=== PATIENT | female | born 1970 | race Hispanic/Latino ===

== ENCOUNTER 2018-01-20 21:10 | Inpatient (IN) | payer BC, SELFPAY ==
[2018-01-20 22:12] LABS: Absolute Lymphocytes (CBC) 1.1 K/uL (0.7-4.9); Absolute Monocytes 0.7 K/uL (0.1-1.3); Absolute Neutrophil 11.1 K/uL (1.8-8.0); Basophils % 0.5 % (0-1.3); Eosinophils % 0.8 % (0-4.4); Hematocrit 43.2 % (36.0-45.0); Lymphocytes % 8.5 % (15.3-44.8); MCH 29.1 pg (27.0-35.0); MCV 85.5 fL (80-100); MPV 8.8 fL (7.6-11.3); Monocytes % 5.3 % (3.3-12.3); RBC Red Blood Cell Count 5.06 M/uL (3.86-4.86)
[2018-01-20 22:21] LABS: Bicarbonate 30 mEq/L (21-31); Glucose Level 269 mg/dL (65-120); Lipase 15 U/L (22-51); Potassium 3.9 mEq/L (3.6-5.0); Sodium Level 134 mEq/L (135-145)
[2018-01-20 22:27] LABS: ALT/SGPT 33 IU/L (10-60); AST/SGOT 21 IU/L (10-42); Albumin 4.3 g/dL (3.2-5.5); Alkaline Phosphatase 67 IU/L (42-121); Amylase Level 42 U/L (28-100); BUN Blood Urea Nitrogen 12 mg/dL (6-20); Bilirubin Direct 0.1 mg/dL (0-0.2); Bilirubin Total 0.7 mg/dL (0.3-1.2); Protein, Total 7.9 g/dL (6.0-8.3)
[2018-01-20] MEDS ORDERED: KETOROLAC 30 MG/ML INJ ONE (23:03)
[2018-01-20] MEDS ORDERED: ONDANSETRON 4 MG/2 ML VIAL ONE (23:03)
[2018-01-20] MEDS ORDERED: NA CHLORIDE 0.9% 1,000 ML ONE (23:03)
--- NOTE | 2018-01-20 23:41 | ER ---
Nurse's Notes [facility] Name: Libia Morin Age: 47 yrs Sex: Female : 1970 Arrival Date: 01/20/2018 Time: 21:15 Bed 19 Private MD: Diagnosis: Acute cholecystitis Presentation: 01/20 21:17 Presenting complaint: Patient states: RUQ pain and vomiting since this am. Transition aa1 of care: patient was not received from another setting of care. Onset of symptoms was January 20, 2018. Initial Sepsis Screen: Does the patient meet any 2 criteria? No. Patient's initial sepsis screen is negative. Care prior to arrival: None. 21:17 Method Of Arrival: Ambulatory aa1 21:17 Acuity: RUDDY 3 aa1 Triage Assessment: 21:19 General: Appears in no apparent distress. comfortable, Behavior is calm, cooperative, aa1 appropriate for age. DIRECTOR PHYSICAL THERAPY: 21:19 LMP N/A - Hysterectomy aa1 Historical: - Allergies: 21:19 No Known Allergies; aa1 - Home Meds: 21:19 metformin 850 mg Oral tab 1 tab 2 times per day [Active]; aa1 lisinopril-hydrochlorothiazide 20-25 mg oral tab 1 tab once daily [Active]; amlodipine 5 mg tab 1 tab twice a day [Active]; - PMHx: 21:19 Diabetes - NIDDM; Hypertension; aa1 - PSHx: 21:19 Tubal ligation; Hysterectomy; aa1 - Immunization history:: Flu vaccine is not up to date. - Social history:: Smoking status: Patient/guardian denies using tobacco. Screenin:16 Abuse screen: Denies threats or abuse. Denies injuries from another. Nutritional aa1 screening: No deficits noted. Tuberculosis screening: No symptoms or risk factors identified. Fall Risk None identified. Assessment: 22:16 General: Appears in no apparent distress. uncomfortable, Behavior is calm, cooperative, aa1 appropriate for age. Pain: Complains of pain in right upper quadrant. Neuro: Level of Consciousness is awake, alert, obeys commands, Oriented to person, place, time, situation, Moves all extremities. Full function Gait is steady. Respiratory: Airway is patent Respiratory effort is even, unlabored, Respiratory pattern is regular, symmetrical. GI: Abdomen is non-distended, Bowel sounds present X 4 quads. Abd is soft X 4 quads Abdomen is tender to palpation in right upper quadrant Reports upper abdominal pain, nausea, vomiting. : No signs and/or symptoms were reported regarding the genitourinary system. EENT: No signs and/or symptoms were reported regarding the EENT system. Derm: Skin is intact, is healthy with good turgor, Skin is pink, warm \T\ dry. Musculoskeletal: Circulation, motion, and sensation intact. Capillary refill < 3 seconds. 23:16 Reassessment: Patient appears in no apparent distress at this time. Patient and/or aa1 family updated on plan of care and expected duration. Pain level reassessed. Patient is alert, oriented x 3, equal unlabored respirations, skin warm/dry/pink. Awaiting u/s results. 01/21 00:30 Reassessment: Patient appears in no apparent distress at this time. Patient and/or aa1 family updated on plan of care and expected duration. Pain level reassessed. Patient is alert, oriented x 3, equal unlabored respirations, skin warm/dry/pink. Awaiting admission orders. 01:27 Reassessment: Patient appears in no apparent distress at this time. Patient and/or aa1 family updated on plan of care and expected duration. Pain level reassessed. Patient is alert, oriented x 3, equal unlabored respirations, skin warm/dry/pink. Report given to Patricia Cruz LVN. Vital Signs: 01/20 21:19 BP 128 / 87; Pulse 90; Resp 18; Temp 97.4; Pulse Ox 98% on R/A; Weight 99.79 kg (R); aa1 Height 5 ft. 3 in. (160.02 cm); Pain 8/10; 23:16 BP 142 / 95; Pulse 75; Resp 16; Pulse Ox 99% on R/A; aa1 01/21 00:30 BP 144 / 88; Pulse 88; Resp 16; Pulse Ox 98% on R/A; aa1 01:24 BP 106 / 72; Pulse 72; Resp 16; Temp 97.6; Pulse Ox 99% on R/A; Pain 2/10; aa1 01/20 21:19 Body Mass Index 38.97 (99.79 kg, 160.02 cm) aa1 ED Course: 01/20 21:15 Patient arrived in ED. es 21:18 Triage completed. aa1 21:19 Arm band placed on left wrist. aa1 21:20 [facility]C [facility] kb 21:20 Gómez Junior MD is Attending Physician. kb 22:00 Urine collected: clean catch specimen. aa1 22:06 Initial lab(s) drawn, by me, sent to lab. Inserted saline lock: 20 gauge in right aj1 antecubital area, using aseptic technique. Blood collected. 22:15 Mariela Greenfield, DESI is Primary Nurse. aa1 22:16 Patient has correct armband on for positive identification. Bed in low position. Call aa1 light in reach. Pulse ox on. NIBP on. 22:49 US Abdomen Limited In Process Unspecified. EDMS 23:40 Gerald Watson MD is Hospitalizing Provider. kb 01/21 01:25 No provider procedures requiring assistance completed. Patient admitted, IV remains in aa1 place. Administered Medications: 01/20 23:10 Drug: NS 0.9% 1000 ml Route: IV; Rate: 1000 ml; Site: right antecubital; aa1 01/21 00:49 Follow up: IV Status: Completed infusion aa1 01/20 23:10 Drug: TORadol 30 mg Route: IVP; Site: right antecubital; aa1 01/21 00:49 Follow up: Response: No adverse reaction; Pain is decreased aa1 01/20 23:12 Drug: Zofran 4 mg Route: IVP; Site: right antecubital; aa1 01/21 00:48 Follow up: Response: No adverse reaction; Nausea is decreased aa1 01/20 23:53 CANCELLED (Duplicate Order): Rocephin - (cefTRIAXone) 1 grams IVPB once over 30 mins; aa1 (mix in 50 mL NS) 01/21 00:40 Drug: Flagyl 500 mg Volume: 100 ml; Route: IVPB; Rate: 200 ml/hr; Infused Over: 30 aa1 mins; Site: right antecubital; 01:10 Follow up: IV Status: Completed infusion aa1 00:57 Drug: Rocephin 1 grams Route: IV; Rate: calculated rate; Site: right antecubital; aa1 01:07 Follow up: IV Status: Completed infusion aa1 Outcome: 01/20 23:40 Decision to Hospitalize by Provider. kb 01/21 01:35 Admitted to Med/surg accompanied by tech, via wheelchair, room 212, with chart, Report aa1 called to Patricia Cruz LVN Condition: stable Instructed on the need for admit, Demonstrated understanding of instructions. 01:49 Patient left the ED. aa1 Signatures: Dispatcher [employer] Lilli Cowan, RESEARCH MICROBIOLOGIST-C OXANA-Ladonna Carreon RN RN aj1 Mariela Greenfield RN RN aa1 Melvi Jiang
--- NOTE | 2018-01-20 23:41 | EDPHYS ---
Physician Documentation [facility] Name: Libia Morin Age: 47 yrs Sex: Female : 1970 Arrival Date: 01/20/2018 Time: 21:15 Bed 19 Private MD: ED Physician Gómez Junior HPI: 01/20 21:58 This 47 yrs old Female presents to ER via Ambulatory with complaints of kb Abdominal Pain, Vomiting. 21:58 The patient presents with abdominal pain in the right upper quadrant. Onset: The kb symptoms/episode began/occurred this morning. The symptoms do not radiate. Associated signs and symptoms: Pertinent positives: nausea and vomiting, Pertinent negatives: anorexia, constipation, diarrhea, fever. The symptoms are described as achy. Modifying factors: The symptoms are alleviated by nothing, the symptoms are aggravated by nothing. Severity of pain: At its worst the pain was moderate in the emergency department the pain is unchanged. The patient has experienced a previous episode. The patient has not recently seen a physician. DIRECTOR OF LEARNING: 21:19 LMP N/A - Hysterectomy aa1 Historical: - Allergies: 21:19 No Known Allergies; aa1 - Home Meds: 21:19 metformin 850 mg Oral tab 1 tab 2 times per day [Active]; aa1 lisinopril-hydrochlorothiazide 20-25 mg oral tab 1 tab once daily [Active]; amlodipine 5 mg tab 1 tab twice a day [Active]; - PMHx: 21:19 Diabetes - NIDDM; Hypertension; aa1 - PSHx: 21:19 Tubal ligation; Hysterectomy; aa1 - Immunization history:: Flu vaccine is not up to date. - Social history:: Smoking status: Patient/guardian denies using tobacco. ROS: 21:57 Constitutional: Negative for fever, chills, and weight loss, Cardiovascular: Negative kb for chest pain, palpitations, and edema, Respiratory: Negative for shortness of breath, cough, wheezing, and pleuritic chest pain, Back: Negative for injury and pain, : Negative for injury, bleeding, discharge, and swelling, MS/Extremity: Negative for injury and deformity, Skin: Negative for injury, rash, and discoloration, Neuro: Negative for headache, weakness, numbness, tingling, and seizure. 21:57 Abdomen/GI: Positive for abdominal pain, nausea and vomiting, Negative for diarrhea, constipation, abdominal cramps, abdominal distension, anorexia. Exam: 21:57 Constitutional: This is a well developed, well nourished patient who is awake, alert, kb and in no acute distress. Head/Face: Normocephalic, atraumatic. Chest/axilla: Normal chest wall appearance and motion. Nontender with no deformity. No lesions are appreciated. Cardiovascular: Regular rate and rhythm with a normal S1 and S2. No gallops, murmurs, or rubs. Normal PMI, no JVD. No pulse deficits. Respiratory: Lungs have equal breath sounds bilaterally, clear to auscultation and percussion. No rales, rhonchi or wheezes noted. No increased work of breathing, no retractions or nasal flaring. Back: No spinal tenderness. No costovertebral tenderness. Full range of motion. Skin: Warm, dry with normal turgor. Normal color with no rashes, no lesions, and no evidence of cellulitis. MS/ Extremity: Pulses equal, no cyanosis. Neurovascular intact. Full, normal range of motion. Neuro: Awake and alert, GCS 15, oriented to person, place, time, and situation. Cranial nerves II-XII grossly intact. Motor strength 5/5 in all extremities. Sensory grossly intact. Cerebellar exam normal. Normal gait. 21:57 Abdomen/GI: Inspection: abdomen appears normal, Bowel sounds: normal, in all quadrants, Palpation: soft, in all quadrants, moderate abdominal tenderness, in the right upper quadrant. Vital Signs: 21:19 BP 128 / 87; Pulse 90; Resp 18; Temp 97.4; Pulse Ox 98% on R/A; Weight 99.79 kg (R); aa1 Height 5 ft. 3 in. (160.02 cm); Pain 8/10; 23:16 BP 142 / 95; Pulse 75; Resp 16; Pulse Ox 99% on R/A; aa1 01/21 00:30 BP 144 / 88; Pulse 88; Resp 16; Pulse Ox 98% on R/A; aa1 01:24 BP 106 / 72; Pulse 72; Resp 16; Temp 97.6; Pulse Ox 99% on R/A; Pain 2/10; aa1 01/20 21:19 Body Mass Index 38.97 (99.79 kg, 160.02 cm) aa1 MDM: 01/20 21:53 Patient medically screened. kb 21:57 Data reviewed: vital signs, nurses notes. Data interpreted: Pulse oximetry: on room air kb is 98 %. Interpretation: normal. 23:36 Counseling: I had a detailed discussion with the patient and/or guardian regarding: the kb historical points, exam findings, and any diagnostic results supporting the discharge/admit diagnosis, lab results, radiology results, the need for further work-up and treatment in the hospital. Physician consultation: Roberto Adamson MD was contacted at 23:39, regarding consult, patient's condition, and will see patient in inpatient room. 23:39 Physician consultation: Gerald Watson MD was contacted at 23:40, regarding admission, kb to the medical/surgical unit. patient's condition, and will see patient in ED, shortly. 01/20 21:57 Order name: Amylase, Serum; Complete Time: 22:30 kb 01/20 21:57 Order name: Basic Metabolic Panel; Complete Time: 22:30 kb 01/20 21:57 Order name: CBC with Diff; Complete Time: 22:22 kb 01/20 21:57 Order name: Hepatic Function; Complete Time: 22:30 kb 01/20 21:57 Order name: Lipase; Complete Time: 22:30 kb 01/20 22:14 Order name: Urine Dipstick--Ancillary (enter results); Complete Time: 00:07 em1 01/20 21:57 Order name: US Abdomen Limited kb 01/20 22:14 Order name: Urine --Ancillary (enter results); Complete Time: 00:07 em1 01/20 21:57 Order name: IV Saline Lock; Complete Time: 22:05 kb 01/20 21:57 Order name: Labs collected and sent; Complete Time: 22:06 kb 01/20 21:57 Order name: Urine Dipstick-Ancillary (obtain specimen); Complete Time: 22:13 kb 01/20 23:43 Order name: CONS Physician Consult EDMS 01/20 23:43 Order name: NPO EDMS Administered Medications: 23:10 Drug: NS 0.9% 1000 ml Route: IV; Rate: 1000 ml; Site: right antecubital; aa01/21 00:49 Follow up: IV Status: Completed infusion aa01/20 23:10 Drug: TORadol 30 mg Route: IVP; Site: right antecubital; aa1 01/21 00:49 Follow up: Response: No adverse reaction; Pain is decreased aa1 01/20 23:12 Drug: Zofran 4 mg Route: IVP; Site: right antecubital; aa1 01/21 00:48 Follow up: Response: No adverse reaction; Nausea is decreased aa1 01/20 23:53 CANCELLED (Duplicate Order): Rocephin - (cefTRIAXone) 1 grams IVPB once over 30 mins; aa1 (mix in 50 mL NS) 01/21 00:40 Drug: Flagyl 500 mg Volume: 100 ml; Route: IVPB; Rate: 200 ml/hr; Infused Over: 30 aa1 mins; Site: right antecubital; 01:10 Follow up: IV Status: Completed infusion aa1 00:57 Drug: Rocephin 1 grams Route: IV; Rate: calculated rate; Site: right antecubital; aa1 01:07 Follow up: IV Status: Completed infusion aa1 Disposition: 01/20/18 23:40 Hospitalization ordered by Gerald Watson for Observation. Preliminary diagnosis is Acute cholecystitis. - Bed requested for Telemetry/MedSurg (observation). - Status is Observation. aa1 - Condition is Stable. - Problem is new. - Symptoms are unchanged. UTI on Admission? No Addendum: 01/22/2018 19:01 Co-signature as Attending Physician, Gómez Junior MD I agree with the assessment and c estrada plan of care. Signatures: Dispatcher [employer] EDMT Lilli Dietz FNP-C FNP-Delma Le RN RN Mariela Greenfield RN RN aa1 Gómez Junior MD MD cha Corrections: (The following items were deleted from the chart) 01/20 23:53 23:40 Rocephin - (cefTRIAXone) 1 grams IVPB once over 30 mins; (mix in 50 mL NS) aa1 ordered. kb
[2018-01-20] MEDS ORDERED: METRONIDAZOLE 500mg IVPB 500 MG/100 ML BAG IV ONE (23:55)
[2018-01-21 00:04] LABS: Urine Blood TRACE (NEG); Urine Glucose 2+ (NEG); Urine Protein 1+ (NEG); Urine Specific Gravity 1.025 (1.005-1.030); Urine pH 6.5 (5.0-7.0)
[2018-01-21] MEDS ORDERED: NA CHLORIDE 0.9% 0 ML IV ONE (00:45)
[2018-01-21] MEDS ORDERED: CEFTRIAXONE 1000 MG/VIAL ONE (00:45)
[2018-01-21] MEDS ORDERED: ACETAMINOPHEN 500 MG TAB PO PRN (01:01)
[2018-01-21] MEDS ORDERED: ONDANSETRON 4 MG/2 ML VIAL IV PRN (01:01)
--- NOTE | 2018-01-21 01:10 | P.HP ---
Certification for Inpatient Patient admitted to: Observation With expected LOS: <2 Midnights Practitioner: I am a practitioner with admitting privileges, knowledge of patient current condition, hospital course, and medical plan of care. Services: Services provided to patient in accordance with Admission requirements found in Title 42 Section 412.3 of the Code of Federal Regulations Patient History Date of Service: 01/21/18 Reason for admission: acute cholecystitis History of Present Illness: Ms Morin is a 47 years old woman with history of DM II, HTN, who start this morning with abdominal pain. Her pain was mostly localized on RUQ. It was constant, colicky like, 8/10 of intensity, associated with nausea and vomiting. She has had this pain before. The patient denied fever or chills. At arrival she was afebrile, WBC elevated 13.1, liver panel WNL, however, abd US was remarkable for cholelithiasis with signs of acute cholecystitis. Allergies No Known Drug Allergies Allergy (Unverified 10/19/14 18:23) Unknown - Past Medical/Surgical History -: DM II -: HTN -: tubal ligation -: hysterctomy - Family History Family History: Reviewed- Non-Contributory - Social History Smoking Status: Never smoker Alcohol use: No CD- Drugs: No Place of Residence: Home Review of Systems 10-point ROS is otherwise unremarkable Physical Examination - Physical Exam General: Alert, In no apparent distress HEENT: Atraumatic, PERRLA, Mucous membr. moist/pink, EOMI, Sclerae nonicteric Neck: Supple, 2+ carotid pulse no bruit, No LAD, Without JVD or thyroid abnormality Respiratory: Clear to auscultation bilaterally, Normal air movement Cardiovascular: Regular rate/rhythm, Normal S1 S2 Gastrointestinal: Normal bowel sounds, Tenderness (RUQ) Musculoskeletal: No tenderness Integumentary: No rashes Neurological: Normal speech, Normal strength at 5/5 x4 extr, Normal tone, Normal affect Lymphatics: No axilla or inguinal lymphadenopathy - Studies Laboratory Data (last 24 hrs) 01/20/18 22:03: WBC 13.1 H, Hgb 14.7, Hct 43.2, Plt Count 285 01/20/18 22:03: Sodium 134 L, Potassium 3.9, BUN 12, Creatinine 0.60, Glucose 269 H, Total Bilirubin 0.7, AST 21, ALT 33, Alkaline Phosphatase 67, Amylase 42 , Lipase 15 L Assessment and Plan - Problems (Diagnosis) (1) Cholecystitis Current Visit: Yes Status: Acute (2) Diabetes mellitus Current Visit: Yes Status: Acute Qualifiers: Diabetes mellitus type: type 2 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 Diabetes mellitus complication status: with unspecified complications Qualified Code(s): E11.8 - Type 2 diabetes mellitus with unspecified complications (3) HTN (hypertension) Current Visit: Yes Status: Acute Qualifiers: Hypertension type: essential hypertension Qualified Code(s): I10 - Essential (primary) hypertension (4) Cholelithiasis Current Visit: Yes Status: Acute Qualifiers: Cholelithiasis location: gallbladder Cholecystitis presence: with cholecystitis Cholecystitis acuity: acute Biliary obstruction: without biliary obstruction Qualified Code(s): K80.00 - Calculus of gallbladder with acute cholecystitis without obstruction - Plan The patient will be admitted to the hospital due to acute cholecystitis. Will start empiric antibiotic treatment, keep her NPO, order MRCP, consult Dr Adamson. - Advance Directives Does patient have a Living Will: No Does patient have a Durable POA for Healthcare: No - Code Status/Comfort Care Code Status Assessed: Yes Code Status: Full Code
[2018-01-21] MEDS ORDERED: KETOROLAC 30 MG/ML INJ IV PRN (01:32)
[2018-01-21] MEDS: NA CHLORIDE 0.9% 1,000 ML IV SCH ×3 (02:00→22:16)
[2018-01-21 02:02] VITALS: BMI 38.5
[2018-01-21] MEDS ORDERED: PIPERACIL/TAZO 3.375 GM VIAL IV ONE (03:29)
[2018-01-21] MEDS ORDERED: NA CHLORIDE 0.9% 100 ML ONE (03:36)
[2018-01-21] MEDS ORDERED: PIPER/TAZO/NS 3.375gm 3.375 GM/100 ML BAG IVPB SCH (06:00)
[2018-01-21] MEDS: INSULIN -REGULAR HUMAN 50 UNIT/0.5 ML ML SQ SCH ×4 (06:00→21:10)
--- NOTE | 2018-01-21 08:27 | RAD REPORT ---
EXAM DESCRIPTION: US - Abdomen Exam Limited - 01/20/2018 10:49 pm CLINICAL HISTORY: Abdominal pain. COMPARISON: 03/28/2012 FINDINGS: The gallbladder demonstrates multiple shadowing gallstones. No pericholecystic fluid or ga llbladder wall thickening. The common bile duct is normal measuring 3 mm. The liver demonstrates no findings of intrahepatic biliary dilatation. IMPRESSION: Cholelithiasis.
[2018-01-21] MEDS: PIPER/TAZO/NS 3.375gm 3.375 GM/100 ML BAG IVPB SCH ×2 (09:28→16:57)
--- NOTE | 2018-01-21 09:35 | RAD REPORT ---
EXAM DESCRIPTION: MRIAbdomen (Gallbladder) CLINICAL HISTORY: Abdominal pain COMPARISON: Ultrasound study 01/20/2018 FINDINGS: Gallstones are present in the gallbladder which is mildly distended. A large gallstone angelo suring 4 cm is seen within the mid gallbladder and several smaller gallstones present in the fundal r egion. A few gallstones are also noted in the cystic duct. There is no evidence of intrahepatic or extrahepatic biliary tree dilatation. Very little to no peric holecystic fluid is present on the limited T2 weighted sequences. The gallbladder wall does not appea r particularly thickened. IMPRESSION: Cholelithiasis is noted with several small gallstones present in the cystic duct. There is no evidence of intra or extrahepatic biliary tree dilatation. The gallbladder is mildly dilated, however, very little or no pericholecystic fluid thickening is see n except for subtle areas of thickening adjacent to the large 4 cm stone in the mid gallbladder. If clinical concern for acute cholecystitis remains, HIDA scan may be useful.
[2018-01-21] MEDS ORDERED: NA CHLORIDE 0.9% 1,000 ML ONE ×2 (11:17→12:22)
[2018-01-21] MEDS ORDERED: PROPOFOL 200 MG/20 ML VIAL IV ONE (11:32)
[2018-01-21] MEDS ORDERED: LIDOCAINE 1% MPF 5 ML VIAL ONE (11:32)
[2018-01-21] MEDS ORDERED: ROCURONIUM 50 MG/5 ML VIAL IV ONE (11:32)
[2018-01-21] MEDS ORDERED: MIDAZOLAM HCL 2 MG/2 ML INJ ONE (11:32)
[2018-01-21] MEDS ORDERED: FENTANYL CITR 100 MCG/2 ML ONE ×3 (11:32→12:20)
[2018-01-21] MEDS ORDERED: GLYCOPYRROLATE 0.2 MG/ML SYR ONE ×2 (12:04)
[2018-01-21] MEDS ORDERED: NEOSTIGMINE 1 MG/ML -5 ML SYRINGE ONE (12:04)
[2018-01-21] MEDS ORDERED: KETOROLAC 30 MG/ML INJ ONE (12:04)
[2018-01-21] MEDS ORDERED: ONDANSETRON 4 MG/2 ML VIAL ONE (12:04)
--- NOTE | 2018-01-21 14:02 | P.BOP ---
Preoperative diagnosis: acute cholecystitis, symptomatic cholelithiasis, morbid obesity Postoperative diagnosis: same Primary procedure: Laparoscopic cholecystectomy Clerk Specialist: AMY PAREDES Estimated blood loss: <10cc Specimen: gb Findings: same Anesthesia: General Complications: None Drain(s): Other Transferred to: Recovery Room Condition: Good
[2018-01-21] MEDS ORDERED: GLUCAGON 1 MG/VIAL IM PRN (15:35)
[2018-01-21] MEDS ORDERED: D50W 25 GM/50 ML SYRINGE IV PRN (15:35)
--- NOTE | 2018-01-21 19:13 | PN ---
Date of Progress Note: 01/21/2018 Subjective: The patient seen and examined, chart reviewed, and case discussed with RN and Dr. Petr alvarenga. The patient reports pain in her abdomen. The patient will be scheduled for surgery this afterno on. Review of Systems: Negative except as above. Medications: Reviewed. Physical Examination: Vital Signs: Temperature 98, heart rate 84, blood pressure 119/73, respirations 16, and O2 96% on ro om air. General: Awake, alert, oriented x3, does have mild distress. Obese female. BMI 38. CV: S1, S2. No murmurs. Regular rate and rhythm. Peripheral pulses present. Respiratory: moving air well bilaterally. No wheezing. No stridor. Gastrointestinal: Abdomen is soft and mild tenderness to palpation of the right upper quadrant. No rebound or guarding. Nondistended. Positive bowel sounds. Extremities: No clubbing, cyanosis, edema. Neurologic: Nonfocal. Laboratory Data: Magnesium 1.7. MRCP shows cholelithiasis with several small gallstones present in the cystic duct. No evidence of intra or extrahepatic biliary tree dilatation. No pericholecystic f luid or thickening is seen except for subtle areas of thickening adjacent to the large 4 cm stone in the mid gallbladder. Abdominal ultrasound, gallbladder wall, upper limit of normal thickness measuri ng 3 cm. Equivocal trace pericholecystic fluid, cholelithiasis. Assessment And Plan: A 47-year-old female with; 1.Right upper quadrant abdominal pain secondary to cholelithiasis. 2.Acute cholecystitis. We will continue IV antibiotics. Surgery has been consulted. The patient w ill likely need cholecystectomy. 3.Diabetes mellitus type 2 without long-term use of insulin with hyperglycemia. Continue sliding sc miriam insulin. 4.Obesity, body mass index 38. 5.Essential hypertension, stable. Resume home medications as appropriate. 6.Cholelithiasis with cholecystitis without biliary obstruction. MRCP is negative, anticipate surge ry. SA/MODL Voice ID: [id number] Report ID: [id number]
[2018-01-21] MEDS: HYDROCODONE/APAP 7.5/325 MG TAB PO PRN (19:28)
--- NOTE | 2018-01-21 23:13 | HP ---
Date of Admission: 01/20/2018 Diagnoses: Acute cholecystitis, symptomatic cholelithiasis. History Of Present Illness: This is the case of a 47-year-old patient, who complained from yesterday of abdominal pain, epigastric, right upper quadrant radiating to the back associated with nausea and vomiting. The patient came to the ER, admitted with acute cholecystitis, symptomatic cholelithiasis and a surgical consult was obtained for cholecystectomy. The patient denies any dysuria, hematuria, hematochezia, or melena. Denies any recent travel out of the country. Denies any family member sic k at home. Past Medical History: Diabetes, hypertension. Past Surgical History: Include tubal ligation, hysterectomy. Family History: Noncontributory. Social History: She does not smoke. She does not drink alcohol. Allergies: NONE. Review of Systems: Constitutional: Denies any fevers. Respiratory: Denies any shortness of breath. Gastrointestinal: As above. Genitourinary: Denies any dysuria, hematuria. Physical Examination: General: The patient is awake and alert, complaining of right upper quadrant pain. HEENT: Pupils are equal and reactive, anicteric. Neck: Supple. Chest: Clear. Abdomen: Right upper quadrant tenderness with Guzman sign positive with guarding and rebound. The r est of the abdomen soft and depressible. Pelvic: Deferred. Rectal: Deferred. Breasts: Deferred. Extremities: Good capillary refill. Laboratory Data: Blood work shows WBC count of 13.1 with a potassium of 3.9. LFTs within normal [place] its. UA and urine negative. Abdominal ultrasound with Dr. Mcclendon shows cholelithiasis. An MRI/MRCP shows cholelithiasis. There is no evidence of intrahepatic common bile duct. Assessment: This is a 47-year-old patient with acute cholecystitis, symptomatic cholelithiasis. The patient was explained benefits, alternatives, and risks of laparoscopic, possible open cholecystecto my which include but are not limited to infection, bleeding, damage to adjacent structures, anesthesi a complication, choledocholithiasis, bile leak, pancreatitis, [place], and even . She also understan ds this may not relieve any symptoms. She might need more than one surgical intervention. She under stands the option that she has. She wants to have the surgery done during this admission, so she was scheduled secondary to that. HM/MODL Voice ID: [id number]
[2018-01-22 00:48] VITALS: O2SAT 95
--- NOTE | 2018-01-22 01:05 | OP ---
Date of Procedure: 01/21/2018 Surgeon: Roberto Adamson MD Traffic Superintendent: Marci Baez. Preoperative Diagnoses: 1.Acute cholecystitis. 2.Symptomatic cholelithiasis. 3.Morbid obesity. Postoperative Diagnoses: 1.Acute cholecystitis. 2.Symptomatic cholelithiasis. 3.Morbid obesity. Procedure Performed: Laparoscopic cholecystectomy. Estimated Blood Loss: 10 to 20 cc. Specimen: Gallbladder. Findings: Acute cholecystitis, distended gallbladder, and large gallstone. Anesthesia: General plus local. Indications: This is a case of a 47-year-old patient who came to us with acute cholecystitis, sympto matic cholelithiasis, and morbid obesity. The benefits, alternatives, and risks of laparoscopic, pos sible open cholecystectomy were fully explained to the patient, which include but are not limited to infection, bleeding, damage to adjacent structures, anesthesia complications, choledocholithiasis, bi le leak, pancreatitis, MO, and even . She also understands this may not relieve any symptoms. She might need more than one surgical intervention. She understood and wanted to have the surgery do ne during this admission. So, she was booked in the OR. Description Of Procedure: The patient was brought to the operating room, placed in supine position. Anesthesia was done without complication. Abdominal area was prepped and draped in usual sterile fa shion. Marcaine 0.5% was injected for local anesthetic, followed by sharp incision of the skin in th e infraumbilical region. The patient has a prior incision in that area. Incision was carried down t o fascia which was opened under direct vision. Peritoneum was encountered and opened under direct vi abiodun. Vicryl #1 was placed inside the fascia. Abigail trocar was carefully introduced. Pneumoperito neum was obtained. After that, I placed 3 more trocars, 5 mm each one of them, in the right upper qu adrant under direct visualization. We had a distended gallbladder and edematous. So, we used an End o needle under direct visualization and deflated the gallbladder partially. The needle was removed u nder direct visualization. A grasper was placed in the fundus of the gallbladder, another grasper in the infundibulum, retracted the gallbladder in the inferolateral fashion exposing the triangle of Ca lot and obtaining critical view. The cystic duct and cystic artery were clearly isolated free circum ferentially, and the connections between those and the gallbladder were clearly identified. The cyst ic duct was identified. Dilated common bile duct was identified and protected. The hepatic duct and hepatic artery were identified and protected. At the cystic duct, it then looked like the clips dewey ht be just not enough to cover the entire width of that cystic duct. So, we changed the epigastric 5 -mm trocar to a 12-mm trocar, and this allowed me to put an Endo HEMANTH 45 mm, 2.5, and transect the cys tic duct. At that moment, the gallbladder was removed after ligating the cystic artery with at least 3 clips proximally and 1 clip distally and ligation in the middle. Gallbladder was removed from the liver using Bovie cauterizer and removed from abdominal cavity using EndoCatch through the umbilical incision. The area was inspected once again, including checking the gallbladder and also the area o f the HEMANTH clips and also the Endo clips and showed no bile leak and no bleeding. At that moment, I p roceeded to remove the trocars under direct vision, deflated the pneumoperitoneum, closed the fascia with #1 Vicryl, irrigated subcutaneous tissue and closed with 3-0 chromic and the skin with nicole. Sponge counts and instrument counts were correct. The patient tolerated the procedure well. The pa jarvis was sent to Recovery in stable condition. The umbilical incision had to be extended a little b it more than usual due to the size of the gallstone and gallbladder to be able to come through it. T he patient will continue antibiotics and pain control and then eventually discharge home most likely tomorrow morning if she is clinically stable. CHRISTIAN/PILO Voice ID: [id number] Report ID: [id number]
[2018-01-22] MEDS: PIPER/TAZO/NS 3.375gm 3.375 GM/100 ML BAG IVPB SCH ×2 (01:08→09:29)
[2018-01-22 05:12] LABS: Absolute Lymphocytes (CBC) 2.2 K/uL (0.7-4.9); Absolute Monocytes 0.8 K/uL (0.1-1.3); Absolute Neutrophil 7.7 K/uL (1.8-8.0); Basophils % 0.4 % (0-1.3); Eosinophils % 0.7 % (0-4.4); Hematocrit 36.3 % (36.0-45.0); MCH 28.8 pg (27.0-35.0); MCV 87.4 fL (80-100); MPV 8.6 fL (7.6-11.3); Monocytes % 7.5 % (3.3-12.3); RBC Red Blood Cell Count 4.16 M/uL (3.86-4.86)
[2018-01-22 05:15] VITALS: TEMP 99
[2018-01-22 06:02] LABS: ALT/SGPT 59 IU/L (10-60); AST/SGOT 45 IU/L (10-42); Albumin 2.9 g/dL (3.2-5.5); Alkaline Phosphatase 45 IU/L (42-121); BUN Blood Urea Nitrogen 11 mg/dL (6-20); Bicarbonate 27 mEq/L (21-31); Bilirubin Total 0.8 mg/dL (0.3-1.2); Glucose Level 156 mg/dL (65-120); Potassium 3.9 mEq/L (3.6-5.0); Protein, Total 5.2 g/dL (6.0-8.3); Sodium Level 137 mEq/L (135-145)
[2018-01-22] MEDS: HYDROCODONE/APAP 7.5/325 MG TAB PO PRN (07:22)
[2018-01-22] MEDS: INSULIN -REGULAR HUMAN 50 UNIT/0.5 ML ML SQ SCH (07:30)
[2018-01-22 08:47] VITALS: BP 123/77
[2018-01-22] MEDS ORDERED: POTASSIUM CL SA 10 MEQ TAB PO ONE (09:00)
--- NOTE | 2018-01-23 11:00 | DS ---
Date of Discharge: 01/22/2018 Consultants: Roberto Adamson MD Procedures: On 01/21/2018, laparoscopic cholecystectomy. Admitting Diagnoses: 1. Acute cholecystitis. 2. Diabetes mellitus type 2 without long-term use of insulin with hyperglycemia. 3. Essential hypertension. 4. Cholelithiasis with cholecystitis without biliary obstruction. Discharge Diagnoses: 1. Acute cholecystitis, status post laparoscopic cholecystectomy. 2. Cholelithiasis with cholecystitis without biliary obstruction. Magnetic resonance cholangiopancreatography negative. 3. Essential hypertension, stable. 4. Obesity, body mass index 38. 5. Diabetes mellitus type 2 without long-term use of insulin with hyperglycemia. Hospital Course: The patient is a 47-year-old female who was admitted to the hospital with right upper quadrant abdominal pain. She was found to have acute cholecystitis, with elevated white count of 13,000. She did not have any biliary obstruction. Her magnesium level was low which was replaced. The patient was started on IV antibiotics. Her white count normalized. Her imaging study showed a large gallstone, no biliary ductal dilatation, possible acute cholecystitis. MRCP was done which did not show any ductal stone. Dr. Adamson with General Surgery evaluated the patient and performed a cholecystectomy laparoscopically as mentioned above. The patient tolerated the procedure well. She was able to tolerate her diet, was able to have bowel movement. No fevers, able to ambulate. The patient was then cleared for discharge once her pain was improved. The patient was cleared for discharge from surgical standpoint and was sent home in a stable condition. Activity: No lifting over 20 pounds. Diet, bland. No driving or operating heavy machinery while on narcotics. Supplement with fat soluble vitamins. Follow up with primary care physician in 2 to 3 days. Follow up with surgeon, Dr. Adamson in 1 week for wound check. Return to ER for worsening condition. Medications: As per medication reconciliation list. Total time spent discharging the patient was 35 minutes. Physical Examination: General: Awake, alert, and oriented, no acute distress. Obese female. CV: S1 and S2. No murmurs. Respiratory: Moving air well bilaterally. Abdomen: Soft. Mild tenderness to palpation around the incision site. Positive bowel sounds. No distention. Extremities: No clubbing, cyanosis, or edema. Neurologic: Nonfocal. Skin: Incision site clean, dry, and intact on the abdomen. SA/MODL Voice ID: [id number] Report ID: [id number] MTDBart
== END 2018-01-22 11:32 | disposition home or self-care (01) | DRG 419 ==
LOC: ER 21:10 → ERHOLD 23:41 → 2ND 01-21 01:28 → OBSVTOIN 01-22 07:07
PROVIDERS: ADMIT Internal Medicine; ATTEND Family Medicine
PROC: 0FT44ZZ Resection of Gallbladder, Percutaneous Endoscopic Approach (ICD-10-PCS; principal; 2018-01-21 09:45)
DX: K80.00 Calculus of gallbladder with acute cholecystitis without obstruction (principal); E11.9 Type 2 diabetes mellitus without complications; I10 Essential (primary) hypertension; E66.01 Morbid (severe) obesity due to excess calories
CPT/HCPCS: 36415; 74181; 76705; 80048; 80053; 80076; 81003; 81025; 82150; 82962; 83690; 83735; 85025; 88304; 88305; 96361; 96365; 96375; 99285; G0378; J2250; J2405; J2543; J2710; J3010; J7030

== ENCOUNTER 2018-06-08 02:21 | Emergency (ER) | payer BC, SELFPAY ==
--- NOTE | 2018-06-08 03:57 | EDPHYS ---
Physician Documentation [facility] Name: Libia Morin Age: 47 yrs Sex: Female : 1970 Arrival Date: 06/08/2018 Time: 02:22 Bed 6 Private MD: ED Physician Polo Roman HPI: 06/08 03:45 This 47 yrs old Female presents to ER via Ambulatory with complaints of High tw4 Blood Pressure, [place]. 03:45 The patient has elevated blood pressure and discovered this at home, with a home tw4 device. Onset: The symptoms/episode began/occurred today. Modifying factors: The symptoms are aggravated by activity, The symptoms are alleviated by. Associated signs and symptoms: The patient has no apparent associated signs or symptoms. The patient has not experienced similar symptoms in the past. 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 - Social history:: Smoking status: Patient/guardian denies using tobacco, Patient uses alcohol, occasionally. Patient/guardian denies using street drugs. - Ebola Screening: : No symptoms or risks identified at this time. ROS: 03:45 Constitutional: Negative for fever, chills, and weight loss, Eyes: Negative for injury, tw4 pain, redness, and discharge, Cardiovascular: Negative for chest pain, palpitations, and edema, Respiratory: Negative for shortness of breath, cough, wheezing, and pleuritic chest pain, Abdomen/GI: Negative for abdominal pain, nausea, vomiting, diarrhea, and constipation, MS/Extremity: Negative for injury and deformity, Skin: Negative for injury, rash, and discoloration, Neuro: Negative for headache, weakness, numbness, tingling, and seizure. Exam: 03:45 Constitutional: This is a well developed, well nourished patient who is awake, alert, tw4 and in no acute distress. Head/Face: Normocephalic, atraumatic. Chest/axilla: Normal chest wall appearance and motion. Nontender with no deformity. No lesions are appreciated. Cardiovascular: Regular rate and rhythm with a normal S1 and S2. No gallops, murmurs, or rubs. Normal PMI, no JVD. No pulse deficits. Respiratory: Lungs have equal breath sounds bilaterally, clear to auscultation and percussion. No rales, rhonchi or wheezes noted. No increased work of breathing, no retractions or nasal flaring. Abdomen/GI: Soft, non-tender, with normal bowel sounds. No distension or tympany. No guarding or rebound. No evidence of tenderness throughout. Back: No spinal tenderness. No costovertebral tenderness. Full range of motion. MS/ Extremity: Pulses equal, no cyanosis. Neurovascular intact. Full, normal range of motion. Neuro: Awake and alert, GCS 15, oriented to person, place, time, and situation. Cranial nerves II-XII grossly intact. Motor strength 5/5 in all extremities. Sensory grossly intact. Cerebellar exam normal. Normal gait. Vital Signs: 02:37 BP 126 / 82; Pulse 93; Resp 16 S; Temp 98.4(TE); Pulse Ox 98% on R/A; Weight 99.79 kg bb (R); Height 5 ft. 3 in. (160.02 cm) (R); Pain 0/10; 03:30 BP 135 / 95; Pulse 87; Resp 16 S; Pulse Ox 98% on R/A; cc3 04:00 BP 119 / 77; Pulse 72; Resp 15 S; Pulse Ox 98% on R/A; Pain 0/10; cc3 02:37 Body Mass Index 38.97 (99.79 kg, 160.02 cm) bb MDM: 02:29 Patient medically screened. tw4 03:45 Differential diagnosis: hypertensive crisis, Malignant HTN. Data reviewed: vital signs, tw4 nurses notes. Counseling: I had a detailed discussion with the patient and/or guardian regarding: the historical points, exam findings, and any diagnostic results supporting the discharge/admit diagnosis, lab results. Special discussion: I discussed with the patient/guardian in detail that at this point there is no indication for admission to the hospital. It is understood, however, that if the symptoms persist or worsen the patient needs to return immediately for re-evaluation. 06/08 03:48 Order name: Glucose, Ancillary Testing EDMS Administered Medications: No medications were administered Point of Care Testing: Blood Glucose: 03:40 Blood Glucose: 204 mg/dL; jd3 Ranges: Critical Glucose Levels:Adult <50 mg/dl or >400 mg/dl <40 mg/dl or >180 mg/dl Disposition: 06/08/18 03:57 Discharged to Home. Impression: HYPERTENSION. - Condition is Stable. - Discharge Instructions: Hypertension, Hypertension, [id number]. - Medication Reconciliation Form, Thank You Letter, Antibiotic Education, Prescription Opioid Use form. - Follow up: Private Physician; When: Upon discharge from the Emergency Department; Reason: Further diagnostic work-up, Recheck today's complaints, Re-evaluation by your physician. - Problem is new. - Symptoms have improved. Signatures: Dispatcher [employer] EDMS Chelle Archibald RN RN Polo Terry MD MD tw4 Claudia Devine cc3 Corrections: (The following items were deleted from the chart) 04:10 03:57 06/08/2018 03:57 Discharged to Home. Impression: HYPERTENSION. Condition is cc3 Stable. Forms are Medication Reconciliation Form, Thank You Letter, Antibiotic Education, Prescription Opioid Use. Follow up: Private Physician; When: Upon discharge from the Emergency Department; Reason: Further diagnostic work-up, Recheck today's complaints, Re-evaluation by your physician. Problem is new. Symptoms have improved. tw4
--- NOTE | 2018-06-08 03:57 | ER ---
Nurse's Notes [facility] Name: Libia Morin Age: 47 yrs Sex: Female : 1970 Arrival Date: 06/08/2018 Time: 02:22 Bed 6 Private MD: Diagnosis: HYPERTENSION Presentation: 06/08 02:35 Presenting complaint: Patient states: she has not been feeling well all day her blood bb pressure has been high and she woke up with dry mouth. Transition of care: patient was not received from another setting of care. Onset of symptoms was May 07, 2018. Risk Assessment: Do you want to hurt yourself or someone else? Patient reports no desire to harm self or others. Initial Sepsis Screen: Does the patient meet any 2 criteria? No. Patient's initial sepsis screen is negative. Does the patient have a suspected source of infection? No. Patient's initial sepsis screen is negative. Care prior to arrival: None. 02:35 Method Of Arrival: Ambulatory bb 02:35 Acuity: RUDDY 3 bb Triage Assessment: 02:45 General: Appears in no apparent distress. comfortable, Behavior is calm, cooperative, cc3 appropriate for age. Pain: Denies pain. EENT: Reports dry mouth. Neuro: Level of Consciousness is awake, alert, obeys commands, Oriented to person, place, time, situation, Appropriate for age. Cardiovascular: Denies chest pain. Respiratory: Airway is patent Respiratory effort is even, unlabored, Respiratory pattern is regular, symmetrical. GI: Abdomen is round non-distended. : No signs and/or symptoms were reported regarding the genitourinary system. Derm: No signs and/or symptoms reported regarding the dermatologic system. Musculoskeletal: No signs and/or symptoms reported regarding the musculoskeletal system. 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 - Social history:: Smoking status: Patient/guardian denies using tobacco, Patient uses alcohol, occasionally. Patient/guardian denies using street drugs. - Ebola Screening: : No symptoms or risks identified at this time. Screenin:45 Abuse screen: Denies threats or abuse. Denies injuries from another. Nutritional cc3 screening: No deficits noted. Tuberculosis screening: No symptoms or risk factors identified. Fall Risk None identified. Ambulatory Aid- None/Bed Rest/Nurse Assist (0 pts). Gait- Normal/Bed Rest/Wheelchair (0 pts) Mental Status- Oriented to own ability (0 pts). Assessment: 02:45 General: Appears in no apparent distress. comfortable, Behavior is calm, cooperative, cc3 appropriate for age. Pain: Denies pain. Neuro: Level of Consciousness is awake, alert, obeys commands, Oriented to person, place, time, situation, Appropriate for age. Cardiovascular: Denies chest pain. Respiratory: Airway is patent Respiratory effort is even, unlabored, Respiratory pattern is regular, symmetrical. GI: Abdomen is round non-distended. : No signs and/or symptoms were reported regarding the genitourinary system. EENT: Reports dry mouth. Derm: No signs and/or symptoms reported regarding the dermatologic system. Musculoskeletal: No signs and/or symptoms reported regarding the musculoskeletal system. 03:30 Reassessment: Patient appears in no apparent distress at this time. Patient and/or cc3 family updated on plan of care and expected duration. Pain level reassessed. Patient is alert, oriented x 3, equal unlabored respirations, skin warm/dry/pink. Dr. Roman assessed the patient, awaiting plan. 04:00 Reassessment: Dr. Roman discharged the patient home, no prescription was given. cc3 Patient went out of ER vitally stable and ambulatory with her daughter. Vital Signs: 02:37 BP 126 / 82; Pulse 93; Resp 16 S; Temp 98.4(TE); Pulse Ox 98% on R/A; Weight 99.79 kg bb (R); Height 5 ft. 3 in. (160.02 cm) (R); Pain 0/10; 03:30 BP 135 / 95; Pulse 87; Resp 16 S; Pulse Ox 98% on R/A; cc3 04:00 BP 119 / 77; Pulse 72; Resp 15 S; Pulse Ox 98% on R/A; Pain 0/10; cc3 02:37 Body Mass Index 38.97 (99.79 kg, 160.02 cm) ED Course: 02:22 Patient arrived in ED. ds1 02:29 Polo Roman MD is Attending Physician. tw4 02:36 Triage completed. bb 02:37 Arm band placed on Patient placed in an exam room, on a stretcher, on pulse oximetry. bb Family accompanied patient. 02:45 Patient has correct armband on for positive identification. Bed in low position. Call cc3 light in reach. Side rails up X 1. 02:46 Andrew Gudino, DESI is Primary Nurse. raul 02:47 Claudia Devine is Primary Nurse. cc3 04:00 No provider procedures requiring assistance completed. Patient did not have IV access cc3 during this emergency room visit. Administered Medications: No medications were administered Point of Care Testing: Blood Glucose: 03:40 Blood Glucose: 204 mg/dL; jd3 Ranges: Outcome: 03:57 Discharge ordered by . tw4 04:00 Discharged to home ambulatory, with family. cc3 04:00 Condition: stable 04:00 Discharge instructions given to patient, family, Instructed on discharge instructions, follow up and referral plans. Demonstrated understanding of instructions, follow-up care. 04:10 Patient left the ED. cc3 Signatures: Larisa Graves ds1 Chelle Archibald RN RN bb Andrew Gudino, Polo Hdz RN, MD MD twClaudia Benitez cc3
[2018-06-08 04:26] VITALS: O2SAT 98
[2018-06-08 04:28] VITALS: TEMP 98.4
[2018-06-08 04:30] VITALS: BP 119/77
== END 2018-06-08 04:10 | disposition home or self-care (01) ==
LOC: ER 02:21
DX: I10 Essential (primary) hypertension (principal); R68.2 Dry mouth, unspecified; E11.9 Type 2 diabetes mellitus without complications; Z79.84 Long term (current) use of oral hypoglycemic drugs
CPT/HCPCS: 82962; 99283

== ENCOUNTER 2021-12-02 02:18 | Inpatient (IN) | payer SELFPAY ==
--- OUTSIDE RECORDS SUMMARY | 2021-12-02 02:20 | XMS REPORT | Continuity of Care Document ---
:1970 Author Organization [facility] t Address [address] [place] [place] [address] Care Team Providers Name Role Phone Jose WEEKS, L Attending Clinician Unavailable Zohreh Rodriguez Attending Clinician ZOHREH YOUNGBLOOD Attending Clinician Unavailable Problems This patient has no known problems. Allergies, Adverse Reactions, Alerts Allergy Allergy Status Severity Reaction(s) Onset Inactive Treating Comm ents Source Name Type Date Date Clinician NO KNOWN Drug Active [facility] Medications This patient has no known medications. Procedures This patient has no known procedures. Encounters Start End Encounter Admission Attending Care Care Encounter Source Date/Time Date/Time Type Type Clinicians Facility Department ID 2020-05-04 2020-05-04 Letter Jose CANNON [id number] 00:00:00 00:00:00 (Out) , Chanell Daniela KHALIL [id number] 2020-05-04 2020-05-04 Telephone Jose CANNON [id number] 00:00:00 00:00:00 , Chanell Daniela KHALIL [id number] 2020-05-03 2020-05-03 Emergency Arabella Youngblood [facility] [id number] 12:39:41 15:13:00 Zohreh Batista [id number] [place] [id number] [place] [id number] 2020-05-03 2020-05-03 Emergency X Arabella YOUNGBLOOD [facility] ERT [id number] [employer] 12:39:41 12:39:41 [facility] Results This patient has no known results.
[2021-12-02] MEDS ORDERED: ONDANSETRON 4 MG/2 ML VIAL ONE (02:42)
[2021-12-02] MEDS ORDERED: NA CHLORIDE 0.9% 1,000 ML ONE (02:42)
[2021-12-02] MEDS ORDERED: MORPHINE 4 MG/ML SYR ONE (02:42)
[2021-12-02 02:54] LABS: Absolute Lymphocytes (CBC) 1.6 K/uL (0.7-4.9); Hematocrit 43.2 % (36.0-45.0); Lymphocytes % 15.2 % (15.3-44.8); MPV 8.9 fL (7.6-11.3); RBC Red Blood Cell Count 5.08 M/uL (3.86-4.86)
[2021-12-02] MEDS ORDERED: FAMOTIDINE 20 MG/2 ML VIAL IV ONE (03:02)
[2021-12-02 03:21] LABS: Urine Blood Negative (Negative); Urine Glucose 3+ (Negative); Urine Protein Negative (Negative); Urine Specific Gravity 1.015 (1.005-1.030)
[2021-12-02 03:24] LABS: Albumin 3.8 g/dL (3.4-5.0); Bilirubin Direct 1.1 mg/dL (0-0.2); Bilirubin Total 1.5 mg/dL (0.2-1.0); Potassium 3.7 mmol/L (3.5-5.1); Protein, Total 7.2 g/dL (6.4-8.2)
--- NOTE | 2021-12-02 04:56 | ER ---
Nurse's Notes [facility] Name: Libia Morin Age: 51 yrs Sex: Female : 1970 Arrival Date: 12/02/2021 Time: 02:21 Bed 5 Private MD: Diagnosis: Acute pancreatitis;Elevated Liver Enzymes Presentation: 12/02 02:37 Chief complaint: Patient states: Pt c/co abdominal pain, states started at 7 PM after ll3 eating chicken soup. Coronavirus screen: Vaccine status: Patient reports receiving the 2nd dose of the covid vaccine. At this time, the client does not indicate any symptoms associated with coronavirus-19. Ebola Screen: No symptoms or risks identified at this time. Initial Sepsis Screen: Does the patient meet any 2 criteria? No. Patient's initial sepsis screen is negative. Does the patient have a suspected source of infection? No. Patient's initial sepsis screen is negative. Risk Assessment: Do you want to hurt yourself or someone else? Patient reports no desire to harm self or others. Onset of symptoms was December 01, 2021 at 19:00. 02:37 Method Of Arrival: Ambulatory ll3 02:37 Acuity: RUDDY 3 ll3 Triage Assessment: 02:41 General: Appears uncomfortable, Behavior is calm, cooperative. Pain: Complains of pain ll3 in epigastric area Pain currently is 9 out of 10 on a pain scale. Pain began 1 day ago. Is continuous. Neuro: Level of Consciousness is awake, alert, obeys commands, Oriented to person, place, time, situation. Cardiovascular: Patient's skin is warm and dry. Respiratory: Respiratory effort is even, unlabored, Respiratory pattern is regular, symmetrical. GI: Abdomen is round non-distended, Abd is soft X 4 quads Abd is non tender in right lower quadrant and left lower quadrant Abdomen is tender to palpation in epigastric area Guarding noted in epigastric area. Derm: Skin is pink, warm \\T\\ dry. 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 - Social history:: Smoking status: Patient denies any tobacco usage or history of. Screenin:49 Abuse screen: Denies threats or abuse. Nutritional screening: No deficits noted. st1 Tuberculosis screening: No symptoms or risk factors identified. Fall Risk None identified. No fall in past 12 months (0 pts). No secondary diagnosis (0 pts). IV access (20 points). Ambulatory Aid- None/Bed Rest/Nurse Assist (0 pts). Gait- Normal/Bed Rest/Wheelchair (0 pts) Mental Status- Oriented to own ability (0 pts). Total Leggett Fall Scale indicates No Risk (0-24 pts). Assessment: 02:49 GI: Bowel sounds present X [address] st1 03:19 General: Appears in no apparent distress. comfortable, Behavior is calm, cooperative, al4 appropriate for age. Pain: Complains of pain in abdomen. Neuro: Level of Consciousness is awake, alert, obeys commands, Oriented to person, place, time, situation. Cardiovascular: Capillary refill < 3 seconds Patient's skin is warm and dry. Respiratory: Airway is patent Respiratory effort is even, unlabored, Respiratory pattern is regular, symmetrical. GI: Bowel sounds present X 4 quads. : No signs and/or symptoms were reported regarding the genitourinary system. EENT: No signs and/or symptoms were reported regarding the EENT system. Derm: No signs and/or symptoms reported regarding the dermatologic system. Musculoskeletal: Range of motion: intact in all extremities. 03:20 Reassessment: patient ambulated to restroom without problem. al4 03:35 Reassessment: lab called with critical AST and ALT levels. Dr. Mendieta aware. al4 03:37 Reassessment: Patient appears in no apparent distress at this time. Patient states st1 feeling better. Patient states symptoms have improved. Vital Signs: 02:37 BP 137 / 78; Pulse 93; Resp 18; Temp 97.7(TE); Pulse Ox 100% on R/A; Weight 99.79 kg ll3 (R); Height 5 ft. 3 in. (160.02 cm) (R); Pain 9/10; 03:15 BP 110 / 80; Pulse 92; Resp 18 S; Pulse Ox 100% on R/A; al4 04:04 BP 105 / 72; Pulse 86; Resp 16; Pulse Ox 99% ; st1 02:37 Body Mass Index 38.97 (99.79 kg, 160.02 cm) ll3 ED Course: 02:21 Patient arrived in ED. ja2 02:29 Stew Mendieta MD is Attending Physician. mh7 02:36 Nina Tabares, DESI is Primary Nurse. st1 02:41 Triage completed. ll3 02:41 Arm band placed on Patient placed in an exam room, on a stretcher, on pulse oximetry. ll3 02:43 Inserted saline lock: 20 gauge in right antecubital area, using aseptic technique. st1 02:47 Lipase Sent. st1 02:47 Hepatic Function Sent. st1 02:47 CBC with Diff Sent. st1 02:47 Basic Metabolic Panel Sent. st1 02:49 Patient has correct armband on for positive identification. Bed in low position. Call st1 light in reach. Side rails up X 1. nuclear monitoring technician on. Pulse ox on. NIBP on. Door closed. Noise minimized. Warm blanket given. Verbal reassurance given. Head of bed elevated. 03:52 CT Abd/Pelvis - IV Contrast Only In Process Unspecified. EDMS 04:54 Rodrigo Tee is Hospitalizing Provider. 7 04:57 ETOH Level Sent. st1 05:02 COVID-19 SARS RT PCR (Document "Date of Onset" if Symptomatic) Sent. st1 06:37 Awaiting: Attempted to call report, was told I would have to wait for day shift to give ll3 report, asked if anyone on metal finisher could take report and was put on hold. 08:00 No provider procedures requiring assistance completed. Patient admitted, IV remains in ww place. Administered Medications: 02:48 Drug: morphine 4 mg Route: IVP; Site: right antecubital; st1 03:01 Follow up: Response: No adverse reaction; Marked relief of symptoms; RASS: Alert and al4 Calm (0) 02:48 Drug: Zofran (Ondansetron) 4 mg Route: IVP; Site: right antecubital; st1 03:02 Follow up: Response: No adverse reaction al4 02:48 Drug: NS 0.9% 1000 ml Route: IV; Rate: 1000 ml; Site: right antecubital; st1 03:01 Drug: Pepcid (famotidine) 20 mg Route: IVP; Site: right antecubital; al4 Outcome: 04:55 Decision to Hospitalize by Provider. [facility] 07:59 Admitted to Med/surg accompanied by nurse, via wheelchair, room 216, with chart, Other ww Called at 7:51 placed on hold for 5:29 then transferred to [facility] who received report. 07:59 Condition: stable 07:59 Instructed on the need for admit. 08:16 Patient left the ED. ww Signatures: Dispatcher [employer] EDStew Gant MD MD 7 Kristina Hooker Lynsea, RN RN ll3 Jason White al4 Julianna Raygoza, RN RN ww Nina Tabares, RN RN st1 Corrections: (The following items were deleted from the chart) 06:45 06:35 Awaiting: Attempted to call report, was told I would have to wait for day shift ll3 to give report, asked if anyone on metal finisher could take report and was put on hold. ll3
--- NOTE | 2021-12-02 04:56 | EDPHYS ---
Physician Documentation [facility] Name: Libia Morin Age: 51 yrs Sex: Female : 1970 Arrival Date: 12/02/2021 Time: 02:21 Bed 5 Private MD: ED Physician Stew Mendieta HPI: 12/02 02:43 This 51 yrs old Female presents to ER via Ambulatory with complaints of mh7 Abdominal Pain. 02:43 The patient presents with abdominal pain in the upper abdomen. Onset: The mh7 symptoms/episode began/occurred last night, at 19:00. The symptoms do not radiate. Associated signs and symptoms: Pertinent negatives: nausea, vomiting, and diarrhea, anorexia, blood in stools, chest pain, constipation, diarrhea, dysuria, fever, headache, hematuria, nausea, palpitations, shortness of breath, vaginal discharge, vomiting, vomiting blood. The symptoms are described as intermittent, vague, waxing/waning. Modifying factors: The symptoms are alleviated by nothing, the symptoms are aggravated by food, touching the area. Severity of pain: At its worst the pain was moderate last night, in the emergency department the pain is unchanged. 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 - Social history:: Smoking status: Patient denies any tobacco usage or history of. ROS: 02:43 Constitutional: Negative for fever, chills, and weight loss, Eyes: Negative for injury, mh7 pain, redness, and discharge, ENT: Negative for injury, pain, and discharge, Neck: Negative for injury, pain, and swelling, Cardiovascular: Negative for chest pain, palpitations, and edema, Respiratory: Negative for shortness of breath, cough, wheezing, and pleuritic chest pain, Back: Negative for injury and pain, : Negative for injury, bleeding, discharge, and swelling, MS/Extremity: Negative for injury and deformity, Skin: Negative for injury, rash, and discoloration, Neuro: Negative for headache, weakness, numbness, tingling, and seizure, Psych: Negative for depression, anxiety, suicide ideation, homicidal ideation, and hallucinations, Allergy/Immunology: Negative for hives, rash, and allergies, Endocrine: Negative for neck swelling, polydipsia, polyuria, polyphagia, and marked weight changes, Hematologic/Lymphatic: Negative for swollen nodes, abnormal bleeding, and unusual bruising. Exam: 02:43 Head/Face: Normocephalic, atraumatic. Eyes: Pupils equal round and reactive to light, mh7 extra-ocular motions intact. Lids and lashes normal. Conjunctiva and sclera are non-icteric and not injected. Cornea within normal limits. Periorbital areas with no swelling, redness, or edema. Neck: Trachea midline, no thyromegaly or masses palpated, and no cervical lymphadenopathy. Supple, full range of motion without nuchal rigidity, or vertebral point tenderness. No Meningismus. Chest/axilla: Normal chest wall appearance and motion. Nontender with no deformity. No lesions are appreciated. Cardiovascular: Regular rate and rhythm with a normal S1 and S2. No gallops, murmurs, or rubs. Normal PMI, no JVD. No pulse deficits. Respiratory: Lungs have equal breath sounds bilaterally, clear to auscultation and percussion. No rales, rhonchi or wheezes noted. No increased work of breathing, no retractions or nasal flaring. Back: No spinal tenderness. No costovertebral tenderness. Full range of motion. Skin: Warm, dry with normal turgor. Normal color with no rashes, no lesions, and no evidence of cellulitis. MS/ Extremity: Pulses equal, no cyanosis. Neurovascular intact. Full, normal range of motion. Neuro: Awake and alert, GCS 15, oriented to person, place, time, and situation. Cranial nerves II-XII grossly intact. Motor strength 5/5 in all extremities. Sensory grossly intact. Cerebellar exam normal. Normal gait. Psych: Awake, alert, with orientation to person, place and time. Behavior, mood, and affect are within normal limits. 02:43 Constitutional: The patient appears in no acute distress, alert, awake, uncomfortable. 02:43 Abdomen/GI: Inspection: obese scar(s), are noted in the right upper quadrant, Bowel 7 sounds: normal, in all quadrants, Palpation: moderate abdominal tenderness, in the epigastric area and umbilical area, mass, is not appreciated, rebound tenderness, is not appreciated, voluntary guarding, is not appreciated, involuntary guarding, is not appreciated, no appreciated organomegaly, Rectal exam: the exam is deferred, because of patient request, Indicators: McBurney's point is not tender, Guzman's sign is negative, Rovsing's sign is negative, Obturator sign is negative, Psoas sign is negative, Liver: no appreciated palpable abnormalities, Hernia: not appreciated. 02:50 ECG was reviewed by the Attending Physician. 7 Vital Signs: 02:37 BP 137 / 78; Pulse 93; Resp 18; Temp 97.7(TE); Pulse Ox 100% on R/A; Weight 99.79 kg ll3 (R); Height 5 ft. 3 in. (160.02 cm) (R); Pain 9/10; 03:15 BP 110 / 80; Pulse 92; Resp 18 S; Pulse Ox 100% on R/A; al4 04:04 BP 105 / 72; Pulse 86; Resp 16; Pulse Ox 99% ; st1 02:37 Body Mass Index 38.97 (99.79 kg, 160.02 cm) ll3 MDM: 04:52 Differential diagnosis: bowel obstruction, diverticulitis, gastritis, gastroesophageal mh7 reflux disease, non-specific abd pain, pancreatitis, Peptic Ulcer Disease, Pyelonephritis, Ureterolithiasis, urinary tract infection. Data reviewed: vital signs, nurses notes, lab test result(s), amylase and lipase, CBC, electrolytes, urinalysis, EKG, radiologic studies, CT scan. Data interpreted: Pulse oximetry: on room air is 99 %. Interpretation: normal. Counseling: I had a detailed discussion with the patient and/or guardian regarding: the historical points, exam findings, and any diagnostic results supporting the discharge/admit diagnosis, lab results, radiology results, the need for further work-up and treatment in the hospital. Response to treatment: the patient's symptoms have mildly improved after treatment. 04:55 Patient medically screened. [facility] 12/02 02:34 Order name: Basic Metabolic Panel; Complete Time: 03:34 [facility] 12/02 02:34 Order name: CBC with Diff; Complete Time: 03:06 [facility] 12/02 02:34 Order name: Hepatic Function; Complete Time: 03:34 [facility] 12/02 02:34 Order name: Lipase; Complete Time: 03:34 [facility] 12/02 03:20 Order name: Urine Dipstick-Ancillary; Complete Time: 03:34 EDMS 12/02 04:47 Order name: ETOH Level; Complete Time: 05:56 [facility] 12/02 02:34 Order name: IV Saline Lock; Complete Time: 02:47 [facility] 12/02 02:34 Order name: EKG; Complete Time: 02:35 [facility] 12/02 02:37 Order name: CT Abd/Pelvis - IV Contrast Only [facility] 12/02 05:01 Order name: COVID-19 SARS RT PCR (Document "Date of Onset" if Symptomatic); Complete st1 Time: 05:56 12/02 02:34 Order name: Labs collected and sent; Complete Time: 02:47 [facility] 12/02 02:34 Order name: Urine Dipstick-Ancillary (obtain specimen); Complete Time: 03:19 [facility] 12/02 02:34 Order name: EKG - Nurse/Tech; Complete Time: 02:48 7 EC:50 Rate is 87 beats/min. Rhythm is regular, Normal Sinus Rhythm with No ectopy. QRS [place] mh7 is Normal. CA interval is normal. QRS interval is normal. QT interval is normal. No Q waves. T waves are Normal. No ST changes noted. Clinical impression: Normal ECG. Administered Medications: 02:48 Drug: morphine 4 mg Route: IVP; Site: right antecubital; st1 03:01 Follow up: Response: No adverse reaction; Marked relief of symptoms; RASS: Alert and al4 Calm (0) 02:48 Drug: Zofran (Ondansetron) 4 mg Route: IVP; Site: right antecubital; st1 03:02 Follow up: Response: No adverse reaction al4 02:48 Drug: NS 0.9% 1000 ml Route: IV; Rate: 1000 ml; Site: right antecubital; st1 03:01 Drug: Pepcid (famotidine) 20 mg Route: IVP; Site: right antecubital; al4 Disposition Summary: 12/02/21 04:55 Hospitalization Ordered Hospitalization Status: Inpatient Admission [facility] Provider: Rodrigo Tee Location: Telemetry/MedSurg (Inpatient) [facility] Condition: Stable [facility] Problem: new [facility] Symptoms: have improved [facility] Bed/Room Type: Standard [facility] Room Assignment: 216(12/02/21 06:25) mw Diagnosis - Acute pancreatitis [facility] - Elevated Liver Enzymes [facility] Forms: - Medication Reconciliation Form [facility] - SBAR form [facility] Signatures: Dispatcher [employer] EDDelma David RN RN mw Stew Mendieta MD MD 7 Jamaal Vivas RN RN 3 Jason White la4 Nina Tabares RN RN st1 Corrections: (The following items were deleted from the chart) 06:25 04:55 [facility] mw
--- NOTE | 2021-12-02 05:29 | P.HP ---
Certification for Inpatient Patient admitted to: Inpatient With expected LOS: >2 Midnights Practitioner: I am a practitioner with admitting privileges, knowledge of patient current condition, hospital course, and medical plan of care. Services: Services provided to patient in accordance with Admission requirements found in Title 42 Section 412.3 of the Code of Federal Regulations Patient History Date of Service: 12/02/21 Primary Care Provider: None Reason for admission: Pancreatitis History of Present Illness: Patient is a 51-year-old female (yakut speaking) with type 2 diabetes [id number] and hypertension who presented to the ED with epigastric pain and vomiting. She states she experienced pain like this last week but not as severe and it recurred this evening after dinner. Patient reports having her gallbladder removed about 4 years ago. In the ED labs are significant for T bili 1.5, AST 321, ALT 315, alk phos 204, lipase 2185. CT negative. Patient denies drinking alcohol. She was given morphine, Zofran, Pepcid and 1 L normal saline in the ED. she reports her pain has improved significantly. Patient will be admitted for IV hydration and pain control of acute pancreatitis. Allergies No Known Drug Allergies Allergy (Verified 01/21/18 01:55) Unknown Home medications list reviewed: Yes Home Medications: Amlodipine Besylate 5 mg PO BID 01/21/18 Lisinopril/Hydrochlorothiazide [Lisinopril-Hctz 20-12.5 mg Tab] 1 tab PO DAILY 0 01/21/18 Metformin HCl 850 mg PO BID 01/21/18 Ciprofloxacin HCl [Cipro 500 MG Tablet] 500 mg PO BID #20 tab 01/22/18 Codeine/APAP [Tylenol W/Codeine #3 tab] 1 tab PO Q4H PRN #30 tab 01/22/18 metroNIDAZOLE [Flagyl] 500 mg PO Q8H #30 tablet 01/22/18 - Past Medical/Surgical History Diabetic: Yes -: DM II -: HTN -: tubal ligation -: hysterctomy -: Cholecystectomy Psychosocial/ Personal History: Patient lives at home with her daughter - Family History Family History: Reviewed- Non-Contributory - Social History Smoking Status: Never smoker Alcohol use: No CD- Drugs: No Caffeine use: Yes Place of Residence: Home Review of Systems 10-point ROS is otherwise unremarkable Gastrointestinal: Nausea, Vomiting, Abdominal Pain Physical Examination - Physical Exam General: Alert, In no apparent distress HEENT: Atraumatic, PERRLA, Mucous membr. moist/pink, EOMI, Sclerae nonicteric Neck: Supple, 2+ carotid pulse no bruit, No LAD, Without JVD or thyroid abnormality Respiratory: Clear to auscultation bilaterally, Normal air movement Cardiovascular: Regular rate/rhythm, Normal S1 S2 Gastrointestinal: Normal bowel sounds, Tenderness Musculoskeletal: No tenderness Integumentary: No rashes Neurological: Normal speech, Normal strength at 5/5 x4 extr, Normal tone, Normal affect - Studies Laboratory Data (last 24 hrs) 12/02/21 02:45: WBC 10.80, Hgb 14.7, Hct 43.2, Plt Count 250 12/02/21 02:45: Sodium 133 L, Potassium 3.7, BUN 18, Creatinine 0.78, Glucose 315 H, Total Bilirubin 1.5 H, AST 321 H*, ALT 315 H*, Alkaline Phosphatase 204 H, Lipase 2185 H Assessment and Plan - Problems (Diagnosis) (1) Pancreatitis, acute Current Visit: Yes Status: Acute Qualifiers: Pancreatitis type: unspecified pancreatitis type Acute pancreatitis complication: no infection or necrosis Qualified Code(s): K85.90 - Acute pancreatitis without necrosis or infection, unspecified (2) Diabetes mellitus Onset Date: 01/21/18 Current Visit: Yes Status: Chronic Qualifiers: Diabetes mellitus type: type 2 Diabetes mellitus care home insulin use: without intermediate designer use Diabetes mellitus complication status: without complication Qualified Code(s): E11.9 - Type 2 diabetes mellitus without complications (3) HTN (hypertension) Onset Date: 01/21/18 Current Visit: No Status: Chronic Qualifiers: Hypertension type: primary hypertension Qualified Code(s): I10 - Essential (primary) hypertension - Plan -Patient will be n.p.o., NS at 100 cc/h -Morphine as needed pain and Zofran as needed nausea -We will trend lipase and liver enzymes -Patient denies drinking alcohol and had her gallbladder removed 4 years ago. Pend lipids. cause of pancreatitis is unknown at this time. Possibly stone in common bile duct. -ACHS Accu-Cheks and sliding scale insulin -Continue home medication DVT PPx: Lovenox Code: Full Discharge Plan: Home Plan to discharge in: Greater than 2 days - Advance Directives Does patient have a Living Will: No Does patient have a Durable POA for Healthcare: No - Code Status/Comfort Care Code Status Assessed: Yes (Full) Critical Care: No Time Spent Managing Pts Care (In Minutes): 70
[2021-12-02 07:51] VITALS: BMI 38.9
[2021-12-02] MEDS ORDERED: ONDANSETRON 4 MG/2 ML VIAL IV PRN (07:56)
[2021-12-02] MEDS ORDERED: MORPHINE 2 MG/ML SYR IV PRN (07:56)
[2021-12-02] MEDS: ENOXAPARIN 40 MG/0.4 ML SQ SCH (08:51)
[2021-12-02] MEDS: INSULIN -REGULAR HUMAN 50 UNIT/0.5 ML ML SQ SCH ×4 (08:51→21:00)
[2021-12-02] MEDS: NA CHLORIDE 0.9% 1,000 ML IV SCH ×3 (08:54→20:42)
[2021-12-02] MEDS ORDERED: MORPHINE 4 MG/ML SYR IV PRN (10:49)
[2021-12-02] MEDS ORDERED: INFLUENZA VACCINE (for 6+ mo) 0.5 ML DOSE IMVAC ONE (11:00)
--- NOTE | 2021-12-02 15:19 | P.PN ---
Date of Service: 12/02/21 Patient states that her abdominal pain has resolved. She denies any nausea or vomiting. Surgically absent gallbladder. Diagnosis Acute pancreatitis. Plan: Continue supportive measures. Patient was surgically absent gallbladder. CT abdomen pelvis shows no CBD dilatation. Patient denies any alcohol use. Because of acute pancreatitis is unclear. Will consider MRCP to rule out choledocholithiasis. Monitor lipase and LFTs.
[2021-12-03 04:27] LABS: Hematocrit 39.7 % (36.0-45.0); Lymphocytes % 19.8 % (15.3-44.8); RBC Red Blood Cell Count 4.56 M/uL (3.86-4.86)
[2021-12-03 05:01] LABS: AST/SGOT 227 U/L (15-37); Albumin 3.1 g/dL (3.4-5.0); Alkaline Phosphatase 205 U/L (45-117); BUN Blood Urea Nitrogen 10 mg/dL (7-18); Bicarbonate 25 mmol/L (21-32); Bilirubin Direct 0.8 mg/dL (0-0.2); Bilirubin Total 1.6 mg/dL (0.2-1.0); Glucose Level 214 mg/dL (74-106); HDL Cholesterol 29 mg/dL (40-60); LDL Cholesterol, Calculated 99 (<130); Lipase 72 U/L (73-393); Potassium 3.6 mmol/L (3.5-5.1); Protein, Total 6.1 g/dL (6.4-8.2); Sodium Level 136 mmol/L (136-145); Thyroid Stimulating Hormone 0.631 uIU/mL (0.360-3.740)
[2021-12-03 05:12] LABS: ALT/SGPT 501 U/L (12-78)
[2021-12-03] MEDS: NA CHLORIDE 0.9% 1,000 ML IV SCH ×2 (05:34→23:56)
[2021-12-03] MEDS: INSULIN -REGULAR HUMAN 50 UNIT/0.5 ML ML SQ SCH ×5 (07:30→21:00)
--- NOTE | 2021-12-03 08:02 | RAD REPORT ---
EXAM DESCRIPTION: MRI - Cholangiogram - 12/03/2021 7:50 am CLINICAL HISTORY: Elevated LFT, Acute pancreatitis COMPARISON: Cholangiogram dated 01/21/2018; Abdomen Pelvis W Contrast dated 12/02/2021 FINDINGS: Three-dimensional MRCP was performed using maximum intensity projection reconstruction on the same work station. Cholecystectomy. A cystic duct remnant is noted. No intra or extrahepatic biliary ductal dilatation. Rounded filling defect in the distal common bile duct at the ampulla measuring 4 millimeters. Limited T2 sequences through the abdomen demonstrates no bulky adenopathy, significant free fluid or abscess. IMPRESSION: Despite no biliary ductal dilatation, choledocholithiasis is suspected with small stone near the ampulla. Prior cholecystectomy with nondilated cystic duct remnant.
--- NOTE | 2021-12-03 08:50 | EKG ---
Test Date: 2021-12-02 Test Time: 02:44:10 Brickmason Helper: ERINN MEASUREMENT RESULTS: Intervals: Rate: 87 WV: 178 QRSD: 82 QT: 368 QTc: 442 [place]: P: 52 WV: 178 QRS: 26 T: 37 INTERPRETIVE STATEMENTS: Normal sinus rhythm Normal ECG Compared to ECG 05/17/2020 23:00:11 No significant changes Electronically Signed On 12-03-21 08:47:47 REPORTS ANALYSIS MANAGER by Dario Hernández
[2021-12-03] MEDS: hydroCHLOROthiazide 12.5 MG CAP PO SCH (09:00)
[2021-12-03] MEDS: AMLODIPINE 5 MG TAB PO SCH (09:00)
[2021-12-03] MEDS ORDERED: METFORMIN HCL 500 MG TAB PO SCH (09:00)
[2021-12-03] MEDS: lisinopriL 20 MG TAB PO SCH (09:00)
[2021-12-03] MEDS: ENOXAPARIN 40 MG/0.4 ML SQ SCH (10:10)
--- NOTE | 2021-12-03 13:40 | RAD REPORT ---
EXAM DESCRIPTION: CT - Abdomen Pelvis W Contrast - 12/02/2021 6:54 am CLINICAL HISTORY: The patient is 51 years old and is Female; ABD PAIN TECHNIQUE: Axial computed tomography images of the abdomen and pelvis with intravenous contrast. S agittal and coronal reformatted images were created and reviewed. This CT exam was performed using one or more of the following dose reduction techniques: automated exposure control, adjustment of t he mA and/or kV according to patient size, and/or use of iterative reconstruction technique. COMPARISON: No relevant prior studies available. FINDINGS: Lung bases: Unremarkable. No mass. No consolidation. ABDOMEN: Liver: Unremarkable. No mass. Gallbladder and bile ducts: Gallbladder is surgically absent. No ductal dilation. Pancreas: Unremarkable. No mass. No ductal dilation. Spleen: Unremarkable. No splenomegaly. Adrenals: Unremarkable. No mass. Kidneys and ureters: Unremarkable. No solid mass. No hydronephrosis. Stomach and bowel: Unremarkable. No obstruction. No mucosal thickening. PELVIS: Appendix: The appendix is normal. Bladder: Unremarkable. No mass. Reproductive: Unremarkable as visualized. ABDOMEN and PELVIS: Intraperitoneal space: Unremarkable. No free air. No significant fluid collection. Bones/joints: No acute fracture. No dislocation. Soft tissues: Unremarkable. Vasculature: Scattered atherosclerotic vascular calcifications. No abdominal aortic aneurysm. Lymph nodes: Unremarkable. No enlarged lymph nodes. IMPRESSION: No acute findings in the abdomen or pelvis. Electronically signed by: Edin Hodgson MD 12/02/2021 4:32 AM MAT CLEANING MACHINE OPERATOR Due to temporary technical issues with the PACS/Fluency reporting system, reports are being signed by the in house radiologist without review as a courtesy to ensure prompt reporting. The interpreting r adiologist is fully responsible for the content of the report
--- NOTE | 2021-12-03 17:23 | P.PN ---
Subjective Date of Service: 12/03/21 Primary Care Provider: None Chief Complaint: Pancreatitis Patient has no complaint. She denies any abdominal pain and desires to go home. Physical Examination - Vital Signs Temperature: 98.5 F Blood Pressure: 137/84 Pulse: 73 Respirations: 19 Pulse Ox (%): 98 Assessment And Plan - Current Problems (Diagnosis) (1) Choledocholithiasis Current Visit: Yes Status: Acute (2) Pancreatitis, acute Current Visit: Yes Status: Acute Qualifiers: Pancreatitis type: unspecified pancreatitis type Acute pancreatitis complication: no infection or necrosis Qualified Code(s): K85.90 - Acute pancreatitis without necrosis or infection, unspecified (3) Diabetes mellitus Onset Date: 01/21/18 Current Visit: Yes Status: Chronic Qualifiers: Diabetes mellitus type: type 2 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 insulin use: without termite inspector use Diabetes mellitus complication status: without complication Qualified Code(s): E11.9 - Type 2 diabetes mellitus without complications (4) Cholelithiasis Onset Date: 01/21/18 Current Visit: No Status: Acute Qualifiers: Cholelithiasis location: gallbladder Cholecystitis presence: with cholecystitis Cholecystitis acuity: acute Biliary obstruction: without biliary obstruction Qualified Code(s): K80.00 - Calculus of gallbladder with acute cholecystitis without obstruction (5) HTN (hypertension) Onset Date: 01/21/18 Current Visit: No Status: Chronic Qualifiers: Hypertension type: primary hypertension Qualified Code(s): I10 - Essential (primary) hypertension - Plan Physical Exam General: Alert, In no apparent distress HEENT: Atraumatic, PERRLA, Mucous membr. moist/pink, EOMI, Sclerae nonicteric Neck: Supple, 2+ carotid pulse no bruit, No LAD, Without JVD or thyroid abnormality Respiratory: Clear to auscultation bilaterally, Normal air movement Cardiovascular: Regular rate/rhythm, Normal S1 S2 Gastrointestinal: Normal bowel sounds, Tenderness Musculoskeletal: No tenderness Integumentary: No rashes Neurological: Normal speech, Normal strength at 5/5 x4 extr, Normal tone, Normal affect Plan LFTs trended up. MRCP confirms choledocholithiasis. Absence of gallbladder but remanent cystic duct. Patient is n.p.o.. Dr. Moreno informed. Lipase level is normal. Patient may need ERCP. We will start empiric antibiotics. Insulin sliding scale for glucose management. Blood pressure is stable.
[2021-12-03] MEDS: CEFTRIAXONE 1,000 MG in NA CHLORIDE 0.9% 50 ML IVPB SCH (17:52)
[2021-12-04 05:30] LABS: Absolute Lymphocytes (CBC) 1.6 K/uL (0.7-4.9); Hematocrit 39.5 % (36.0-45.0); MPV 8.6 fL (7.6-11.3); RBC Red Blood Cell Count 4.57 M/uL (3.86-4.86)
[2021-12-04 05:46] LABS: ALT/SGPT 291 U/L (12-78); AST/SGOT 53 U/L (15-37); Albumin 2.8 g/dL (3.4-5.0); Alkaline Phosphatase 150 U/L (45-117); BUN Blood Urea Nitrogen 8 mg/dL (7-18); Bicarbonate 24 mmol/L (21-32); Bilirubin Total 0.7 mg/dL (0.2-1.0); Glucose Level 186 mg/dL (74-106); Lipase 77 U/L (73-393); Potassium 3.5 mmol/L (3.5-5.1); Protein, Total 5.7 g/dL (6.4-8.2); Sodium Level 139 mmol/L (136-145)
--- NOTE | 2021-12-04 06:20 | P.PN ---
Date of Service: 12/04/21 Subjective: no acute events overnight feeling better, pain minimal no nausea/vomiting ROS: 10 point ROS as noted above, otherwise negative Physical exam GEN: Alert, oriented, NAD HEENT: Normal conjunctiva, sclera anicteric CV: Regular rate and rhythm, no edema Pulm: Nonlabored respirations on room air ABD: Soft, nontender, nondistended Neuro: Normal speech, normal affect Problem List Choledocholithiasis Acute pancreatitis Diabetes mellitus type 2, non-insulin dependent Hypertension MRCP: Despite no biliary ductal dilatation, choledocholithiasis is suspected with small stone near the ampulla. Prior cholecystectomy with nondilated cystic duct remnant. LFTs trended up, better today Dr. Moreno was updated yesterday Lipase normalized Patient may need ERCP, awaiting further recommendations by Dr. Moreno No longer with any nausea, pain much improved, nontender on exam Started on empiric antibiotics on 12/03 Code: full Dispo: home, anticipate dc in 1-2 days, possible ERCP Time Spent Managing Pts Care (In Minutes): 35
[2021-12-04] MEDS: INSULIN -REGULAR HUMAN 50 UNIT/0.5 ML ML SQ SCH ×6 (07:20→21:00)
[2021-12-04] MEDS ORDERED: CEFTRIAXONE 1000 MG/VIAL ONE (08:09)
[2021-12-04] MEDS: AMLODIPINE 5 MG TAB PO SCH (08:18)
[2021-12-04] MEDS: lisinopriL 20 MG TAB PO SCH (08:18)
[2021-12-04] MEDS: hydroCHLOROthiazide 12.5 MG CAP PO SCH (08:19)
[2021-12-04] MEDS: ENOXAPARIN 40 MG/0.4 ML SQ SCH (08:19)
[2021-12-04] MEDS: CEFTRIAXONE 1,000 MG in NA CHLORIDE 0.9% 50 ML IVPB SCH (08:21)
[2021-12-04] MEDS: NA CHLORIDE 0.9% 1,000 ML IV SCH ×2 (10:38→20:02)
[2021-12-05 04:39] LABS: Absolute Lymphocytes (CBC) 1.8 K/uL (0.7-4.9); Lymphocytes % 30.4 % (15.3-44.8); MPV 8.5 fL (7.6-11.3); RBC Red Blood Cell Count 4.57 M/uL (3.86-4.86)
[2021-12-05 04:54] LABS: ALT/SGPT 219 U/L (12-78); AST/SGOT 24 U/L (15-37); Albumin 3.1 g/dL (3.4-5.0); Alkaline Phosphatase 137 U/L (45-117); BUN Blood Urea Nitrogen 6 mg/dL (7-18); Bicarbonate 28 mmol/L (21-32); Bilirubin Total 0.6 mg/dL (0.2-1.0); Glucose Level 205 mg/dL (74-106); Lipase 75 U/L (73-393); Potassium 3.8 mmol/L (3.5-5.1); Protein, Total 6.2 g/dL (6.4-8.2); Sodium Level 140 mmol/L (136-145)
[2021-12-05] MEDS: NA CHLORIDE 0.9% 1,000 ML IV SCH ×2 (05:56→13:34)
--- NOTE | 2021-12-05 06:37 | P.PN ---
Date of Service: 12/05/21 Subjective: no acute events overnight no pain, NPO since midnight for ERCP loose stool a few times in last 2 days ROS: 10 point ROS as noted above, otherwise negative Physical exam GEN: Alert, oriented, NAD HEENT: Normal conjunctiva, sclera anicteric CV: Regular rate and rhythm, no edema Pulm: Nonlabored respirations on room air ABD: Soft, nontender, nondistended Neuro: Normal speech, normal affect Problem List Choledocholithiasis Acute pancreatitis Diabetes mellitus type 2, non-insulin dependent Hypertension MRCP: Despite no biliary ductal dilatation, choledocholithiasis is suspected with small stone near the ampulla. Prior cholecystectomy with nondilated cystic duct remnant. LFTs trended up initially, have now improved Dr. Moreno updated, plan for ERCP today Lipase normalized No longer with any nausea, pain much improved, nontender on exam Started on empiric antibiotics on 12/03, will dc Code: full Dispo: home, anticipate dc tomorrow, pending ERCP results Time Spent Managing Pts Care (In Minutes): 35
[2021-12-05] MEDS: INSULIN -REGULAR HUMAN 50 UNIT/0.5 ML ML SQ SCH ×4 (07:30→20:37)
[2021-12-05] MEDS: CEFTRIAXONE 1,000 MG in NA CHLORIDE 0.9% 50 ML IVPB SCH (08:38)
[2021-12-05] MEDS: ENOXAPARIN 40 MG/0.4 ML SQ SCH (08:38)
[2021-12-05] MEDS: AMLODIPINE 5 MG TAB PO SCH (08:39)
[2021-12-05] MEDS: hydroCHLOROthiazide 12.5 MG CAP PO SCH (08:39)
[2021-12-05] MEDS: lisinopriL 20 MG TAB PO SCH (08:40)
[2021-12-05 09:10] VITALS: O2SAT 100
[2021-12-05] MEDS ORDERED: GENTAMICIN SULF 80 MG/2ML INJ ONE (11:50)
[2021-12-05] MEDS ORDERED: GLUCAGON 1 MG/VIAL ONE (11:50)
[2021-12-05] MEDS ORDERED: propofoL 200 MG/20 ML VIAL IV ONE ×2 (12:01→12:02)
[2021-12-05] MEDS ORDERED: LIDOCAINE 1% MPF 5 ML VIAL ONE (12:01)
[2021-12-05] MEDS ORDERED: FENTANYL CITR 100 MCG/2 ML ONE (12:05)
[2021-12-05] MEDS ORDERED: NA CHLORIDE 0.9% 1,000 ML ONE (12:09)
--- NOTE | 2021-12-05 12:52 | ENDO RPT ---
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 CONSENT: The patient understands the risks and benefits of the procedure and understands that these risks include, but are not limited to: sedation, allergic reaction, infection, perforation and/or bleeding. Alternative means of evaluation and treatment include, among others: physical exam, x-rays, and/or surgical intervention. The patient elects to proceed with this endoscopic procedure. DESCRIPTION OF PROCEDURE: During intra-op preparation period all mechanical medical equipment was checked for proper function. Hand hygiene and appropriate measures for infection prevention was taken. Procedure, possible complications, and alternatives including but not limited to the possibility of bleeding, perforation, tear, infection, sepsis, need for surgery, need for blood transfusion, and anesthesia related complications were explained to the patient. In addition, 5-30% incidence of acute pancreatitis as a result of ERCP were explained. After the risks, benefits and alternatives of the procedure were thoroughly explained, Informed was verified, confirmed and timeout was successfully executed by the treatment team. With the patient in left semi-prone position, medications were administered intravenously.The [id number] ([id number]) was passed from the mouth into the esophagus and further advanced from the esophagus into the stomach. From stomach scope was directed to the second portion of the duodenum. Major papilla was aligned with the duodenoscope. The scope position was confirmed fluoroscopically. Rest of the findings/therapeutics are given below. The scope was then completely withdrawn from the patient and the procedure completed. The pulse, BP, and O2 saturation were monitored and documented by the physician and the nursing staff throughout the entire procedure. The patient was cared for as planned according to standard protocol. The patient was then discharged to recovery in stable condition and with appropriate post procedure care. A 4 mm stone was found in the distal common bile duct. Sphincterotomy was performed with a regular 20 mm papillotome. A stone retrieval balloon was passed with extraction of stone. ADVERSE EVENT: None IMPRESSIONS: 4 mm stone was found in the distal common bile duct, s/p RECOMMENDATIONS: 1. antibiotics 2. follow-up: GI clinic 2 week(s) REPEAT EXAM: Sean Moreno Dr eSigned: Sean Moreno Dr 12/05/2021 12:51 PM cc: CPT CODES: ICD9 CODES: PATIENT NAME: Libia Morin MR#: [id number]
--- NOTE | 2021-12-05 13:02 | RAD REPORT ---
EXAM DESCRIPTION: Fluoroscopy for ERCP CLINICAL HISTORY: ERCP Abdominal pain FINDINGS: Four C arm Fluoroscopic images submitted from ERCP procedure. Details and diagnostic findi ngs of the procedure are not available. Total fluoroscopy time: 2 minutes and 7 seconds
[2021-12-05] MEDS ORDERED: CEFAZOLIN SODIUM 1 GM/VIAL ONE (13:10)
[2021-12-05] MEDS ORDERED: CEFAZOLIN 2 GM in NA CHLORIDE 0.9% 100 ML IVPB ONE (14:00)
[2021-12-05] MEDS ORDERED: CEFAZOLIN/SWI 2gm 2 GM/20 ML SYR IV ONE (14:45)
--- NOTE | 2021-12-05 17:13 | CON ---
Date of Consultation: 12/05/2021 Reason For Consultation: Gallstone pancreatitis with MRCP showing choledocholithiasis. History Of Present Illness: The patient is a 51-year-old female with history of diabetes, h ypertension, and laparoscopic cholecystectomy. The patient presented to hospital with acute pancreat itis, found to have gallstone pancreatitis with MRCP positive for stone in the distal common bile johana t. CT scan was negative. This admission; the lipase was elevated at 2185, now down to 75. AST is 3 21 now down to 24, ALT of 315 down to 219, alkaline phosphatase of 249 now down to 137. The patient feels better. She is presently out of pain currently; however, MRCP does show stone in the distal co mmon bile duct. Past Medical History: Significant for diabetes, hypertension, laparoscopic cholecystectomy for amber lithiasis and cholecystitis. She had hysterectomy and tubal ligation. Medications: Medicines at home include amlodipine, lisinopril, hydrochlorothiazide, metformin, cipro floxacin, Tylenol No.3, and Flagyl. Allergies: NKDA. Social History: She is , 3 children. No tobacco. No alcohol. Family History: Father alive and well. Mother alive with diabetes, hypertension. Review of Systems: The patient has midepigastric pain and positive MRCP showing a stone in the distal common bile duct. She denies any nausea, vomiting, fevers, chills, night sweats, change in bowel habits, diarrhea, con stipation, black stools, melena, hematochezia, hematemesis, coffee-grounds emesis, hemoptysis, hematu venkatesh, dysuria, pyuria, polydipsia, chest pain, shortness of breath, seizure, syncope, lower extremity edema, muscle aches, joint aches, backaches, depression, anxiety. Physical Examination: Vital Signs: The patient is 5 feet 3 inches, 220 pounds, BMI of 39 kg/m2. Temperature 97.4 degrees Fahrenheit, pulse 64, respirations 15, blood pressure 136/70, O2 saturation 100%. HEENT: Normocephalic, atraumatic. Anicteric. Pupils equal, round, and reactive to light. Extraocu lar movements intact. Oropharynx is clear. Neck: Supple. No masses. Respirations: Clear to auscultation bilaterally. Cardiac: Regular rate and rhythm. No gallops or rubs. Abdomen: Positive bowel sounds. Soft, nontender, nondistended. No hepatosplenomegaly. Extremities: No clubbing, cyanosis, or edema. 2+ pulses. Neuro: Alert and oriented x3. Grossly nonfocal. 5/5 motor. Sensation intact to light touch. Laboratory Data: The patient has white count of 6.0, hemoglobin 13.3, hematocrit 39, MCV of 85, plat elet count 233. Polys of 55%, lymphocytes 30%, monocytes 10%, and eosinophils 4%. Sodium 140, potas sium 3.8, chloride 106, bicarb 28, BUN of 6, creatinine of 0.53, glucose 205, calcium 9.1, total bili galeas 0.6, AST of 24, ALT of 219, alkaline phosphatase is 137, total protein 6.2, albumin 3.1, lipase 75. The patient had 3+ glucose, although it is negative on urinalysis, present alcohol level less t caceres 10. Serology, COVID-19 test is negative. The patient had a CT scan of the abdomen and pelvis, w hich was negative. Impression: 1.Gallstone pancreatitis; midepigastric pain 10/10, now down to 9. No nausea, vomiting, fevers, chi lls, or other symptoms. CT scan was negative. She is status post laparoscopic cholecystectomy for c holelithiasis and cholecystitis. Her liver numbers since admission have decreased with lipase of 218 5, now down to 75, AST of 321 down to 24, ALT of 315 down to 219, alkaline phosphatase of 204 now bina n to 137. 2.MRCP revealing choledocholithiasis with a 4 mm filling defect noted in the distal common bile duct . We will need to perform ERCP for retrieval of stones, so no further recurrent gallstone pancreatit is will occur. 3.History of diabetes, hypertension, laparoscopic cholecystectomy, hysterectomy, tubal ligation. Recommendations: 1.ERCP. 2.IV fluids continue. 3.Keep the patient n.p.o. 4.Check PT/PTT which has been done. WS/MODL Voice ID: [id number] Report ID: [id number]
[2021-12-06] MEDS: NA CHLORIDE 0.9% 1,000 ML IV SCH ×2 (01:56→11:23)
[2021-12-06 06:06] LABS: Absolute Lymphocytes (CBC) 1.7 K/uL (0.7-4.9); Hematocrit 38.3 % (36.0-45.0); Lymphocytes % 26.3 % (15.3-44.8); MPV 8.6 fL (7.6-11.3); RBC Red Blood Cell Count 4.44 M/uL (3.86-4.86)
[2021-12-06 06:27] LABS: ALT/SGPT 153 U/L (12-78); Alkaline Phosphatase 120 U/L (45-117); BUN Blood Urea Nitrogen 7 mg/dL (7-18); Bicarbonate 26 mmol/L (21-32); Bilirubin Total 0.7 mg/dL (0.2-1.0); Glucose Level 144 mg/dL (74-106); Protein, Total 6.1 g/dL (6.4-8.2); Sodium Level 141 mmol/L (136-145)
[2021-12-06 06:28] LABS: AST/SGOT 23 U/L (15-37); Magnesium 1.9 mg/dL (1.8-2.4); Potassium 3.6 mmol/L (3.5-5.1)
[2021-12-06] MEDS: INSULIN -REGULAR HUMAN 50 UNIT/0.5 ML ML SQ SCH (07:30)
[2021-12-06] MEDS ORDERED: POTASSIUM CL SA 10 MEQ TAB PO ONE (09:00)
[2021-12-06 09:24] VITALS: BP 132/75; TEMP 97.6
[2021-12-06] MEDS: hydroCHLOROthiazide 12.5 MG CAP PO SCH (10:21)
[2021-12-06] MEDS: AMLODIPINE 5 MG TAB PO SCH (10:24)
[2021-12-06] MEDS: lisinopriL 20 MG TAB PO SCH (10:26)
--- NOTE | 2021-12-06 11:45 | P.PN ---
Subjective Date of Service: 12/06/21 Primary Care Provider: None Chief Complaint: Gallstone pancreatitis, MANDIE pain, choledocholithiasis Subjective: Improving (Feels well s/p ERCP with ERS and stone removal yesterday. Tolerating po diet.) Review of Systems Unremarkable Physical Examination - Vital Signs Temperature: 97.6 F Blood Pressure: 132/75 Pulse: 65 Respirations: 16 Pulse Ox (%): 100 - Physical Exam General: Alert, In no apparent distress, Oriented x3, Cooperative HEENT: Atraumatic, Normocephalic, PERRLA, EOMI Neck: Supple Respiratory: Normal air movement Cardiovascular: Normal pulses, Regular rate/rhythm Gastrointestinal: Soft and benign, No tenderness, No rebound, No guarding Neurological: Normal speech, Normal strength at 5/5 x4 extr Assessment And Plan - Current Problems (Diagnosis) (1) Abnormal magnetic resonance cholangiopancreatography (MRCP) Current Visit: Yes Status: Acute (2) Abnormal liver enzymes Current Visit: Yes Status: Acute (3) Abnormal serum lipase level Current Visit: Yes Status: Acute (4) Choledocholithiasis Current Visit: Yes Status: Acute (5) Pancreatitis, acute Current Visit: Yes Status: Acute Qualifiers: Pancreatitis type: unspecified pancreatitis type Acute pancreatitis complication: no infection or necrosis Qualified Code(s): K85.90 - Acute pancreatitis without necrosis or infection, unspecified - Plan REC: GI clinic f/u in 2 weeks
--- NOTE | 2021-12-06 18:15 | P.DS ---
Admission Date: 12/02/21 Discharge Date: 12/06/21 Primary Care Provider: None Disposition: ROUTINE DISCHARGE Discharge Condition: GOOD Reason for Admission: Gallstone pancreatitis, choledocholithiasis Consultations: GI - Dr. Moreno Procedures: Problem List Choledocholithiasis Acute pancreatitis Diabetes mellitus type 2, non-insulin dependent Hypertension Brief History of Present Illness: 51-year-old female (thai speaking) with type 2 diabetes [id number] and hypertension who presented to the ED with epigastric pain and vomiting. She states she experienced pain like this last week but not as severe and it recurred this evening after dinner. Patient reports having her gallbladder removed about 4 years ago. In the ED labs are significant for T bili 1.5, AST 321, ALT 315, alk phos 204, lipase 2185. CT negative. Patient denies drinking alcohol. She was given morphine, Zofran, Pepcid and 1 L normal saline in the ED. she reports her pain has improved significantly. Patient will be admitted for IV hydration and pain control of acute pancreatitis. Hospital Course: Patient was found to have pancreatitis. She had improvement with bowel rest and IV fluids. She was empirically covered with antibiotics. Imaging revealed suspicion for small stone in distal common bile duct. GI was consulted and patient underwent ERCP which lead to extraction of a 4mm stone. She had resolution of her pain and tolerated clear liquid diet. She was deemed stable for discharge home. To resume home medications. No new prescriptions. Recommend slowly advancing diet over the next 5-7 days. Follow up in GI clinic - with Dr. Moreno in a few weeks. Follow up with PCP within 1 week. Vital Signs/Physical Exam: Temp Pulse Resp BP Pulse Ox 97.6 F 65 16 132/75 100 12/06/21 11:45 12/06/21 11:45 12/06/21 11:45 12/06/21 11:45 12/06/21 11:45 Physical exam GEN: Alert, oriented, NAD HEENT: Normal conjunctiva, sclera anicteric CV: Regular rate and rhythm, no edema Pulm: Nonlabored respirations on room air ABD: Soft, nontender, nondistended Neuro: Normal speech, normal affect Laboratory Data at Discharge: WBC 6.30 K/uL (4.3-10.9) 12/06/21 05:36 Hgb 13.0 g/dL (12.0-15.0) 12/06/21 05:36 Hct 38.3 % (36.0-45.0) 12/06/21 05:36 Plt Count 236 K/uL (152-406) 12/06/21 05:36 Sodium 141 mmol/L (136-145) 12/06/21 05:36 Potassium 3.6 mmol/L (3.5-5.1) 12/06/21 05:36 BUN 7 mg/dL (7-18) 12/06/21 05:36 Creatinine 0.53 mg/dL (0.55-1.3) L 12/06/21 05:36 Glucose 144 mg/dL (74-106) H 12/06/21 05:36 Magnesium 1.9 mg/dL (1.8-2.4) 12/06/21 05:36 Total Bilirubin 0.7 mg/dL (0.2-1.0) 12/06/21 05:36 AST 23 U/L (15-37) 12/06/21 05:36 ALT 153 U/L (12-78) H 12/06/21 05:36 Alkaline Phosphatase 120 U/L (45-117) H 12/06/21 05:36 Triglycerides 106 mg/dL (<150) 12/03/21 04:12 Cholesterol 149 mg/dL (<200) 12/03/21 04:12 HDL Cholesterol 29 mg/dL (40-60) L 12/03/21 04:12 Cholesterol/HDL Ratio 5.14 12/03/21 04:12 Lipase 75 U/L (73-393) 12/05/21 04:16 Home Medications: Amlodipine Besylate 5 mg PO DAILY 01/21/18 Lisinopril/Hydrochlorothiazide [Lisinopril-Hctz 20-12.5 mg Tab] 1 tab PO DAILY 01/21/18 Metformin HCl 1,000 mg PO BID 12/03/21 Physician Discharge Instructions: Patient was found to have pancreatitis. She had improvement with bowel rest and IV fluids. She was empirically covered with antibiotics. Imaging revealed suspicion for small stone in distal common bile duct. GI was consulted and patient underwent ERCP which lead to extraction of a 4mm stone. She had resolution of her pain and tolerated clear liquid diet. She was deemed stable for discharge home. To resume home medications. No new prescriptions. Recommend slowly advancing diet over the next 5-7 days. Follow up in GI clinic - with Dr. Moreno in a few weeks. Follow up with PCP within 1 week. Diet: ADA (low fat) Activity: Ad yao Followup: Sean Moreno MD [ASSOCIATE-ACTIVE - CAN ADMIT] - (Follow up in a few weeks, call to schedule an appointment ) Unknown,U [Primary Care Provider] - 1 Week (Follow up with your PCP, call to schedule an appointment ) Time spent managing pt's care (in minutes): 45
== END 2021-12-06 11:15 | disposition home or self-care (01) | DRG 444 ==
LOC: ER 02:18 → ERHOLD 05:22 → 2ND 08:00
PROVIDERS: ADMIT Internal Medicine; ATTEND Internal Medicine
PROC: 0FC98ZZ Extirpation of Matter from Common Bile Duct, Via Natural or Artificial Opening Endoscopic (ICD-10-PCS; principal; 2021-12-05 10:00)
DX: K80.50 Calculus of bile duct without cholangitis or cholecystitis without obstruction (principal); K85.90 Acute pancreatitis without necrosis or infection, unspecified; E11.9 Type 2 diabetes mellitus without complications; I10 Essential (primary) hypertension; Z23 Encounter for immunization; Z20.822 Contact with and (suspected) exposure to COVID-19
CPT/HCPCS: 36415; 74177; 74181; 80048; 80053; 80061; 80076; 80320; 81003; 82248; 82947; 83690; 83735; 84439; 84443; 85025; 90471; 93005; 96374; 96375; 99285; C1769; J0690; J1580; J1610; J1650; J2405; J2704; J3010; J7030; Q2035; Q9967; U0003

== ENCOUNTER 2023-05-15 03:13 | Observation (INO) | payer SELFPAY ==
--- OUTSIDE RECORDS SUMMARY | 2023-05-15 03:16 | XMS REPORT | Continuity of Care Document ---
:1970 Author Organization [facility] t Address [address] [facility] [address] [place] [address] Care Team Providers Name Role Phone Vish Waller Primary Care Physician [phone] Jose WEEKS, Chanell Suarez Attending Clinician Unavailable Arabella Rodriguez Attending Clinician Arabella YOUNGBLOOD Attending Clinician Unavailable Problems This patient has no known problems. Allergies, Adverse Reactions, Alerts Allergy Allergy Status Severity Reaction(s) Onset Inactive Treating Comm ents Source Name Type Date Date Clinician NO KNOWN Drug Active Univers [facility] Class it[facility] of [facility] Medications Ordered Filled Start Stop Current Ordering Indication Dosage Frequency Signature Comments Components Source Medication Medication Date Date Medication? Clinician (SIG) Name Name TAKE No TABLET 9-13 DAILY 00:00: DIRECTED. 00 INJECT 10 No UNITS BELOW 9-12 THE SKIN 00:00: DAILY START 00 WITH 10 UNITS DAILY BEFORE DINNER. MONITOR BLOOD SUGAR BID. TAKE 2021-0 No TABLET 9-12 EVERY 00:00: MORNING. 00 Dose 2021-0 No Unknown 6-21 00:00: 00 Dose 2021-0 No Unknown 6-21 00:00: 00 amlodipine 2021-0 No 1mg 5 mg tablet 6-20 00:00: 00 lisinopril 2021-0 No 1mg 20 6-20 mg-hydrochl 00:00: orothiazide 00 25 mg tablet TAKE No TABLET 6-20 DAILY 00:00: DIRECTED. 00 Dose 2021-0 No Unknown 6-20 00:00: 00 Dose 2021-0 No Unknown 6-20 00:00: 00 Vital Signs Vital Name Observation Time Observation Value Comments Source BP Systolic 2022-06-18 11:25:00 134 mm[Hg] BP Diastolic 2022-06-18 11:25:00 90 mm[Hg] Weight Measured 2022-06-18 11:25:00 212.20 pounds Height Measured 2022-06-18 11:25:00 63.00 inches Body Temperature 2022-06-18 11:25:00 97.20 degrees Heart Rate 2022-06-18 11:25:00 94.00 /min Respiratory Rate 2022-06-18 11:25:00 BP Systolic 2022-03-25 08:55:00 127 mm[Hg] BP Diastolic 2022-03-25 08:55:00 89 mm[Hg] Weight Measured 2022-03-25 08:55:00 212.80 pounds Height Measured 2022-03-25 08:55:00 Body Temperature 2022-03-25 08:55:00 98.10 degrees Heart Rate 2022-03-25 08:55:00 82.00 /min Respiratory Rate 2022-03-25 08:55:00 18.00 /min Procedures This patient has no known procedures. Plan of Care Planned Activity Planned Date Details Comments Source Goal Plan of Care Note [code = 43315-6] Goal Plan of Care Note [code = 11067-5] Goal Plan of Care Note [code = 80006-7] Goal Plan of Care Note [code = 00082-1] Goal Plan of Care Note [code = 27542-8] Goal Plan of Care Note [code = 23239-9] Goal Plan of Care Note [code = 91796-3] Goal Plan of Care Note [code = 18930-7] Encounters Start End Encounter Admission Attending Care Care Encounter Source Date/Time Date/Time Type Type Clinicians Facility Department ID 2023-05-13 2023-05-13 Outpatient SFA [facility] [id number] Erasmo 14:12:57 14:12:57 0808 [facility] 2023-05-12 2023-05-12 Outpatient SFA SFA [id number] Erasmo 13:33:59 13:33:59 0807 [facility] 2023-04-21 2023-04-21 Outpatient SFA SFA [id number] 023 Erasmo 15:15:51 15:15:51 0717 [facility] 2023-01-24 2023-01-24 Outpatient S[facility] [id number] Erasmo 09:26:24 09:26:24 0421 [facility] [place] 2023-01-22 2023-01-22 Outpatient S[facility] [id number] [id number] Erasmo 14:56:47 14:56:47 0419 [facility] [place] 2022-09-11 2022-09-11 Outpatient S[facility] [id number] Erasmo 09:49:50 09:49:50 1207 [facility] [place] 2022 2022 Outpatient S[facility] [id number] [id number] Erasmo 10:31:13 10:31:13 1108 [facility] [place] 2022-06-18 2022-06-18 Outpatient [id number] 00:00:00 00:00:00 Visit [id number] 2020-05-04 2020-05-04 Letter Jose CANNON [id number] 00:00:00 00:00:00 (Out) , Chanell Suarez REMI [id number] [facility] [id number] 2020-05-04 2020-05-04 Telephone Jose CANNON .[id number] 00:00:00 00:00:00 , Chanell Suarez REMI [id number] [facility] [id number] 2020-05-03 2020-05-03 Emergency Arabella Youngblood [facility] [id number] 12:39:41 15:13:00 Zohreh Batista [id number] [place] [id number] [place] [id number] 2020-05-03 2020-05-03 Emergency X Arabella YOUNGBLOOD [facility] ERT [id number] [facility] 12:39:41 12:39:41 [facility] Results Test Description Test Time Test Comments Results Result Comments Source HEMOGLOBIN A1c 2023-05-13 04:31:17 Test Item Value Reference Range Interpretation Comme nts HEMOGLOBIN A1c (test code = 10.0 % 4.2-5.6 H [employer] 75501) GUIDELINES FOR HGB A1C: PREDIABETES/INC REASED RISK . . . . . . . 5.7-6.4% DIAG NOSIS OF DIABETES . . . . . . . . . >=6 .5% WITH CONFIRMATION OR APPROPRIATE SYM PTOMS NOTE: ASSAY MAY BE AFFECTED BY HEM OGLOBINOPATHIES (SICKLE CELL ANEMIA, S- C DISEASE, OTHERS) OR ARTIFICIALLY LO WERED BY DECREASED RED CELL SURVIVAL ( HEMOLYTIC ANEMIAS, BLOOD LOSS, ETC.). CO NSIDER ALTERNATE TESTING OR LABORATORY C ONSULTATION. LIPID [id number] 04:25:09 Test Item Value Reference Range Interpretation Comments CHOLESTEROL (test 186 MG/DL <200 code = 2210) TRIGLYCERIDES (test 254 MG/DL <150 H code = 2232) HDL CHOLESTEROL (test 34 MG/DL >39 L code = 2220) CALC LDL CHOL (test 116 MG/DL <100 H NOTE: C ALCULATED LDL code = 2237) IS BASED ON JASMEET-AVENDAÑO METHOD WHICHINCLUDES ADJUSTABLE TRIGLYCERIDE:VL DL CHOLESTEROL RAT IO.THIS FACTOR VARIES B Y MEASURED TRIGLY CERIDE AND NON-HDLCHOL ESTEROL CONCENTRATIONS WITH INCREASED CALCU LATED LDL SEENIN HIGH ER TRIGLYCERIDE OR LOWER NON-HDL SPECIME NS. FOR MOREINFORMATION , SEE CLIENT ANNOUNCE MENT AT [email or web address] LDL/HDL 3.41 RATIO <3.22 H (test code = 2238) COMPREHENSIVE METABOLIC [id number] 04:25:09 Test Item Value Reference Range Interpretation Comments GLUCOSE (test code = 344 MG/DL 70-99 H 2216) BUN (test code = 14 MG/DL 6-20 2207) CREATININE (test 0.63 MG/DL 0.60-1.30 code = 2214) eGFR (2020 CKD-EPI) 107 >60 (test code = 57765) ML/MIN/1.73 CALC BUN/CREAT (test 22 RATIO 6-28 code = 2235) SODIUM (test code = 135 MEQ/L 827-306 3198) POTASSIUM (test code 4.7 MEQ/L 3.5-5.4 = 2228) CHLORIDE (test code 97 MEQ/L 95-107 = 2215) CARBON DIOXIDE (test 24 MEQ/L 19-31 code = 2206) CALCIUM (test code = 9.7 MG/DL 8.5-10.5 2208) PROTEIN, TOTAL (test 6.8 G/DL 6.1-8.3 code = 2229) ALBUMIN (test code = 4.4 G/DL 3.5-5.2 2200) CALC GLOBULIN (test 2.4 G/DL 1.9-3.7 code = 2240) CALC A/G RATIO (test 1.8 RATIO 1.0-2.6 code = 2234) BILIRUBIN, TOTAL 0.3 MG/DL See_Comment [Automated message] (test code = 2207) The [employer] which generated this result transmitted ref erence range: <=1.2. T he reference range was not used to int erpret this result as normal/abnormal . ALKALINE PHOSPHATASE 115 U/L 40-130 (test code = 2204) AST (test code = 28 U/L 9-40 2217) ALT (test code = 49 U/L 5-40 H UNLESS OTH ERWISE 2218) INDICATED, ALL TESTING PERFORM ED AT CLINICAL PATH[facility] [address] [place], [place] [address] [place] [address] DIRECTOR: Ree ACOSTA VANDANA NUMBER [id number] [facility] ACCREDITATION N O. [id number] LIPID [id number] 07:15:53 Test Item Value Reference Range Interpretation Comments CHOLESTEROL (test 193 MG/DL <200 code = 2210) TRIGLYCERIDES (test 129 MG/DL <150 code = 2232) HDL CHOLESTEROL (test 46 MG/DL >39 code = 2220) CALC LDL CHOL (test 123 MG/DL <100 H NOTE: C ALCULATED LDL code = 2237) IS BASED ON JASMEET-AVENDAÑO METHOD WHICHINCLUDES ADJUSTABLE TRIGLYCERIDE:VL DL CHOLESTEROL RAT IO.THIS FACTOR VARIES B Y MEASURED TRIGLY CERIDE AND NON-HDLCHOL ESTEROL CONCENTRATIONS WITH INCREASED CALCU LATED LDL SEENIN HIGH ER TRIGLYCERIDE OR LOWER NON-HDL SPECIME NS. FOR MOREINFORMATION , SEE CLIENT ANNOUNCE MENT AT [email or web address] LDL/HDL 2.67 RATIO <3.22 [facility] has important (test code = 2238) pathology staff changes effecti ve 12/04/2022. New pathology staff will provide uninter rupted, excellent patie nt care and clinical consultation. S ee URL: [email or web address]. UNLES S OTHERWISE INDIC ATED, ALL TESTING PER FORMED AT [facility]. [address] [facility] [place] [address] ABDULAZIZ MARTINEZ DIRECTOR: Ree ACOSTA VANDANA NUMBER [id number] [facility] ACCREDITATION N O. [id number] COMPREHENSIVE METABOLIC [id number] 07:15:53 Test Item Value Reference Range Interpretation Comments GLUCOSE (test code = 251 MG/DL 70-99 H 2216) BUN (test code = 12 MG/DL 6-20 2207) CREATININE (test 0.67 MG/DL 0.60-1.30 code = 2214) eGFR (2020 CKD-EPI) 106 >60 (test code = 79173) ML/MIN/1.73 CALC BUN/CREAT (test 18 RATIO 6-28 code = 2235) SODIUM (test code = 138 MEQ/L 099-727 1465) POTASSIUM (test code 4.5 MEQ/L 3.5-5.4 = 2228) CHLORIDE (test code 98 MEQ/L 95-107 = 2215) CARBON DIOXIDE (test 26 MEQ/L 19-31 code = 2206) CALCIUM (test code = 10.0 MG/DL 8.5-10.5 2208) PROTEIN, TOTAL (test 7.0 G/DL 6.1-8.3 code = 2229) ALBUMIN (test code = 4.8 G/DL 3.5-5.2 2200) CALC GLOBULIN (test 2.2 G/DL 1.9-3.7 code = 2240) CALC A/G RATIO (test 2.2 RATIO 1.0-2.6 code = 2234) BILIRUBIN, TOTAL 0.6 MG/DL See_Comment [Automated message] (test code = 2207) The syste m which generated this result transmit brittnee reference range : <=1.2. The refe rence range was not u sed to interpret th is result as normal/abnormal . ALKALINE PHOSPHATASE 111 U/L 40-130 (test code = 2204) AST (test code = 18 U/L 9-40 2217) ALT (test code = 26 U/L 5-40 2218) HEMOGLOBIN [id number] 04:45:19 Test Item Value Reference Range Interpretation Comments HEMOGLOBIN A1c (test 9.7 % 4.2-5.6 H [employer] code = 09096) ASSOCIATION IDELINES FOR HGB A1C: PREDIABETES/INC REASED RISK . . . . . . . 5.7 -6.4% DIAGNOSIS OF DI ABETES . . . . . . . . . >=6 .5% WITH CONFIRMATION OR APPROPRIATE SYMPTOMS NOTE: ASSAY MAY BE AFFECTED BY HEMOGLOBINOPATH IES (SICKLE CELL ANEMIA, S- C DISEASE, OTHERS) OR JANA FICIALLY LOWERED BY DECR EASED RED CELL SURVIVAL ( HEMOLYTIC ANEMIAS, BLOOD LOSS, ETC.). CONSIDER ALTERN ATE TESTING OR LABORATORY C ONSULTATION. COMPREHENSIVE METABOLIC [id number] 06:57:12 Test Item Value Reference Range Interpretation Comments GLUCOSE (test code = 229 MG/DL 70-99 H 2216) BUN (test code = 12 MG/DL 6-20 2207) CREATININE (test 0.65 MG/DL 0.60-1.30 code = 2214) eGFR (2020 CKD-EPI) 107 >60 (test code = 17185) ML/MIN/1.73 CALC BUN/CREAT (test 18 RATIO 6-28 code = 2235) SODIUM (test code = 141 MEQ/L 593-343 6805) POTASSIUM (test code 4.5 MEQ/L 3.5-5.4 = 2227) CHLORIDE (test code 100 MEQ/L 95-107 = 2215) CARBON DIOXIDE (test 26 MEQ/L 19-31 code = 2206) CALCIUM (test code = 9.6 MG/DL 8.5-10.5 2208) PROTEIN, TOTAL (test 7.1 G/DL 6.1-8.3 code = 2229) ALBUMIN (test code = 4.5 G/DL 3.5-5.2 2200) CALC GLOBULIN (test 2.6 G/DL 1.9-3.7 code = 2240) CALC A/G RATIO (test 1.7 RATIO 1.0-2.6 code = 2234) BILIRUBIN, TOTAL 0.6 MG/DL See_Comment [Automated message] (test code = 2207) The syste m which generated this result transmit brittnee reference range : <=1.2. The refe rence range was not u sed to interpret th is result as normal/abnormal . ALKALINE PHOSPHATASE 95 U/L 40-128 (test code = 4) AST (test code = 17 U/L 9-40 2217) ALT (test code = 23 U/L 5-40 2218) LIPID [id number] 06:57:12 Test Item Value Reference Range Interpretation Comments CHOLESTEROL (test 198 MG/DL <200 code = 2210) TRIGLYCERIDES (test 148 MG/DL <150 code = 2232) HDL CHOLESTEROL (test 44 MG/DL >39 code = 2220) CALC LDL CHOL (test 128 MG/DL <100 H NOTE: C ALCULATED LDL code = 2237) IS BASED ON JASMEET-AVENDAÑO METHOD WHICHINCLUDES ADJUSTABLE TRIGLYCERIDE:VL DL CHOLESTEROL RAT IO.THIS FACTOR VARIES B Y MEASURED TRIGLY CERIDE AND NON-HDLCHOL ESTEROL CONCENTRATIONS WITH INCREASED CALCU LATED LDL SEENIN HIGH ER TRIGLYCERIDE OR LOWER NON-HDL SPECIME NS. FOR MOREINFORMATION , SEE CLIENT ANNOUNCE MENT AT [email or web address] LDL/HDL 2.91 RATIO <3.22 (test code = 2238) HEMOGLOBIN [id number] 06:50:25 Test Item Value Reference Range Interpretation Comments HEMOGLOBIN A1c (test 9.5 % 4.2-5.6 H [employer] code = 23134) ASSOCIATION IDELINES FOR HGB A1C: PREDIABETES/INC REASED RISK . . . . . . . 5.7 -6.4% DIAGNOSIS OF DI ABETES . . . . . . . . . >=6 .5% WITH CONFIRMATION OR APPROPRIATE SYMPTOMS NOTE: ASSAY MAY BE AFFECTED BY HEMOGLOBINOPATH IES (SICKLE CELL ANEMIA, S- C DISEASE, OTHERS) OR JANA FICIALLY LOWERED BY DECR EASED RED CELL SURVIVAL ( HEMOLYTIC ANEMIAS, BLOOD LOSS, ETC.). CONSIDER ALTERN ATE TESTING OR LABORATORY C ONSULTATION. UNLESS OTHERWIS E INDICATED, ALL TESTING PER FORMED [facility] [place]. [address] [place] [id number] LABORATORY DIRE CTOR: CATHERINE MOLINA M.D. CLIA NUMBER [id number] [facility] [place]. [id number] HEMOGLOBIN [id number] 04:18:05 Test Item Value Reference Range Interpretation Comments HEMOGLOBIN A1c (test 11.3 % 4.2-5.6 H [employer] code = 19813) ASSOCIATION IDELINES FOR HGB A1C: PREDIABETES/INC REASED RISK . . . . . . . 5 .7-6.4% DIAGNOSIS OF DI ABETES . . . . . . . . . >=6 .5% WITH CONFIRMATION OR APPROPRIATE SYMPTOMS NOTE: ASSAY MAY BE AFFECTED BY HEMOGLOBINOPATH IES (SICKLE CELL ANEMIA, S- C DISEASE, OTHERS) OR JANA FICIALLY LOWERED BY DECR EASED RED CELL SURVIVAL ( HEMOLYTIC ANEMIAS, BLOOD LOSS, ETC.). CONSIDER ALTERN ATE TESTING OR LABORATORY C ONSULTATION. ALBUMIN/CREATININE RATIO, URINE, [id number] 04:17:19 Test Item Value Reference Range Interpretation Comments CREATININE, URINE, 85.2 MG/DL NOT ESTAB RANDOM (test code = 2072) ALBUMIN, URINE, 0.3 MG/DL NOT ESTAB RANDOM (test code = 63648) CALC ALBUMIN/CREAT, 4 MG/G <30 Note: RND (test code = Albumin/Cre atinine 39452) ratio reference interval reflec ts ADA and NKF guideli omega. COMPREHENSIVE METABOLIC [id number] 04:11:01 Test Item Value Reference Range Interpretation Comments GLUCOSE (test code = 299 MG/DL 70-99 H 2216) BUN (test code = 17 MG/DL 6-20 2207) CREATININE (test 0.61 MG/DL 0.60-1.30 code = 2214) eGFR (2020 CKD-EPI) 109 >60 (test code = 84280) ML/MIN/1.73 CALC BUN/CREAT (test 28 RATIO 6-28 code = 2235) SODIUM (test code = 135 MEQ/L 842-586 3854) POTASSIUM (test code 4.8 MEQ/L 3.5-5.4 = 2227) CHLORIDE (test code 96 MEQ/L 95-107 = 2214) CARBON DIOXIDE (test 25 MEQ/L 19-31 code = 2206) CALCIUM (test code = 9.9 MG/DL 8.5-10.5 2208) PROTEIN, TOTAL (test 6.9 G/DL 6.1-8.3 code = 2229) ALBUMIN (test code = 4.5 G/DL 3.5-5.2 2200) CALC GLOBULIN (test 2.4 G/DL 1.9-3.7 code = 2240) CALC A/G RATIO (test 1.9 RATIO 1.0-2.6 code = 2234) BILIRUBIN, TOTAL 0.6 MG/DL See_Comment [Automated message] (test code = 2207) The syste m which generated this result transmit brittnee reference range : <=1.2. The refe rence range was not u sed to interpret th is result as normal/abnormal . ALKALINE PHOSPHATASE 130 U/L 40-128 H (test code = 2204) AST (test code = 14 U/L 9-40 2217) ALT (test code = 22 U/L 5-40 2218) LIPID [id number] 04:11:01 Test Item Value Reference Range Interpretation Comments CHOLESTEROL (test 195 MG/DL <200 code = 2210) TRIGLYCERIDES (test 127 MG/DL <150 code = 2232) HDL CHOLESTEROL (test 41 MG/DL >39 code = 2220) CALC LDL CHOL (test 130 MG/DL <100 H NOTE: C ALCULATED LDL code = 2237) IS BASED ON JASMEET-AVENDAÑO METHOD WHICHINCLUDES ADJUSTABLE TRIGLYCERIDE:VL DL CHOLESTEROL RAT IO.THIS FACTOR VARIES B Y MEASURED TRIGLY CERIDE AND NON-HDLCHOL ESTEROL CONCENTRATIONS WITH INCREASED CALCU LATED LDL SEENIN HIGH ER TRIGLYCERIDE OR LOWER NON-HDL SPECIME NS. FOR MOREINFORMATION , SEE CLIENT ANNOUNCE MENT AT [email or web address] [email or web address] RATIO LDL/HDL 3.17 RATIO <3.22 UNLESS O THERWISE (test code = 2238) INDICATED , ALL TESTING PERFORMED [facility], [place]. [address] [facility] [place] [address] [facility] DIRECTOR: CATHERINE MOLINA M.D. CLIA NUMBER [id number] CAP ACCREDITATION N O. [id number] MICROALBUMIN/CREATININE, RANDOM AND [id number] 00:00:00 Test Item Value Reference Range Interpretation Comments CREATININE, URINE, RANDOM (test 85.2 MG/DL code = 2071) ALBUMIN, URINE, RANDOM (test code 0.3 MG/DL = 57474) CALC ALBUMIN/CREAT, RND (test code 4 MG/G = 53722) MICROALBUMIN/CREATININE, RANDOM AND [id number] 00:00:00 Test Item Value Reference Range Interpretation Comments CREATININE, URINE, RANDOM (test 85.2 MG/DL code = 2072) ALBUMIN, URINE, RANDOM (test code 0.3 MG/DL = 22626) CALC ALBUMIN/CREAT, RND (test code 4 MG/G = 37361) HEMOGLOBIN [id number] 00:00:00 Test Item Value Reference Range Interpretation Comments HEMOGLOBIN A1c (test code = 85822) 11.3 % HEMOGLOBIN [id number] 00:00:00 Test Item Value Reference Range Interpretation Comments HEMOGLOBIN A1c (test code = 02557) 11.3 % HEMOGLOBIN [id number] 00:00:00 Test Item Value Reference Range Interpretation Comments HEMOGLOBIN A1c (test code = 42082) 11.3 % COMPREHENSIVE METABOLIC [id number] 00:00:00 Test Item Value Reference Range Interpretation Comments GLUCOSE (test code = 2217) 299 MG/DL BUN (test code = 2208) 17 MG/DL CREATININE (test code = 2214) 0.61 MG/DL eGFR (2020 CKD-EPI) (test 109 ML/MIN/1.73 code = 73907) CALC BUN/CREAT (test code = 28 RATIO 2235) SODIUM (test code = 2231) 135 MEQ/L POTASSIUM (test code = 2228) 4.8 MEQ/L CHLORIDE (test code = 2215) 96 MEQ/L CARBON DIOXIDE (test code = 25 MEQ/L 2205) CALCIUM (test code = 2209) 9.9 MG/DL PROTEIN, TOTAL (test code = 6.9 G/DL 2228) ALBUMIN (test code = 2201) 4.5 G/DL CALC GLOBULIN (test code = 2.4 G/DL 2239) CALC A/G RATIO (test code = 1.9 RATIO 2234) BILIRUBIN, TOTAL (test code = 0.6 MG/DL 2206) ALKALINE PHOSPHATASE (test 130 U/L code = 2204) AST (test code = 2218) 14 U/L ALT (test code = 2219) 22 U/L COMPREHENSIVE METABOLIC [id number] 00:00:00 Test Item Value Reference Range Interpretation Comments GLUCOSE (test code = 2217) 299 MG/DL BUN (test code = 2208) 17 MG/DL CREATININE (test code = 2214) 0.61 MG/DL eGFR (2020 CKD-EPI) (test 109 ML/MIN/1.73 code = 17160) CALC BUN/CREAT (test code = 28 RATIO 2235) SODIUM (test code = 2231) 135 MEQ/L POTASSIUM (test code = 2228) 4.8 MEQ/L CHLORIDE (test code = 2215) 96 MEQ/L CARBON DIOXIDE (test code = 25 MEQ/L 2205) CALCIUM (test code = 2209) 9.9 MG/DL PROTEIN, TOTAL (test code = 6.9 G/DL 2228) ALBUMIN (test code = 220) 4.5 G/DL CALC GLOBULIN (test code = 2.4 G/DL 2239) CALC A/G RATIO (test code = 1.9 RATIO 2233) BILIRUBIN, TOTAL (test code = 0.6 MG/DL 2206) ALKALINE PHOSPHATASE (test 130 U/L code = 2204) AST (test code = 2218) 14 U/L ALT (test code = 2219) 22 U/L LIPID [id number] 00:00:00 Test Item Value Reference Range Interpretation Comments CHOLESTEROL (test code = 2210) 195 MG/DL TRIGLYCERIDES (test code = 2232) 127 MG/DL HDL CHOLESTEROL (test code = 2220) 41 MG/DL CALC LDL CHOL (test code = 2237) 130 MG/DL RISK RATIO LDL/HDL (test code = 3.17 RATIO 2238) LIPID [id number] 00:00:00 Test Item Value Reference Range Interpretation Comments CHOLESTEROL (test code = 2210) 195 MG/DL TRIGLYCERIDES (test code = 2232) 127 MG/DL HDL CHOLESTEROL (test code = 2220) 41 MG/DL CALC LDL CHOL (test code = 2237) 130 MG/DL RISK RATIO LDL/HDL (test code = 3.17 RATIO 2238) RSV BY [id number] 00:00:00 Test Item Value Reference Range Interpretation Comments RSV BY DFA (test code = 47137) Negative SOURCE (test code = 08664) Not Provided RSV BY [id number] 00:00:00 Test Item Value Reference Range Interpretation Comments RSV BY DFA (test code = 36788) Negative SOURCE (test code = 35558) Not Provided SARS-CoV-2 (COVID-19) by RT-PCR (HIGH RISK)2021-07-11 00:00:00 Test Item Value Reference Range Interpretation Comments SARS-CoV-2 INTERPRETATION (test NEGATIVE code = 93681) SOURCE (test code = 00236) NOT SPECIFIED SARS-CoV-2 (COVID-19) by RT-PCR (HIGH RISK)2021-07-11 00:00:00 Test Item Value Reference Range Interpretation Comments SARS-CoV-2 INTERPRETATION (test NEGATIVE code = 33946) SOURCE (test code = 51229) NOT SPECIFIED SARS-CoV-2 (COVID-19) by RT-PCR (HIGH RISK)2020-10-27 00:00:00 Test Item Value Reference Range Interpretation Comments SARS-CoV-2 INTERPRETATION (test NEGATIVE code = 94952) SOURCE (test code = 62744) NOT SPECIFIED SARS-CoV-2 (COVID-19) by RT-PCR (HIGH RISK)2020-10-27 00:00:00 Test Item Value Reference Range Interpretation Comments SARS-CoV-2 INTERPRETATION (test NEGATIVE code = 90114) SOURCE (test code = 92530) NOT SPECIFIED
[2023-05-15 04:42] LABS: Absolute Lymphocytes (CBC) 2.1 K/uL (0.7-4.9); Hematocrit 42.3 % (36.0-45.0); Lymphocytes % 19.1 % (15.3-44.8); MCV 86.4 fL (80-100); Platelets 266 thou/uL (152-406); RBC Red Blood Cell Count 4.89 M/uL (3.86-4.86)
[2023-05-15 04:54] LABS: Protime INR 1.05
[2023-05-15] MEDS ORDERED: ASPIRIN 81 MG CHEWABLE TABLET ONE (04:58)
--- NOTE | 2023-05-15 05:18 | EDPHYS ---
Physician Documentation [facility] Name: Libia Morin Age: 52 yrs Sex: Female : 1970 Arrival Date: 05/15/2023 Time: 03:13 Bed 6 Private MD: ED Physician Gómez Junior HPI: 05/15 04:35 This 52 yrs old Female presents to ER via Ambulatory with complaints of High brenna Blood Pressure. 04:35 The patient has elevated blood pressure and discovered this at home. Onset: The brenna symptoms/episode began/occurred just prior to arrival. Modifying factors: The symptoms are aggravated by activity, The symptoms are alleviated by remaining still. Associated signs and symptoms: Pertinent positives: chest pain, lightheadedness. Severity of symptoms: At its worst the blood pressure was mild, in the emergency department the blood pressure is unchanged. The patient has not experienced similar symptoms in the past. Historical: - Allergies: 03:33 No Known Allergies; pf1 - Home Meds: 03:32 amlodipine 5 mg tab 1 tab once daily [Active]; lisinopril-hydrochlorothiazide 20-25 mg pf1 Oral tab 1 tab once daily [Active]; metformin 500 mg Oral tab 2 tabs 2 times per day [Active]; - PMHx: 03:32 Diabetes - NIDDM; Hypertension; pf1 - PSHx: 03:32 hysterectomy; pf1 - Immunization history:: Adult Immunizations up to date, Client reports receiving the 2nd dose of the Covid vaccine, Last tetanus immunization: > 10 years ago Flu vaccine is not up to date. - Social history:: Smoking status: Patient denies any tobacco usage or history of. Patient/guardian denies using alcohol, street drugs. ROS: 04:36 Constitutional: Negative for fever, chills, and weight loss, Eyes: Negative for injury, brenna pain, redness, and discharge, ENT: Negative for injury, pain, and discharge, Neck: Negative for injury, pain, and swelling, Respiratory: Negative for shortness of breath, cough, wheezing, and pleuritic chest pain, Abdomen/GI: Negative for abdominal pain, nausea, vomiting, diarrhea, and constipation, Back: Negative for injury and pain, : Negative for injury, bleeding, discharge, and swelling, MS/Extremity: Negative for injury and deformity, Skin: Negative for injury, rash, and discoloration, Neuro: Negative for headache, weakness, numbness, tingling, and seizure, Psych: Negative for depression, anxiety, suicide ideation, homicidal ideation, and hallucinations, Allergy/Immunology: Negative for hives, rash, and allergies, Endocrine: Negative for neck swelling, polydipsia, polyuria, polyphagia, and marked weight changes, Hematologic/Lymphatic: Negative for swollen nodes, abnormal bleeding, and unusual bruising. 04:36 Cardiovascular: Positive for chest pain, orthopnea. 04:36 Respiratory: Positive for cough, shortness of breath, at rest. Exam: 04:36 Constitutional: This is a well developed, well nourished patient who is awake, alert, brenna and in no acute distress. Head/Face: Normocephalic, atraumatic. Eyes: Pupils equal round and reactive to light, extra-ocular motions intact. Lids and lashes normal. Conjunctiva and sclera are non-icteric and not injected. Cornea within normal limits. Periorbital areas with no swelling, redness, or edema. ENT: Nares patent. No nasal discharge, no septal abnormalities noted. Tympanic membranes are normal and external auditory canals are clear. Oropharynx with no redness, swelling, or masses, exudates, or evidence of obstruction, uvula midline. Mucous membranes moist. Neck: Trachea midline, no thyromegaly or masses palpated, and no cervical lymphadenopathy. Supple, full range of motion without nuchal rigidity, or vertebral point tenderness. No Meningismus. Chest/axilla: Normal chest wall appearance and motion. Nontender with no deformity. No lesions are appreciated. Cardiovascular: Regular rate and rhythm with a normal S1 and S2. No gallops, murmurs, or rubs. Normal PMI, no JVD. No pulse deficits. Respiratory: Lungs have equal breath sounds bilaterally, clear to auscultation and percussion. No rales, rhonchi or wheezes noted. No increased work of breathing, no retractions or nasal flaring. Abdomen/GI: Soft, non-tender, with normal bowel sounds. No distension or tympany. No guarding or rebound. No evidence of tenderness throughout. Back: No spinal tenderness. No costovertebral tenderness. Full range of motion. Skin: Warm, dry with normal turgor. Normal color with no rashes, no lesions, and no evidence of cellulitis. MS/ Extremity: Pulses equal, no cyanosis. Neurovascular intact. Full, normal range of motion. Neuro: Awake and alert, GCS 15, oriented to person, place, time, and situation. Cranial nerves II-XII grossly intact. Motor strength 5/5 in all extremities. Sensory grossly intact. Cerebellar exam normal. Normal gait. Psych: Awake, alert, with orientation to person, place and time. Behavior, mood, and affect are within normal limits. 04:36 ECG was reviewed by the Attending Physician. 04:36 Musculoskeletal/extremity: ROM: no acute changes, intact in all extremities, Circulation is intact in all extremities. Sensation intact. Compartment Syndrome exam of affected extremity: is normal. Joints: All joints appear normal with full range of motion. DVT Exam: No signs of deep vein thrombosis. no pain, no swelling, no tenderness, negative Homans' sign noted on exam, no appreciated bluish discoloration, no erythema, no increased warmth. Vital Signs: 03:27 BP 123 / 85; Pulse 92; Resp 18; Temp 98.1; Pulse Ox 99% on R/A; Weight 97.07 kg; Height pf1 5 ft. 3 in. ; Pain 0/10; 04:31 BP 103 / 65; Pulse 88; Resp 16; Pulse Ox 98% on R/A; kd3 04:43 BP 104 / 67; Pulse 90; Resp 19; Pulse Ox 98% on R/A; kd3 04:51 BP 100 / 62; Pulse 93; Resp 18; Pulse Ox 98% on R/A; kd3 05:30 BP 97 / 53; Pulse 86; Resp 18; Pulse Ox 98% on R/A; kd3 06:13 BP 101 / 61; Pulse 87; Resp 15; Pulse Ox 96% on R/A; kd3 06:57 BP 112 / 70; Pulse 83; Resp 19; Pulse Ox 98% on R/A; kd3 03:27 Body Mass Index 37.91 (97.07 kg, 160.02 cm) pf1 03:27 Pain Scale: Adult pf1 MDM: 03:21 Patient medically screened. brenna 04:39 Antibiotic administration: Not indicated. Differential diagnosis: Anemia asthma, brenna Bronchitis CHF exacerbation, Chronic Obstructive Pulmonary Disease hypertensive crisis, Malignant HTN, pneumonia, Pneumothorax pulmonary edema, Pulmonary Embolism reactive airway disease, Sepsis. HEART Score: ECG: Non specific repolarization disturbance / LBTB / PM (1), Age: > 45 and < 65 years (1), Risk Factors: > or = 3 Risk factors for atherosclerotic disease (2), [Hypertension] [DM] [+ Family HX] [Obesity] Troponin: < or = 1 x Normal Limit (0). The patient was given aspirin in the Emergency Department. IRENE Risk Score: 1 - Three or more CAD risk factors, 1 - Recent [<24hrs] Severe Angina, TOTAL SCORE = 2. Immunization status: Influenza vaccine: within last 5 years. Data reviewed: vital signs, nurses notes, lab test result(s), EKG, radiologic studies, plain films. Consideration of Admission/Observation Patient was admitted/placed on observation. Escalation of care including admission/observation considered. I considered the following discharge prescriptions or medication management in the emergency department Medications were administered in the Emergency Department. See MAR. Care significantly affected by the following chronic conditions: Diabetes, Hypertension, Obesity. Counseling: I had a detailed discussion with the patient and/or guardian regarding: the historical points, exam findings, and any diagnostic results supporting the discharge/admit diagnosis, the presence of at least one elevated blood pressure reading (>120/80) during this emergency department visit, lab results, radiology results, the need for further work-up and treatment in the hospital. 05/15 03:22 Order name: Basic Metabolic Panel; Complete Time: 05:33 [facility] 05/15 03:22 Order name: CBC with Diff; Complete Time: 05:12 [facility] 05/15 03:22 Order name: LFT's; Complete Time: 05:33 [facility] 05/15 03:22 Order name: Magnesium; Complete Time: 05:33 [facility] 05/15 03:22 Order name: NT PRO-BNP; Complete Time: 05:33 [facility] 05/15 03:22 Order name: PT-INR; Complete Time: 05:12 [facility] 05/15 03:22 Order name: Troponin HS; Complete Time: 05:33 [facility] 05/15 03:22 Order name: Lipase; Complete Time: 05:33 [facility] 05/15 03:22 Order name: Urinalysis w/ reflexes; Complete Time: 05:34 [facility] 05/15 07:00 Order name: Lipid Profile [facility] 05/15 07:00 Order name: Lipid Profile [facility] 05/15 07:00 Order name: Troponin High Sensitivity [facility] 05/15 07:00 Order name: Troponin High Sensitivity [facility] 05/15 07:00 Order name: Troponin High Sensitivity [facility] 05/15 03:22 Order name: XRAY Chest (1 view) [facility] 05/15 07:00 Order name: Echo with Doppler [facility] 05/15 03:22 Order name: EKG; Complete Time: 03:22 [facility] 05/15 07:00 Order name: Heart Healthy [facility] 05/15 03:22 Order name: Cardiac monitoring; Complete Time: 04:15 [facility] 05/15 03:22 Order name: EKG - Nurse/Tech; Complete Time: 04:15 [facility] 05/15 03:22 Order name: IV Saline Lock; Complete Time: 04:24 [facility] 05/15 03:22 Order name: Labs collected and sent; Complete Time: 04:24 [facility] 05/15 03:22 Order name: O2 Per Protocol; Complete Time: 04:16 [facility] 05/15 03:22 Order name: O2 Sat Monitoring; Complete Time: 04:16 [facility] EC:36 Rate is 99 beats/min. Rhythm is regular. QRS [place] is Normal. DE interval is normal. QRS brenna interval is normal. QT interval is normal. No Q waves. T waves are Normal. No ST changes noted. Clinical impression: NSR w/ Non-specific ST/T Changes and No evidence of ischemia. Interpreted by me. Reviewed by me. Administered Medications: 04:49 Drug: Aspirin PO Chewable Tablet 162 mg Route: PO; kd3 05:24 Follow up: Response: No adverse reaction kd3 06:58 Follow up: Response: No adverse reaction kd3 05:54 Drug: Magnesium Sulfate IVPB 2 grams Route: IVPB; Infused Over: 2 hrs; Site: right kd3 antecubital; 06:58 Follow up: Response: No adverse reaction; IV Status: Completed infusion; IV Intake: [id number] Disposition Summary: 05/15/23 05:17 Hospitalization Ordered Hospitalization Status: Observation brenna Provider: Robin Mack cha Condition: Stable brenna Problem: an acute exacerbation brenna Symptoms: have improved brenna Bed/Room Type: Standard brenna Location: [facility] ER HOLD(05/15/23 07:44) Room Assignment: ERHOLD-(05/15/23 07:44) Diagnosis - Essential (primary) hypertension brenna - Dyspnea brenna - Obesity, unspecified brenna - Chest pain, unspecified brenna - Other specified anxiety disorders brenna - Hypomagnesemia brenna - Type 2 diabetes mellitus with hyperglycemia brenna Forms: - Medication Reconciliation Form brenna - SBAR form brenna Signatures: Dispatcher [employer] Gómez Chaudhary MD MD cha Blanchard, Shelby RN RN ss Kathy Serrato RN RN kd3 Radha Bernstein RN RN pf1 Corrections: (The following items were deleted from the chart) :44 05:17 Telemetry/MedSurg (observation) [facility] 07:44 05:17 [facility]
--- NOTE | 2023-05-15 05:18 | ER ---
Nurse's Notes [facility] Name: Libia Morin Age: 52 yrs Sex: Female : 1970 Arrival Date: 05/15/2023 Time: 03:13 Bed 6 Private MD: Diagnosis: Essential (primary) hypertension;Dyspnea;Obesity, unspecified;Chest pain, unspecified;Other specified anxiety disorders;Hypomagnesemia;Type 2 diabetes mellitus with hyperglycemia Presentation: 05/15 03:27 Chief complaint: Patient states: high blood pressure with 160/90 and 154/102, onset pf1 0130. Patient stated has been dealing with family related stress recently. Patient stated took Lisinopril/HCTZ 20mg/25mg tablet at 0130. Patient denies any pain or other symptoms at this time. Coronavirus screen: Vaccine status: Patient reports receiving the 2nd dose of the covid vaccine. [employer] Client denies travel out of the [place] in the last 14 days. At this time, the client does not indicate any symptoms associated with coronavirus-19. Ebola Screen: Patient negative for fever greater than or equal to 101.5 degrees Fahrenheit, and additional compatible Ebola Virus Disease symptoms. Initial Sepsis Screen: Does the patient meet any 2 criteria? HR > 90 bpm. No. Patient's initial sepsis screen is negative. Does the patient have a suspected source of infection? No. Patient's initial sepsis screen is negative. Risk Assessment: Do you want to hurt yourself or someone else? Patient reports no desire to harm self or others. 03:27 Method Of Arrival: Ambulatory pf1 03:27 Acuity: RUDDY 4 pf1 04:43 Onset of symptoms was May 15, 2023. kd3 Historical: - Allergies: 03:33 No Known Allergies; pf1 - Home Meds: 03:32 amlodipine 5 mg tab 1 tab once daily [Active]; lisinopril-hydrochlorothiazide 20-25 mg pf1 Oral tab 1 tab once daily [Active]; metformin 500 mg Oral tab 2 tabs 2 times per day [Active]; - PMHx: 03:32 Diabetes - NIDDM; Hypertension; pf1 - PSHx: 03:32 hysterectomy; pf1 - Immunization history:: Adult Immunizations up to date, Client reports receiving the 2nd dose of the Covid vaccine, Last tetanus immunization: > 10 years ago Flu vaccine is not up to date. - Social history:: Smoking status: Patient denies any tobacco usage or history of. Patient/guardian denies using alcohol, street drugs. Screenin:13 [facility] ED Fall Risk Assessment (Adult) History of falling in the last 3 months, lg3 including since admission No falls in past 3 months (0 pts). Abuse screen: Denies threats or abuse. Denies injuries from another. Nutritional screening: No deficits noted. Tuberculosis screening: No symptoms or risk factors identified. Assessment: 04:13 General: Appears in no apparent distress. comfortable, Behavior is calm, cooperative. lg3 Pain: Denies pain. Neuro: No deficits noted. Hernandez Agitation-Sedation Scale (RASS): 0 - Alert and Calm Level of Consciousness is awake, alert, obeys commands, Oriented to person, place, time, situation. Cardiovascular: No deficits noted. Denies chest pain, shortness of breath, Capillary refill < 3 seconds Clubbing of nail beds is absent JVD is absent Patient's skin is warm and dry. Respiratory: No deficits noted. Airway is patent Respiratory effort is even, unlabored, Respiratory pattern is regular, symmetrical. GI: No deficits noted. No signs and/or symptoms were reported involving the gastrointestinal system. Abdomen is round non-distended. : No deficits noted. No signs and/or symptoms were reported regarding the genitourinary system. EENT: No deficits noted. No signs and/or symptoms were reported regarding the EENT system. Derm: No deficits noted. No signs and/or symptoms reported regarding the dermatologic system. Skin is intact, is healthy with good turgor, Skin is dry, Skin is normal, Skin temperature is warm. Musculoskeletal: No deficits noted. No signs and/or symptoms reported regarding the musculoskeletal system. Circulation, motion, and sensation intact. Range of motion: intact in all extremities. 07:42 Reassessment: at bedside. Will redraw 2nd troponin here momentarily. General: ss Appears in no apparent distress. comfortable, Behavior is calm, cooperative. Neuro: Level of Consciousness is awake, alert. Respiratory: Airway is patent Respiratory effort is even, unlabored, Respiratory pattern is regular, symmetrical. Derm: Skin is intact, is healthy with good turgor, Skin is pink, warm \T\ dry. normal. Vital Signs: 03:27 BP 123 / 85; Pulse 92; Resp 18; Temp 98.1; Pulse Ox 99% on R/A; Weight 97.07 kg; Height pf1 5 ft. 3 in. ; Pain 0/10; 04:31 BP 103 / 65; Pulse 88; Resp 16; Pulse Ox 98% on R/A; kd3 04:43 BP 104 / 67; Pulse 90; Resp 19; Pulse Ox 98% on R/A; kd3 04:51 BP 100 / 62; Pulse 93; Resp 18; Pulse Ox 98% on R/A; kd3 05:30 BP 97 / 53; Pulse 86; Resp 18; Pulse Ox 98% on R/A; kd3 06:13 BP 101 / 61; Pulse 87; Resp 15; Pulse Ox 96% on R/A; kd3 06:57 BP 112 / 70; Pulse 83; Resp 19; Pulse Ox 98% on R/A; kd3 03:27 Body Mass Index 37.91 (97.07 kg, 160.02 cm) pf1 03:27 Pain Scale: Adult pf1 ED Course: 03:17 Patient arrived in ED. ag3 03:21 Gómez Junior MD is Attending Physician. brenna 03:32 Triage completed. pf1 03:41 Kathy Serrato, DESI is Primary Nurse. kd3 03:50 XRAY Chest (1 view) In Process Unspecified. EDMS 04:13 Missed attempt(s): 22 gauge in right antecubital area. Bleeding controlled, band aid lg3 applied, catheter tip intact. 04:13 Missed attempt(s): 22 gauge in left forearm. Bleeding controlled, band aid applied, lg3 catheter tip intact. 04:13 Patient maintains SpO2 saturation greater than 95% on room air. lg3 04:13 Patient has correct armband on for positive identification. Placed in gown. Bed in low lg3 position. Call light in reach. Side rails up X 1. Client placed on continuous cardiac and pulse oximetry monitoring. NIBP monitoring applied. equipment monitor phototypesetting on. Door closed. Noise minimized. Warm blanket given. Family accompanied patient. 04:15 Urinalysis w/ reflexes Sent. lg3 04:24 Basic Metabolic Panel Sent. kd3 04:24 CBC with Diff Sent. kd3 04:24 LFT's Sent. kd3 04:24 Magnesium Sent. kd3 04:24 NT PRO-BNP Sent. kd3 04:24 PT-INR Sent. kd3 04:24 Troponin HS Sent. kd3 04:24 Inserted saline lock: 20 gauge in right antecubital area, using aseptic technique. kd3 Blood collected. 04:43 No provider procedures requiring assistance completed. kd3 04:43 Arm band placed on. kd3 04:43 Provided Education on: . kd3 05:13 Robin Mack MD is Hospitalizing Provider. brenna 13:56 IV discontinued, intact, bleeding controlled, No redness/swelling at site. Pressure ss dressing applied. Administered Medications: 04:49 Drug: Aspirin PO Chewable Tablet 162 mg Route: PO; kd3 05:24 Follow up: Response: No adverse reaction kd3 06:58 Follow up: Response: No adverse reaction kd3 05:54 Drug: Magnesium Sulfate IVPB 2 grams Route: IVPB; Infused Over: 2 hrs; Site: right kd3 antecubital; 06:58 Follow up: Response: No adverse reaction; IV Status: Completed infusion; IV Intake: [id number] Medication: 04:43 VIS not applicable for this client. kd3 Intake: 06:58 IV: 50ml; Total: 50ml. kd3 Outcome: 05:17 Decision to Hospitalize by Provider. [facility] 13:56 Discharged to home ambulatory, with family. 13:56 Admitted to ER Hold. Please see [facility] for further documentation. 13:56 Condition: good 13:56 Discharge instructions given to patient, Instructed on discharge instructions, follow up and referral plans. Demonstrated understanding of instructions, follow-up care. 13:56 Patient left the ED. ss Signatures: Dispatcher [employer] Gómez Chaudhary MD MD cha Blanchard, Shelby, RN RN Peri Dueñas3 Martha Newell RN RN lg3 Kathy Serrato RN RN kd3 Radha Bernstein RN RN pf1
[2023-05-15 05:21] LABS: Albumin 3.7 g/dL (3.4-5.0); Bilirubin Direct 0.2 mg/dL (0-0.2); Bilirubin Indirect, Calculated 0.4 mg/dL (0.2-0.8); Bilirubin Total 0.6 mg/dL (0.2-1.0); Magnesium 1.5 mg/dL (1.6-2.4); Potassium 3.6 mEq/L (3.5-5.1); Troponin High Sensitivity 3.7 pg/mL (<58.9)
[2023-05-15 05:33] LABS: Specific Gravity 1.028 (1.005-1.030); Urine Bacteria <20 /HPF (<20); Urine Bilirubin NEGATIVE (Negative); Urine Blood Negative (Negative); Urine Clarity Turbid (Clear); Urine Color Yellow (Yellow); Urine Glucose 2+ (Negative); Urine Mucus 1+ /HPF (None Seen); Urine Protein TRACE (Negative); Urine RBC <5 /HPF (None Seen); Urine Urobilinogen Normal (Normal); Urine pH 5.5 (5.0-7.0)
[2023-05-15] MEDS ORDERED: MAGNESIUM SULFATE 1 gm IVPB 0 GM/0 ML BAG IV ONE (05:47)
[2023-05-15] MEDS ORDERED: Magnesium Sulfate 2gm IVPB 2 G/50 ML BAG IV ONE (05:59)
[2023-05-15] MEDS ORDERED: ACETAMINOPHEN 500 MG TAB PO PRN (06:54)
--- NOTE | 2023-05-15 07:01 | P.HP ---
Certification for Inpatient Patient admitted to: Observation With expected LOS: <2 Midnights Patient will require the following post-hospital care: None Practitioner: I am a practitioner with admitting privileges, knowledge of patient current condition, hospital course, and medical plan of care. Services: Services provided to patient in accordance with Admission requirements found in Title 42 Section 412.3 of the Code of Federal Regulations Patient History Date of Service: 05/15/23 Reason for admission: CP r/o acute coronary syndrome History of Present Illness: Patient is a 52-year-old female who came to the hospital with chest discomfort. Pain was mainly in the sternal region but it faded away really quickly. Patient's stated that her blood pressure was 150/80. Patient is on antihypertensives. Patient also takes medicine for diabetes and was recently told she had hyperlipidemia. Patient does not have any family history and she does not smoke. The chest pain was mild and it faded away quickly. Patient's troponins and EKG are negative. Patient will be admitted to be ruled out for acute coronary syndrome. Will do echocardiogram. If this is negative she should be able to discharge home. Allergies No Known Drug Allergies Allergy (Verified 01/21/18 01:55) Unknown Home Medications: Amlodipine Besylate 5 mg PO DAILY 01/21/18 Lisinopril/Hydrochlorothiazide [Lisinopril-Hctz 20-12.5 mg Tab] 1 tab PO DAILY 01/21/18 Metformin HCl 1,000 mg PO BID 12/03/21 - Past Medical/Surgical History Diabetic: Yes -: DM II -: HTN -: tubal ligation -: hysterctomy -: Cholecystectomy Psychosocial/ Personal History: Patient lives at home with her daughter - Social History Alcohol use: No CD- Drugs: No Caffeine use: Yes Review of Systems 10-point ROS is otherwise unremarkable Physical Examination - Vital Signs Temperature: 98 F Blood Pressure: 110/70 Pulse: 80 Respirations: 18 Pulse Ox (%): 95 - Physical Exam General: Alert, In no apparent distress, Oriented x3 HEENT: Atraumatic, PERRLA, Mucous membr. moist/pink, EOMI, Sclerae nonicteric Neck: Supple, 2+ carotid pulse no bruit, No LAD, Without JVD or thyroid abn ormality Respiratory: Clear to auscultation bilaterally, Normal air movement Cardiovascular: Regular rate/rhythm, Normal S1 S2, No murmurs Gastrointestinal: Normal bowel sounds, Soft and benign, Non-distended, No tenderness Musculoskeletal: No clubbing, No swelling, No tenderness Integumentary: No rashes Neurological: Normal gait, Normal speech, Normal strength at 5/5 x4 extr, Normal tone, Sensation intact, Cranial nerves 3-12 intact, Normal affect Lymphatics: No axilla or inguinal lymphadenopathy - Studies Laboratory Data (last 24 hrs) 05/15/23 05/15/23 05/15/23 04:18 04:18 04:18 WBC 11.00 H Hgb 14.0 Hct 42.3 Plt Count 266 PT 11.5 INR 1.05 Sodium 134 L Potassium 3.6 BUN 17 Creatinine 0.80 Glucose 267 H Magnesium 1.5 L Total Bilirubin 0.6 AST 13 L ALT 47 Alkaline Phosphatase 94 Lipase 27 Assessment & Plan - Problems (Diagnosis) (1) Chest pain, rule out acute myocardial infarction Current Visit: Yes Status: Acute (2) Diabetes mellitus Onset Date: 01/21/18 Current Visit: No Status: Chronic Qualifiers: Diabetes mellitus type: type 2 Diabetes mellitus exterminator helper termite insulin use: without exterminator helper termite use Diabetes mellitus complication status: without complication Qualified Code(s): E11.9 - Type 2 diabetes mellitus without complications (3) HTN (hypertension) Onset Date: 01/21/18 Current Visit: No Status: Chronic Qualifiers: Hypertension type: primary hypertension Qualified Code(s): I10 - Essential (primary) hypertension - Plan -High-sensitivity troponin -Echocardiogram -Repeat EKG -Work-up for other etiologies of cardiac chest pain if troponins remain negative -Lipid profile -[employer] regarding modifying risk for cardiac disease Discharge Plan: Home Plan to discharge in: 24 Hours - Advance Directives Does patient have a Living Will: No Does patient have a Durable POA for Healthcare: No - Code Status/Comfort Care Code Status Assessed: Yes Code Status: Full Code Critical Care: No Time Spent Managing PTS Care (In Minutes): 45
[2023-05-15 07:52] VITALS: BMI 37.8
[2023-05-15 08:35] LABS: Troponin High Sensitivity 3.6 pg/mL (<58.9)
[2023-05-15] MEDS ORDERED: ASPIRIN EC 81 MG TAB PO SCH (09:00)
[2023-05-15] MEDS ORDERED: ENOXAPARIN 40 MG/0.4 ML SQ SCH (09:00)
[2023-05-15] MEDS ORDERED: ENOXAPARIN 40 MG/0.4 ML SQ ONE (09:54)
[2023-05-15] MEDS ORDERED: ASPIRIN EC 81 MG TAB PO ONE (09:54)
[2023-05-15 13:11] VITALS: BP 106/74; TEMP 98
[2023-05-15 14:36] VITALS: O2SAT 98
--- NOTE | 2023-05-15 19:26 | RAD REPORT ---
EXAM DESCRIPTION: XR Chest, 1 View CLINICAL HISTORY: The patient is 52 years old and is Female; COUGH TECHNIQUE: Frontal view of the chest. COMPARISON: No relevant prior studies available. FINDINGS: Lungs: See below. Pleural space: Left hemidiaphragm is partially obscured which can be seen with left pleural effus ion, as well as left lower lobe consolidation or atelectasis. No pneumothorax. Heart: Unremarkable. Mediastinum: Unremarkable. Bones/joints: Unremarkable. IMPRESSION: Left hemidiaphragm is partially obscured which can be seen with left pleural effusion, a s well as left lower lobe consolidation or atelectasis. Electronically signed by: Edin Hodgson MD 05/15/2023 4:15 AM CDT Due to temporary technical issues with the PACS/Fluency reporting system, reports are being signed by the in house radiologists without review as a courtesy to insure prompt reporting. The interpreting radiologist is fully responsible for the content of the report.
[2023-05-15] MEDS ORDERED: METOPROLOL TAR 25 MG TAB PO SCH (21:00)
== END 2023-05-15 13:57 | disposition home or self-care (01) ==
LOC: ER 03:13 → ERHOLD 07:00
PROVIDERS: ADMIT Hospitalist; ATTEND Hospitalist
DX: R07.9 Chest pain, unspecified (principal); I10 Essential (primary) hypertension; E78.5 Hyperlipidemia, unspecified
CPT/HCPCS: 36415; 71045; 80048; 80061; 80076; 81001; 83690; 83735; 83880; 84484; 85025; 85610; 93005; J1650; J3475

== ENCOUNTER 2023-06-20 10:21 | Emergency (ER) | payer OTHER, SELFPAY ==
--- OUTSIDE RECORDS SUMMARY | 2023-06-20 10:24 | XMS REPORT | Continuity of Care Document ---
:1970 Author Organization [facility] t Address [address] [place] [address]. [address] [place] [address] Care Team Providers Name Role Phone Vish Waller Primary Care Physician [phone] Jose WEEKS, Chanell Suarez Attending Clinician Unavailable Arabella Rodriguez Attending Clinician Arabella YOUNGBLOOD Attending Clinician Unavailable Problems This patient has no known problems. Allergies, Adverse Reactions, Alerts Allergy Allergy Status Severity Reaction(s) Onset Inactive Treating Comm ents Source Name Type Date Date Clinician NO KNOWN Drug Active Univers ALLERGIE Class ity [facility] Medications Ordered Filled Start Stop Current Ordering Indication Dosage Frequency Signature Comments Components Source Medication Medication Date Date Medication? Clinician (SIG) Name Name TAKE 2021-0 No TABLET 9-13 DAILY 00:00: DIRECTED. 00 INJECT 10 2021-0 No UNITS BELOW 9-12 THE SKIN 00:00: [...] 6-20 00:00: 00 Dose 2021-0 No Unknown 03-25 00:00: 00 Vital Signs Vital Name Observation Time Observation Value Comments Source BP Systolic 2022-06-18 11:25:00 134 mm[Hg] BP Diastolic 2022-06-18 11:25:00 90 mm[Hg] Weight Measured 2022-06-18 11:25:00 212.20 pounds Height Measured 2022-06-18 11:25:00 63.00 inches Body Temperature 2022-06-18 11:25:00 97.20 degrees Heart Rate 2022-06-18 11:25:00 94.00 /min Respiratory Rate 2022-06-18 11:25:00 Respiratory Rate 2022-03-25 08:55:00 18.00 /min BP Systolic 2022-03-25 08:55:00 127 mm[Hg] BP Diastolic 2022-03-25 08:55:00 89 mm[Hg] Weight Measured 2022-03-25 08:55:00 212.80 pounds Height Measured 2022-03-25 08:55:00 Body Temperature 2022-03-25 08:55:00 98.10 degrees Heart Rate 2022-03-25 08:55:00 82.00 /min Procedures This patient has no known procedures. Plan of Care Planned Activity Planned Date Details Comments Source Goal Plan of Care Note [code = 51267-1] Goal Plan of Care Note [code = 66186-3] Goal Plan of Care Note [code = 29119-4] Goal Plan of Care Note [code = 42277-8] Goal Plan of Care Note [code = 29388-2] Goal Plan of Care Note [code = 62703-4] Goal Plan of Care Note [code = 77297-6] Goal Plan of Care Note [code = 03039-5] Encounters Start End Encounter Admission Attending Care Care Encounter Source Date/Time Date/Time Type Type Clinicians Facility Department ID 2023-06-16 2023-06-16 Outpatient [facility] [id number] Erasmo 09:47:47 09:47:47 0911 [facility] 2023-05-23 2023-05-23 Outpatient [facility] [id number] Erasmo 09:19:21 09:19:21 0818 F [facility] 2023-05-16 2023-05-16 Outpatient [facility] [id number] Erasmo 13:52:37 13:52:37 0811 [facility] [place] 2023-05-13 2023-05-13 Outpatient [facility]FA SFA [id number] Erasmo 14:12:57 14:12:57 0808 [facility] [place] 2023-05-12 2023-05-12 Outpatient SFA SFA [id number] Erasmo 13:33:59 13:33:59 0807 [facility] [place] 2023-04-21 2023-04-21 Outpatient SFA SFA [id number] Erasmo 15:15:51 15:15:51 0717 [facility] [place] 2023-01-24 2023-01-24 Outpatient SFA SFA [id number] Erasmo 09:26:24 09:26:24 0421 [facility] [place] 2023-01-22 2023-01-22 Outpatient SFA SFA [id number] Erasmo 14:56:47 14:56:47 0419 [facility] [place] 2022-09-11 2022-09-11 Outpatient [facility] SFA [id number] Erasmo 09:49:50 09:49:50 1207 [facility] [place] 2022 2022 Outpatient [facility]FA SFA [id number] Erasmo 10:31:13 10:31:13 1108 [facility] [place] 2022-06-18 2022-06-18 Outpatient [id number] 00:00:00 00:00:00 Visit [id number] 2020-05-04 2020-05-04 Letter Jose CANNON [id number] 00:00:00 00:00:00 (Out) , Chanell KHALIL [id number] HOSPITAL [id number] [id number] 2020-05-04 2020-05-04 Telephone Jose [id number] 00:00:00 00:00:00 , Chanell KHALIL [id number] HOSPITAL [id number] [id number] 019 2020-05-03 2020-05-03 Emergency Arabella Youngblood [facility] [id number] 12:39:41 15:13:00 Zohreh Batista [id number] [place] 4.2.7.2.686 [place] [id number] 2020-05-03 2020-05-03 Emergency X Arabella YOUNGBLOOD [facility] ERT [id number] 12:39[facility] Test Description Test Time Test Comments Results Result Comments Source HEMOGLOBIN A1c 2023-05-13 04:31:17 Test Item Value Reference Range Interpretation Comme nts HEMOGLOBIN A1c (test code = 10.0 % 4.2-5.6 H [employer] 46448) GUIDELINES FOR HGB A1C: PREDIABETES/INC REASED RISK [...] ALTERNATE TESTING OR LABORATORY C ONSULTATION. LIPID [id number] 04:25:09 Test Item Value Reference Range Interpretation [...] , SEE CLIENT ANNOUNCE MENT AT [email or web address] [email or web address] RATIO LDL/HDL 3.41 RATIO <3.22 H (test code = 2238) COMPREHENSIVE METABOLIC [id number] 04:25:09 Test Item Value Reference Range Interpretation Comments GLUCOSE (test code = 344 MG/DL 70-99 H 2216) BUN (test code = 14 MG/DL -2207) CREATININE (test 0.63 MG/DL 0.60-1.30 code = 221) eGFR (2020 CKD-EPI) 107 >60 (test code = 55025) ML/MIN/1.73 CALC BUN/CREAT (test 22 RATIO 6-28 code = 2235) SODIUM (test code = 135 MEQ/L 272-595 3060) POTASSIUM (test code 4.7 MEQ/L 3.5-5.4 = 2227) CHLORIDE (test code 97 MEQ/L 95-107 = 2214) CARBON DIOXIDE (test 24 MEQ/L 19-31 code = 2206) CALCIUM (test code = 9.7 MG/DL 8.5-10.5 2208) PROTEIN, TOTAL (test 6.8 G/DL 6.1-8.3 code = 2228) ALBUMIN (test code = 4.4 G/DL 3.5-5.2 2200) CALC GLOBULIN (test 2.4 G/DL 1.9-3.7 code = 224) CALC A/G RATIO (test 1.8 RATIO 1.0-2.6 code = 223) BILIRUBIN, TOTAL 0.3 MG/DL See_Comment [Automated message] (test code = 2206) The syste m which generated this result transmitted ref erence range: <=1.2. T he reference range was not used to int erpret this result as normal/abnormal . ALKALINE PHOSPHATASE 115 U/L 40-130 (test code = 2203) AST (test code = 28 U/L 9-40 2217) ALT (test code = 49 U/L 5-40 H UNLESS OTH ERWISE 2218) INDICATED, ALL TESTING PERFORM ED AT [facility] [place]. [address] [place], [place] [id number] [place] [address] DIRECTOR: Ree ACOSTA VANDANA NUMBER [id number] CAP ACCREDITATION N O. [id number] COMPREHENSIVE METABOLIC [id number] 07:15:53 Test Item Value Reference Range Interpretation Comments GLUCOSE (test code = 251 MG/DL 70-99 H 2216) BUN (test code = 12 MG/DL -2207) CREATININE (test 0.67 MG/DL 0.60-1.30 code = 2214) eGFR (2020 CKD-EPI) 106 >60 (test code = 98459) ML/MIN/1.73 CALC BUN/CREAT (test 18 RATIO 6-28 code = 223) SODIUM (test code = 138 MEQ/L 912-554 3302) POTASSIUM (test code 4.5 MEQ/L 3.5-5.4 = 2227) CHLORIDE (test code 98 MEQ/L 95-107 = 2214) CARBON DIOXIDE (test 26 MEQ/L 19-31 code = 2205) CALCIUM (test code = 10.0 MG/DL 8.5-10.5 2208) PROTEIN, TOTAL (test 7.0 G/DL 6.1-8.3 code = 2228) ALBUMIN (test code = 4.8 G/DL 3.5-5.2 2200) CALC GLOBULIN (test 2.2 G/DL 1.9-3.7 code = 2239) CALC A/G RATIO (test 2.2 RATIO 1.0-2.6 code = 2233) BILIRUBIN, TOTAL 0.6 MG/DL See_Comment [Automated message] (test code = 2206) The syste m which generated this result transmit brittnee reference range : <=1.2. The refe rence range was not u sed to interpret th is result as normal/abnormal . ALKALINE PHOSPHATASE 111 U/L 40-130 (test code = 2203) AST (test code = 18 U/L 9-40 2217) ALT (test code = 26 U/L 5-40 2218) LIPID [id number] 07:15:53 Test Item Value Reference Range Interpretation [...] MOREINFORMATION , SEE CLIENT ANNOUNCE MENT AT [email or web address] /[email or web address] [email or web address] RATIO LDL/HDL 2.67 RATIO <3.22 [facility] has important (test code = 2238) pathology staff changes effecti ve 12/04/2022. New pathology staff will provide uninter rupted, excellent patie nt care and clinical consultation. S ee URL: [email or web address]. UNLES S OTHERWISE INDIC ATED, ALL TESTING PER FORMED AT [facility], [facility]. [address] [place] [address] LABOR ATORY DIRECTOR: Ree ACOSTA VANDANA NUMBER [id number] CAP ACCREDITATION N O. [id number] HEMOGLOBIN [id number] 04:45:19 Test Item Value Reference Range Interpretation Comments HEMOGLOBIN A1c (test 9.7 % 4.2-5.6 H [employer] code = 97965) ASSOCIATION IDELINES FOR HGB A1C: PREDIABETES/INC REASED [...] TESTING OR LABORATORY C ONSULTATION. COMPREHENSIVE METABOLIC [id number] 06:57:12 Test Item Value Reference Range Interpretation Comments GLUCOSE (test code = 229 MG/DL 70-99 H 2216) BUN (test code = 12 MG/DL -20 2207) CREATININE (test 0.65 MG/DL 0.60-1.30 code = 2214) eGFR (2020 CKD-EPI) 107 >60 (test code = 93663) ML/MIN/1.73 CALC BUN/CREAT (test 18 RATIO -28 code = 2235) SODIUM (test code = 141 MEQ/L 505-103 2105) POTASSIUM (test code 4.5 MEQ/L 3.5-5.4 = 2228) CHLORIDE (test code 100 MEQ/L 95-107 = [...] PHOSPHATASE 95 U/L 40-128 (test code = 2203) AST (test code = 17 U/L 9-40 2217) ALT (test code = 23 U/L 5-40 2218) LIPID [id number] 06:57:12 Test Item Value Reference Range Interpretation [...] MOREINFORMATION , SEE CLIENT ANNOUNCE MENT AT [email or web address] /[email or web address]-C RISK RATIO LDL/HDL 2.91 RATIO <3.22 (test code = 2238) HEMOGLOBIN [id number] 06:50:25 Test Item Value Reference Range Interpretation Comments HEMOGLOBIN A1c (test 9.5 % 4.2-5.6 H [employer] code = 64311) ASSOCIATION [employer] FOR HGB A1C: PREDIABETES/INC REASED [...] INDICATED, ALL TESTING PER FORMED ATCLINICAL PATH [facility], [facility]. [address] [place] [address] [address] LABORATORY DIRE CTOR: CATHERINE MOLINA M.D. CLIA NUMBER [id number] [facility] [place]. [id number] HEMOGLOBIN [id number] 04:18:05 Test Item Value Reference Range Interpretation Comments HEMOGLOBIN A1c (test 11.3 % 4.2-5.6 H [employer] code = 64789) ASSOCIATION [employer] FOR HGB A1C: PREDIABETES/INC REASED [...] OR LABORATORY C ONSULTATION. ALBUMIN/CREATININE RATIO, URINE, [id number] 04:17:19 Test Item Value Reference Range Interpretation Comments CREATININE, URINE, 85.2 MG/DL NOT ESTAB RANDOM (test code = 2072) ALBUMIN, URINE, 0.3 MG/DL NOT ESTAB RANDOM (test code = 19290) CALC ALBUMIN/CREAT, 4 MG/G <30 Note: RND (test code = Albumin/Cre atinine 61169) ratio reference interval reflec ts ADA and NKF guideli omega. COMPREHENSIVE METABOLIC [id number] 04:11:01 Test Item Value Reference Range Interpretation Comments GLUCOSE (test code = 299 MG/DL 70-99 H 2216) BUN (test code = 17 MG/DL 6-20 2207) CREATININE (test 0.61 MG/DL 0.60-1.30 code = 2214) eGFR (2020 CKD-EPI) 109 >60 (test code = 15435) ML/MIN/1.73 CALC BUN/CREAT (test 28 RATIO 6-28 code = 2235) SODIUM (test code = 135 MEQ/L 715-064 5904) POTASSIUM (test code 4.8 MEQ/L 3.5-5.4 = 2227) CHLORIDE (test code 96 MEQ/L 95-107 = 221) CARBON DIOXIDE (test 25 MEQ/L 19-31 code = 2206) CALCIUM (test code = 9.9 MG/DL 8.5-10.5 2208) PROTEIN, TOTAL (test 6.9 G/DL 6.1-8.3 code = 222) ALBUMIN (test code = 4.5 G/DL 3.5-5.2 2200) CALC GLOBULIN (test 2.4 G/DL 1.9-3.7 code = 224) CALC A/G RATIO (test 1.9 RATIO 1.0-2.6 code = 223) BILIRUBIN, TOTAL 0.6 MG/DL See_Comment [Automated message] (test code = 2206) The syste m which generated this result transmit brittnee reference range : <=1.2. The refe rence range was not u sed to interpret th is result as normal/abnormal . ALKALINE PHOSPHATASE 130 U/L 40-128 H (test code = 2203) AST (test code = 14 U/L 9-40 2217) ALT (test code = 22 U/L 5-40 2218) LIPID [id number] 04:11:01 Test Item Value Reference Range Interpretation [...] MOREINFORMATION , SEE CLIENT ANNOUNCE MENT AT [email or web address] /CalcLDL-C RISK RATIO LDL/HDL 3.17 RATIO <3.22 UNLESS O THERWISE (test code = 2238) INDICATED , ALL TESTING PERFORMED [facility], [facility]. [address] [place] [address] [facility]ENTERLanny ESCOBAR DIRECTOR: Ree RUGGIEROIA NUMBER [id number] CAP ACCREDITATION N O. [id number] MICROALBUMIN/CREATININE, RANDOM AND [id number] 00:00:00 Test Item Value Reference Range Interpretation Comments CREATININE, URINE, RANDOM (test 85.2 MG/DL code = 2072) ALBUMIN, URINE, RANDOM (test code 0.3 MG/DL = 94801) CALC ALBUMIN/CREAT, RND (test code 4 MG/G = 58106) MICROALBUMIN/CREATININE, RANDOM AND [id number] 00:00:00 Test Item Value Reference Range Interpretation Comments CREATININE, URINE, RANDOM (test 85.2 MG/DL code = 2072) ALBUMIN, URINE, RANDOM (test code 0.3 MG/DL = 61476) CALC ALBUMIN/CREAT, RND (test code 4 MG/G = 08593) HEMOGLOBIN [id number] 00:00:00 Test Item Value Reference Range Interpretation Comments HEMOGLOBIN A1c (test code = 63825) 11.3 % HEMOGLOBIN [id number] 00:00:00 Test Item Value Reference Range Interpretation Comments HEMOGLOBIN A1c (test code = 94624) 11.3 % HEMOGLOBIN [id number] 00:00:00 Test Item Value Reference Range Interpretation Comments HEMOGLOBIN A1c (test code = 01584) 11.3 % COMPREHENSIVE METABOLIC [id number] 00:00:00 Test Item Value Reference Range Interpretation Comments GLUCOSE (test code = 2217) 299 MG/DL BUN (test code = 2208) 17 MG/DL CREATININE (test code = 2214) 0.61 MG/DL eGFR (2020 CKD-EPI) (test 109 ML/MIN/1.73 code = 00698) CALC BUN/CREAT (test code = 28 RATIO [...] CALC GLOBULIN (test code = 2.4 G/DL 2240) CALC A/G RATIO (test code = 1.9 RATIO 2234) BILIRUBIN, TOTAL (test code = 0.6 MG/DL 2206) ALKALINE PHOSPHATASE (test 130 U/L code = 2204) AST (test code = 2218) 14 U/L ALT (test code = 2219) 22 U/L COMPREHENSIVE METABOLIC [id number] 00:00:00 Test Item Value Reference Range Interpretation Comments GLUCOSE (test code = 2217) 299 MG/DL BUN (test code = 2208) 17 MG/DL CREATININE (test code = 2214) 0.61 MG/DL eGFR (2020 CKD-EPI) (test 109 ML/MIN/1.73 code = 26861) CALC BUN/CREAT (test code = 28 RATIO [...] CALC GLOBULIN (test code = 2.4 G/DL 2240) CALC A/G RATIO (test code = 1.9 RATIO 2234) BILIRUBIN, TOTAL (test code = 0.6 MG/DL 2206) ALKALINE PHOSPHATASE (test 130 U/L code = 2204) AST (test code = 2218) 14 U/L ALT (test code = 2219) 22 U/L LIPID [id number] 00:00:00 Test Item Value Reference Range Interpretation Comments CHOLESTEROL (test code = 2210) 195 MG/DL TRIGLYCERIDES (test code = 2232) 127 MG/DL HDL CHOLESTEROL (test code = 2220) 41 MG/DL CALC LDL CHOL (test code = 2237) 130 MG/DL RISK RATIO LDL/HDL (test code = 3.17 RATIO 2238) LIPID [id number] 00:00:00 Test Item Value Reference Range Interpretation Comments CHOLESTEROL (test code = 2210) 195 MG/DL TRIGLYCERIDES (test code = 2232) 127 MG/DL HDL CHOLESTEROL (test code = 2220) 41 MG/DL CALC LDL CHOL (test code = 2237) 130 MG/DL RISK RATIO LDL/HDL (test code = 3.17 RATIO 2238) RSV BY [id number] 00:00:00 Test Item Value Reference Range Interpretation Comments RSV BY DFA (test code = 80512) Negative SOURCE (test code = 42740) Not Provided RSV BY [id number] 00:00:00 Test Item Value Reference Range Interpretation Comments RSV BY DFA (test code = 43986) Negative SOURCE (test code = 68160) Not Provided SARS-CoV-2 (COVID-19) by RT-PCR (HIGH RISK)2021-07-11 00:00:00 Test Item Value Reference Range Interpretation Comments SARS-CoV-2 INTERPRETATION (test NEGATIVE code = 42176) SOURCE (test code = 71372) NOT SPECIFIED SARS-CoV-2 (COVID-19) by RT-PCR (HIGH RISK)2021-07-11 00:00:00 Test Item Value Reference Range Interpretation Comments SARS-CoV-2 INTERPRETATION (test NEGATIVE code = 52927) SOURCE (test code = 60752) NOT SPECIFIED SARS-CoV-2 (COVID-19) by RT-PCR (HIGH RISK)2020-10-27 00:00:00 Test Item Value Reference Range Interpretation Comments SARS-CoV-2 INTERPRETATION (test NEGATIVE code = 87691) SOURCE (test code = 53257) NOT SPECIFIED SARS-CoV-2 (COVID-19) by RT-PCR (HIGH RISK)2020-10-27 00:00:00 Test Item Value Reference Range Interpretation Comments SARS-CoV-2 INTERPRETATION (test NEGATIVE code = 54943) SOURCE (test code = 13388) NOT SPECIFIED
--- NOTE | 2023-06-20 10:46 | ER ---
Nurse's Notes [facility] Name: Libia Morin Age: 52 yrs Sex: Female : 1970 Arrival Date: 06/20/2023 Time: 10:21 Bed 11 Private MD: Diagnosis: Rash and other nonspecific skin eruption Presentation: 06/20 10:31 Chief complaint: Rash on torso x 2 months. Coronavirus screen: At this time, the client hb does not indicate any symptoms associated with coronavirus-19. Ebola Screen: No symptoms or risks identified at this time. Initial Sepsis Screen: Does the patient meet any 2 criteria? No. Patient's initial sepsis screen is negative. Does the patient have a suspected source of infection? No. Patient's initial sepsis screen is negative. Risk Assessment: Do you want to hurt yourself or someone else? Patient reports no desire to harm self or others. Onset of symptoms was April 2023. 10:31 Method Of Arrival: Ambulatory hb 10:31 Acuity: RUDDY 4 hb Historical: - Allergies: 10:32 No Known Drug Allergies; hb - Home Meds: 10:32 amlodipine 5 mg tab 1 tab once daily [Active]; lisinopril-hydrochlorothiazide 20-25 mg hb Oral tab 1 tab once daily [Active]; metformin 500 mg Oral tab 2 tabs 2 times per day [Active]; - PMHx: 10:32 Diabetes - NIDDM; Hypertension; hb - PSHx: 10:32 hysterectomy; hb - Immunization history:: Adult Immunizations up to date. - Social history:: Smoking status: Patient denies any tobacco usage or history of. Screenin:54 [facility] ED Fall Risk Assessment (Adult) Score/Fall Risk Level 0 - 2 = Low Risk jl7 Oriented to surroundings, Maintained a safe environment. Abuse screen: Denies threats or abuse. Denies injuries from another. Nutritional screening: No deficits noted. Tuberculosis screening: No symptoms or risk factors identified. Assessment: 10:54 General: Appears in no apparent distress. comfortable, Behavior is calm, cooperative, jl7 appropriate for age. Pain: Complains of pain in abdomen Pain currently is 8 out of 10 on a pain scale. Vital Signs: 10:31 BP 141 / 93; Pulse 88; Resp 16; Temp 98.6; Pulse Ox 100% on R/A; Weight 90.72 kg; hb Height 5 ft. 5 in. ; Pain 4/10; 10:31 Body Mass Index 33.28 (90.72 kg, 165.1 cm) hb 10:31 Pain Scale: Adult hb ED Course: 10:24 Patient arrived in ED. im 10:32 Triage completed. hb 10:33 Arm band placed on. hb 10:34 Amor Clifton DO is Attending Physician. ms3 10:54 Jimy Carrera, RN is Primary Nurse. jl7 10:54 Patient has correct armband on for positive identification. Provided Education on: jl7 discharge. 10:54 No provider procedures requiring assistance completed. Patient did not have IV access jl7 during this emergency room visit. Administered Medications: No medications were administered Medication: 10:54 VIS not applicable for this client. jl7 Outcome: 10:45 Discharge ordered by . ms3 10:54 Discharged to home ambulatory. jl7 10:54 Condition: stable 10:54 Discharge instructions given to patient, Instructed on discharge instructions, follow up and referral plans. medication usage, Demonstrated understanding of instructions, follow-up care, medications, Prescriptions given X 2. 10:56 Patient left the ED. jl7 Signatures: Saba Obregon RN DESI Jimy Carrera, DESI WEEKS jl Amor Clifton DO DO ms3 Celia Bryant
--- NOTE | 2023-06-20 10:46 | EDPHYS ---
Physician Documentation [facility] Name: Libia Morin Age: 52 yrs Sex: Female : 1970 Arrival Date: 06/20/2023 Time: 10:21 Bed 11 Private MD: ED Physician Amor Clifton HPI: 06/20 10:49 This 52 yrs old Female presents to ER via Ambulatory with complaints of Rash. ms3 10:49 52-year-old female with past medical history of diabetes, hypertension presents for ms3 generalized body rash that has been ongoing for 2 months. Patient states she has been on an antibiotic cream and steroid cream. Patient states at her clinic she was diagnosed with psoriasis and told to apply steroids for 10 days on/10 days off. Patient states the rash began spreading 1 week ago. Patient endorses itching. Patient denies pain.. Historical: - Allergies: 10:32 No Known Drug Allergies; hb - Home Meds: 10:32 amlodipine 5 mg tab 1 tab once daily [Active]; lisinopril-hydrochlorothiazide 20-25 mg hb Oral tab 1 tab once daily [Active]; metformin 500 mg Oral tab 2 tabs 2 times per day [Active]; - PMHx: 10:32 Diabetes - NIDDM; Hypertension; hb - PSHx: 10:32 hysterectomy; hb - Immunization history:: Adult Immunizations up to date. - Social history:: Smoking status: Patient denies any tobacco usage or history of. ROS: 10:53 Constitutional: Negative for fever, and chills. Neck: Negative for injury, pain, and ms3 swelling, Cardiovascular: Negative for chest pain, and palpitations. Respiratory: Negative for shortness of breath, cough, wheezing, and pleuritic chest pain, Abdomen/GI: Negative for abdominal pain, nausea, vomiting, diarrhea, and constipation. 10:53 Skin: Positive for rash. 10:53 All other systems are negative. Exam: 10:53 Constitutional: This is a well developed, well nourished patient who is awake, alert, ms3 and in no acute distress. Head/Face: Normocephalic, atraumatic. Neck: Trachea midline, no cervical lymphadenopathy. Supple, full range of motion without nuchal rigidity, or vertebral point tenderness. No Meningismus. Chest/axilla: Normal chest wall appearance and motion. Nontender with no deformity. Cardiovascular: Regular rate and rhythm with a normal S1 and S2. No gallops, murmurs, or rubs. Normal PMI, no JVD. No pulse deficits. Respiratory: Lungs have equal breath sounds bilaterally, clear to auscultation and percussion. No rales, rhonchi or wheezes noted. No increased work of breathing, no retractions or nasal flaring. Abdomen/GI: Soft, non-tender, with normal bowel sounds. No distension or tympany. No guarding or rebound. No evidence of tenderness throughout. 10:53 Skin: rash can be described as erythematous, and is diffusely located. Vital Signs: 10:31 BP 141 / 93; Pulse 88; Resp 16; Temp 98.6; Pulse Ox 100% on R/A; Weight 90.72 kg; hb Height 5 ft. 5 in. ; Pain 4/10; 10:31 Body Mass Index 33.28 (90.72 kg, 165.1 cm) hb 10:31 Pain Scale: Adult hb MDM: 10:43 Patient medically screened. ms3 10:53 Differential diagnosis: Psoriasis vs Non-specific rash. Data reviewed: vital signs, ms3 nurses notes, and as a result, I will discharge patient. Counseling: I had a detailed discussion with the patient and/or guardian regarding the historical points, exam findings, and any diagnostic results supporting the discharge/admit diagnosis, the need for outpatient follow up, to return to the emergency department if symptoms worsen or persist or if there are any questions or concerns that arise at home. Special discussion: I discussed with the patient/guardian in detail that at this point there is no indication for admission to the hospital. It is understood, however, that if the symptoms persist or worsen the patient needs to return immediately for re-evaluation. ED course: Discussed physical exam findings with patient. Patient to follow-up with primary care physician in 2 to 3 days. All questions were answered. Return precautions discussed include fevers, chills, nausea, vomiting, worsening symptoms, or any other concerns.. Administered Medications: No medications were administered Disposition Summary: 06/20/23 10:45 Discharge Ordered Location: Home ms3 Condition: Stable ms3 Diagnosis - Rash and other nonspecific skin eruption ms3 Followup: ms3 - With: Private Physician - When: 2 - 3 days - Reason: Recheck today's complaints Discharge Instructions: - Discharge Summary Sheet ms3 - Rash, Adult ms3 Forms: - Medication Reconciliation Form ms3 - Thank You Letter ms3 - Antibiotic Education ms3 - Prescription Opioid Use ms3 - Patient Portal Instructions ms3 - Leadership Thank You Letter ms3 Prescriptions: - Hydroxyzine HCl 25 mg Oral Tablet - take 1 tablet by ORAL route every 6 hours As needed; 30 tablet; Refills: 0, ms3 Product Selection Permitted - Prednisone 20 mg Oral Tablet - take 2 tablets by ORAL route once daily for 5 days; 10 tablet; Refills: 0, ms3 Product Selection Permitted Signatures: Saba Obregon, RN RN Amor Simental DO DO ms3
[2023-06-20 11:16] VITALS: BP 141/93; TEMP 98.6; O2SAT 100
== END 2023-06-20 10:56 | disposition home or self-care (01) ==
LOC: ER 10:21
DX: R21 Rash and other nonspecific skin eruption (principal); E11.9 Type 2 diabetes mellitus without complications; I10 Essential (primary) hypertension
CPT/HCPCS: 99283

== ENCOUNTER 2023-07-24 20:15 | Emergency (ER) | payer OTHER, SELFPAY ==
--- OUTSIDE RECORDS SUMMARY | 2023-07-24 21:29 | XMS REPORT | Continuity of Care Document ---
:1970 Author Organization [facility] t Address [address] [place] [address] [address] [place] [address] Care Team Providers Name Role Phone Vish Waller Primary Care Physician [phone] Essie Wu LVN Attending Clinician NATHANAEL JOHNSON Attending Clinician Unavailable NATHANAEL JOHNSON Attending Clinician Unavailable Aristides Peraza MD Attending Clinician Sharif Abarca DO Attending Clinician Papi WEEKS, Prachi Singh Attending Clinician Unavailable Mariya Amador RN Attending Clinician Unavailable Tanja Ortiz DO Attending Clinician Wilbur Bloom MD Attending Clinician Bridger Newman MD Attending Clinician Ines Og MD Attending Clinician BRIDGER NEWMAN Attending Clinician Unavailable Chanell Garcia RN Attending Clinician Unavailable Arabella Rodriguez Attending Clinician Arabella YOUNGBLOOD Attending Clinician Unavailable NATHANAEL JOHNSON Admitting Clinician Unavailable Ines Og MD Admitting Clinician INES OG Admitting Clinician Unavailable Payers Payer Name Policy Type Policy Number Effective Date Expiration Date S ource Problems Condition Condition Condition Status Onset Resolution Last Treating Co mments Source Name Details Category Date Date Treatment Clinician Date Midline Midline Disease Active 2022-10 Univers thoracic thoracic 0-12 ity of [place], [place] unspecif[place] unspecifie 00 Me dical d d Branch chronicity chronicity Morbid Morbid Disease Active Univers obesity obesity 9-30 it[place] of [place] mass index mass index 00 Me dical of of Branch 40.0-49.9 40.0-49.9 Weakness Weakness Disease Active Unive rs 9-30 ity of 00:00: [place] [address] [facility] [place] Obesity Obesity Disease Active Univers (BMI (BMI 9-30 ity of 30-39.9) 30-39.9) 00:00: [address] Allergies, Adverse Reactions, Alerts Allergy Allergy Status Severity Reaction(s) Onset Inactive Treating Comm ents Source Name Type Date Date Clinician NO KNOWN Drug Active Univers ALLERGIE Class ity of S [facility] Social History Social Habit Start Date Stop Date Quantity Comments Source Sexual orientation [facility] of Social 2023-07-17 2023-07-17 [facility] ity of function 00:00:00 00:00:00 [facility] Tobacco use and 2023-07-05 2023-07-05 Smokeless Universit y of exposure 00:00:00 00:00:00 tobacco non-user [facility] Alcohol intake 2023-07-05 2023-07-05 Lif[facility] University of 00:00:00 00:00:00 non-drinker [facility] (finding) [place] Sex Ass[birth year] Universit y of 00:00:00 00:00:00 [facility] Smoking Status Start Date Stop Date Source Never smoked tobacco [facility] [place] [facility] Medications Ordered Filled Start Stop Current Ordering Indication Dosage Frequency Signature Comments Components Source Medication Medication Date Date Medication? Clinician (SIG) Name Name lisinopriL 2022-10 Yes 20mg 20 mg, Unive rs (PRINIVIL,Z 0-13 Oral, ity of ESTRIL) 14:00: DAILY, [place] tablet 20 00 First dose Medi absia mg on Fri Branch 07/18/23 at 0900, Until Discontinu ed, Routine insulin 2022-10 Yes 18U 18 Units, Unive rs glargine 0-13 Subcutaneo ity o f (LANTUS 02:00: us, QHS, [place] U-100) 00 First dose Medical injection on [facility] Branch 18 Units 07/17/23 at 2100, Until Discontinu ed metFORMIN 2022-10 Yes 500mg 500 mg, Univ ers (GLUCOPHAGE 0-12 Oral, BID ity of ) tablet 22:00: MEALS, [place] 500 mg 00 First dose Medical on [facility] 07/17/23 at 1700, Until Discontinu ed, Routine enoxaparin 2022-10 Yes 40mg 40 mg, Unive rs (LOVENOX) 0-12 Subcutaneo ity of injection 22:00: [place], [place]ILY, [place] 40 mg 00 First dose Medical on [facility] 07/17/23 at 1700, Until Discontinu ed, Routine cyclobenzap 2022-10 Yes 5mg 5 mg, Unive rs rine 0-12 Oral, ity of (FLEXERIL) 21:20: QPMPRN, [place] tablet 5 mg 32 Starting Medi basia on [facility] 07/17/23 at 1620, Until Discontinu ed, Routine, Muscle Spasms Sliding 2022-10 Yes Subcutaneo Univ ers Scale 0-12 us, TID ity of Insulin - 17:30: MEALS+HS, [place] Lispro 00 First dose Medical (HumaLOG) (after Branch last modificati on) on [facility] [place] 07/17/23 at 1230, Until Discontinu ed, Routine lisinopriL 2022-10 Yes 20mg Take 1 Unive rs 20 mg 0-12 tablet by ity of tablet 17:06: mouth [place] 40 daily. Medical Branch lisinopriL 2022-10 Yes 20mg Take 1 Unive rs 20 mg 0-12 tablet by ity of tablet 17:06: mouth [place] 40 daily. Medical Branch lisinopriL 2022-10 Yes 20mg Take 1 Unive rs 20 mg 0-12 tablet by ity of tablet 17:06: mouth [place] 40 daily. Medical Branch ondansetron 2022-10 Yes 4mg 4 mg, Slow Univers (ZOFRAN 0-12 IV Push, ity of (PF)) 12:57: Q6HPRN, [place] injection 4 26 Starting Medi basia mg on [facility] Branch 07/17/23 at 0757, Until Discontinu ed, Routine, Nausea and Vomiting (N/V) morpHINE (4 2022-10- Yes 4mg 4 mg, Slow Univers mg/mL) 0-12 10-13 IV Push, ity of injection 4 12:57: 12:56 Q4HPRN, [place] mg 24 :24 Starting Medical on [facility] [place] Branch 07/17/23 at 0757, Until Fri07/18/23 at 0756, Routine, Pain (scale 7-10) traMADoL 2022-10- Yes 50mg 50 mg, Univer s (ULTRAM) 0-12 10-14 Oral, ity of tablet 50 12:57: 12:56 Q8HPRN, [place] mg 22 :22 Starting Medical on [facility] [place] Branch 07/17/23 at 0757, Until 07/19/23 at 0756, Routine, Pain (scale 4-6) acetaminoph 2022-10 Yes 650mg 650 mg, Un sawyer en 0-12 Oral, ity of (TYLENOL) 12:57: Q6HPRN, [place] tablet 650 19 Starting Medic al mg on [facility] [place] Branch 07/17/23 at 0757, Until Discontinu ed, Routine, Pain (scale 1-3) iopamidol 2022-10- No [id number] 100mL 100 mL, Univers (ISOVUE 0-12 10-12 Intravenou ity o f 370-500 mL) 08:15: 08:15 s, ONCE, 1 [place] injection 00 :00 dose, On Medica l 100 mL [facility] 07/17/23 at 0315, Routine NaCl 0.9% 2022-10- No 1000mL at 999 Uni vers (NS) bolus 0-12 10-12 mL/hr, ity of infusion 08:00: 08:40 1,000 mL, [place] 1,000 mL 00 :00 IV Medical Piggyback, Branch ONCE, 1 dose, On [facility] [place] 07/17/23 at 0300, STAT Blood-Gluco 2022-10 Yes [id number] Test blood Univers se Meter 0-12 sugar one ity of (TRUE 00:00: in the [place] METRIX 00 morning Medical GLUCOSE and once Branch METER) Kit in the evening. Use as directed Blood-Gluco 2022-10 Yes [id number] Test blood Univers se Meter 0-12 sugar one ity of (TRUE 00:00: in the [place] METRIX 00 morning Medical GLUCOSE and once Branch METER) Kit in the evening. Use as directed Insulin 2022-10 Yes [id number] 18U inject 18 Univers Glargine 0-11 Units ity of (BASAGLAR 00:00: under the [place] KWIKPEN 00 skin at Medical U-100 bedtime. Branch INSULIN) 100 unit/mL (3 mL) injection insulin 2022-10 Yes [id number] 6U inject 6 U nivers lispro 0-11 Units ity of (HUMALOG 00:00: [facility] KW[facility]EN [facility] skin 3 Medical INSULIN) (three) Branch 100 unit/mL times pen daily injector before meals. insulin 2022-10 Yes [id number] 1U inject 1 U nivers lispro 0-11 Units ity of (HUMALOG 00:00: under the [facility] KWIKPEN 00 skin Medical INSULIN) SEE-INSTRU Branc h 100 unit/mL CTIONS. pen Extra injector Humalog insulin If blood sugar before meal is higher than 140: Blood sugar 140 to 160, give 1 unit. Blood sugar 161 to 180, give 2 units. Blood sugar 181 to 200, give 3 units. Blood sugar 201 to 220, give 4 units. Blood sugar 221 to 240, give 5 units. Blood sugar 241 to 260, give 6 units. Blood sugar 261 to 280, give 7 units. Blood sugar 281 to 300, give 8 units. Blood sugar greater than 300, give 9 units, recheck in 3 hours and cover again with sliding scale. Insulin 2022-10 Yes [id number] Use as Uni vers [place], 0-11 directed ity of Disposable, 00:00: [place] (BD INSULIN 00 Medical PEN NEEDLE Branch UF) 31 gauge x 5/16" Ndle Insulin 2022-10 Yes [id number] 18U inject 18 Univers Glargine 0-11 Units ity of (BASAGLAR 00:00: under the [place] KWIKPEN 00 skin at Medical U-100 bedtime. Branch INSULIN) 100 unit/mL (3 mL) injection insulin 2022-10 Yes [id number] 6U inject 6 U nivers lispro 0-11 Units ity of (HUMALOG 00:00: [facility] KWIKPEN 00 skin 3 Medical INSULIN) (three) Branch 100 unit/mL times pen daily injector before meals. insulin 2022-10 Yes [id number] 1U inject 1 U nivers lispro 0-11 Units ity of (HUMALOG 00:00: [facility] KWIKPEN [facility] skin Medical INSULIN) SEE-INSTRU Branc h 100 unit/mL CTIONS. pen Extra injector Humalog insulin If blood sugar before meal is higher than 140: Blood sugar 140 to 160, give 1 unit. Blood sugar 161 to 180, give 2 units. Blood sugar 181 to 200, give 3 units. Blood sugar 201 to 220, give 4 units. Blood sugar 221 to 240, give 5 units. Blood sugar 241 to 260, give 6 units. Blood sugar 261 to 280, give 7 units. Blood sugar 281 to 300, give 8 units. Blood sugar greater than 300, give 9 units, recheck in 3 hours and cover again with sliding scale. Insulin 2022-10 Yes [id number] Use as Uni vers [place], 0-11 directed ity of Disposable, 00:00: [place] (BD INSULIN 00 Medical PEN NEEDLE Branch UF) 31 gauge x 5/16" Ndle Insulin 2022-10 Yes [id number] 18U inject 18 Univers Glargine 0-11 Units ity of (BASAGLAR 00:00: under the [place] KWIKPEN 00 skin at Medical U-100 bedtime. Branch INSULIN) 100 unit/mL (3 mL) injection insulin 2022-10 Yes [id number] 6U inject 6 U nivers lispro 0-11 Units ity of (HUMALOG 00:00: [facility] KWIKPEN 00 skin 3 Medical INSULIN) (three) Branch 100 unit/mL times pen daily injector before meals. insulin 2022-10 Yes [id number] 1U inject 1 U nivers lispro 0-11 Units ity of (HUMALOG 00:00: [facility] KWIKPEN [facility] skin Medical INSULIN) SEE-INSTRU Branc h 100 unit/mL CTIONS. pen Extra injector Humalog insulin If blood sugar before meal is higher than 140: Blood sugar 140 to 160, give 1 unit. Blood sugar 161 to 180, give 2 units. Blood sugar 181 to 200, give 3 units. Blood sugar 201 to 220, give 4 units. Blood sugar 221 to 240, give 5 units. Blood sugar 241 to 260, give 6 units. Blood sugar 261 to 280, give 7 units. Blood sugar 281 to 300, give 8 units. Blood sugar greater than 300, give 9 units, recheck in 3 hours and cover again with sliding scale. Insulin 2022-10 Yes [id number] Use as Uni vers [place], 0-11 directed ity of Disposable, 00:00: [place] (BD INSULIN 00 Medical PEN NEEDLE Branch UF) 31 gauge x 5/16" Ndle Insulin 2022-10 Yes [id number] 18U inject 18 Univers Glargine 0-11 Units ity of (BASAGLAR 00:00: under the [place] KWIKPEN 00 skin at Medical U-100 bedtime. Branch INSULIN) 100 unit/mL (3 mL) injection insulin 2022-10 Yes [id number] 6U inject 6 U nivers lispro 0-11 Units ity of (HUMALOG 00:00: [facility] KWIKPEN 00 skin 3 Medical INSULIN) (three) Branch 100 unit/mL times pen daily injector before meals. insulin 2022-10 Yes [id number] 1U inject 1 U nivers lispro 0-11 Units ity of (HUMALOG 00:00: [facility] KWIK[facility]EN [facility] skin Medical INSULIN) SEE-INSTRU Branc h 100 unit/mL CTIONS. pen Extra injector Humalog insulin If blood sugar before meal is higher than 140: Blood sugar 140 to 160, give 1 unit. Blood sugar 161 to 180, give 2 units. Blood sugar 181 to 200, give 3 units. Blood sugar 201 to 220, give 4 units. Blood sugar 221 to 240, give 5 units. Blood sugar 241 to 260, give 6 units. Blood sugar 261 to 280, give 7 units. Blood sugar 281 to 300, give 8 units. Blood sugar greater than 300, give 9 units, recheck in 3 hours and cover again with sliding scale. Insulin 2022-10 Yes [id number] Use as Uni vers [place], 0-11 directed ity of Disposable, 00:00: [place] (BD INSULIN 00 Medical PEN NEEDLE Branch UF) 31 gauge x 5/16" Ndle insulin 2022-10 Yes [id number] 18U inject 18 Univers glargine 0-06 Units ity of 100 unit/mL 00:00: under the [place] injection 00 skin Medical daily. Branch insulin 2022-10 Yes [id number] 18U inject 18 Univers glargine 0-06 Units ity of 100 unit/mL 00:00: under the [place] injection 00 skin Medical daily. Branch insulin 2022- Yes [id number] 18U inject 18 Univers glargine 0-06 Units ity of 100 unit/mL 00:00: under the [place] injection 00 skin Medical daily. Branch insulin 2022- Yes [id number] 18U inject 18 Univers glargine 0-06 Units ity of 100 unit/mL 00:00: under the [place] injection 00 skin Medical daily. Branch insulin 2022-10 Yes [id number] 18U inject 18 Univers glargine 0-06 Units ity of 100 unit/mL 00:00: under the [place] injection 00 skin Medical daily. Branch insulin 2022-10 Yes [id number] 18U inject 18 Univers glargine 0-06 Units ity of 100 unit/mL 00:00: under the [place] injection 00 skin Medical daily. Branch insulin 2022-10 Yes [id number] 18U inject 18 Univers glargine 0-06 Units ity of 100 unit/mL 00:00: under the [place] injection 00 skin Medical daily. Branch insulin 2022-10 Yes [id number] 18U inject 18 Univers glargine 0-06 Units ity of 100 unit/mL 00:00: under the [place] injection 00 skin Medical daily. Branch insulin 2022- Yes [id number] 18U inject 18 Univers glargine 0-06 Units ity of 100 unit/mL 00:00: under the [place] injection 00 skin Medical daily. Branch insulin 2022-10 Yes [id number] 18U inject 18 Univers glargine 0-06 Units ity of 100 unit/mL 00:00: under the [place] injection 00 skin Medical daily. Branch insulin 2022- Yes [id number] 18U inject 18 Univers glargine 0-06 Units ity of 100 unit/mL 00:00: under the [place] injection 00 skin Medical daily. Branch insulin 2022-10- No [id number] 18U inject 18 Univers glargine 0-06 10-11 Units ity of 100 unit/mL 00:00: 00:00 under the [place] injection 00 :00 skin Medical daily. Branch insulin 2022-10- No [id number] 18U inject 18 Univers glargine 0-06 10-11 Units ity of 100 unit/mL 00:00: 00:00 under the [place] injection 00 :00 skin Medical daily. Branch insulin 2022-10- No [id number] 18U inject 18 Univers glargine 0-06 10-11 Units ity of 100 unit/mL 00:00: 00:00 under the [place] injection 00 :00 skin Medical daily. Branch lisinopriL 2022-10 Yes 20mg Take 1 Unive rs 20 mg 0-05 tablet by ity of tablet 18:34: mouth [place] 53 daily. Medical Branch lisinopriL 2022-10 Yes 20mg Take 1 Unive rs 20 mg 0-05 tablet by ity of tablet 18:34: mouth [place] 53 daily. Medical Branch lisinopriL 2022-10 Yes 20mg Take 1 Unive rs 20 mg 0-05 tablet by ity of tablet 18:34: mouth [place] 53 daily. Medical Branch lisinopriL 2022-10 Yes 20mg Take 1 Unive rs 20 mg 0-05 tablet by ity of tablet 18:34: mouth [place] 53 daily. Medical Branch lisinopriL 2022-10 Yes 20mg Take 1 Unive rs 20 mg 0-05 tablet by ity of tablet 18:34: mouth [place] 53 daily. Medical Branch lisinopriL 2022-10 Yes 20mg Take 1 Unive rs 20 mg 0-05 tablet by ity of tablet 18:34: mouth [place] 53 daily. Medical Branch lisinopriL 2022-10 Yes 20mg Take 1 Unive rs 20 mg 0-05 tablet by ity of tablet 18:34: mouth [place] 53 daily. Medical Branch lisinopriL 2022-10 Yes 20mg Take 1 Unive rs 20 mg 0-05 tablet by ity of tablet 18:34: mouth [place] 53 daily. Medical Branch lisinopriL 2022-10 Yes 20mg Take 1 Unive rs 20 mg 0-05 tablet by ity of tablet 18:34: mouth [place] 53 daily. Medical Branch lisinopriL 2022-10 Yes 20mg Take 1 Unive rs 20 mg 0-05 tablet by ity of tablet 18:34: mouth [place] 53 daily. Medical Branch lisinopriL 2022-10 Yes 20mg Take 1 Unive rs 20 mg 0-05 tablet by ity of tablet 18:34: mouth [place] 53 daily. Medical Branch lisinopriL 2022-10 Yes 20mg Take 1 Unive rs 20 mg 0-05 tablet by ity of tablet 18:34: mouth [place] 53 daily. Medical Branch lisinopriL 2022-10 Yes 20mg Take 1 Unive rs 20 mg 0-05 tablet by ity of tablet 18:34: mouth [place] 53 daily. Medical Branch lisinopriL 2022-10 Yes 20mg Take 1 Unive rs 20 mg 0-05 tablet by ity of tablet 18:34: mouth [place] 53 daily. Medical Branch metFORMIN 2022-10- No 1000mg Take 1 Uni vers 1,000 mg 0-05 10-05 tablet by ity o f tablet 18:34: 00:00 mouth 2 [place] 51 :00 (two) Medical times [place] daily with meals. glipiZIDE 2022-10 2.5mg Take 1 Univ ers XL 2.5 mg 0-05 10-05 tablet by ity of 24 hr 18:34: 00:00 mouth [place] tablet 51 :00 daily with Medical breakfast. Branch Sliding 2022-10 Yes Subcutaneo Univ ers Scale 0-05 us, Q4H, ity of Insulin - 01:00: First dose [place] Lispro 00 (after Medical (HumaLOG) last Branch modificati on) on Fri07/09/23 at 1999, Until Discontinu ed, Routine fluocinonid 2022-10 Yes Topical, Un sawyer e (LIDEX) 0-05 BID, First ity of 0.05 % 01:00: dose on [place] solution 00 [facility] Medical 07/09/23 at Branch 1999, Until Discontinu ed, Routine cyclobenzap 2022-10 Yes [id number] 5mg Take 1 Univers rine 5 mg 0-05 tablet by ity o f tablet 00:00: mouth [place] 00 every Medical evening as Branch needed for Muscle Spasms. fluocinonid 2022-10 Yes [id number] Apply to Univers e 0.05 % 0-05 area(s) 2 ity of solution 00:00: (two) [place] 00 times Medical daily. Branch insulin 2022-10 Yes [id number] 6U inject 6 U nivers lispro, 0-05 Units ity of human, 100 00:00: under the [place] unit/mL 00 skin 3 Medical injection (three) Branch times daily with meals. insulin 2022-10 Yes [id number] Extra Univ ers lispro, 0-05 Humalog ity of human, 100 00:00: insulin If [place] unit/mL 00 blood Medical injection sugar Branch before meal is higher than 140: Blood sugar 140 to 160, give 1 unit. Blood sugar 161 to 180, give 2 units. Blood sugar 181 to 200, give 3 units. Blood sugar 201 to 220, give 4 units. triamcinolo 2022-10 Yes [id number] Apply to Univers ne 0-05 area(s) 2 ity of acetonide 00:00: (two) [place] 0.1 % cream 00 times Medical daily. Branch SITagliptin 2022-10 Yes [id number] 25mg Take 1 Univers phosphate 0-05 tablet by ity o f (JANUVIA) 00:00: mouth [place] 25 mg 00 daily. Medical tablet Branch Blood-Gluco 2022-10 Yes [id number] Use as Univers se Meter 0-05 directed ity of (RELION 00:00: [place] PRIME 00 Medical METER) Misc Branch lancets 33 2022-10 Yes [id number] Use as Univers gauge Misc 0-05 directed ity o f 00:00: [place] 00 Medical Branch blood sugar 2022-10 Yes [id number] Use as Univers diagnostic 0-05 directed ity o f (RELION 00:00: [place] PRIME TEST 00 Medical STRIPS) Branch strip metFORMIN 2022-10 Yes [id number] 1000mg Take 1 Univers 1,000 mg 0-05 tablet by ity of tablet 00:00: mouth 2 [place] 00 (two) Medical times Branch daily with meals. cyclobenzap 2022-10 Yes [id number] 5mg Take 1 Univers rine 5 mg 0-05 tablet by ity o f tablet 00:00: mouth [place] 00 every Medical evening as Branch needed for Muscle Spasms. fluocinonid 2022-10 Yes [id number] Apply to Univers e 0.05 % 0-05 area(s) 2 ity of solution 00:00: (two) [place] 00 times Medical daily. Branch insulin 2022-10 Yes [id number] 6U inject 6 U nivers lispro, 0-05 Units ity of human, 100 00:00: under the [place] unit/mL 00 skin 3 Medical injection (three) Branch times daily with meals. insulin 2022-10 Yes [id number] Extra Univ ers lispro, 0-05 Humalog ity of human, 100 00:00: insulin If [place] unit/mL 00 blood Medical injection sugar Branch before meal is higher than 140: Blood sugar 140 to 160, give 1 unit. Blood sugar 161 to 180, give 2 units. Blood sugar 181 to 200, give 3 units. Blood sugar 201 to 220, give 4 units. triamcinolo 2022-10 Yes [id number] Apply to Univers ne 0-05 area(s) 2 ity of acetonide 00:00: (two) [place] 0.1 % cream 00 times Medical daily. Branch SITagliptin 2022-10 Yes [id number] 25mg Take 1 Univers phosphate 0-05 tablet by ity o f (JANUVIA) 00:00: mouth [place] 25 mg 00 daily. Medical tablet Branch Blood-Gluco 2022-10 Yes [id number] Use as Univers se Meter 0-05 directed ity of (RELION 00:00: [place] PRIME 00 Medical METER) Misc Branch lancets 33 2022-10 Yes [id number] Use as Univers gauge Misc 0-05 directed ity o f 00:00: [place] 00 Medical Branch blood sugar 2022-10 Yes [id number] Use as Univers diagnostic 0-05 directed ity o f (RELION 00:00: [place] PRIME TEST 00 Medical STRIPS) Branch strip metFORMIN 2022-10 Yes [id number] 1000mg Take 1 Univers 1,000 mg 0-05 tablet by ity of tablet 00:00: mouth 2 [place] 00 (two) Medical times Branch daily with meals. cyclobenzap 2022-10 Yes [id number] 5mg Take 1 Univers rine 5 mg 0-05 tablet by ity o f tablet 00:00: mouth [place] 00 every Medical evening as Branch needed for Muscle Spasms. fluocinonid 2022-10 Yes [id number] Apply to Univers e 0.05 % 0-05 area(s) 2 ity of solution 00:00: (two) [place] 00 times Medical daily. Branch insulin 2022-10 Yes [id number] 6U inject 6 U nivers lispro, 0-05 Units ity of human, 100 00:00: under the [place] unit/mL 00 skin 3 Medical injection (three) Branch times daily with meals. insulin 2022-10 Yes [id number] Extra Univ ers lispro, 0-05 Humalog ity of human, 100 00:00: insulin If [place] unit/mL 00 blood Medical injection sugar Branch before meal is higher than 140: Blood sugar 140 to 160, give 1 unit. Blood sugar 161 to 180, give 2 units. Blood sugar 181 to 200, give 3 units. Blood sugar 201 to 220, give 4 units. triamcinolo 2022-10 Yes [id number] Apply to Univers ne 0-05 area(s) 2 ity of acetonide 00:00: (two) [place] 0.1 % cream 00 times Medical daily. Branch SITagliptin 2022-10 Yes [id number] 25mg Take 1 Univers phosphate 0-05 tablet by ity o f (JANUVIA) 00:00: mouth [place] 25 mg 00 daily. Medical tablet Branch Blood-Gluco 2022-10 Yes [id number] Use as Univers se Meter 0-05 directed ity of (RELION 00:00: [place] PRIME 00 Medical METER) Misc Branch lancets 33 2022-10 Yes [id number] Use as Univers gauge Misc 0-05 directed ity o f 00:00: [place] 00 Medical Branch cyclobenzap 2022-10 Yes [id number] 5mg Take 1 Univers rine 5 mg 0-05 tablet by ity o f tablet 00:00: mouth [place] 00 every Medical evening as Branch needed for Muscle Spasms. blood sugar 2022-10 Yes [id number] Use as Univers diagnostic 0-05 directed ity o f (RELION 00:00: [place] PRIME TEST 00 Medical STRIPS) Branch strip metFORMIN 2022-10 Yes [id number] 1000mg Take 1 Univers 1,000 mg 0-05 tablet by ity of tablet 00:00: mouth 2 [place] 00 (two) Medical times Branch daily with meals. cyclobenzap 2022-10 Yes [id number] 5mg Take 1 Univers rine 5 mg 0-05 tablet by ity o f tablet 00:00: mouth [place] 00 every Medical evening as Branch needed for Muscle Spasms. fluocinonid 2022-10 Yes [id number] Apply to Univers e 0.05 % 0-05 area(s) 2 ity of solution 00:00: (two) [place] 00 times Medical daily. Branch insulin 2022-10 Yes [id number] 6U inject 6 U nivers lispro, 0-05 Units ity of human, 100 00:00: under the [place] unit/mL 00 skin 3 Medical injection (three) Branch times daily with meals. insulin 2022-10 Yes [id number] Extra Univ ers lispro, 0-05 Humalog ity of human, 100 00:00: insulin If [place] unit/mL 00 blood Medical injection sugar Branch before meal is higher than 140: Blood sugar 140 to 160, give 1 unit. Blood sugar 161 to 180, give 2 units. Blood sugar 181 to 200, give 3 units. Blood sugar 201 to 220, give 4 units. fluocinonid 2022-10 Yes [id number] Apply to Univers e 0.05 % 0-05 area(s) 2 ity of solution 00:00: (two) [place] 00 times Medical daily. Branch triamcinolo 2022-10 Yes [id number] Apply to Univers ne 0-05 area(s) 2 ity of acetonide 00:00: (two) [place] 0.1 % cream 00 times Medical daily. Branch SITagliptin 2022-10 Yes [id number] 25mg Take 1 Univers phosphate 0-05 tablet by ity o f (JANUVIA) 00:00: mouth [place] 25 mg 00 daily. Medical tablet Branch Blood-Gluco 2022-10 Yes [id number] Use as Univers se Meter 0-05 directed ity of (RELION 00:00: [place] PRIME 00 Medical METER) Misc Branch lancets 33 2022-10 Yes [id number] Use as Univers gauge Misc 0-05 directed ity o f 00:00: [place] 00 Medical Branch blood sugar 2022-10 Yes [id number] Use as Univers diagnostic 0-05 directed ity o f (RELION 00:00: [place] PRIME TEST 00 Medical STRIPS) Branch strip metFORMIN 2022-10 Yes [id number] 1000mg Take 1 Univers 1,000 mg 0-05 tablet by ity of tablet 00:00: mouth 2 [place] 00 (two) Medical times Branch daily with meals. cyclobenzap 2022-10 Yes [id number] 5mg Take 1 Univers rine 5 mg 0-05 tablet by ity o f tablet 00:00: mouth [place] 00 every Medical evening as Branch needed for Muscle Spasms. fluocinonid 2022-10 Yes [id number] Apply to [facility] e 0.05 % 0-05 area(s) 2 ity of solution 00:00: (two) [place] 00 times Medical daily. Branch insulin 2022-10 Yes [id number] 6U inject 6 U nivers lispro, 0-05 Units ity of human, 100 00:00: under the [place] unit/mL 00 skin 3 Medical injection (three) Branch times daily with meals. insulin 2022-10 Yes [id number] Extra Univ ers lispro, 0-05 Humalog ity of human, 100 00:00: insulin If [place] unit/mL 00 blood Medical injection sugar Branch before meal is higher than 140: Blood sugar 140 to 160, give 1 unit. Blood sugar 161 to 180, give 2 units. Blood sugar 181 to 200, give 3 units. Blood sugar 201 to 220, give 4 units. triamcinolo 2022-10 Yes [id number] Apply to [facility] ne 0-05 area(s) 2 ity of acetonide 00:00: (two) [place] 0.1 % cream 00 times Medical daily. Branch SITagliptin 2022-10 Yes [id number] 25mg Take 1 [facility] phosphate 0-05 tablet by ity o f (JANUVIA) 00:00: mouth [place] 25 mg 00 daily. Medical tablet Branch Blood-Gluco 2022-10 Yes [id number] Use as [facility] se Meter 0-05 directed ity of (RELION 00:00: [place] PRIME 00 Medical METER) Misc Branch lancets 33 2022-10 Yes [id number] Use as [facility] gauge Misc 0-05 directed ity o f 00:00: [place] 00 Medical Branch blood sugar 2022-10 Yes [id number] Use as [facility] diagnostic 0-05 directed ity o f (RELION 00:00: [place] PRIME TEST 00 Medical STRIPS) Branch strip insulin 2022-10 Yes [id number] 6U inject 6 U nivers lispro, 0-05 Units ity of human, 100 00:00: under the [place] unit/mL 00 skin 3 Medical injection (three) Branch times daily with meals. metFORMIN 2022-10 Yes [id number] 1000mg Take 1 [facility] 1,000 mg 0-05 tablet by ity of tablet 00:00: mouth 2 [place] 00 (two) Medical times Branch daily with meals. cyclobenzap 2022-10 Yes [id number] 5mg Take 1 [facility] rine 5 mg 0-05 tablet by ity o f tablet 00:00: mouth [place] 00 every Medical evening as Branch needed for Muscle Spasms. fluocinonid 2022-10 Yes [id number] Apply to [facility] e 0.05 % 0-05 area(s) 2 ity of solution 00:00: (two) [place] 00 times Medical daily. Branch insulin 2022-10 Yes [id number] 6U inject 6 U nivers lispro, 0-05 Units ity of human, 100 00:00: under the [place] unit/mL 00 skin 3 Medical injection (three) Branch times daily with meals. insulin 2022-10 Yes [id number] Extra [facility] ers lispro, 0-05 Humalog ity of human, 100 00:00: insulin If [place] unit/mL 00 blood Medical injection sugar Branch before meal is higher than 140: Blood sugar 140 to 160, give 1 unit. Blood sugar 161 to 180, give 2 units. Blood sugar 181 to 200, give 3 units. Blood sugar 201 to 220, give 4 units. insulin 2022-10 Yes [id number] Extra [facility] ers lispro, 0-05 Humalog ity of human, 100 00:00: insulin If [place] unit/mL 00 blood Medical injection sugar Branch before meal is higher than 140: Blood sugar 140 to 160, give 1 unit. Blood sugar 161 to 180, give 2 units. Blood sugar 181 to 200, give 3 units. Blood sugar 201 to 220, give 4 units. triamcinolo 2022-10 Yes [id number] Apply to [facility] ne 0-05 area(s) 2 ity of acetonide 00:00: (two) [place] 0.1 % cream 00 times Medical daily. Branch SITagliptin 2022-10 Yes [id number] 25mg Take 1 [facility] phosphate 0-05 tablet by ity o f (JANUVIA) 00:00: mouth [place] 25 mg 00 daily. Medical tablet Branch Blood-Gluco 2022-10 Yes [id number] Use as [facility] se Meter 0-05 directed ity of (RELION 00:00: [place] PRIME 00 Medical METER) Misc Branch lancets 33 2022-10 Yes [id number] Use as [facility] gauge Misc 0-05 directed ity o f 00:00: [place] 00 Medical Branch blood sugar 2022-10 Yes [id number] Use as [facility] diagnostic 0-05 directed ity o f (RELION 00:00: [place] PRIME TEST 00 Medical STRIPS) Branch strip metFORMIN 2022-10 Yes [id number] 1000mg Take 1 [facility] 1,000 mg 0-05 tablet by ity of tablet 00:00: mouth 2 [place] 00 (two) Medical times Branch daily with meals. cyclobenzap 2022-10 Yes [id number] 5mg Take 1 [facility] rine 5 mg 0-05 tablet by ity o f tablet 00:00: mouth [place] 00 every Medical evening as Branch needed for Muscle Spasms. triamcinolo 2022-10 Yes [id number] Apply to [facility] ne 0-05 area(s) 2 ity of acetonide 00:00: (two) [place] 0.1 % cream 00 times Medical daily. Branch fluocinonid 2022-10 Yes [id number] Apply to [facility] e 0.05 % 0-05 area(s) 2 ity of solution 00:00: (two) [place] 00 times Medical daily. Branch insulin 2022-10 Yes [id number] 6U inject 6 U nivers lispro, 0-05 Units ity of human, 100 00:00: under the [place] unit/mL 00 skin 3 Medical injection (three) Branch times daily with meals. insulin 2022-10 Yes [id number] Extra [facility] ers lispro, 0-05 Humalog ity of human, 100 00:00: insulin If [place] unit/mL 00 blood Medical injection sugar Branch before meal is higher than 140: Blood sugar 140 to 160, give 1 unit. Blood sugar 161 to 180, give 2 units. Blood sugar 181 to 200, give 3 units. Blood sugar 201 to 220, give 4 units. triamcinolo 2022-10 Yes [id number] Apply to [facility] ne 0-05 area(s) 2 ity of acetonide 00:00: (two) [place] 0.1 % cream 00 times Medical daily. Branch SITagliptin 2022-10 Yes [id number] 25mg Take 1 [facility] phosphate 0-05 tablet by ity o f (JANUVIA) 00:00: mouth [place] 25 mg 00 daily. Medical tablet Branch Blood-Gluco 2022-10 Yes [id number] Use as [facility] se Meter 0-05 directed ity of (RELION 00:00: [place] PRIME 00 Medical METER) Misc Branch lancets 33 2022-10 Yes [id number] Use as [facility] gauge Misc 0-05 directed ity o f 00:00: [place] 00 Medical Branch blood sugar 2022-10 Yes [id number] Use as [facility] diagnostic 0-05 directed ity o f (RELION 00:00: [place] PRIME TEST 00 Medical STRIPS) Branch strip metFORMIN 2022-10 Yes [id number] 1000mg Take 1 [facility] 1,000 mg 0-05 tablet by ity of tablet 00:00: mouth 2 [place] 00 (two) Medical times Branch daily with meals. SITagliptin 2022-10 Yes [id number] 25mg Take 1 [facility] phosphate 0-05 tablet by ity o f (JANUVIA) 00:00: mouth [place] 25 mg 00 daily. Medical tablet Branch cyclobenzap 2022-10 Yes [id number] 5mg Take 1 [facility] rine 5 mg 0-05 tablet by ity o f tablet 00:00: mouth [place] 00 every Medical evening as Branch needed for Muscle Spasms. fluocinonid 2022-10 Yes [id number] Apply to [facility] e 0.05 % 0-05 area(s) 2 ity of solution 00:00: (two) [place] 00 times Medical daily. Branch insulin 2022-10 Yes [id number] 6U inject 6 U nivers lispro, 0-05 Units ity of human, 100 00:00: under the [place] unit/mL 00 skin 3 Medical injection (three) Branch times daily with meals. insulin 2022-10 Yes [id number] Extra [facility] ers lispro, 0-05 Humalog ity of human, 100 00:00: insulin If [place] unit/mL 00 blood Medical injection sugar Branch before meal is higher than 140: Blood sugar 140 to 160, give 1 unit. Blood sugar 161 to 180, give 2 units. Blood sugar 181 to 200, give 3 units. Blood sugar 201 to 220, give 4 units. triamcinolo 2022-10 Yes [id number] Apply to [facility] ne 0-05 area(s) 2 ity of acetonide 00:00: (two) [place] 0.1 % cream 00 times Medical daily. Branch SITagliptin 2022-10 Yes [id number] 25mg Take 1 [facility] phosphate 0-05 tablet by ity o f (JANUVIA) 00:00: mouth [place] 25 mg 00 daily. Medical tablet Branch Blood-Gluco 2022-10 Yes [id number] Use as [facility] se Meter 0-05 directed ity of (RELION 00:00: [place] PRIME 00 Medical METER) Misc Branch Blood-Gluco 2022-10 Yes [id number] Use as [facility] se Meter 0-05 directed ity of (RELION 00:00: [place] PRIME 00 Medical METER) [facility] Branch lancets 33 2022-10 Yes [id number] Use as [facility] gauge Misc 0-05 directed ity o f 00:00: [place] 00 Medical Branch blood sugar 2022-10 Yes [id number] Use as [facility] diagnostic 0-05 directed ity o f (RELION 00:00: [place] PRIME TEST 00 Medical STRIPS) Branch strip metFORMIN 2022-10 Yes [id number] 1000mg Take 1 [facility] 1,000 mg 0-05 tablet by ity of tablet 00:00: mouth 2 [place] 00 (two) Medical times Branch daily with meals. cyclobenzap 2022-10 Yes [id number] 5mg Take 1 [facility] rine 5 mg 0-05 tablet by ity o f tablet 00:00: mouth [place] 00 every Medical evening as Branch needed for Muscle Spasms. fluocinonid 2022-10 Yes [id number] Apply to [facility] e 0.05 % 0-05 area(s) 2 ity of solution 00:00: (two) [place] 00 times Medical daily. Branch lancets 33 2022-10 Yes [id number] Use as [facility] gauge Misc 0-05 directed ity o f 00:00: [place] 00 Medical Branch insulin 2022-10 Yes [id number] 6U inject 6 U nivers lispro, 0-05 Units ity of human, 100 00:00: under the [place] unit/mL 00 skin 3 Medical injection (three) Branch times daily with meals. insulin 2022-10 Yes [id number] Extra [facility] ers lispro, 0-05 Humalog ity of human, 100 00:00: insulin If [place] unit/mL 00 blood Medical injection sugar Branch before meal is higher than 140: Blood sugar 140 to 160, give 1 unit. Blood sugar 161 to 180, give 2 units. Blood sugar 181 to 200, give 3 units. Blood sugar 201 to 220, give 4 units. triamcinolo 2022-10 Yes [id number] Apply to [facility] ne 0-05 area(s) 2 ity of acetonide 00:00: (two) [place] 0.1 % cream 00 times Medical daily. Branch SITagliptin 2022-10 Yes [id number] 25mg Take 1 [facility] phosphate 0-05 tablet by ity o f (JANUVIA) 00:00: mouth [place] 25 mg 00 daily. Medical tablet Branch Blood-Gluco 2022-10 Yes [id number] Use as [facility] se Meter 0-05 directed ity of (RELION 00:00: [place] PRIME 00 Medical METER) Misc Branch lancets 33 2022-10 Yes [id number] Use as [facility] gauge Misc 0-05 directed ity o f 00:00: [place] 00 Medical Branch blood sugar 2022-10 Yes [id number] Use as [facility] diagnostic 0-05 directed ity o f (RELION 00:00: [place] PRIME TEST 00 Medical STRIPS) Branch strip metFORMIN 2022-10 Yes [id number] 1000mg Take 1 [facility] 1,000 mg 0-05 tablet by ity of tablet 00:00: mouth 2 [place] 00 (two) Medical times Branch daily with meals. blood sugar 2022-10 Yes [id number] Use as [facility] diagnostic 0-05 directed ity o f (RELION 00:00: [place] PRIME TEST 00 Medical STRIPS) Branch strip cyclobenzap 2022-10 Yes [id number] 5mg Take 1 [facility] rine 5 mg 0-05 tablet by ity o f tablet 00:00: mouth [place] 00 every Medical evening as Branch needed for Muscle Spasms. fluocinonid 2022-10 Yes [id number] Apply to [facility] e 0.05 % 0-05 area(s) 2 ity of solution 00:00: (two) [place] 00 times Medical daily. Branch insulin 2022-10 Yes [id number] 6U inject 6 U nivers lispro, 0-05 Units ity of human, 100 00:00: under the [place] unit/mL 00 skin 3 Medical injection (three) Branch times daily with meals. insulin 2022-10 Yes [id number] Extra Univ ers lispro, 0-05 Humalog ity of human, 100 00:00: insulin If [place] unit/mL 00 blood Medical injection sugar Branch before meal is higher than 140: Blood sugar 140 to 160, give 1 unit. Blood sugar 161 to 180, give 2 units. Blood sugar 181 to 200, give 3 units. Blood sugar 201 to 220, give 4 units. triamcinolo 2022-10 Yes [id number] Apply to [facility] ne 0-05 area(s) 2 ity of acetonide 00:00: (two) [place] 0.1 % cream 00 times Medical daily. Branch SITagliptin 2022-10 Yes [id number] 25mg Take 1 [facility] phosphate 0-05 tablet by ity o f (JANUVIA) 00:00: mouth [place] 25 mg 00 daily. Medical tablet Branch Blood-Gluco 2022-10 Yes [id number] Use as [facility] se Meter 0-05 directed ity of (RELION 00:00: [place] PRIME 00 Medical METER) Misc Branch metFORMIN 2022-10 Yes [id number] 1000mg Take 1 [facility] 1,000 mg 0-05 tablet by ity of tablet 00:00: mouth 2 [place] 00 (two) Medical times Branch daily with meals. lancets 33 2022-10 Yes [id number] Use as [facility] gauge Misc 0-05 directed ity o f 00:00: [place] 00 Medical Branch blood sugar 2022-10 Yes [id number] Use as [facility] diagnostic 0-05 directed ity o f (RELION 00:00: [place] PRIME TEST 00 Medical STRIPS) Branch strip metFORMIN 2022-10 Yes [id number] 1000mg Take 1 [facility] 1,000 mg 0-05 tablet by ity of tablet 00:00: mouth 2 [place] 00 (two) Medical times Branch daily with meals. cyclobenzap 2022-10 Yes [id number] 5mg Take 1 [facility] rine 5 mg 0-05 tablet by ity o f tablet 00:00: mouth [place] 00 every Medical evening as Branch needed for Muscle Spasms. fluocinonid 2022-10 Yes [id number] Apply to [facility] e 0.05 % 0-05 area(s) 2 ity of solution 00:00: (two) [place] 00 times Medical daily. Branch triamcinolo 2022-10 Yes [id number] Apply to [facility] ne 0-05 area(s) 2 ity of acetonide 00:00: (two) [place] 0.1 % cream 00 times Medical daily. Branch SITagliptin 2022-10 Yes [id number] 25mg Take 1 [facility] phosphate 0-05 tablet by ity o f (JANUVIA) 00:00: mouth [place] 25 mg 00 daily. Medical tablet Branch Blood-Gluco 2022-10 Yes [id number] Use as Univers se Meter 0-05 directed ity of (RELION 00:00: [place] PRIME 00 Medical METER) Misc Branch lancets 33 2022-10 Yes [id number] Use as Univers gauge Misc 0-05 directed ity o f 00:00: [place] 00 Medical Branch blood sugar 2022-10 Yes [id number] Use as [facility] diagnostic 0-05 directed ity o f (RELION 00:00: [place] PRIME TEST 00 Medical STRIPS) Branch strip metFORMIN 2022-10 Yes [id number] 1000mg Take 1 [facility] 1,000 mg 0-05 tablet by ity of tablet 00:00: mouth 2 [place] 00 (two) Medical times Branch daily with meals. cyclobenzap 2022-10 Yes [id number] 5mg Take 1 [facility] rine 5 mg 0-05 tablet by ity o f tablet 00:00: mouth [place] 00 every Medical evening as Branch needed for Muscle Spasms. fluocinonid 2022-10 Yes [id number] Apply to [facility] e 0.05 % 0-05 area(s) 2 ity of solution 00:00: (two) [place] 00 times Medical daily. Branch triamcinolo 2022-10 Yes [id number] Apply to [facility] ne 0-05 area(s) 2 ity of acetonide 00:00: (two) [place] 0.1 % cream 00 times Medical daily. Branch SITagliptin 2022-10 Yes [id number] 25mg Take 1 [facility] phosphate 0-05 tablet by ity o f (JANUVIA) 00:00: mouth [place] 25 mg 00 daily. Medical tablet Branch Blood-Gluco 2022-10 Yes [id number] Use as Univers se Meter 0-05 directed ity of (RELION 00:00: [place] PRIME 00 Medical METER) Misc Branch lancets 33 2022-10 Yes [id number] Use as Univers gauge Misc 0-05 directed ity o f 00:00: [place] 00 Medical Branch blood sugar 2022-10 Yes [id number] Use as [facility] diagnostic 0-05 directed ity o f (RELION 00:00: [place] PRIME TEST 00 Medical STRIPS) Branch strip metFORMIN 2022-10 Yes [id number] 1000mg Take 1 [facility] 1,000 mg 0-05 tablet by ity of tablet 00:00: mouth 2 [place] 00 (two) Medical times Branch daily with meals. cyclobenzap 2022-10 Yes [id number] 5mg Take 1 [facility] rine 5 mg 0-05 tablet by ity o f tablet 00:00: mouth [place] 00 every Medical evening as Branch needed for Muscle Spasms. fluocinonid 2022-10 Yes [id number] Apply to [facility] e 0.05 % 0-05 area(s) 2 ity of solution 00:00: (two) [place] 00 times Medical daily. Branch triamcinolo 2022-10 Yes [id number] Apply to [facility] ne 0-05 area(s) 2 ity of acetonide 00:00: (two) [place] 0.1 % cream 00 times Medical daily. Branch SITagliptin 2022-10 Yes [id number] 25mg Take 1 [facility] phosphate 0-05 tablet by ity o f (JANUVIA) 00:00: mouth [place] 25 mg 00 daily. Medical tablet Branch Blood-Gluco 2022-10 Yes [id number] Use as Univers se Meter 0-05 directed ity of (RELION 00:00: [place] PRIME 00 Medical METER) Misc Branch lancets 33 2022-10 Yes [id number] Use as Univers gauge Misc 0-05 directed ity o f 00:00: [place] 00 Medical Branch blood sugar 2022-10 Yes [id number] Use as [facility] diagnostic 0-05 directed ity o f (RELION 00:00: [place] PRIME TEST 00 Medical STRIPS) Branch strip metFORMIN 2022-10 Yes [id number] 1000mg Take 1 [facility] 1,000 mg 0-05 tablet by ity of tablet 00:00: mouth 2 [place] 00 (two) Medical times Branch daily with meals. cyclobenzap 2022-10 Yes [id number] 5mg Take 1 [facility] rine 5 mg 0-05 tablet by ity o f tablet 00:00: mouth [place] 00 every Medical evening as Branch needed for Muscle Spasms. fluocinonid 2022-10 Yes [id number] Apply to Univers e 0.05 % 0-05 area(s) 2 ity of solution 00:00: (two) [place] 00 times Medical daily. Branch triamcinolo 2022-10 Yes [id number] Apply to Univers ne 0-05 area(s) 2 ity of acetonide 00:00: (two) [place] 0.1 % cream 00 times Medical daily. Branch SITagliptin 2022-10 Yes [id number] 25mg Take 1 [facility] phosphate 0-05 tablet by ity o f (JANUVIA) 00:00: mouth [place] 25 mg 00 daily. Medical tablet Branch lancets 33 2022-10 Yes [id number] Use as Univers gauge Misc 0-05 directed ity o f 00:00: [place] 00 Medical Branch blood sugar 2022-10 Yes [id number] Use as [facility] diagnostic 0-05 directed ity o f (RELION 00:00: [place] PRIME TEST 00 Medical STRIPS) Branch strip metFORMIN 2022-10 Yes [id number] 1000mg Take 1 [facility] 1,000 mg 0-05 tablet by ity of tablet 00:00: mouth 2 [place] 00 (two) Medical times Branch daily with meals. cyclobenzap 2022-10 Yes [id number] 5mg Take 1 [facility] rine 5 mg 0-05 tablet by ity o f tablet 00:00: mouth [place] 00 every Medical evening as Branch needed for Muscle Spasms. fluocinonid 2022-10 Yes [id number] Apply to Univers e 0.05 % 0-05 area(s) 2 ity of solution 00:00: (two) [place] 00 times Medical daily. Branch triamcinolo 2022-10 Yes [id number] Apply to Univers ne 0-05 area(s) 2 ity of acetonide 00:00: (two) [place] 0.1 % cream 00 times Medical daily. Branch SITagliptin 2022-10 Yes [id number] 25mg Take 1 [facility] phosphate 0-05 tablet by ity o f (JANUVIA) 00:00: mouth [place] 25 mg 00 daily. Medical tablet Branch lancets 33 2022-10 Yes [id number] Use as Univers gauge Misc 0-05 directed ity o f 00:00: [place] 00 Medical Branch blood sugar 2022-10 Yes [id number] Use as [facility] diagnostic 0-05 directed ity o f (RELION 00:00: [place] PRIME TEST 00 Medical STRIPS) Branch strip metFORMIN 2022-10 Yes [id number] 1000mg Take 1 [facility] 1,000 mg 0-05 tablet by ity of tablet 00:00: mouth 2 [place] 00 (two) Medical times Branch daily with meals. cyclobenzap 2022-10 Yes [id number] 5mg Take 1 [facility] rine 5 mg 0-05 tablet by ity o f tablet 00:00: mouth [place] 00 every Medical evening as Branch needed for Muscle Spasms. fluocinonid 2022-10 Yes [id number] Apply to Univers e 0.05 % 0-05 area(s) 2 ity of solution 00:00: (two) [place] 00 times Medical daily. Branch triamcinolo 2022-10 Yes [id number] Apply to Univers ne 0-05 area(s) 2 ity of acetonide 00:00: (two) [place] 0.1 % cream 00 times Medical daily. Branch SITagliptin 2022-10 Yes [id number] 25mg Take 1 [facility] phosphate 0-05 tablet by ity o f (JANUVIA) 00:00: mouth [place] 25 mg 00 daily. Medical tablet Branch lancets 33 2022-10 Yes [id number] Use as Univers gauge Misc 0-05 directed ity o f 00:00: [place] 00 Medical Branch blood sugar 2022-10 Yes [id number] Use as [facility] diagnostic 0-05 directed ity o f (RELION 00:00: [place] PRIME TEST 00 Medical STRIPS) Branch strip metFORMIN 2022-10 Yes [id number] 1000mg Take 1 [facility] 1,000 mg 0-05 tablet by ity of tablet 00:00: mouth 2 [place] 00 (two) Medical times Branch daily with meals. Blood-Gluco 2022-10- No [id number] Use as Univers se Meter 0-05 10-12 directed ity of (RELION 00:00: 00:00 [place] PRIME 00 :00 Medical METER) Misc Branch Blood-Gluco 2022-10- No [id number] Use as Univers se Meter 0-05 10-12 directed ity of (RELION 00:00: 00:00 [place] PRIME 00 :00 Medical METER) Mis Branch insulin 2022-10- No [id number] 6U inject 6 [facility] lispro, 0-05 10-11 Units ity of human, 100 00:00: 00:00 under the [place] unit/mL 00 :00 skin 3 Medical injection (three) Branch times daily with meals. insulin 2022-10- No [id number] Extra Uni vers lispro, 0-05 10-11 Humalog ity of human, 100 00:00: 00:00 insulin If [place] unit/mL 00 :00 blood Medical injection sugar Branch before meal is higher than 140: Blood sugar 140 to 160, give 1 unit. Blood sugar 161 to 180, give 2 units. Blood sugar 181 to 200, give 3 units. Blood sugar 201 to 220, give 4 units. insulin 2022-10- No [id number] 6U inject 6 [facility] lispro, 0-05 10-11 Units ity of human, 100 00:00: 00:00 under the [place] unit/mL 00 :00 skin 3 Medical injection (three) Branch times daily with meals. insulin 2022-10- No [id number] Extra Uni vers lispro, 0-05 10-11 Humalog ity of human, 100 00:00: 00:00 insulin If [place] unit/mL 00 :00 blood Medical injection sugar Branch before meal is higher than 140: Blood sugar 140 to 160, give 1 unit. Blood sugar 161 to 180, give 2 units. Blood sugar 181 to 200, give 3 units. Blood sugar 201 to 220, give 4 units. insulin 2022-10- No [id number] 6U inject 6 [facility] lispro, 0-05 10-11 Units ity of human, 100 00:00: 00:00 under the [place] unit/mL 00 :00 skin 3 Medical injection (three) Branch times daily with meals. insulin 2022-10- No [id number] Extra Uni vers lispro, 0-05 10-11 Humalog ity of human, 100 00:00: 00:00 insulin If [place] unit/mL 00 :00 blood Medical injection sugar Branch before meal is higher than 140: Blood sugar 140 to 160, give 1 unit. Blood sugar 161 to 180, give 2 units. Blood sugar 181 to 200, give 3 units. Blood sugar 201 to 220, give 4 units. cyclobenzap 2022-10 Yes 5mg 5 mg, Unive rs rine 0-04 Oral, ity of (FLEXERIL) 21:45: QPMPRN, [place] tablet 5 mg 00 Starting Medi basia on Fri Branch 07/09/23 at 1645, Until Discontinu ed, Routine, Muscle Spasms insulin 2022-10 Yes 15U 15 Units, Unive rs glargine 0-04 Subcutaneo ity o f (LANTUS 18:45: [place], DAILY, [place] U-100) 00 First dose Medical injection (after Branch 15 Units last modificati on) on Fri07/09/23 at 1345, Until Discontinu ed, Routine insulin 2022-10 Yes 4U 4 Units, Univer s lispro 0-04 Subcutaneo ity of (human) 17:00: us, TID [place] (HumaLOG 00 MEALS, Medical U-100) First dose Branch injection 4 (after Units last modificati on) on Fri07/09/23 at 1200, Until Discontinu ed, Routine KCL 2022-10- No 40meq 40 mEq, Univers (KLOR-CON 0-04 10-04 Oral, ity of M20) tablet 13:45: 13:23 ONCE, 1 [place] 40 mEq 00 :00 dose, On Medical Fri Branch 07/09/23 at 0845, Routine cyclobenzap 2022-10- No 5mg 5 mg, Univ ers rine 0-04 10-04 Oral, ity of (FLEXERIL) 12:50: 21:42 TIDPRN, [place] tablet 5 mg 32 :22 Starting Medi basia on Fri07/09/23 at 0750, Until Fri07/09/23 at 1642, Routine, Muscle Spasms lactated 2022-10- No 1000mL at 100 [facility] ers ringers IV 0-03 10-04 mL/hr, ity of infusion 14:00: 21:42 1,000 mL, [place] 1,000 mL 00 :29 IV Medical Infusion, Branch CONTINUOUS , Starting on Fri07/08/23 at 0900, Until Fri07/09/23 at 1642, Routine insulin 2022-10- No 8U 8 Units, Unive rs glargine 0-03 10-04 Subcutaneo ity of (LANTUS 02:00: 16:44 us, QHS, [place] U-100) 00 :51 First dose Medical injection 8 (after Branch Units last modificati on) on 07/07/23 at 2100, Until Discontinu ed, Routine insulin 2022-10- No 2U 2 Units, Unive rs lispro 0-02 10-04 Subcutaneo ity of (human) 17:00: 16:45 us, TID [place] (HumaLOG 00 :16 MEALS, Medical U-100) First dose Branch injection 2 on Mon Units 07/07/23 at 1200, Until Discontinu ed, Routine acetaminoph 2022-10 Yes 650mg 650 mg, Un sawyer en 0-02 Oral, ity of (TYLENOL) 13:58: Q8HPRN, [place] tablet 650 03 Starting Medic al mg on Fri Branch 07/07/23 at 0858, Until Discontinu ed, Routine, Pain (scale 1-3), Temp > 38 C triamcinolo 2022-10 Yes Topical, Un [place] ne 0-01 BID, First ity of acetonide 20:30: dose on [place] (TRIDERM) 00 [facility] 0.1 % cream 07/06/23 at Br anch 1530, Until Discontinu ed, Routine insulin 2022-10- No 8U 8 Units, [facility] [place] [facility] rs glargine 0- 10 Subcutaneo ity of (LANTUS 16:09: 19:15 [place], ONCE, [place] U-100) 00 :00 1 dose, On Medical injection 8 Sun Branch Units 07/06/23 at 1115, Routine KCL 2022-10- No 20meq 20 mEq, Univers (KLOR-CON 0- 10- Oral, ity of M20) tablet 12:30: 13:10 ONCE, 1 [place] 20 mEq 00 :00 dose, On Medical Sun Branch 07/06/23 at 0730, Routine lactated 2022-10- No 1000mL at 999 Univ ers ringers IV 0- 10- mL/hr, ity of infusion 11:45: 13:12 1,000 mL, [place] 1,000 mL 00 :00 Intravenou Medic al s, ONCE, 1 Branch dose, On 07/06/23 at 0645, STAT vancomycin 2023-1 2023- No 15mg/kg 1,500 mg Univers (VANCOCIN) 007-08 (rounded ity of 1,500 mg in 06:15: 12:17 from [place] NaCl 0.9% 00 :10 1,408.5 mg Medi basia (NS) 500 mL = 15 mg/kg Br anch VIAL-MATE ?93.9 kg), IV IV piggyback Piggyback, Q12H ABX, 6 doses, First dose on Fri07/06/23 at 0115, Last dose on Fri07/08/23 at 1315, Administer over 90 Minutes, 500 mL
Reas on for Anti-Infec tive: Empiric Therapy for Suspected Infection< br>Empiric Therapy Site: Blood
D uration of therapy: 5 days ceFEPIme 2022-10 No 1000mg 1,000 mg, U nivers (MAXIPIME) 07-08 IV ity of 1,000 mg in 06:06: 10:05 [place] NaCl 0.9% 00 :42 Q8H ABX, 9 Medi basia (NS) 100 mL doses, Branch MINI-BAG First dose (after last modificati on) on Fri07/06/23 at 0115, Last dose on Fri07/08/23 at 1715, Administer over 4 Hours, 100 mL
Reas on for Anti-Infec tive: Empiric Therapy for Suspected Infection< br>Empiric Therapy Site: Blood
D uration of therapy: 72 hours acetaminoph No 650mg 650 mg, U nivers en 07-05 Oral, ity of (TYLENOL) 21:15: 21:20 ONCE, 1 [place] tablet 650 00 :00 dose, On Medic al mg Sat Branch 07/05/23 at 1615, Routine sennosides- Yes 1{tbl} 1 tablet, Univers docusate 07-05 Oral, ity of sodium 14:00: DAILY, [place] (SENOKOT-S) 00 First dose Me dical 8.6-50 mg on Sat Branch per tablet 07/05/23 at 1 tablet 0900, Until Discontinu ed, Routine NaCl 0.9% 2022- No 500mL at 100 Univ ers (NS) IV 9-30 09-30 mL/hr, IV ity of infusion 13:45: 13:24 Infusion, Teddy as 500 mL 00 :00 ONCE, 1 Medical dose, On Branch 07/05/23 at 0845, Routine Sliding 2022- No Subcutaneo Uni vers Scale 07-05 us, TID ity of Insulin - 13:00: 21:37 [place]ALS[place]HS[place] Lispro 00 :23 First dose Medical (HumaLOG) on Sat Branch 07/05/23 at 0800, Until Discontinu ed, Routine doxycycline 2022- Yes 100mg 100 mg, U nivers hyclate 07-05 10 Oral, ity of (Vibramycin 11:00: 10:59 Q12HA, 14 [place] ) capsule 00 :00 doses, Medical 100 mg First dose Branch on 07/05/23 at 0600, Last dose on Fri07/11/23 at 1800, AMLEIA
Re ason for Anti-Infec tive: Documented Infection< br>Documen brittnee Infection Site: Other
O ther site: liver
D uration of Therapy: 7 days ibuprofen Yes 200mg 200 mg, Univ ers (MOTRIN IB) 07-05 Oral, ity of tablet 200 09:59: Q6HPRN, [place] mg 39 Starting Medical on [facility] Branch 07/05/23 at 0459, Until Discontinu ed, Routine, Pain (scale 1-3), Temp > 38.5 C lactulose 2022- No 15mL 15 mL, Unive rs (CEPHULAC) 07-05 Oral, ity of solution 15 07:22: 21:42 [place]PRN[place] mL 38 :39 Starting Medical on Sat Branch 07/05/23 at 0222, Until 07/09/23 at 1642, Routine, Constipati on, Encephalop hathy melatonin Yes 3mg 3 mg, Univers (MELATIN) 07-05 Oral, ity of tablet 3 mg 07:04: QHSPRN, [place] as 24 Starting Medical on [facility] Branch 07/05/23 at 0204, Until Discontinu ed, Routine, Insomnia dextrose Yes 250mL 250 mL, IV Un sawyer 10% (D10W) 30 Infusion, ity of bolus 07:03: PRN - SEE [place] infusion 19 INSTRUCTIO Medic al 250 mL NS, Branch Administer over 60 Minutes, Other, If blood glucose is < or = 70 mg/dL and patient is unable to swallow or has mental status changes, Starting on 07/05/23 at 0203
If blood glucose is < or = 70 mg/dL and patient is unable to swallow or has mental status changes (Give glucagon order if patient needs fluid restrictio n): IF IV access available: Dextrose 10%. 1. 125 mL (? bag) of D10W IV infusion - equivalent to 12.5 g dextrose 2. Blood glucose - draw blood glucose 15 minutes after D10W Administra tion. 3. If blood glucose is < 80 mg/dL, repeat.
glucagon Yes 1mg 1 mg, Univers (GLUCAGEN 07-05 Intramuscu ity of DIAGNOSTIC 07:03: lar, [place]N, [place] KIT) 16 Starting Medical injection 1 on [facility] Branch mg 07/05/23 at 0203, Until Discontinu ed, AMELIA, Blood Glucose < or = 70 mg/dL and patient is NPO, unable to swallow or has mental changes. ondansetron No 4mg 4 mg, Slow Univers (ZOFRAN 07-05 IV Push, ity of (PF)) 04:45: 04:04 ONCE, 1 [place] injection 4 00 :00 dose, On Medi basia mg [facility] 07/04/23 at 2345, AMELIA iopamidol 2022- No [id number] 85mL 85 mL, U nivers (ISOVUE 07-05 Intravenou ity o f 370-500 mL) 01:20: 01:30 s, ONCE, 1 [place] injection 00 :00 dose, On Medica l [address] [facility] 07/04/23 at 2030, Routine NaCl 0.9% 2022- No 1000mL at 999 Uni vers (NS) bolus 07-05 mL/hr, ity of infusion 01:00: 01:08 1,000 mL, Teddy as 1,000 mL 00 :00 IV Medical Infusion, Branch ONCE, 1 dose, On Fri07/04/23 at 2000, STAT TAKE 1 2021-0 No TABLET 9-13 DAILY 00:00: DIRECTED. 00 INJECT 10 2021-0 No UNITS BELOW 9-12 THE SKIN 00:00: DAILY START 00 WITH 10 UNITS DAILY BEFORE DINNER. MONITOR BLOOD SUGAR BID. TAKE 1 2021-0 No TABLET 9-12 EVERY 00:00: MORNING. 00 Dose 2021-0 No Unknown 6-21 00:00: 00 Dose 2021-0 No Unknown 6-21 00:00: 00 amlodipine 2021-0 No 1mg 5 mg tablet 6-20 00:00: 00 lisinopril 2021-0 No 1mg 20 6-20 mg-hydrochl 00:00: orothiazide 00 25 mg tablet TAKE 1 No TABLET 6-20 DAILY 00:00: DIRECTED. 00 Dose 2021-0 No Unknown 6-20 00:00: 00 Dose 2021-0 No Unknown 6-20 00:00: 00 ondansetron 2020-0 Yes [id number] 4mg Take 1 Univers (ZOFRAN 7-29 tablet by ity of ODT) 4 mg 00:00: mouth [place] disintegrat 00 every 8 Medic al ing tablet (eight) Branch hours as needed for Nausea and Vomiting (N/V). ondansetron 2020-0 Yes [id number] 4mg Take 1 Univers (ZOFRAN 7-29 tablet by ity of ODT) 4 mg 00:00: mouth [place] disintegrat 00 every 8 Medic al ing tablet (eight) Branch hours as needed for Nausea and Vomiting (N/V). ondansetron 2020-0 Yes [id number] 4mg Take 1 Univers (ZOFRAN 7-29 tablet by ity of ODT) 4 mg 00:00: mouth [place] disintegrat 00 every 8 Medic al ing tablet (eight) Branch hours as needed for Nausea and Vomiting (N/V). ondansetron 2020-0 Yes [id number] 4mg Take 1 Univers (ZOFRAN 7-29 tablet by ity of ODT) 4 mg 00:00: mouth [place] disintegrat 00 every 8 Medic al ing tablet (eight) Branch hours as needed for Nausea and Vomiting (N/V). ondansetron 2020-0 Yes [id number] 4mg Take 1 Univers (ZOFRAN 7-29 tablet by ity of ODT) 4 mg 00:00: mouth [place] disintegrat 00 every 8 Medic al ing tablet (eight) Branch hours as needed for Nausea and Vomiting (N/V). ondansetron 2020-0 Yes [id number] 4mg Take 1 Univers (ZOFRAN 7-29 tablet by ity of ODT) 4 mg 00:00: mouth [place] disintegrat 00 every 8 Medic al ing tablet (eight) Branch hours as needed for Nausea and Vomiting (N/V). ondansetron 2020-0 Yes [id number] 4mg Take 1 Univers (ZOFRAN 7-29 tablet by ity of ODT) 4 mg 00:00: mouth [place] disintegrat 00 every 8 Medic al ing tablet (eight) Branch hours as needed for Nausea and Vomiting (N/V). ondansetron 2020-0 Yes [id number] 4mg Take 1 Univers (ZOFRAN 7-29 tablet by ity of ODT) 4 mg 00:00: mouth [place] disintegrat 00 every 8 Medic al ing tablet (eight) Branch hours as needed for Nausea and Vomiting (N/V). ondansetron 2020-0 Yes [id number] 4mg Take 1 Univers (ZOFRAN 7-29 tablet by ity of ODT) 4 mg 00:00: mouth [place] disintegrat 00 every 8 Medic al ing tablet (eight) Branch hours as needed for Nausea and Vomiting (N/V). ondansetron 2020-0 Yes [id number] 4mg Take 1 Univers (ZOFRAN 7-29 tablet by ity of ODT) 4 mg 00:00: mouth [place] disintegrat 00 every 8 Medic al ing tablet (eight) Branch hours as needed for Nausea and Vomiting (N/V). ondansetron 2020-0 Yes [id number] 4mg Take 1 Univers (ZOFRAN 7-29 tablet by ity of ODT) 4 mg 00:00: mouth [place] disintegrat 00 every 8 Medic al ing tablet (eight) Branch hours as needed for Nausea and Vomiting (N/V). ondansetron 2020-0 Yes [id number] 4mg Take 1 Univers (ZOFRAN 7-29 tablet by ity of ODT) 4 mg 00:00: mouth [place] disintegrat 00 every 8 Medic al ing tablet (eight) Branch hours as needed for Nausea and Vomiting (N/V). ondansetron 2020-0 Yes [id number] 4mg Take 1 Univers (ZOFRAN 7-29 tablet by ity of ODT) 4 mg 00:00: mouth [place] disintegrat 00 every 8 Medic al ing tablet (eight) Branch hours as needed for Nausea and Vomiting (N/V). ondansetron 2020-0 Yes [id number] 4mg Take 1 Univers (ZOFRAN 7-29 tablet by ity of ODT) 4 mg 00:00: mouth [place] disintegrat 00 every 8 Medic al ing tablet (eight) Branch hours as needed for Nausea and Vomiting (N/V). ondansetron 2020-0 Yes [id number] 4mg Take 1 Univers (ZOFRAN 7-29 tablet by ity of ODT) 4 mg 00:00: mouth [place] disintegrat 00 every 8 Medic al ing tablet (eight) Branch hours as needed for Nausea and Vomiting (N/V). ondansetron 2020-0 Yes [id number] 4mg Take 1 Univers (ZOFRAN 7-29 tablet by ity of ODT) 4 mg 00:00: mouth [place] disintegrat 00 every 8 Medic al ing tablet (eight) Branch hours as needed for Nausea and Vomiting (N/V). ondansetron 2020-0 Yes [id number] 4mg Take 1 Univers (ZOFRAN 7-29 tablet by ity of ODT) 4 mg 00:00: mouth [place] disintegrat 00 every 8 Medic al ing tablet (eight) Branch hours as needed for Nausea and Vomiting (N/V). Vital Signs Vital Name Observation Time Observation Value Comments Source Systolic blood 2023-07-17 20:44:00 134 mm[facility]Hg[facility] 2023-07-17 20:44:00 95 mm[Hg] [facility] Heart rate 2023-07-17 20:44:00 98 /min [facility] Body temperature 2023-07-17 20:44:00 37 [facility] Respiratory rate 2023-07-17 20:44:00 22 /[facility] O[facility] saturation in 2023-07-17 20:44:00 97 /min University of Arterial blood by [facility] Pulse oximetry Branch Body weight 2023-07-17 12:29:00 91.173 kg Universi ty [facility] [place] [facility] [place] BMI 2023-07-17 12:29:00 35.61 kg/m2 Universi ty [facility] [place] Body height 2023-07-17 11:20:00 160 cm Universi ty of [facility] Systolic blood 2023-07-10 20:14:00 150 mm[Hg] Univer sity of pressure [facility] Diastolic blood 2023-07-10 20:14:00 89 mm[Hg] Unive rsity of pressure [facility] Heart rate 2023-07-10 20:14:00 75 /min Universi ty [facility] Body temperature 2023-07-10 20:14:00 36.11 Tatiana Univ ersity of [facility] Respiratory rate 2023-07-10 20:14:00 17 /min Univ ersity of [facility] Oxygen saturation in 2023-07-10 20:14:00 92 /min University of Arterial blood by [facility] Pulse oximetry Branch Body weight 2023-07-10 09:02:00 93.486 kg Universi ty [facility] BMI 2023-07-10 09:02:00 36.51 kg/m2 Universi ty [facility] Body height 2023-07-05 06:18:00 160 [facility] BP Systolic 2022-06-18 11:25:00 134 mm[Hg] BP [...] Respiratory Rate 2022-03-25 08:55:00 18.00 /min Procedures Procedure Date / Time Performing Clinician Source Performed POCT GLUCOSE (AUTOMATED) 2023-07-17 20:46:00 Sharif Abarca [facility] TRANSTHORACIC ECHO (TTE) 2023-07-17 18:51:30 Nathanael Johnson [facility] COMPLETE [facility] POCT GLUCOSE (AUTOMATED) 2023-07-17 16:26:00 Sharif Abarca [facility] HB ECG ROUTINE & RHYTHM 2023-07-17 08:36:02 Aristides Peraza [facility] STRIP [facility] CT ABDOMEN PELVIS W 2023-07-17 07:24:00 Aristides Peraza [facility] CONTRAST Medical Branch CT CHEST PULMONARY 2023-07-17 07:24:00 Aristides Peraza [facility] ANGIOGRAM Medical Branch XR CHEST 1 VW 2023-07-17 06:16:06 Aristides Peraza [facility] LIPASE 2023-07-17 06:07:00 Aristides Peraza [facility] TROPONIN I 2023-07-17 06:07:00 Aristides [facility]aza [facility] COMP. METABOLIC PANEL 2023-07-17 06:07:00 Aristides Peraza [facility] ([id number]) [facility] [place] CBC WITH DIFF 2023-07-17 06:07:00 Aristides Peraza [facility] D-DIMER 2023-07-17 06:07:00 Aristides [facility] URINALYSIS 2023-07-17 05:53:00 Aristides [facility] CONSENT/REFUSAL FOR 2023-07-17 05:28:31 Doctor Unassigned, [facility] DIAGNOSIS AND TREATMENT [place] [facility] POCT GLUCOSE (AUTOMATED) 2023-07-10 16:43:00 Ines Og [facility] POCT GLUCOSE (AUTOMATED) 2023-07-10 13:26:00 Ines Og [facility] MAGNESIUM 2023-07-10 09:23:00 [facility] HEPATIC FUNCTION PANEL 2023-07-10 09:23:00 Florentino [facility] ([id number]) (ALB,T.PRO,BILI Medical Branch T,BU/BC,ALT,AST,ALK PHOS) BASIC METABOLIC PANEL (NA, 2023-07-10 09:23:00 [facility] K, CL, CO2, GLUCOSE, BUN, Medica l Branch CREATININE, CA) CBC WITH DIFF 2023-07-10 09:23:00 [facility] POCT GLUCOSE (AUTOMATED) 2023-07-10 09:00:00 Ines Og [facility] POCT GLUCOSE (AUTOMATED) 2023-07-10 04:48:00 OgInes [facility] POCT GLUCOSE (AUTOMATED) 2023-07-10 01:28:00 OgInes [facility] POCT GLUCOSE (AUTOMATED) 2023-07-09 22:06:00 OgInes [facility] POCT GLUCOSE (AUTOMATED) 2023-07-09 19:49:00 OgInes [facility] POCT GLUCOSE (AUTOMATED) 2023-07-09 16:51:00 OgInes [facility] POCT GLUCOSE (AUTOMATED) 2023-07-09 13:06:00 OgInes [facility] MAGNESIUM 2023-07-09 10:19:00 Tanja Ortiz [facility] HEPATIC FUNCTION PANEL 2023-07-09 10:19:[address] [facility] ([id number]) (ALB,T.PRO,BIL Medical Branch T,BU/BC,ALT,AST,ALK PHOS) BASIC METABOLIC PANEL (NA, 2023-07-09 10:19:00 Fabian Ortiz [facility] K, CL, CO2, GLUCOSE, BUN, Medica l Branch CREATININE, CA) CBC WITH DIFF 2023-07-09 10:19:00 Theo Troncoso [facility] POCT GLUCOSE (AUTOMATED) 2023-07-09 04:15:00 Earle Ines Granger [facility] POCT GLUCOSE (AUTOMATED) 2023-07-09 01:54:00 OgInes Uni [facility] POCT GLUCOSE (AUTOMATED) 2023-07-08 22:05:00 Og Ines Granger [facility] POCT GLUCOSE (AUTOMATED) 2023-07-08 17:38:00 Earle Ines Bárbara [facility] BLOOD CULTURE SCREEN 2023-07-08 16:38:00 [facility] BLOOD CULTURE SCREEN 2023-07-08 16:26:00 [facility] [place] [facility] POCT GLUCOSE (AUTOMATED) 2023-07-08 13:16:00 Earle Ines Bárbara [facility] MAGNESIUM 2023-07-08 10:17:00 Theo Troncoso [facility] FERRITIN SERUM 2023-07-08 10:17:00 [facility] HAPTOGLOBIN, SERUM 2023-07-08 10:17:00 [facility] [place] HEPATIC FUNCTION PANEL 2023-07-08 10:17:00 [id number] ([facility] T,BU/BC,ALT,AST,ALK PHOS) BASIC METABOLIC PANEL (NA, 2023-07-08 10:17:00 Koehler, Anni [facility] K, CL, CO2, GLUCOSE, BUN, Medica l Branch CREATININE, CA) CBC WITH DIFF 2023-07-08 10:17:00 Theo Troncoso [facility] POCT GLUCOSE (AUTOMATED) 2023-07-08 01:32:00 OgInes [facility] POCT GLUCOSE (AUTOMATED) 2023-07-07 22:51:00 Ines Og [facility] VANCOMYCIN TROUGH 2023-07-07 21:49:00 Zakia [facility] POCT GLUCOSE (AUTOMATED) 2023-07-07 16:43:00 Ines Og [facility] POCT GLUCOSE (AUTOMATED) 2023-07-07 13:37:00 Ines Og [facility] MAGNESIUM 2023-07-07 06:36:00 Zakia [facility] HEPATIC FUNCTION PANEL 2023-07-07 06:36:00 Zakia [facility] ([id number]) (ALB,T.PRO,[facility] T,BU/BC,ALT,AST,ALK PHOS) BASIC METABOLIC PANEL (NA, 2023-07-07 06:36:00 Zakia [facility] K, CL, CO2, GLUCOSE, BUN, Medica l Branch CREATININE, CA) CBC WITH DIFF 2023-07-07 06:36:00 Zakia [facility] POCT GLUCOSE (AUTOMATED) 2023-07-07 01:47:00 Ines Og [facility] POCT GLUCOSE (AUTOMATED) 2023-07-06 23:11:00 Ines Og [facility] DIFF CONSULT BY 2023-07-06 19:55:00 Zakia [facility] CBC WITH DIFF 2023-07-06 19:55:00 Zakia [facility] MISCELLANEOUS SEND OUT 2023-07-06 19:55:[address] [facility] DIFF CONSULT 2023-07-06 19:55:00 Zakia [facility] POCT GLUCOSE (AUTOMATED) 2023-07-06 18:11:00 Ines Og [facility] POCT GLUCOSE (AUTOMATED) 2023-07-06 13:24:00 Ines Og [facility] LACTIC ACID WHOLE BLOOD 2023-07-06 11:31:00 Leonard Gao [facility] QUANTIFERON-TB ASSAY 2023-07-06 11:30:00 [facility] TB2 MINUS NIL 2023-07-06 11:30:00 [facility]UM 2023-07-06 08:33:00 Zakia [facility] HEPATIC FUNCTION PANEL 2023-07-06 08:33:[address] [facility] ([id number]) ([facility] T,BU/BC,ALT,AST,ALK PHOS) BASIC METABOLIC PANEL (NA, 2023-07-06 08:33:00 Zakia [facility] K, CL, CO2, GLUCOSE, BUN, Medica l Branch CREATININE, CA) CBC WITH DIFF 2023-07-06 08:33:00 Zakia [facility] POCT GLUCOSE (AUTOMATED) 2023-07-06 05:06:00 Ines Og [facility] POCT GLUCOSE (AUTOMATED) 2023-07-06 02:10:00 Ines Og [facility] DERMATOPATHOLOGY TISSUE 2023-07-06 00:00:00 [facility] POCT GLUCOSE (AUTOMATED) 2023-07-05 22:42:00 Ines Og [facility] CRYOGLOBULIN QUALITATIVE 2023-07-05 21:39:00 Fransisca Koehler [facility] MRSA / MSSA SCREEN BY PCR, 2023-07-05 21:38:00 Fransisca Koehler [facility] POCT GLUCOSE (AUTOMATED) 2023-07-05 18:54:00 Ines Og [facility] POCT GLUCOSE (AUTOMATED) 2023-07-05 15:06:00 Ines Og [facility] XR CHEST 2 VW 2023-07-05 10:22:07 [facility] RICHIE-RUIZ VIRUS BY 2023-07-05 09:15:00 Sima, [facility] QUANTITATIVE NAAT, PLASMA [facility] [facility] [place] OSMOLALITY URINE 2023-07-05 08:36:00 [facility] SODIUM, URINE RANDOM 2023-07-05 08:36:00 Zakia [facility] HSV 1&2, VZV NAAT 2023-07-05 08:36:00 [facility] LEGIONELLA AND 2023-07-05 08:36:00 Tanja Ortiz [facility] STREPTOCOCCUS PNEUMONIAE [facility] URINARY ANTIGENS OSMOLALITY, SERUM OR 2023-07-05 08:15:00 [facility] PLASMA [facility] TYPHUS FEVER AB, IGG 2023-07-05 08:15:00 [facility] [place] [facility] SYPHILIS IGG/IGM 2023-07-05 08:15:00 Zakia [facility] SQJCW-WVKHCX-TPYDDMCIP ABS 2023-07-05 08:11:00 [facility] AMMONIA, PLASMA 2023-07-05 08:11:00 [facility] CERULOPLASMIN 2023-07-05 08:11:00 [facility] C-REACTIVE PROTEIN 2023-07-05 08:11:00 [facility] [place] HEPATIC FUNCTION PANEL 2023-07-05 08:11:00 [facility] ([id number] (ALB,T.PRO,BILI [facility] T,BU/BC,ALT,AST,ALK PHOS) BASIC METABOLIC PANEL (NA, 2023-07-05 08:11:00 [facility] K, CL, CO2, GLUCOSE, BUN, [facility] CREATININE, CA) LIPID PANEL ([id number])(TOTAL 2023-07-05 08:11:00 [facility] TRIGLYCERIDES, HDL) SEDIMENTATION RATE 2023-07-05 08:11:00 [facility] DIFF CONSULT BY 2023-07-05 08:11:00 [facility] PATHOLOGIST Medical Branch CBC WITH DIFF 2023-07-05 08:11:00 [facility] GLYCOSYLATED HEMOGLOBIN 2023-07-05 08:11:00 Leonard Gao [facility] (A1C) [facility] PROTHROMBIN TIME / INR 2023-07-05 08:11:00 Leonard Gao [facility] ANTI-NUCLEAR ANTIBODY 2023-07-05 08:11:00 [facility] SCREEN [facility] HEPATITIS B SURFACE 2023-07-05 08:11:00 Leonard Gao [facility] ANTIBODY [facility] HEPATITIS B SURFACE 2023-07-05 08:11:00 [facility] ANTIGEN [facility] HCV ANTIBODY 2023-07-05 08:11:00 [facility] CORE ANTIBODY 2023-07-05 08:11:[address] [facility] IGM [facility] ANCA SCREEN 2023-07-05 08:[facility] (IGG AND IGM) 2023-07-05 08:11:00 [facility] ANTI-NUCLEAR ANTIBODY 2023-07-05 08:11:00 Leonard Gao [facility] TITER [facility] CMV BY QUANTITATIVE NAAT 2023-07-05 08:11:00 Leonard [facility] DIFF CONSULT 2023-07-05 08:11:00 [facility] INTERPRETATION [facility] ANTI-NUCLEAR 2023-07-05 08:11:00 Leonard Gao [facility] ANTIBODY-PATHOLOGIST [facility] INTERPRETATION BLOOD CULTURE SCREEN 2023-07-05 08:10:00 [facility] US ABDOMEN LIMITED WITH 2023-07-05 07:45:05 Leonard Gao [facility] DOPPLER [facility] URINE DRUG (IMMUNOASSAY) - 2023-07-05 01:51:[address] [facility] COMPREHENSIVE DRUG SCREEN Medica l Branch CT ABDOMEN PELVIS W 2023-07-05 01:29:11 Wilbur Bloom [facility] CONTRAST [facility] HB ECG ROUTINE & RHYTHM 2023-07-04 23:43:38 Wilbur Bloom [facility] STRIP [facility] CREATINE KINASE 2023-07-04 23:37:00 Wilbur Bloom [facility] LIPASE 2023-07-04 23:37:00 Wilbur Bloom [facility] FERRITIN SERUM 2023-07-04 23:37:00 [facility] FREE T4 2023-07-04 23:37:00 Wilbur Bloom [facility] THYROID STIMULATING 2023-07-04 23:37:00 Wilbur Bloom [facility] HORMONE [facility] COMP. METABOLIC PANEL 2023-07-04 23:37:00 Wilbur Bloom [facility] ([id number]) [facility] SALICYLATE 2023-07-04 23:37:00 Wilbur Bloom [facility] CBC WITH DIFF 2023-07-04 23:37:00 Wilbur Bloom [facility] PROTHROMBIN TIME / INR 2023-07-04 23:37:00 Wilbur Bloom [facility] ACTIVATED PARTIAL THRMPLAS 2023-07-04 23:37:00 Wilbur Bloom [facility] URINALYSIS 2023-07-04 23:37:00 Wilbur Bloom [facility] AC PANEL 21 + LACTIC ACID 2023-07-04 23:37:00 [facility]bur [facility] HIV 1/2 AG-AB WITH REFLEX 2023-07-04 23:37:00 Leonard Gao [facility] POCT GLUCOSE (AUTOMATED) 2023-07-04 23:02:00 Wilbur Bloom [facility] CONSENT/REFUSAL FOR 2023-07-04 22:45:55 Doctor Unassigned, [facility] DIAGNOSIS AND TREATMENT [place] [facility] NOTICE OF PRIVACY 2023-07-04 22:45:34 Doctor Unassigned, [facility] PRACTICES [place] [facility] HOSPITAL ADMISSION 2023-07-04 05:01:00 Doctor Unassigned, [facility] [place] [facility] [place] Plan of Care Planned Activity Planned Date Details Comments Source Goal Plan of Care Note [code = 13244-7] Goal Plan of Care Note [code = 92957-4] Goal Plan of Care Note [code = 80386-8] Goal Plan of Care Note [code = 55367-8] Goal Plan of Care Note [code = 65349-2] Goal Plan of Care Note [code = 41433-1] Goal Plan of Care Note [code = 55181-8] Goal Plan of Care Note [code = 84490-7] Encounters Start End Encounter Admission Attending Care Care Encounter Source Date/Time Date/Time Type Type Clinicians Facility Department ID 2023-07-18 2023-07-18 Transition SYLVIA Wu [id number] Univers 00:00:00 00:00:00 of Care Essie OLSEN [id number] ity [facility] [place] [id number] [facility] 403 Branch 2023-07-17 2023-07-17 Inpatient X NATHANAEL JOHNSON [facility] [id number] Univers 00:34:00 17:00:00 [facility] 2023-07-17 2023-07-17 [facility] KarmenAristides [facility] [id number] Univers 00:34:00 17:00:00 Encounter Sharif Abarca [facility] [id number] ity of RoxieNathanael pretty CLEAR 4.2.7.2.686 [facility] [place] [facility] [id number] [facility] 110 Branch (CLC) 2023-07-16 2023-07-16 Telephone KASSANDRA Turpin [id number] Univers 00:00:00 00:00:00 Prachi KHALIL [id number] i ty of [facility] 4.2.7.2.686 Teddy as [id number] [facility] 025 Branch 2023-07-15 2023-07-15 Transition SYLVIA Amador [id number] Univers 00:00:00 00:00:00 of Care Mariya SADLERY [id number] [place] [id number] [facility] 403 Branch 2023-07-14 2023-07-14 Telephone Papi KASSANDRA [id number] Univers 00:00:00 00:00:00 Prachi KHALIL [id number] i ty of HOSPITAL [id number] Teddy as [id number] [facility] 025 Branch 2023-07-14 2023-07-14 Transition SYLVIA Amador 1.2.840.114 [id number] Univers 00:00:00 00:00:00 of Care Mariya SADLERY 350.1.13.10 it [place] [id number] [facility] [address] 2023-07-11 2023-07-11 Transition SYLVIA Amador 1.2.840.114 [id number] Univers 00:00:00 00:00:00 of Care Mariya SADLERY 350.1.13.10 [place] [id number] [facility] [address] 2023-07-11 2023-07-11 Telephone [facility] 1.2.354.171 [id number] Univers 00:00:00 00:00:00 JUS [place] 350.1.13.10 i ty [place] [id number] Ca dical [address] 2023-07-04 2023-07-10 [facility] Wilbur Bloom 1.2.840.1 14 [id number] Univers 18:03:00 18:34:00 Encounter Bridger Newman 350.1.13 .10 ity of [facility] 4.2.7.2.686 [place] [id number] [facility] [address] 2023-07-04 2023-07-10 [facility] [id number] Univers 18:03:00 18:34:00 BRIDGER [facility] 2023-06-16 2023-06-16 Outpatient SFA SFA [id number] 023 Erasmo 09:47:47 09:47:47 0911 [place] 2023-05-23 2023-05-23 Outpatient SFA SFA [id number] 023 Erasmo 09:19:21 09:19:21 0818 [place] 2023-05-16 2023-05-16 Outpatient SFA SFA [id number] 023 Erasmo 13:52:37 13:52:37 0811 F [place] 2023-05-13 2023-05-13 Outpatient SFA SFA [id number] 023 Erasmo 14:12:57 14:12:57 0808 F [place] 2023-05-12 2023-05-12 Outpatient SFA SFA [id number] 023 Erasmo 13:33:59 13:33:59 0807 F [place] 2023-04-21 2023-04-21 Outpatient SFA SFA [id number] 023 Erasmo 15:15:51 15:15:51 0717 F [place] 2023-01-24 2023-01-24 Outpatient SFA SFA [id number] 023 Erasmo 09:26:24 09:26:24 0421 F [place] 2023-01-22 2023-01-22 Outpatient SFA SFA [id number] 023 Erasmo 14:56:47 14:56:47 0419 F [place] 2022-09-11 2022-09-11 Outpatient SFA SFA [id number] 022 Erasmo 09:49:50 09:49:50 1207 F [place] 2022 2022 Outpatient SFA SFA [id number] 022 Erasmo 10:31:13 10:31:13 1108 F [place] 2022-06-18 2022-06-18 Outpatient [id number] 00:00:00 00:00:00 Visit [id number] 2020-05-04 2020-05-04 Deepika CANNON 1.2.840.114 [id number] 00:00:00 00:00:00 (Out) , Chanell KHALIL 350.1.13.10 [facility] 4.2.7.2.686 [id number] 019 2020-05-04 2020-05-04 Telephone Jose CANNON 1.2.840.114 [id number] 00:00:00 00:00:00 , Chanell KHALIL 350.1.13.10 [facility] 4.2.7.2.686 [id number] 019 2020-05-03 2020-05-03 Emergency Arabella Youngblood [facility] 1.2.840.114 [id number] 12:39:41 15:13:00 Zohreh Batista 350.1.13.10 [place] 4.2.7.2.686 [place] [id number] 084 2020-05-03 2020-05-03 Emergency X Arabella YOUNGBLOOD [facility] ERT [id number] [facility] 12:39:41 12:39:41 [facility] Results Test Description Test Time Test Comments Results Result Comments Source POCT GLUCOSE (AUTOMATED) 2023-07-17 21:07:12 Test Item Value Reference Range Interpretation Comme [facility] POCT GLU (test code = 5758333042) 231 mg/dL 70-110 H Lab Interpretation (test code = 56468-5) Abnormal [facility] [place] [facility]2023-07-17 21:02:47 Test Item Value Reference Range Interpretation Comments Height (test code = 63 in 2428395684) Weight (test code = 201 lbs 8689272025) Systolic BP (test code 142 mmHg = 1674396840) Diastolic BP (test code 98 mmHg = 8170935206) Heart Rate (test code = 91 bpm 8565690131) BSA (test code = 1.94 m2 2530477354) IVS (test code = 1.05 cm 0020353871) Interventricular Septum 1.05 cm Diastolic Thickness by 2D (test code = 5076967) LVIDD (test code = 3.90 cm 9990570817) Left Ventricular End 65.6 mL Diastolic Volume by Teichholz Method (test code = 3821784) LVPWD (test code = 1.05 cm 2564881304) PW (test code = 1.05 cm 0.6-1.4 9785241401) EF(Teich) (test code = 81.20 % 3990535202) LVIDS (test code = 1.97 cm 5251755901) Left Ventricular End 12.3 mL Systolic Volume by Teichholz Method (test code = 5204494) FS (test code = 49 % 1365600506) EF - 2D (test code = 81.20 % 19014094) LVOT diameter (test 1.94 cm code = 8567448224) LVOT area (test code = 3.00 cm2 2209971975) Ao root diam (test code 2.90 cm = 4856289357) Aortic root (test code 2.9 cm = 4544015239) Ao root annulus (test 2.9 cm code = 9501688122) LA size (test code = 4.1 cm 2038016997) LAV(MOD-sp4) (test code 66.10 mL = 7348511367) MV Peak E Raymond (test 56.9 cm/s code = 0623396763) MV Peak A Raymond (test 83.3 cm/s code = 8336994601) E/A ratio (test code = 0.68 ratio 4621474084) MV valve area p 1/2 4.30 cm2 method (test code = 1585342810) MV dec slope (test code 331.40 cm/s2 = 2035511534) MV P1/2t max raymond (test 57.40 cm/s code = 4346615687) MV Prop V (test code = 58.60 cm/s 8757957012) Tapse (test code = 2.11 cm 4433066846) LVOT stroke volume 67.40 cm3 (test code = 4389775107) LVOT peak raymond (test 122.8 cm/s code = 9374731587) LVOT mn grad (test code 2.9 mmHg = 0891042001) AV LVOT peak gradient 6.0 mmHg (test code = 0390526773) LVOT peak VTI (test 22.8 cm code = 5950234291) LV V1 mean (test code = 79.40 cm/s 8349319192) Aortic valve mean 93.9 cm/s velocity (test code = 2872369841) Ao peak raymond (test code 145.5 cm/s = 1470792779) Ao VTI (test code = 22.8 cm 7491085068) AV area by cont VTI 3.0 cm2 (test code = 7669286899) AV area peak raymond (test 2.5 cm2 code = 8812226961) Ao max PG (test code = 8.50 mm[Hg] 2836646169) AV peak gradient (test 8.5 mmHg code = 4032403973) AV valve area (test 3.00 cm2 code = 9436697272) AV mean gradient (test 4.1 mmHg code = 3697333678) LA Volume Index (BP) 35.6 mL/m2 (test code = 2102813805) LA volume (BP) (test 68.9 mL code = 3045564155) LAV(MOD-sp2) (test code 68.50 mL = 8474474442) Radiology Study observation (narrative) (test code = 72367-1) BERT (test code = BERT) ?Left?Ventricle: Left ventricle size is normal. Normal wall thickness. Ventricular mass is normal. Normal wall motion. Hyperdynamic systolic function with a visually estimated EF of 70 - 75%. Indeterminate diastolic function. ?Right?Ventricle: Right ventricle size is normal. Increased wall thickness. Normal systolic function. ?Tricuspid?Valve: Trace transvalvular regurgitation. Insufficient tricuspid regurgitation jet to estimate RVSP . ?IVC/SVC: IVC diameter is less than or equal to 21 mm and decreases less than 50% during inspiration; therefore the estimated right atrial pressure is intermediate (~8 mmHg). ?Pericardium: Small circumferential pericardial effusion present. No indication of cardiac tamponade. Chava Lockhart MD Left VentricleLeft ventricle size is normal. Normal wall thickness. Ventricular mass is normal. Normal wall motion. Hyperdynamic systolic function with a visually estimated EF of 70 - 75%. Indeterminate diastolic function.Right VentricleRight ventricle size is normal. Increased wall thickness. Normal systolic function.Left AtriumLeft atrium is mildly dilated. Left atrium volume index is 35.6 mL/m2.Right AtriumRight atrium size is normal.IVC/SVCIVC diameter is less than or equal to 21 mm and decreases less than 50% during inspiration; therefore the estimated right atrial pressure is intermediate (~8 mmHg).Mitral ValveMitral valve structure is normal. Trace transvalvular regurgitation. No stenosis.Tricuspid ValveTricuspid valve structure is normal. Trace transvalvular regurgitation. Insufficient tricuspid regurgitation jet to estimate RVSP . No stenosis.Aortic ValveTricuspid. No transvalvular regurgitation. No hemodynamically significant .Pulmonic ValveNot well visualized.Ascending AortaNormal sized annulus, sinus of Valsalva and ascending aorta.PericardiumEviden ce of epicardial fat. Small circumferential pericardial effusion present. No indication of cardiac tamponade.Study DetailsStudy quality was adequate. A complete echocardiogram was performed using 2D, color flow Doppler and spectral Doppler. Patient exhibited sinus rhythm. [facility] GLUCOSE (AUTOMATED)2023-07-17 16:37:49 Test Item Value Reference Range Interpretation Comments POCT GLU (test code = 1452751684) 331 mg/dL 70-110 H Lab Interpretation (test code = Abnormal 39439-8) [facility] [place] [facility] CampusD-[id number] 07:23:33 Test Item Value Reference Interpretation Comments Range D-DIMER (test code = 4.50 See_Comment H [Autom ated 2894152494) message] The system which generated this result transmitted reference range : <0.41 ?g/mL (FEU). The reference range was not used to interpret this result as normal/abnormal . BERT (test code = This test may be BERT) used in conjunction with a clinical pretest probability (PTP) assessment model to exclude venous thromboembolism (VTE) in patients suspected of deep venous thrombosis (DVT) and pulmonary embolism (PE) A D-Dimer value less than 0.50 ?g/ml (FEU) has a negative predicative value of 96 to 100% (95% CI)and 97 to 100% (95% CI) as an aid in the diagnosis of deep vein thrombosis (DVT) and pulmonary embolism when there is low or moderate pretest probability of PE or DVT. D-Dimer values are expressed in initial fibrinogen equivalent units (FEU)" The assay results should be used with other information, including the clinical context, in forming a diagnosis. Lab Interpretation Abnormal (test code = 40802-1) [facility] WITH [id number] 07:11:17 Test Item Value Reference Range Interpretation Comments WBC (test code = 9.03 See_Comment [Automated 6690-2) message] The sy stem which generated this result transmitted reference range : 4.30 - 11.10 10*3/?L. The reference range was not used to interpret this result as normal/abnormal . RBC (test code = 4.32 See_Comment [Automated 789-8) message] The sy stem which generated this result transmitted reference range : 3.93 - 5.25 10*6/?L. The reference range was not used to interpret this result as normal/abnormal . HGB (test code = 12.4 g/dL 11.6-15.0 718-7) HCT (test code = 37.6 % 35.7-45.2 4544-3) MCV (test code = 87.0 fL 80.6-95.5 787-2) MCH (test code = 28.7 pg 25.9-32.8 785-6) MCHC (test code = 33.0 g/dL 31.6-35.1 786-4) RDW-SD (test code = 39.3 fL 39.0-49.9 34191-1) RDW-CV (test code = 12.2 % 12.0-15.5 788-0) PLT (test code = 281 See_Comment [Automated 777-3) message] The sy stem which generated this result transmitted reference range : 166 - 358 10*3/ ?L. The reference r mary was not used to interpret this result as normal/abnormal . MPV (test code = 10.7 fL 9.5-12.9 44073-5) IPF % (test code = 3.0 % 1.3-7.7 Platelet count 5298862731) measured by fluorescence method. NRBC/100 WBC (test 0.3 See_Comment [Automat ed code = 3463712703) message] The system which generated this result transmitted reference range : 0.0 - 10.0 /100 WBCs. The refer ence range was not u sed to interpret th is result as normal/abnormal . NRBC x10^3 (test code 0.03 See_Comment [Auto mated = 6472048378) message] The s ystem which generated this result transmitted reference range : 10*3/?L. The reference range was not used to interpret this result as normal/abnormal . GRAN MAT (NEUT) % 55.7 % (test code = 770-8) IMM GRAN % (test code 0.90 % = 7175625833) LYMPH % (test code = 29.7 % 736-9) MONO % (test code = 9.9 % 5905-5) EOS % (test code = 2.7 % 713-8) BASO % (test code = 1.1 % 706-2) GRAN MAT x10^3(ANC) 5.04 10*3/uL 1.88-7.09 (test code = 2083499693) IMM GRAN x10^3 (test 0.08 10*3/uL 0.00-0.06 H code = 7059033404) LYMPH x10^3 (test code 2.68 10*3/uL 1.32-3.29 = 731-0) MONO x10^3 (test code 0.89 10*3/uL 0.33-0.92 = 742-7) EOS x10^3 (test code = 0.24 10*3/uL 0.03-0.39 711-2) BASO x10^3 (test code 0.10 10*3/uL 0.01-0.07 H = 704-7) PLT ESTIMATE (test Normal Normal code = 9317-9) Lab Interpretation Abnormal (test code = 19371-9) [facility] [place] [facility] CampusTROPONIN [id number] 06:59:29 Test Item Value Reference Range Interpretation Comments TROPONIN I (test code = 0.002 ng/mL <=0.034 3242845225) BERT (test code = BERT) Reference (Normal) Range (defined by the 99th percentile reference limit): <= 0.034 ng/mL Note: Cardiac troponin begins to rise 3-4 hours after the onset of ischemia. Repeat in 4-6 hours if the sample was drawn within 3-4 hours of the onset of the symptom and found normal. Diagnosis of myocardial injury is made with acute changes in cTn concentrations with at least one serial sample above the 99th percentile upper reference limit (URL), taken together with the patient's clinical presentation. Biotin has been reported to cause a negative bias, interpret results relative to patient's use of biotin. Lab Interpretation Normal (test code = 01586-4) [facility]. METABOLIC PANEL (65116)2023-07-17 06:47:48 Test Item Value Reference Range Interpretation Comments NA (test code = 132 mmol/L 135-145 L 9589898214) K (test code = 4.2 mmol/L 3.5-5.0 4674175018) CL (test code = 95 mmol/L 98-108 L 9411200761) CO2 TOTAL (test code = 24 mmol/L 23-31 4379623751) AGAP (test code = 13 2-16 0743261842) BUN (test code = 12 mg/dL 7-23 6981985122) GLUCOSE (test code = 228 mg/dL 70-110 H 9793731781) CREATININE (test code = 0.68 mg/dL 0.50-1.04 2532181502) TOTAL BILI (test code = 0.7 mg/dL 0.1-1.8 8961459220) CALCIUM (test code = 9.0 mg/dL 8.6-10.6 4786275629) T PROTEIN (test code = 7.6 g/dL 6.3-8.2 4299721766) ALBUMIN (test code = 3.5 g/dL 3.5-5.0 3187266114) ALK PHOS (test code = 153 U/L 34-122 H 7049789998) ALTv (test code = 74 U/L 5-35 H 1742-6) AST(SGOT) (test code = 39 U/L 13-40 8082646596) eGFR (test code = 91.2 mL/min/1.73m2 9589984047) BERT (test code = BERT) Association of Glomerular Filtration Rate (GFR) and Staging of Kidney Disease* + --+ --+ ------+| GFR (mL/min/1.73 m2) ?| With Kidney Damage ?| ?Without Kidney Damage+ --------+ --------+ +| ?>90 ?| ?Stage one ?| ? Normal ?+ ---+ ---+ -------+| ?60-89 ?| ?Stage two ?| ? Decreased GFR ? + --+ --+ ------+| ?30-59 ?| ?Stage three ?| ? Stage three ? + --+ --+ ------+| ?15-29 ?| ?Stage four ? | ? Stage four ?+ ---+ ---+ -------+| ?<15 (or dialysis) ? ?| ?Stage five ? | ? Stage five ?+ ---+ ---+ -------+ *Each stage assumes the associated GFR level has been in effect for at least three months. ?Stages 1 to 5, with or without kidney disease, indicate chronic kidney disease. Notes: Determination of stages one and two (with eGFR >59mL/min/1.73 m2) requires estimation of kidney damage for at least three months as defined by structural or functional abnormalities of the kidney, manifested by either:Pathological abnormalities or Markers of kidney damage (including abnormalities in the composition of the blood or urine or abnormalities in imaging tests). Lab Interpretation Abnormal (test code = 06439-0) [facility] [place] [facility] CampusLIPASE2023-10-12 06:47:28 Test Item Value Reference Range Interpretation Comments LIPASE (test code = 4081761970) 643 U/L 0-220 H Lab Interpretation (test code = Abnormal 12473-9) [facility] [place] [facility] CampusHEPATIC FUNCTION PANEL (54048) (ALB,T.PRO,BILI T,BU/BC,ALT,AST,ALK PHOS)2023-07-10 17:06:32 Test Item Value Reference Range Interpretation Comments TOTAL BILI (test code = 5557044792) 0.6 mg/dL 0.1-1.1 BILI UNCON (test code = 5448743181) 0.4 mg/dL 0.1-1.1 BILI CONJ (test code = 5956673916) 0.0 mg/dL 0.0-0.3 T PROTEIN (test code = 7606498456) 5.9 g/dL 6.3-8.2 L ALBUMIN (test code = 3397289641) 2.7 g/dL 3.5-5.0 L ALK PHOS (test code = 8412192145) 156 U/L 34-122 H ALTv (test code = 1742-6) 283 U/L 5-35 H AST(SGOT) (test code = 8005306660) 82 U/L 13-40 H Lab Interpretation (test code = Abnormal 47443-0) [facility] GLUCOSE (AUTOMATED)2023-07-10 16:45:42 Test Item Value Reference Range Interpretation Comments POCT GLU (test code = 7112995485) 256 mg/dL 70-110 H Lab Interpretation (test code = Abnormal 50673-5) [facility] GLUCOSE (AUTOMATED)2023-07-10 13:36:59 Test Item Value Reference Range Interpretation Comments POCT GLU (test code = 9406270438) 182 mg/dL 70-110 H Lab Interpretation (test code = Abnormal 11223-3) [facility] WITH [id number] 10:34:19 Test Item Value Reference Range Interpretation Comments WBC (test code = 5.73 See_Comment [Automated 6690-2) message] The sy stem which generated this result transmitted reference range : 4.30 - 11.10 10*3/?L. The reference range was not used to interpret this result as normal/abnormal . RBC (test code = 3.91 See_Comment L [Automated 789-8) message] The sy stem which generated this result transmitted reference range : 3.93 - 5.25 10*6/?L. The reference range was not used to interpret this result as normal/abnormal . HGB (test code = 11.0 g/dL 11.6-15.0 L 718-7) HCT (test code = 33.0 % 35.7-45.2 L 4544-3) MCV (test code = 84.4 fL 80.6-95.5 787-2) MCH (test code = 28.1 pg 25.9-32.8 785-6) MCHC (test code = 33.3 g/dL 31.6-35.1 786-4) RDW-SD (test code = 36.9 fL 39.0-49.9 L 58656-8) RDW-CV (test code = 12.0 % 12.0-15.5 788-0) PLT (test code = 217 See_Comment [Automated 777-3) message] The sy stem which generated this result transmitted reference range : 166 - 358 10*3/ ?L. The reference r mary was not used to interpret this result as normal/abnormal . MPV (test code = 10.1 fL 9.5-12.9 29542-5) NRBC/100 WBC (test 0.0 See_Comment [Automat ed code = 1152404563) message] The system which generated this result transmitted reference range : 0.0 - 10.0 /100 WBCs. The refer ence range was not u sed to interpret th is result as normal/abnormal . NRBC x10^3 (test code See_Comment [Auto mated = 7094477870) message] The s ystem which generated this result transmitted reference range : 10*3/?L. The reference range was not used to interpret this result as normal/abnormal . GRAN MAT (NEUT) % 63.9 % (test code = 770-8) IMM GRAN % (test code 1.20 % = 4639449261) LYMPH % (test code = 23.4 % 736-9) MONO % (test code = 8.7 % 5905-5) EOS % (test code = 1.9 % 713-8) BASO % (test code = 0.9 % 706-2) GRAN MAT x10^3(ANC) 3.66 10*3/uL 1.88-7.09 (test code = 2640739339) IMM GRAN x10^3 (test 0.07 10*3/uL 0.00-0.06 H code = 1579112238) LYMPH x10^3 (test code 1.34 10*3/uL 1.32-3.29 = 731-0) MONO x10^3 (test code 0.50 10*3/uL 0.33-0.92 = 742-7) EOS x10^3 (test code = 0.11 10*3/uL 0.03-0.39 711-2) BASO x10^3 (test code 0.05 10*3/uL 0.01-0.07 = 704-7) BANDS (test code = Increased A 9919532648) REACT LYMPHS (test Rare code = 3940511339) Lab Interpretation Abnormal (test code = 78101-4) [facility]OL[facility] (NA, K, CL, CO2, GLUCOSE, BUN, CREATININE, CA)2023-07-10 10:15:08 Test Item Value Reference Range Interpretation Comments NA (test code = 132 mmol/L 135-145 L 0820738676) K (test code = 3.8 mmol/L 3.5-5.0 3106291797) CL (test code = 97 mmol/L 98-108 L 1988790033) CO2 TOTAL (test code = 28 mmol/L 23-31 9894631967) AGAP (test code = 7 2-16 0953469607) BUN (test code = 7 mg/dL 7-23 9971750634) GLUCOSE (test code = 197 mg/dL 70-110 H 6015237432) CREATININE (test code = 0.36 mg/dL 0.50-1.04 L 5165388821) CALCIUM (test code = 7.9 mg/dL 8.6-10.6 L 4270064156) eGFR (test code = 190.0 mL/min/1.73m2 0591093009) BERT (test code = BERT) Association of Glomerular Filtration Rate (GFR) and Staging of Kidney Disease* + --+ --+ ------+| GFR (mL/min/1.73 m2) ?| With Kidney Damage ?| ?Without Kidney Damage+ --------+ --------+ +| ?>90 ?| ?Stage one ?| ? Normal ?+ ---+ ---+ -------+| ?60-89 ?| ?Stage two ?| ? Decreased GFR ? + --+ --+ ------+| ?30-59 ?| ?Stage three ?| ? Stage three ? + --+ --+ ------+| ?15-29 ?| ?Stage four ? | ? Stage four ?+ ---+ ---+ -------+| ?<15 (or dialysis) ? ?| ?Stage five ? | ? Stage five ?+ ---+ ---+ -------+ *Each stage assumes the associated GFR level has been in effect for at least three months. ?Stages 1 to 5, with or without kidney disease, indicate chronic kidney disease. Notes: Determination of stages one and two (with eGFR >59mL/min/1.73 m2) requires estimation of kidney damage for at least three months as defined by structural or functional abnormalities of the kidney, manifested by either:Pathological abnormalities or Markers of kidney damage (including abnormalities in the composition of the blood or urine or abnormalities in imaging tests). Lab Interpretation Abnormal (test code = 14785-6) [facility] [place] [facility] CampusMAGNESIUM2023-10-05 10:15:08 Test Item Value Reference Range Interpretation Comments MAGNESIUM (test code = 3830509897) 2.0 mg/dL 1.7-2.4 Lab Interpretation (test code = Normal 40128-7) [facility] CampusBLOOD CULTURE [id number] 10:01:57 Test Item Value Reference Range Interpretation Comments Blood Culture-Aerobic No organisms No growth Previo us (test code = 56971-4) isolated prelim inary verified result was Culture In Progress on 07/05/2023 at 08 01 CDTPrevious preliminary verified result was No growth a t 24 hours on 07/06/2023 at 05 01 CDTPrevious preliminary verified result was No growth a t 48 hours on 07/07/2023 at 05 01 CDTPrevious preliminary verified result was No growth a t 72 hours on 07/08/2023 at 05 01 CDT Blood No organisms No growth Previous Culture-Anaerobic isolated preliminar y (test code = 50006-8) verifi ed result was Culture In Progress on 07/05/2023 at 08 01 CDTPrevious preliminary verified result was No growth a t 24 hours on 07/06/2023 at 05 01 CDTPrevious preliminary verified result was No growth a t 48 hours on 07/07/2023 at 05 01 CDTPrevious preliminary verified result was No growth a t 72 hours on 07/08/2023 at 05 01 CDT Lab Interpretation Normal (test code = 04512-6) [facility] GLUCOSE (AUTOMATED)2023-07-10 09:06:49 Test Item Value Reference Range Interpretation Comments POCT GLU (test code = 2098881498) 182 mg/dL 70-110 H Lab Interpretation (test code = Abnormal 86458-1) [facility] CampusLIVER-KIDNEY-MICROSOME [id number] 05:12:25 Test Item Value Reference Range Interpretation Comments Oqcum-Riyfcc-Sonpe <1:20 See_Comment INTERPRET WALKER INFORMATION: some Abs, IgG by ?Liver-Kidn ey-Microsome Abs, IFA (test code = IgG Liver-K idney Microsome IgG 9838-4) antibody (anti- LKM), as detected by ind irect immunofluoresce nt antibody (IFA) technique s, may be observed in pat ients with autoimmune hepa titis type 2 (AIH-2), AIH-2 associated with autoimmune polyendocrinopa thy-candidiasis -ectodermal dys trophy (APECED), viral hepatitis C or D, and some for ms of drug-induced he patitis. This IFA does not di fferentiate among the four types of LKM antibodies (LKM -1, LKM-2, LKM-3, and a fo urth type that recognizes CY and CY antigens). Of t francescoe, anti-LKM-1 (cyt ochrome K123STY6) IgG a ntibodies are considered spec ific for AIH-2. This test was d eveloped and its performance characteristics determined by [facility]. It has not been cleared or approved by the [place] Food and Drug Administration. This test was performed in a CLIA certified laboratory and is intended for clinical purpos es.Performed By: WENDI swart[address] [id number] Director: Marshall alejandra MD, PhDCLIA Number: [id number] [Automated mess age] The system which generated this result transmitted ref erence range: <1:20. The refe rence range was not used to int erpret this result as reid l/abnormal. [facility] GLUCOSE (AUTOMATED)2023-07-10 04:50:24 Test Item Value Reference Range Interpretation Comments POCT GLU (test code = 6905472277) 210 mg/dL 70-110 H Lab Interpretation (test code = Abnormal 45326-4) [facility] GLUCOSE (AUTOMATED)2023-07-10 01:30:52 Test Item Value Reference Range Interpretation Comments POCT GLU (test code = 7931533846) 269 mg/dL 70-110 H Lab Interpretation (test code = Abnormal 03511-3) [facility] CampusTyphus Fever Ab, [id number] 23:36:21 Test Item Value Reference Range Interpretation Comments Typhus Fever <1:64 See_Comment INTERPRETIVE IN FORMATION: Antibody, IgG (test Typhus F ever Antibody, IgG code = 5324-9) ?Less than 1: 64 ....... Negative - No s ignificant level of ? IgG antibod y detected. ?1:64 - 1:128 . ........ Equivocal - Que stionable presence ? of IgG anti body detected. Repea t ? beth ting in 10-14 days may be ? helpful . ?1:256 or greater ..... P ositive - Presence of IgG antibody ? to detected, sugge stive of current ? or past inf ection. Antibody reacti vity to Rickettsia typh i antigen should be consi dered group-reactive for the Typhus Fever gr oup, which includes Ricket tsia prowazekii. Ser oconversion between acute a nd convalescent se ra is considered stro ng evidence of recent infec tion. The best evidence f or infection is a significan t change (fourfold diffe rence in titer) on two a ppropriately timed specimens , where both tests are done in the same laboratory at t he same time. Acute-phase spe cimens are collected durin g the first week of illness and convalescent -p hase samples are generally o btained 2-4 weeks after res olution of illness. Ideall y these samples should be tested simultaneously at the same facility. If th e samples submitted was c ollected during the acut e phase of illness, submit a marked convalecsent sa mple within 25 days for marcus red testing.Perform ed By: [address] [id number] Director: Marshall alejandra MD, PhDCLIA Number: [id number] [Automated mess age] The system which ge nerated this result transmit brittnee reference range: <1:64. T he reference range was not u sed to interpret this result as normal/abnormal . [facility] GLUCOSE (AUTOMATED)2023-07-09 22:08:48 Test Item Value Reference Range Interpretation Comments POCT GLU (test code = 1759176269) 214 mg/dL 70-110 H Lab Interpretation (test code = Abnormal 27037-0) [facility] GLUCOSE (AUTOMATED)2023-07-09 19:50:51 Test Item Value Reference Range Interpretation Comments POCT GLU (test code = 3909403914) 223 mg/dL 70-110 H Lab Interpretation (test code = Abnormal 28809-6) [facility] GLUCOSE (AUTOMATED)2023-07-09 16:59:11 Test Item Value Reference Range Interpretation Comments POCT GLU (test code = 5288909516) 209 mg/dL 70-110 H Lab Interpretation (test code = Abnormal 65532-3) [facility] GLUCOSE (AUTOMATED)2023-07-09 13:17:13 Test Item Value Reference Range Interpretation Comments POCT GLU (test code = 3880374240) 225 mg/dL 70-110 H Lab Interpretation (test code = Abnormal 80722-9) [facility]45904[facility] (ALB,T.PRO,BILI T,BU/BC,ALT,AST,ALK PHOS)2023-07-09 13:12:01 Test Item Value Reference Range Interpretation Comments TOTAL BILI (test code = 4396792014) 0.6 mg/dL 0.1-1.1 BILI UNCON (test code = 9388739754) 0.5 mg/dL 0.1-1.1 BILI CONJ (test code = 7947802211) 0.0 mg/dL 0.0-0.3 T PROTEIN (test code = 6898018489) 6.4 g/dL 6.3-8.2 ALBUMIN (test code = 4530171574) 2.9 g/dL 3.5-5.0 L ALK PHOS (test code = 7622648444) 150 U/L 34-122 H ALTv (test code = 1742-6) 381 U/L 5-35 H AST(SGOT) (test code = 3596618353) 105 U/L 13-40 H Lab Interpretation (test code = Abnormal 12473-7) [facility] (NA, K, CL, CO2, GLUCOSE, BUN, CREATININE, CA)2023-07-09 12:06:27 Test Item Value Reference Range Interpretation Comments NA (test code = 130 mmol/L 135-145 L 1180384998) K (test code = 3.4 mmol/L 3.5-5.0 L Slight 6341332669) hemolysis CL (test code = 97 mmol/L 98-108 L 0476592111) CO2 TOTAL (test code 25 mmol/L 23-31 = 6913165562) AGAP (test code = 8 2-16 9709721774) BUN (test code = 8 mg/dL 7-23 Slight 6136212907) hemolysis GLUCOSE (test code = 193 mg/dL 70-110 H 4112074977) CREATININE (test code 0.37 mg/dL 0.50-1.04 L = 9449493114) CALCIUM (test code = 8.1 mg/dL 8.6-10.6 L 1364582429) eGFR (test code = 184.1 mL/min/1.73m2 2227493726) BERT (test code = BERT) Association of Glomerular Filtration Rate (GFR) and Staging of Kidney Disease* + -----+ --------+ +| GFR (mL/min/1.73 m2) ?| With Kidney Damage ?| ?Without Kidney Damage+ +------- +---- --+| ?>90 ?| ?Stage one ?| ? Normal ?+ ------+ ---------+--------- +| ?60-89 ?| ?Stage two ?| ? Decreased GFR ? + -----+ --------+ +| ?30-59 ?| ?Stage three ?| ? Stage three ? + -----+ --------+ +| ?15-29 ?| ?Stage four ? | ? Stage four ?+ ------+ ---------+--------- +| ?<15 (or dialysis) ? ?| ?Stage five ? | ? Stage five ?+ ------+ ---------+--------- + *Each stage assumes the associated GFR level has been in effect for at least three months. ?Stages 1 to 5, with or without kidney disease, indicate chronic kidney disease. Notes: Determination of stages one and two (with eGFR >59mL/min/1.73 m2) requires estimation of kidney damage for at least three months as defined by structural or functional abnormalities of the kidney, manifested by either:Pathological abnormalities or Markers of kidney damage (including abnormalities in the composition of the blood or urine or abnormalities in imaging tests). Lab Interpretation Abnormal (test code = 06295-0) [facility]20[facility] 12:06:27 Test Item Value Reference Range Interpretation Comments MAGNESIUM (test code = 1560734011) 2.0 mg/dL 1.7-2.4 Lab Interpretation (test code = Normal 85196-3) [facility] WITH [id number] 11:28:47 Test Item Value Reference Range Interpretation Comments WBC (test code = 5.18 See_Comment [Automated 6690-2) message] The sy stem which generated this result transmitted reference range : 4.30 - 11.10 10*3/?L. The reference range was not used to interpret this result as normal/abnormal . RBC (test code = 4.24 See_Comment [Automated 789-8) message] The sy stem which generated this result transmitted reference range : 3.93 - 5.25 10*6/?L. The reference range was not used to interpret this result as normal/abnormal . HGB (test code = 12.0 g/dL 11.6-15.0 718-7) HCT (test code = 35.7 % 35.7-45.2 4544-3) MCV (test code = 84.2 fL 80.6-95.5 787-2) MCH (test code = 28.3 pg 25.9-32.8 785-6) MCHC (test code = 33.6 g/dL 31.6-35.1 786-4) RDW-SD (test code = 36.5 fL 39.0-49.9 L 26695-5) RDW-CV (test code = 12.0 % 12.0-15.5 788-0) PLT (test code = 176 See_Comment [Automated 777-3) message] The sy stem which generated this result transmitted reference range : 166 - 358 10*3/ ?L. The reference r mary was not used to interpret this result as normal/abnormal . MPV (test code = 10.8 fL 9.5-12.9 14678-3) NRBC/100 WBC (test 0.0 See_Comment [Automat ed code = 6542694223) message] The system which generated this result transmitted reference range : 0.0 - 10.0 /100 WBCs. The refer ence range was not u sed to interpret th is result as normal/abnormal . NRBC x10^3 (test code See_Comment [Auto mated = 3235043547) message] The s ystem which generated this result transmitted reference range : 10*3/?L. The reference range was not used to interpret this result as normal/abnormal . GRAN MAT (NEUT) % 65.3 % (test code = 770-8) IMM GRAN % (test code 1.20 % = 6583128464) LYMPH % (test code = 23.6 % 736-9) MONO % (test code = 6.2 % 5905-5) EOS % (test code = 2.9 % 713-8) BASO % (test code = 0.8 % 706-2) GRAN MAT x10^3(ANC) 3.39 10*3/uL 1.88-7.09 (test code = 1771079659) IMM GRAN x10^3 (test 0.06 10*3/uL 0.00-0.06 code = 3220526046) LYMPH x10^3 (test code 1.22 10*3/uL 1.32-3.29 L = 731-0) MONO x10^3 (test code 0.32 10*3/uL 0.33-0.92 L = 742-7) EOS x10^3 (test code = 0.15 10*3/uL 0.03-0.39 711-2) BASO x10^3 (test code 0.04 10*3/uL 0.01-0.07 = 704-7) BANDS (test code = Increased A 4512321827) Lab Interpretation Abnormal (test code = 70004-0) [facility] GLUCOSE (AUTOMATED)2023-07-09 04:19:55 Test Item Value Reference Range Interpretation Comments POCT GLU (test code = 0926415367) 218 mg/dL 70-110 H Lab Interpretation (test code = Abnormal 28432-7) [facility] MUSCLE AB,IGG [id number] 04:12:43 Test Item Value Reference Range Interpretation Comments F-ACTIN (SMOOTH 3 See_Comment If F-Actin (Smooth Muscle) MUSCLE) AB, Antibody, IgG i s negative, IGG(BEAKER) (test the Smooth Muscle Antibody code = 92206-3) titer by IFA is not performed.REFER ENCE INTERVAL: F-Act in (Smooth Muscle) Antibod y, IgG by ?VIOLETA ?19 Units or less . ...... Negative ?20 - 30 Units .......... Weak Positive-Sugges t repeat ? testing in two to three weeks ? with fresh specimen. ?31 Units or gr eater..... Positive-Sugges tive of ? autoimmune hepa titis type 1 ? or chronic acti ve hepatitis. F-ac tin IgG antibodies have been shown to have increas ed sensitivity for autoimmune hepatitis (AIH) but lower specificity melissa n smooth muscle antibodi es (SMA). F-actin IgG ant ibodies can also be seen in SMA-negative di sease controls (non-A IH), especially in p atients with primary biliary cirrhosis and chronic hep atitis C infections. Supa e patients with AIH may be SMA-positive bu t negative for F-actin IgG . Consider testing for SMA by IFA if suspicion for A IH is strong.Performe d By: [employer] [place] [id number] Director: Marshall alejandra MD, PhDCLIA Number: [id number] [Automated mess age] The system which ge nerated this result transmit brittnee reference range : 0 - 19 Units. The refe rence range was not used to interpret this result as normal/abnormal . [facility]2023-07-09 01:55:32 Test Item Value Reference Range Interpretation Comments POCT GLU (test code = 0788855479) 321 mg/dL 70-110 H Lab Interpretation (test code = Abnormal 26085-1) [facility] CampusEPSTEIN-RUIZ VIRUS BY QUANTITATIVE NAAT, [id number] 01:32:23 Test Item Value Reference Range Interpretation Comments EBV Qnt by NAAT, Not Quantified Plasma IU/mL (test code = 55684-3) EBV Qnt by NAAT, Not Quantified Not Julio tified- EBV Plasma log IU/mL DNA was det ected, (test code = but at a level below 095550-5) 1.54 log IU/mL (35.0 IU/mL). Virus detected at a l evel below 1.54 log IU/mL cannot be accur ately quantified by t his assay. EBV Qnt by NAAT, Detected Not Detected A INTERPRETIV E Plasma Interp (test INFORMAT ION: EBV by code = 5005-4) Quantitative NAAT, Plasma The quantitative ra nge of this test is 1.54 - 8.00 log IU/m L (35.0 - 100,000 ,000 IU/mL). An interpretation of "Not Detected" does not rule out th e presence of inhibitors or E BV DNA concentrati on below the level of detection of th e assay. Care [place] uld be taken in the interpretation of any single bonnie l load determinat ion. International standardization has improved comparability o f assay results a cross laboratories, b pa discrepancies s till exist due to commutability i ssues with the standard.Perfor med By: [employer] [place] [id number] Director: Obdulia Harden MD, PhDCLIA Number: [id number] Lab Interpretation Abnormal (test code = 06146-3) [facility] CampusANTI-NUCLEAR ANTIBODY-PATHOLOGIST [id number] 23:13:54ANA - Pathologist InterpretationANA HEp-2 IIFA Pathologist Interpretation Report Patient Name: Libia Morin? ?Antinuclear Antibody (WILFREDO) Test (Anti-Cell Antibodies Test) Indirect Immunof luorescence Assay on HEp-2 Cells Screening titer: 1:80 (adults, > 18 years old), 1:40 (pediatrics, <= 18 years old)?Result: The antinuclear antibody (WILFREDO) test is positive, demonstrating the AC-4/5-Speckled Pattern with a titer of 1:80. A titer greater than or equal to 1:160 is generally considered to be clinically significant. ? General Remarks: The AC-4/5-Speckled Pattern is one of the least specific WILFREDO immunofluorescent patterns, associated with many autoantibodies, including antibodies against SS-A (Ro), SS-B (La), Mi-2, TIF1- gamma, TIF1-beta, Ku, U1RNP, U2RNP, Arias, RNA polymerase III,and other currently unspecified autoantigens. As such, this pattern may be found in a wide variety of systemic autoimmune rheumatic diseases, including Sjogren's syndrome, systemic lupus erythematosus (SLE), systemic sclerosis, mixed connective tissue disease (MCTD), undifferentiated connective tissuedisease (UCTD), dermatomyositis, polymyositis, and systemic sclerosis-autoimmune myopathy overlap syndrome. Additionally, a nuclear speckled pattern may be found in organ-specific autoimmune diseases (such as autoimmune thyroid disease, autoimmune hepatitis, etc.), other types of autoimmune disease, and certain non- autoimmune diseases/conditions. This pattern may also be seen in relatively healthy individuals, particularly at lower titers. For more information, the International Consensus on WILFREDO Patterns (ICAP) guidelines can be found at www.anapatterns.org. These clinical associations are not absolute but may serve as a guide to differential diagnosis formation and/or subsequent follow-up test selection in the appropriate clinical setting. Importantly, a nuclear speckled pattern with a titer of 1:80 is a non-specific finding whose clinical meaningfulness is uncertain and dependent on the patient's overall clinical presentation. This is because up to approximately 10-12% of individuals in the general healthy population are estimated to have a positive WILFREDO with a titer of at least 1:80. A positive WILFREDO may be seen in even higher percentages in the healthy elderly population and in individuals with a family history of rheumatic disease. The WILFREDO may also be positive in conditions besides systemic autoimmune rheumatic diseases (SARDs), such as in other types of autoimmune disease; in a variety of inflammatory, infectious, and neoplastic conditions; and with certain medication usage. However, while higher WILFREDO titers generally increase the overall likelihood of a SARD in patients presenting withsymptoms suggestive of SARD, SARD may occasionally present with low WILFREDO titers. Clinical correlation- with possibly repeating the WILFREDO and any other clinically indicated subserologies - is therefore needed to accurately assess the clinical significance of this non-specific WILFREDO result as it pertains tothe patient's overall clinical presentation. References: - Jet Ca, Beltran R, Dean J, Phillip Bright. Guidelines for clinical use of the antinuclear antibody test and tests for specific autoantibodies to nuclear antigens. [employer]. Arch Pathol Lab Med. 2000;124(1):71-81. doi:10.5858/7418-375-5833-GFCUOT ?- Bryan Rodriguez, Urbano ULRICH, Rose Easton. Rational use of blood tests in the evaluation of rheumatic diseases. Mo Med. 2012;109(1):59- 63. ? The WILFREDO test is an important screening test for systemic autoimmune rheumatic disease (SARD). However, the WILFREDO test is non-specific for SARD and may be p ositive in a variety of clinical settings, including autoimmune, inflammatory, infectious, and neoplastic/malignant conditions, as well as due to certain medications. Additionally, WILFREDO positivity may be seen in varying percentages of healthy individuals, especially at lower titers, in the healthy elderly population, and in individuals with a family history of rheumatic disease. Therefore, a diagnosiscannot be based exclusively on WILFREDO detection and/or pattern and thus should be made via the integration of patient history, physical exam findings, and other diagnostic tests as clinically indicated. Trinidad Schmid MD ?07/08/2023 ?6:12 PM 07/08/2023 6:13 PM [facility] CampusANTI-NUCLEAR ANTIBODY [id number] 23:11:06 Test Item Value Reference Range Interpretation Comments WILFREDO Titer by IFA 1:80 (test code = 9724662797) WILFREDO Pattern (test Speckled code = 7807947326) BERT (test code = BERT) Anti-nuclear antibodies are seen in a variety of autoimmune diseases and may also be seen in low titers in otherwise normal individuals without evidence of autoimmune disease. In general, a titer greater than or equal to 1:160 is considered significant. For further information, contact the appropriate Specialist. For additional WILFREDO tests, refer to the Laboratory Test Directory. The specimen will be held for 7 days. [facility]2023-07-08 22:08:36 Test Item Value Reference Range Interpretation Comments POCT GLU (test code = 9766162775) 234 mg/dL 70-110 H Lab Interpretation (test code = Abnormal 95079-2) [facility] CampusANCA [id number] 18:21:54 Test Item Value Reference Range Interpretation Comments Myeloperoxidase (MPO) Negative Negative Antibodies, IgG Interpretation (test code = 48881-2) Proteinase 3 (PR3) Negative Negative Antibodies, IgG Interpretation (test code = 70791-2) Myeloperoxidase (MPO) <=3.5 Antibodies, IgG (test code = 6384454387) Proteinase 3 (PR3) <=2.0 Antibodies, IgG (test code = 4632607125) BERT (test code = BERT) Test ?Unit ? Negative ? ? ? Equivocal ? Positive Annika MPOs ? ? ? U/ml ? <3.5 ? 3.5-5.0 ? >5 Annika PR3s ? ? ? U/ml ? <2.0 ? 2.0-3.0 ? >3.0 In case of equivocal results, we recommend to retest the patient after 8 - 12 weeks. Lab Interpretation (test Normal code = 61584-0) [facility] GLUCOSE (AUTOMATED)2023-07-08 17:44:35 Test Item Value Reference Range Interpretation Comments POCT GLU (test code = 3921132348) 278 mg/dL 70-110 H Lab Interpretation (test code = Abnormal 75705-2) [facility] CampusHAPTOGLOBIN, [id number] 17:15:02 Test Item Value Reference Range Interpretation Comments HAPTOGLOB (test code = 7727006080) 277 mg/dL 16-200 H Lab Interpretation (test code = Abnormal 12276-9) [facility] CampusFERRITIN [id number] 14:02:59 Test Item Value Reference Range Interpretation Comments FERRITIN (test code = 1650.0 ng/mL 11.0-264.0 H 5551047590) BERT (test code = BERT) Biotin has been reported to cause a negative bias, interpret results relative to patient's use of biotin. Lab Interpretation (test Abnormal code = 26657-9) [facility] GLUCOSE (AUTOMATED)2023-07-08 13:55:08 Test Item Value Reference Range Interpretation Comments POCT GLU (test code = 5019856808) 152 mg/dL 70-110 H Lab Interpretation (test code = Abnormal 93380-4) [facility]MAG[facility]2023-10-03 11:52:02 Test Item Value Reference Range Interpretation Comments MAGNESIUM (test code = 3658476712) 1.9 mg/dL 1.7-2.4 Lab Interpretation (test code = Normal 05504-5) [facility] METABOLIC PANEL (NA, K, CL, CO2, GLUCOSE, BUN, CREATININE, CA)2023-07-08 11:52:02 Test Item Value Reference Range Interpretation Comments NA (test code = 127 mmol/L 135-145 L 9133433829) K (test code = 3.6 mmol/L 3.5-5.0 Slight 9415156525) hemolysis CL (test code = 98 mmol/L 98-108 2224955814) CO2 TOTAL (test code 22 mmol/L 23-31 L = 0642356557) AGAP (test code = 7 2-16 5927190800) BUN (test code = 7 mg/dL 7-23 Slight 0345906961) hemolysis GLUCOSE (test code = 164 mg/dL 70-110 H 0119176398) CREATININE (test code 0.34 mg/dL 0.50-1.04 L = 5611052575) CALCIUM (test code = 7.6 mg/dL 8.6-10.6 L 5142354206) eGFR (test code = 203.0 mL/min/1.73m2 7134484142) BERT (test code = BERT) Association of Glomerular Filtration Rate (GFR) and Staging of Kidney Disease* + -----+ --------+ +| GFR (mL/min/1.73 m2) ?| With Kidney Damage ?| ?Without Kidney Damage+ +------- +---- --+| ?>90 ?| ?Stage one ?| ? Normal ?+ ------+ ---------+--------- +| ?60-89 ?| ?Stage two ?| ? Decreased GFR ? + -----+ --------+ +| ?30-59 ?| ?Stage three ?| ? Stage three ? + -----+ --------+ +| ?15-29 ?| ?Stage four ? | ? Stage four ?+ ------+ ---------+--------- +| ?<15 (or dialysis) ? ?| ?Stage five ? | ? Stage five ?+ ------+ ---------+--------- + *Each stage assumes the associated GFR level has been in effect for at least three months. ?Stages 1 to 5, with or without kidney disease, indicate chronic kidney disease. Notes: Determination of stages one and two (with eGFR >59mL/min/1.73 m2) requires estimation of kidney damage for at least three months as defined by structural or functional abnormalities of the kidney, manifested by either:Pathological abnormalities or Markers of kidney damage (including abnormalities in the composition of the blood or urine or abnormalities in imaging tests). Lab Interpretation Abnormal (test code = 78841-1) [facility] CampusHEPATIC FUNCTION PANEL (73694) (ALB,T.PRO,BILI T,BU/BC,ALT,AST,ALK PHOS)2023-07-08 11:52:02 Test Item Value Reference Range Interpretation Comments TOTAL BILI (test code = 1297831443) 0.7 mg/dL 0.1-1.1 BILI UNCON (test code = 1956640029) 0.4 mg/dL 0.1-1.1 BILI CONJ (test code = 3755967636) 0.0 mg/dL 0.0-0.3 T PROTEIN (test code = 4487519381) 6.0 g/dL 6.3-8.2 L ALBUMIN (test code = 2788210010) 2.7 g/dL 3.5-5.0 L ALK PHOS (test code = 6665962195) 123 U/L 34-122 H ALTv (test code = 1742-6) 461 U/L 5-35 H AST(SGOT) (test code = 6315682501) 178 U/L 13-40 H Lab Interpretation (test code = Abnormal 13921-6) [facility] CampusCB WITH [id number] 11:22:07 Test Item Value Reference Range Interpretation Comments WBC (test code = 4.51 See_Comment [Automated 9390-2) message] The sy stem which generated this result transmitted reference range : 4.30 - 11.10 10*3/?L. The reference range was not used to interpret this result as normal/abnormal . RBC (test code = 3.80 See_Comment L [Automated 9-8) message] The sy stem which generated this result transmitted reference range : 3.93 - 5.25 10*6/?L. The reference range was not used to interpret this result as normal/abnormal . HGB (test code = 11.1 g/dL 11.6-15.0 L 718-7) HCT (test code = 32.8 % 35.7-45.2 L 4544-3) MCV (test code = 86.3 fL 80.6-95.5 787-2) MCH (test code = 29.2 pg 25.9-32.8 785-6) MCHC (test code = 33.8 g/dL 31.6-35.1 786-4) RDW-SD (test code = 38.5 fL 39.0-49.9 L 17754-3) RDW-CV (test code = 12.0 % 12.0-15.5 788-0) PLT (test code = 144 See_Comment L [Automated 777-3) message] The sy stem which generated this result transmitted reference range : 166 - 358 10*3/ ?L. The reference r mary was not used to interpret this result as normal/abnormal . MPV (test code = 11.2 fL 9.5-12.9 41522-1) NRBC/100 WBC (test 0.0 See_Comment [Automat ed code = 7093603581) message] The system which generated this result transmitted reference range : 0.0 - 10.0 /100 WBCs. The refer ence range was not u sed to interpret th is result as normal/abnormal . NRBC x10^3 (test code See_Comment [Auto mated = 8175314705) message] The s ystem which generated this result transmitted reference range : 10*3/?L. The reference range was not used to interpret this result as normal/abnormal . SEG % (test code = 62 % 33-76 77070-6) BAND % (test code = 16 % 0-1 H 22834-1) LYMPH % (test code = 14 % 14-54 53113-0) PLSMACYTD LYMPH % 2 % <=0 H (test code = 70291-6) MONO % (test code = 5 % 0-4 H 13918-3) BASO % (test code = 1 % 0-1 83917-3) ANC (test code = 3.52 10*3/uL 1.88-7.09 753-4) ROGER CELLS (test code 2+ See_Comment A [Auto mated = 2190-9) message] The sy stem which generated this result transmitted reference range : (none). The reference range was not used to interpret this result as normal/abnormal . Lab Interpretation Abnormal (test code = 65726-0) [facility] GLUCOSE (AUTOMATED)2023-07-08 01:33:25 Test Item Value Reference Range Interpretation Comments POCT GLU (test code = 3221844058) 239 mg/dL 70-110 H Lab Interpretation (test code = Abnormal 55030-0) [facility] GLUCOSE (AUTOMATED)2023-07-07 22:58:26 Test Item Value Reference Range Interpretation Comments POCT GLU (test code = 8155547617) 225 mg/dL 70-110 H Lab Interpretation (test code = Abnormal 40154-9) [facility] CampusANTI-NUCLEAR ANTIBODY [id number] 22:23:17 Test Item Value Reference Range Interpretation Comments WILFREDO (test code = Positive Negative A 1438251737) BERT (test code = BERT) Negative: ?No Anti-Nuclear Antibodies detected by IFA. Positive: ?WILFREDO IFA screen performed with a 1:80 dilution in adults and a 1:40 dilution in pediatrics. ?A titer is performed and reported separately when the WILFREDO is "Positive" or when "Cytoplasmic staining is observed." Lab Interpretation (test Abnormal code = 20427-1) [facility] GLUCOSE (AUTOMATED)2023-07-07 16:53:57 Test Item Value Reference Range Interpretation Comments POCT GLU (test code = 4111892567) 249 mg/dL 70-110 H Lab Interpretation (test code = Abnormal 90648-3) [facility] CampusDIFF CONSULT [id number] 15:52:07 WHITE BLOOD CELLS: LEUKOCYTOPENIA WITH LEFT SHIFT, MILDLY INCREASED PLASMA CELLS, AND ABSOLUTE LYMPHOPENIA, MONOCYTOPENIA, AND EOSINOPENIA. SPEP, SUSHMA, AND FREE LIGHT CHAINS MAY BE INFORMATIVE.?RED BLOOD CELLS: UNREMARKABLE.?PLATELETS: THROMBOCYTOPENIA.[facility] GLUCOSE (AUTOMATED) 2023-07-07 13:39:20 Test Item Value Reference Range Interpretation Comments POCT GLU (test code = 4508609396) 205 mg/dL 70-110 H Lab Interpretation (test code = Abnormal 88601-1) [facility] GLUCOSE (AUTOMATED)2023-07-07 01:49:22 Test Item Value Reference Range Interpretation Comments POCT GLU (test code = 7678855351) 234 mg/dL 70-110 H Lab Interpretation (test code = Abnormal 25369-0) [facility] GLUCOSE (AUTOMATED)2023-07-06 23:12:36 Test Item Value Reference Range Interpretation Comments POCT GLU (test code = 1560397265) 205 mg/dL 70-110 H Lab Interpretation (test code = Abnormal 36608-0) [facility] CampusCMV BY QUANTITATIVE [id number] 19:02:30 Test Item Value Reference Range Interpretation Comments Specimen Tested Plasma (test code = 8815536062) CMV NAAT (test Not Detected Indeterminate, See code = 6852437991) Comment/Narrative. , Not Detected IU/mL BERT (test code = The LineHopima CMV Quant Dx BERT) assay is an FDA-approved real-time center rep-mediated amplification (TMA) test used for quantitation of Cytomegalovirus DNA in human plasma. The quantitative range of this assay is 1.72 - 7.00 log IU/mL or 53 - 10,000,000 IU/mL. An interpretation of "Not Detected" does not rule out the presence of inhibitors in the patient specimen or CMV DNA concentration below the level of detection of the test. Care should be taken when interpreting any single viral load determination. Detected, not Quantifiable: CMV DNA detected, but at a level below 53 IU/mL (1.72 log IU/mL). CMV DNA concentration is below the lower limit of quantitation of the assay. Indeterminate: Error indicated in the generation of the result. Please submit a new specimen for repeat testing if clinically indicated. [facility] GLUCOSE (AUTOMATED)2023-07-06 18:15:28 Test Item Value Reference Range Interpretation Comments POCT GLU (test code = 3255592792) 236 mg/dL 70-110 H Lab Interpretation (test code = Abnormal 52382-0) [facility] CampusSYPHILIS [id number] 14:55:36 Test Item Value Reference Range Interpretation Comments Syphilis IgG/IgM (test Non-reactive Non-reactive code = 16003-9) BERT (test code = BERT) Non-reactive - No serologic evidence of T. pallidum infection. Cannot exclude incubating or early syphilis. Submit a second specimen in 2-4 weeks if syphilis is clinically suspected. Equivocal - Further testing to follow. Reactive - Further testing to follow. Lab Interpretation (test Normal code = 37323-9) [facility] GLUCOSE (AUTOMATED)2023-07-06 13:25:32 Test Item Value Reference Range Interpretation Comments POCT GLU (test code = 4757915624) 190 mg/dL 70-110 H Lab Interpretation (test code = Abnormal 17931-0) [facility] CampusLaflic Acid Whole [id number] 11:39:27 Test Item Value Reference Range Interpretation Comments LACTIC ACID (test code = 1.44 mmol/L 0.50-2.20 QUE S 8280918724) Lab Interpretation (test code = Normal 95804-3) [facility] GLUCOSE (AUTOMATED)2023-07-06 05:07:41 Test Item Value Reference Range Interpretation Comments POCT GLU (test code = 8293185430) 217 mg/dL 70-110 H Lab Interpretation (test code = Abnormal 80201-7) [facility] GLUCOSE (AUTOMATED)2023-07-06 02:12:19 Test Item Value Reference Range Interpretation Comments POCT GLU (test code = 2633588898) 326 mg/dL 70-110 H Lab Interpretation (test code = Abnormal 24376-7) [facility] GLUCOSE (AUTOMATED)2023-07-05 22:53:44 Test Item Value Reference Range Interpretation Comments POCT GLU (test code = 6462947341) 217 mg/dL 70-110 H Lab Interpretation (test code = Abnormal 27714-1) [facility] CampusGLYCOSYLATED HEMOGLOBIN (A1C)2023-07-05 22:37:43 Test Item Value Reference Range Interpretation Comments HGB A1C (test code = 11.5 % 4.0-5.7 H 4548-4) BERT (test code = BERT) Reference RangesNormal: <5.7%Prediabetes: 5.7 - 6.4%Diabetes: > 6.5% Lab Interpretation (test Abnormal code = 80716-5) [facility] GLUCOSE (AUTOMATED)2023-07-05 18:58:16 Test Item Value Reference Range Interpretation Comments POCT GLU (test code = 6087742116) 293 mg/dL 70-110 H Lab Interpretation (test code = Abnormal 69874-3) [facility] CampusC-REACTIVE [id number] 18:25:06 Test Item Value Reference Range Interpretation Comments CRP (test code = 4798543866) 28.4 mg/dL <=0.8 H Lab Interpretation (test code = Abnormal 10808-2) [facility] CampusHEPATITIS B SURFACE [id number] 16:11:09 Test Item Value Reference Range Interpretation Comments HBsAB (test code = Negative 7666758928) HBsAb 0.00 mIU/mL Semi-Quantitative (test code = 9347172056) BERT (test code = Interpretation: BERT) ?Hepatitis B Surface Antibody ? Negative - Patient is considered to be not immune to infection with HBV. ? ? Positive - Anti-HBs detected at greater than or equal to 12 mIU/mL. ?Patient is considered to be immune to infection with HBV. ? [facility] CampusCERULOPLASMIN2023-09-30 15:26:34 Test Item Value Reference Range Interpretation Comments CERULO (test code = 9592709968) 48 mg/dL 25-63 Lab Interpretation (test code = Normal 69428-5) [facility] CampusPOCT GLUCOSE (AUTOMATED)2023-07-05 15:07:40 Test Item Value Reference Range Interpretation Comments POCT GLU (test code = 3956706371) 197 mg/dL 70-110 H Lab Interpretation (test code = Abnormal 65744-5) [facility] CampusAMMONIA, [id number] 14:54:04 Test Item Value Reference Range Interpretation Comments AMMONIA (test code = 0133002929) 17 umol/L 9-33 Lab Interpretation (test code = Normal 56470-9) [facility] CampusHAV ANTIBODY (IGG AND IGM)2023-07-05 12:14:23 Test Item Value Reference Range Interpretation Comments HAV Total (test code Positive = 8889055465) HAVT 0.05 Semi-Quantitative (test code = 5324604919) BERT (test code = BERT) Indicates past or present infection with HAV or exposure to HAV due to vaccination. [facility] CampusHCV [id number] 10:27:25 Test Item Value Reference Range Interpretation Comments HCV Ab (test code = 74455-4) Negative HCV Semi-Quantitative (test code = 0.01 08757-7) [facility] B CORE ANTIBODY [id number] 10:17:00 Test Item Value Reference Range Interpretation Comments HBCM 0.05 Semi-Quantitative (test code = 93832-6) BERT (test code = Biotin has been reported BERT) to cause a negative bias, interpret results relative to patient's use of biotin. [facility] B SURFACE [id number] 10:12:01 Test Item Value Reference Range Interpretation Comments HBsAg Semi-Quantitative (test code = 0.14 Negative 5195-3) [facility] CampusSEDIMENTATION [id number] 09:48:35 Test Item Value Reference Range Interpretation Comments ESR (test code = 77 See_Comment H [Automated message] 06765-7) The system brotips generated this result transmitted ref erence range: 2 - 30 m m/HR. The reference r mary was not used to interpret this result as normal/abnor mal. Lab Interpretation (test Abnormal code = 26677-3) [facility] CampusOSMOLALITY, SERUM OR [id number] 09:41:32 Test Item Value Reference Range Interpretation Comments OSMOLALITY (test code = 272 See_Comment L [Au tomated message] 2692-2) The system brotips generated this result transmitted ref erence range: 278 - 30 5 mOsm/kg. The reference range was not used to int erpret this result as normal/abnormal . Lab Interpretation (test Abnormal code = 48502-8) [facility] METABOLIC PANEL (NA, K, CL, CO2, GLUCOSE, BUN, CREATININE, CA)2023-07-05 09:39:35 Test Item Value Reference Range Interpretation Comments NA (test code = 123 mmol/L 135-145 L 8531679860) K (test code = 3.9 mmol/L 3.5-5.0 5616194788) CL (test code = 89 mmol/L 98-108 L 5172753424) CO2 TOTAL (test code = 25 mmol/L 23-31 4535022766) AGAP (test code = 9 2-16 2540973639) BUN (test code = 11 mg/dL 7-23 1405164927) GLUCOSE (test code = 303 mg/dL 70-110 H 6023497144) CREATININE (test code = 0.51 mg/dL 0.50-1.04 8248079188) CALCIUM (test code = 7.8 mg/dL 8.6-10.6 L 7966244301) eGFR (test code = 127.1 mL/min/1.73m2 1110202385) BERT (test code = BERT) Association of Glomerular Filtration Rate (GFR) and Staging of Kidney Disease* + --+ --+ ------+| GFR (mL/min/1.73 m2) ?| With Kidney Damage ?| ?Without Kidney Damage+ --------+ --------+ +| ?>90 ?| ?Stage one ?| ? Normal ?+ ---+ ---+ -------+| ?60-89 ?| ?Stage two ?| ? Decreased GFR ? + --+ --+ ------+| ?30-59 ?| ?Stage three ?| ? Stage three ? + --+ --+ ------+| ?15-29 ?| ?Stage four ? | ? Stage four ?+ ---+ ---+ -------+| ?<15 (or dialysis) ? ?| ?Stage five ? | ? Stage five ?+ ---+ ---+ -------+ *Each stage assumes the associated GFR level has been in effect for at least three months. ?Stages 1 to 5, with or without kidney disease, indicate chronic kidney disease. Notes: Determination of stages one and two (with eGFR >59mL/min/1.73 m2) requires estimation of kidney damage for at least three months as defined by structural or functional abnormalities of the kidney, manifested by either:Pathological abnormalities or Markers of kidney damage (including abnormalities in the composition of the blood or urine or abnormalities in imaging tests). Lab Interpretation Abnormal (test code = 02009-0) [facility] CampusHEPATIC FUNCTION PANEL (44780) (ALB,T.PRO,BILI T,BU/BC,ALT,AST,ALK PHOS)2023-07-05 09:39:35 Test Item Value Reference Range Interpretation Comments TOTAL BILI (test code = 8873232639) 0.7 mg/dL 0.1-1.1 BILI UNCON (test code = 9833911244) 0.3 mg/dL 0.1-1.1 BILI CONJ (test code = 2387787089) 0.0 mg/dL 0.0-0.3 T PROTEIN (test code = 9935995503) 5.2 g/dL 6.3-8.2 L ALBUMIN (test code = 3560096419) 2.8 g/dL 3.5-5.0 L ALK PHOS (test code = 2996091554) 112 U/L 34-122 ALTv (test code = 1742-6) 621 U/L 5-35 H AST(SGOT) (test code = 2163827698) 589 U/L 13-40 H Lab Interpretation (test code = Abnormal 04564-2) [facility] CampusLIPID PANEL (93915)(TOTAL CHOLESTEROL, TRIGLYCERIDES, HDL)2023-07-05 09:39:35 Test Item Value Reference Range Interpretation Comments CHOL (test code = 3388457366) 77 mg/dL 120-200 L HDL (test code = 7907210686) 16 mg/dL >=50 L HDLC RATIO (test code = 8686352782) 4.8 <=4.5 H TRIG (test code = 9109330109) 139 mg/dL 30-170 LDL CHOL (test code = 25252-6) 33 mg/dL <=160 VLDL (test code = 0267334814) 28 mg/dL 5-60 Lab Interpretation (test code = Abnormal 90061-4) [facility] CampusCB WITH [id number] 09:37:54 Test Item Value Reference Range Interpretation Comments WBC (test code = 3.82 See_Comment L [Automated 1462-2) message] The sy stem which generated this result transmitted reference range : 4.30 - 11.10 10*3/?L. The reference range was not used to interpret this result as normal/abnormal . RBC (test code = 4.26 See_Comment [Automated 053-8) message] The sy stem which generated this result transmitted reference range : 3.93 - 5.25 10*6/?L. The reference range was not used to interpret this result as normal/abnormal . HGB (test code = 12.3 g/dL 11.6-15.0 718-7) HCT (test code = 35.7 % 35.7-45.2 4544-3) MCV (test code = 83.8 fL 80.6-95.5 787-2) MCH (test code = 28.9 pg 25.9-32.8 785-6) MCHC (test code = 34.5 g/dL 31.6-35.1 786-4) RDW-SD (test code = 36.2 fL 39.0-49.9 L 76501-0) RDW-CV (test code = 11.9 % 12.0-15.5 L 788-0) PLT (test code = 95 See_Comment L [Automated 777-3) message] The sy stem which generated this result transmitted reference range : 166 - 358 10*3/ ?L. The reference r mary was not used to interpret this result as normal/abnormal . MPV (test code = 11.9 fL 9.5-12.9 10944-5) IPF % (test code = 11.1 % 1.3-7.7 H Platelet count 9111822984) measured by fluorescence method. NRBC/100 WBC (test 0.0 See_Comment [Automat ed code = 3970984001) message] The system which generated this result transmitted reference range : 0.0 - 10.0 /100 WBCs. The refer ence range was not u sed to interpret th is result as normal/abnormal . NRBC x10^3 (test code See_Comment [Auto mated = 0530682914) message] The s ystem which generated this result transmitted reference range : 10*3/?L. The reference range was not used to interpret this result as normal/abnormal . GRAN MAT (NEUT) % 76.4 % (test code = 770-8) IMM GRAN % (test code 0.80 % = 4099345386) LYMPH % (test code = 16.0 % 736-9) MONO % (test code = 6.8 % 5905-5) EOS % (test code = 0.0 % 713-8) BASO % (test code = 0.0 % 706-2) GRAN MAT x10^3(ANC) 2.92 10*3/uL 1.88-7.09 (test code = 1570125818) IMM GRAN x10^3 (test 0.03 10*3/uL 0.00-0.06 code = 6150848961) LYMPH x10^3 (test code 0.61 10*3/uL 1.32-3.29 L = 731-0) MONO x10^3 (test code 0.26 10*3/uL 0.33-0.92 L = 742-7) EOS x10^3 (test code = 0.03-0.39 L 711-2) BASO x10^3 (test code 0.01-0.07 = 704-7) BANDS (test code = Increased A 8811115972) REACT LYMPHS (test Rare code = 0294261072) Lab Interpretation Abnormal (test code = 00906-4) [facility] CampusProthrombin Time / [id number] 09:04:11 Test Item Value Reference Range Interpretation Comments PROTIME PATIENT (test 16.3 See_Comment H [Auto mated message] code = 5964-2) The system wh ich generated this result transmitted ref erence range: 10.1 - 1 2.6 Seconds. The reference range was not used to int erpret this result as normal/abnormal . INR (test code = 6301-6) 1.4 Nor mal INR <1.1; Warfarin Therap eutic range 2.0 to 3. 0 or 2.5 to 3.5, dep ending upon the indica tions. Lab Interpretation (test Abnormal code = 23875-7) [facility] CampusAC PANEL 21 + LACTIC [id number] 23:45:02 Test Item Value Reference Range Interpretation Comments PH (test code = 7.43 7.32-7.42 H 0186166964) PCO2 BAYLEE (test code = 43 See_Comment [Auto mated 5849056465) message] The sy stem which generated this result transmitted reference range : 41 - 51 mmHg. The reference range was not used to interpret this result as normal/abnormal . PO2 BAYLEE (test code = 20 See_Comment L [Autom ated 7704395738) message] The sy stem which generated this result transmitted reference range : 25 - 40 mmHg. The reference range was not used to interpret this result as normal/abnormal . HCO3 BAYLEE (test code = 28 See_Comment [Auto mated 5978845439) message] The sy stem which generated this result transmitted reference range : 24 - 28 mEq/L. The reference range was not used to interpret this result as normal/abnormal . AC VBE(BEAKER) (test 3.7 mEq/L code = 9997974831) THB BAYLEE (test code = 14.7 g/dL 12.0-16.0 6041521163) %O2HB BAYLEE (test code = 37.8 % 52.0-63.0 L 3172368041) %COHB BAYLEE (test code = 1.2 % 0.0-1.5 7806925741) %METHB BAYLEE (test code = 0.3 % 0.4-1.5 L 0645091982) VOL%O2 BAYLEE (test code = 7.9 % 6.0-12.0 9395905284) NA (test code = 126 mmol/L 135-145 L 9155386666) K+ (test code = 4.1 mmol/L 3.5-5.0 4231760699) AC CA IONZ (test code = 4.60 mg/dL 4.50-5.30 5927245679) GLUCOSE (test code = 316 mg/dL 70-110 H 5348043823) LACTIC ACID (test code 1.56 mmol/L 0.50-2.20 = 8153307075) Lab Interpretation Abnormal (test code = 60457-5) [facility] CampusPOCT GLUCOSE (AUTOMATED)2023-07-04 23:03:32 Test Item Value Reference Range Interpretation Comments POCT GLU (test code = 7035875788) 295 mg/dL 70-110 H Lab Interpretation (test code = Abnormal 76784-3) [facility] CampusHEMOGLOBIN [id number] 04:31:17 Test Item Value Reference Range Interpretation Comments HEMOGLOBIN A1c (test 10.0 % 4.2-5.6 H AMERIC AN DIABETES code = 84651) ASSOCIATION IDELINES FOR HGB A1C: PREDIABETES/INC REASED [...] ALTERN ATE TESTING OR LABORATORY C ONSULTATION. LIPID [id number] 04:25:09 Test Item Value Reference Range Interpretation [...] MOREINFORMATION , SEE CLIENT ANNOUNCE MENT AT [email or web address] [email or web address] RATIO LDL/HDL 3.41 RATIO <3.22 H (test code = 2238) COMPREHENSIVE METABOLIC [id number] 04:25:09 Test Item Value Reference Range Interpretation Comments GLUCOSE (test code = 344 MG/DL 70-99 H 2216) BUN (test code = 14 MG/DL 6-20 2207) CREATININE (test 0.63 MG/DL 0.60-1.30 code = 2214) eGFR (2020 CKD-EPI) 107 >60 (test code = 79991) ML/MIN/1.73 CALC BUN/CREAT (test 22 RATIO 6-28 code = 2235) SODIUM (test code = 135 MEQ/L 803-071 8466) POTASSIUM (test code 4.7 MEQ/L 3.5-5.4 = 222) CHLORIDE (test code 97 MEQ/L 95-107 = 2215) CARBON DIOXIDE (test 24 MEQ/L 19-31 code = 2206) CALCIUM (test code = 9.7 MG/DL 8.5-10.5 2208) PROTEIN, TOTAL (test 6.8 G/DL 6.1-8.3 code = 222) ALBUMIN (test code = 4.4 G/DL 3.5-5.2 2200) CALC GLOBULIN (test 2.4 G/DL 1.9-3.7 code = 2240) CALC A/G RATIO (test 1.8 RATIO 1.0-2.6 code = 2234) BILIRUBIN, TOTAL 0.3 MG/DL See_Comment [Automated message] (test code = 2207) The [employer] which generated this result transmitted ref erence range: <=1.2. T he reference range was not used to int erpret this result as normal/abnormal . ALKALINE PHOSPHATASE 115 U/L 40-130 (test code = 2204) AST (test code = 28 U/L 9-40 2217) ALT (test code = 49 U/L 5-40 H UNLESS OTH ERWISE 2218) INDICATED, ALL TESTING PERFORM ED AT [facility] [employer]. [address] [place] [address] [facility] DIRECTOR: Ree ACOSTA VANDANA NUMBER [id number] CAP ACCREDITATION N O. [id number] COMPREHENSIVE METABOLIC [id number] 07:15:53 Test Item Value Reference Range Interpretation Comments GLUCOSE (test code = 251 MG/DL 70-99 H 2216) BUN (test code = 12 MG/DL 6-20 2207) CREATININE (test 0.67 MG/DL 0.60-1.30 code = 2214) eGFR (2020 CKD-EPI) 106 >60 (test code = 91261) ML/MIN/1.73 CALC BUN/CREAT (test 18 RATIO 6-28 code = 2235) SODIUM (test code = 138 MEQ/L 673-715 8200) POTASSIUM (test code 4.5 MEQ/L 3.5-5.4 = 2227) CHLORIDE (test code 98 MEQ/L 95-107 = 221) CARBON DIOXIDE (test 26 MEQ/L 19-31 code [...] code = 26 U/L 5-40 2218) LIPID [id number] 07:15:53 Test Item Value Reference Range Interpretation [...] MOREINFORMATION , SEE CLIENT ANNOUNCE MENT AT [email or web address] RISK RATIO LDL/HDL 2.67 RATIO <3.22 [facility] has important (test code = 2238) pathology staff changes effecti ve 12/04/2022. New pathology staff will provide uninter rupted, excellent patie nt care and clinical consultation. S ee URL: [email or web address] UNLES S OTHERWISE INDIC ATED, ALL TESTING PER FORMED AT [facility] [employer], [facility]. [address] [place] [address] [address] [facility]HELLE DIRECTOR: Ree ACOSTA VANDANA NUMBER [id number] CAP ACCREDITATION N O. [id number] HEMOGLOBIN [id number] 04:45:19 Test Item Value Reference Range Interpretation Comments HEMOGLOBIN A1c (test 9.7 % 4.2-5.6 H AMERIC AN DIABETES code = 21100) ASSOCIATION IDELINES FOR HGB A1C: PREDIABETES/INC REASED [...] TESTING OR LABORATORY C ONSULTATION. COMPREHENSIVE METABOLIC [id number] 06:57:12 Test Item Value Reference Range Interpretation Comments GLUCOSE (test code = 229 MG/DL 70-99 H 2216) BUN (test code = 12 MG/DL 6-20 2207) CREATININE (test 0.65 MG/DL 0.60-1.30 code = 2214) eGFR (2020 CKD-EPI) 107 >60 (test code = 70745) ML/MIN/1.73 CALC BUN/CREAT (test 18 RATIO 6-28 code = 2235) SODIUM (test code = 141 MEQ/L 590-006 4149) POTASSIUM (test code 4.5 MEQ/L 3.5-5.4 = 2227) CHLORIDE (test code 100 MEQ/L 95-107 = 221) CARBON DIOXIDE (test 26 MEQ/L 19-31 code [...] PHOSPHATASE 95 U/L 40-128 (test code = 2204) AST (test code = 17 U/L 9-40 2217) ALT (test code = 23 U/L 5-40 2218) LIPID [id number] 06:57:12 Test Item Value Reference Range Interpretation [...] MOREINFORMATION , SEE CLIENT ANNOUNCE MENT AT [email or web address] RISK RATIO LDL/HDL 2.91 RATIO <3.22 (test code = 2238) HEMOGLOBIN [id number] 06:50:25 Test Item Value Reference Range Interpretation Comments HEMOGLOBIN A1c (test 9.5 % 4.2-5.6 H AMERIC AN DIABETES code = 33871) ASSOCIATION IDELINES FOR HGB A1C: PREDIABETES/INC REASED [...] UNLESS OTHERWIS E INDICATED, [facility] [place] [address] LABORATORY DIRE CTOR: CATHERINE MOLINA M.D. CLIA NUMBER [id number] [facility] [place]. [id number] HEMOGLOBIN [id number] 04:18:05 Test Item Value Reference Range Interpretation Comments HEMOGLOBIN A1c (test 11.3 % 4.2-5.6 H AMERIC AN DIABETES code = 33247) ASSOCIATION IDELINES FOR HGB A1C: PREDIABETES/INC REASED [...] OR LABORATORY C ONSULTATION. ALBUMIN/CREATININE RATIO, URINE, [id number] 04:17:19 Test Item Value Reference Range Interpretation Comments CREATININE, URINE, 85.2 MG/DL NOT ESTAB RANDOM (test code = 2072) ALBUMIN, URINE, 0.3 MG/DL NOT ESTAB RANDOM (test code = 15296) CALC ALBUMIN/CREAT, 4 MG/G <30 Note: RND (test code = Albumin/Cre atinine 13458) ratio reference interval reflec ts ADA and NKF guideli omega. COMPREHENSIVE METABOLIC [id number] 04:11:01 Test Item Value Reference Range Interpretation Comments GLUCOSE (test code = 299 MG/DL 70-99 H 2216) BUN (test code = 17 MG/DL 6-20 2207) CREATININE (test 0.61 MG/DL 0.60-1.30 code = 2214) eGFR (2020 CKD-EPI) 109 >60 (test code = 77039) ML/MIN/1.73 CALC BUN/CREAT (test 28 RATIO 6-28 code = 2235) SODIUM (test code = 135 MEQ/L 336-067 6467) POTASSIUM (test code 4.8 MEQ/L 3.5-5.4 = 2227) CHLORIDE (test code 96 MEQ/L 95-107 = 2215) CARBON DIOXIDE (test 25 MEQ/L 19-31 code [...] 2203) AST (test code = 14 U/L 2217) ALT (test code = 22 U/L 40 2218) LIPID [id number] 04:11:01 Test Item Value Reference Range Interpretation [...] MOREINFORMATION , SEE CLIENT ANNOUNCE MENT AT [email or web address] RISK RATIO LDL/HDL 3.17 RATIO <3.22 UNLESS O THERWISE (test code = 2237) INDICATED , ALL TESTING PERFORMED [facility], [facility] [address] [place] [id number] [place] [address] DIRECTOR: Ree RUGGIEROIA NUMBER [id number] CAP ACCREDITATION N O. [id number] MICROALBUMIN/CREATININE, RANDOM AND [id number] 00:00:00 Test Item Value Reference Range Interpretation Comments CREATININE, URINE, RANDOM (test 85.2 MG/DL code = 2072) ALBUMIN, URINE, RANDOM (test code 0.3 MG/DL = 17065) CALC ALBUMIN/CREAT, RND (test code 4 MG/G = 42447) MICROALBUMIN/CREATININE, RANDOM AND [id number] 00:00:00 Test Item Value Reference Range Interpretation Comments CREATININE, URINE, RANDOM (test 85.2 MG/DL code = 2072) ALBUMIN, URINE, RANDOM (test code 0.3 MG/DL = 10889) CALC ALBUMIN/CREAT, RND (test code 4 MG/G = 61024) HEMOGLOBIN [id number] 00:00:00 Test Item Value Reference Range Interpretation Comments HEMOGLOBIN A1c (test code = 97309) 11.3 % HEMOGLOBIN [id number] 00:00:00 Test Item Value Reference Range Interpretation Comments HEMOGLOBIN A1c (test code = 43504) 11.3 % HEMOGLOBIN [id number] 00:00:00 Test Item Value Reference Range Interpretation Comments HEMOGLOBIN A1c (test code = 65664) 11.3 % COMPREHENSIVE METABOLIC [id number] 00:00:00 Test Item Value Reference Range Interpretation Comments GLUCOSE (test code = 2217) 299 MG/DL BUN (test code = 2208) 17 MG/DL CREATININE (test code = 2214) 0.61 MG/DL eGFR (2020 CKD-EPI) (test 109 ML/MIN/1.73 code = 73656) CALC BUN/CREAT (test code = 28 RATIO [...] A/G RATIO (test code = 1.9 RATIO 4) BILIRUBIN, TOTAL (test code = 0.6 MG/DL 2206) ALKALINE PHOSPHATASE (test 130 U/L code = 2204) AST (test code = 2218) 14 U/L ALT (test code = 2219) 22 U/L COMPREHENSIVE METABOLIC [id number] 00:00:00 Test Item Value Reference Range Interpretation Comments GLUCOSE (test code = 2217) 299 MG/DL BUN (test code = 2208) 17 MG/DL CREATININE (test code = 2214) 0.61 MG/DL eGFR (2020 CKD-EPI) (test 109 ML/MIN/1.73 code = 45356) CALC BUN/CREAT (test code = 28 RATIO 2235) SODIUM (test code = 2231) 135 MEQ/L POTASSIUM (test code = 2228) 4.8 MEQ/L CHLORIDE (test code = 2215) 96 MEQ/L CARBON DIOXIDE (test code = 25 MEQ/L 2206) CALCIUM (test code = 2209) 9.9 MG/DL [...] (test code = 2219) 22 U/L LIPID [id number] 00:00:00 Test Item Value Reference Range Interpretation Comments CHOLESTEROL (test code = 2210) 195 MG/DL TRIGLYCERIDES (test code = 2232) 127 MG/DL HDL CHOLESTEROL (test code = 2220) 41 MG/DL CALC LDL CHOL (test code = 2237) 130 MG/DL RISK RATIO LDL/HDL (test code = 3.17 RATIO 2238) LIPID [id number] 00:00:00 Test Item Value Reference Range Interpretation Comments CHOLESTEROL (test code = 2210) 195 MG/DL TRIGLYCERIDES (test code = 2232) 127 MG/DL HDL CHOLESTEROL (test code = 2220) 41 MG/DL CALC LDL CHOL (test code = 2237) 130 MG/DL RISK RATIO LDL/HDL (test code = 3.17 RATIO 2238) RSV BY [id number] 00:00:00 Test Item Value Reference Range Interpretation Comments RSV BY DFA (test code = 14904) Negative SOURCE (test code = 01450) Not Provided RSV BY [id number] 00:00:00 Test Item Value Reference Range Interpretation Comments RSV BY DFA (test code = 69323) Negative SOURCE (test code = 87750) Not Provided SARS-CoV-2 (COVID-19) by RT-PCR (HIGH RISK)2021-07-11 00:00:00 Test Item Value Reference Range Interpretation Comments SARS-CoV-2 INTERPRETATION (test NEGATIVE code = 97639) SOURCE (test code = 56935) NOT SPECIFIED SARS-CoV-2 (COVID-19) by RT-PCR (HIGH RISK)2021-07-11 00:00:00 Test Item Value Reference Range Interpretation Comments SARS-CoV-2 INTERPRETATION (test NEGATIVE code = 60371) SOURCE (test code = 61860) NOT SPECIFIED SARS-CoV-2 (COVID-19) by RT-PCR (HIGH RISK)2020-10-27 00:00:00 Test Item Value Reference Range Interpretation Comments SARS-CoV-2 INTERPRETATION (test NEGATIVE code = 56592) SOURCE (test code = 77855) NOT SPECIFIED SARS-CoV-2 (COVID-19) by RT-PCR (HIGH RISK)2020-10-27 00:00:00 Test Item Value Reference Range Interpretation Comments SARS-CoV-2 INTERPRETATION (test NEGATIVE code = 16268) SOURCE (test code = 83023) NOT SPECIFIED
[2023-07-24] MEDS ORDERED: LIDOCAINE 1% MPF 30 ML VIAL ONE (21:49)
--- NOTE | 2023-07-24 22:36 | EDPHYS ---
Physician Documentation [facility] Name: Libia Morin Age: 52 yrs Sex: Female : 1970 Arrival Date: 07/24/2023 Time: 20:15 Bed 20 Private MD: ED Physician Sebastian Saez HPI: 07/24 22:38 This 52 yrs old Female presents to ER via Ambulatory with complaints of sb4 abscess. 22:39 The patient presents with an abscess of the left scapular area. Description: The sb4 affected area is moderate sized, confluent, localized, erythematous, raised, swollen, tense, warm. Onset: The symptoms/episode began/occurred 2 day(s) ago. Possible cause(s): unknown. Associated signs and symptoms: Pertinent positives: drainage, erythema, Pertinent negatives: fever. The patient has not experienced similar symptoms in the past. The patient has not recently seen a physician. 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 - Social history:: Smoking status: Patient denies any tobacco usage or history of. Patient/guardian denies using alcohol, street drugs. ROS: 22:39 Constitutional: Negative for fever, chills, and weight loss, sb4 22:39 Skin: Positive for abscess, 22:39 All other systems are negative, Exam: 22:39 Constitutional: This is a well developed, well nourished patient who is awake, alert, sb4 and in no acute distress. Head/Face: Normocephalic, atraumatic. Eyes: Extra-ocular motions intact. Periorbital areas with no swelling, redness, or edema. ENT: Mucous membranes moist. MS/ Extremity: Pulses equal, no cyanosis. Neurovascular intact. Full, normal range of motion. Neuro: Awake and alert, GCS 15, oriented to person, place, time, and situation. Motor strength 5/5 in all extremities. Sensory grossly intact. 22:39 Skin: abscess, that is moderate sized, approximately 3 cm(s), of the left scapular area, with induration, with surrounding cellulitis, that is mild, Vital Signs: 20:26 BP 113 / 88; Pulse 127; Resp 18; Temp 97.9(O); Pulse Ox 99% on R/A; Weight 90.72 kg km8 (R); Height 5 ft. 3 in. (R); Pain 5/10; 20:26 Body Mass Index 35.43 (90.72 kg, 160.02 cm) [facility] 20:26 Pain Scale: Adult km8 Procedures: 22:39 I \T\ D: Incision and drainage was performed for an abscess of the left scapular area sb4 Prepped with Betadine, Anesthetized with 4 ml's 1% Lidocaine w/ Epi. Incised with #11 blade. Drained large amount purulent fluid. Packed with iodoform gauze, Dressing: sterile 4x4 gauze, the patient tolerated the procedure well. MDM: 21:03 Patient medically screened. sb4 22:39 Differential diagnosis: abscess, allergic reaction, cellulitis, insect bite. Data sb4 reviewed: vital signs, nurses notes, and as a result, I will discharge patient. Care significantly affected by the following chronic conditions: Diabetes, Hypertension. Counseling: I had a detailed discussion with the patient and/or guardian regarding the historical points, exam findings, and any diagnostic results supporting the discharge/admit diagnosis, to return to the emergency department if symptoms worsen or persist or if there are any questions or concerns that arise at home. Special discussion: I discussed in detail with the patient the higher chance of wound infection based on his presenting history. 07/24 21:30 Order name: Incision \T\ Drainage Setup; Complete Time: 21:40 sb4 Administered Medications: 22:52 Drug: Trimethoprim-Sulfamethoxazole PO (160 mg-800 mg (DS) 1 tablet PO once Route: PO; jb4 22:53 Drug: Lidocaine Infiltration (1 %) 20 ml 20 ml Infiltration once; to bedside Volume: 20 jb4 ml; Route: Infiltration; Disposition Summary: 07/24/23 22:36 Discharge Ordered Notes: Location: Home sb4 Problem: new sb4 Symptoms: have improved sb4 Condition: Stable sb4 Diagnosis - Cutaneous abscess of back [any part, except buttock] sb4 Followup: sb4 - With: Emergency Department - When: As needed - Reason: Trouble breathing, Worsening of condition Discharge Instructions: - Discharge Summary Sheet sb4 - Skin Abscess, [id number] sb4 - Incision and Drainage, Care After sb4 Forms: - Medication Reconciliation Form sb4 - Thank You Letter sb4 - Antibiotic Education sb4 - Prescription Opioid Use sb4 - Patient Portal Instructions sb4 - Leadership Thank You Letter sb4 Prescriptions: - Bactrim DS 800-160 mg Oral Tablet - take 1 tablet ORAL route every 12 hours for 10 days; 20 tablet; Refills: 0, sb4 Product Selection Permitted Addendum: 07/26/2023 01:44 Co-signature as Attending Physician, Sebastian Saez MD. e c2 Signatures: Kobe Montoya, RN RN jb4 Natalie Mcdaniel PA-C PA-C sb4 Sebastian Saez MD MD ec2 Belinda Brian, RN RN km8 Corrections: (The following items were deleted from the chart) 07/24 22:39 22:38 Onset: The symptoms/episode began/occurred 2 day(s) ago, sb4 sb4 23:00 21:54 Accucheck ordered. sb4 jb4
--- NOTE | 2023-07-24 22:36 | ER ---
Nurse's Notes [facility] Name: Libia Morin Age: 52 yrs Sex: Female : 1970 Arrival Date: 07/24/2023 Time: 20:15 Bed 20 Private MD: Diagnosis: Cutaneous abscess of back [any part, except buttock] Presentation: 07/24 20:26 Chief complaint: Patient states: 2 weeks with left posterior shoulder abscess; denies km8 fever/chills. Coronavirus screen: Client denies travel out of the [place] in the last 14 days. At this time, the client does not indicate any symptoms associated with coronavirus-19. Ebola Screen: No symptoms or risks identified at this time. Initial Sepsis Screen: Does the patient meet any 2 criteria? HR > 90 bpm. No. Patient's initial sepsis screen is negative. Does the patient have a suspected source of infection? Yes: Skin breakdown/wound. Risk Assessment: Do you want to hurt yourself or someone else? Patient reports no desire to harm self or others. Onset of symptoms is unknown. 20:26 Method Of Arrival: Ambulatory km8 20:26 Acuity: RUDDY 3 km8 Triage Assessment: 20:28 General: Appears in no apparent distress. comfortable, Behavior is cooperative, km8 anxious. Pain: Complains of pain in left shoulder Pain currently is 5 out of 10 on a pain scale. EENT: No deficits noted. No signs and/or symptoms were reported regarding the EENT system. Neuro: No deficits noted. Hernandez Agitation-Sedation Scale (RASS): 0 - Alert and Calm Level of Consciousness is awake, alert, obeys commands, Oriented to person, place, time, situation. Cardiovascular: No deficits noted. Denies chest pain, shortness of breath, Capillary refill < 3 seconds JVD is absent Patient's skin is warm and dry. Respiratory: No deficits noted. Airway is patent Respiratory effort is even, unlabored, Respiratory pattern is regular, symmetrical, Denies shortness of breath. GI: No deficits noted. No signs and/or symptoms were reported involving the gastrointestinal system. : No deficits noted. No signs and/or symptoms were reported regarding the genitourinary system. Derm: Skin is intact, is healthy with good turgor, Skin is dry, Skin is normal, Skin temperature is warm Wound noted posterior left shoulder abscess Abscess located on posterior left shoulder has purulent drainage, is hot to touch, is red, is raised. Musculoskeletal: No deficits noted. No signs and/or symptoms reported regarding the musculoskeletal system. Circulation, motion, and sensation intact. Range of motion: intact in all extremities. 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 - Social history:: Smoking status: Patient denies any tobacco usage or history of. Patient/guardian denies using alcohol, street drugs. Screenin:00 [facility] ED Fall Risk Assessment (Adult) History of falling in the last 3 months, jb4 including since admission No falls in past 3 months (0 pts) Confusion or Disorientation No (0 pts) Score/Fall Risk Level 0 - 2 = Low Risk Oriented to surroundings, Maintained a safe environment. Abuse screen: Denies threats or abuse. Nutritional screening: No deficits noted. Tuberculosis screening: No symptoms or risk factors identified. Assessment: 22:00 Reassessment: Patient appears in no apparent distress at this time. Patient and/or jb4 family updated on plan of care and expected duration. Pain level reassessed. Patient is alert, oriented x 3, equal unlabored respirations, skin warm/dry/pink. 23:00 Reassessment: Patient appears in no apparent distress at this time. Patient and/or jb4 family updated on plan of care and expected duration. Pain level reassessed. Patient is alert, oriented x 3, equal unlabored respirations, skin warm/dry/pink. Vital Signs: 20:26 BP 113 / 88; Pulse 127; Resp 18; Temp 97.9(O); Pulse Ox 99% on R/A; Weight 90.72 kg 8 (R); Height 5 ft. 3 in. (R); Pain 5/10; 20:26 Body Mass Index 35.43 (90.72 kg, 160.02 cm) 8 20:26 Pain Scale: Adult [facility] ED Course: 20:21 Patient arrived in ED. ag3 20:28 Triage completed. km8 20:28 Arm band placed on right wrist. km8 20:36 Natalie Mcdaniel PA-C is PHCP. sb4 20:36 Sebastian Saez MD is Attending Physician. sb4 23:00 Patient has correct armband on for positive identification. Bed in low position. Call jb4 light in reach. Side rails up X 1. 23:00 Assist provider with I \T\ D: of an abscess on Right shoulder. Patient did not have IV jb4 access during this emergency room visit. Administered Medications: 22:52 Drug: Trimethoprim-Sulfamethoxazole PO (160 mg-800 mg (DS) 1 tablet PO once Route: PO; jb4 22:53 Drug: Lidocaine Infiltration (1 %) 20 ml 20 ml Infiltration once; to bedside Volume: 20 jb4 ml; Route: Infiltration; Outcome: 22:36 Discharge ordered by MD. sb4 23:00 Discharged to home ambulatory, with family, jb4 23:00 Condition: stable 23:00 Discharge instructions given to patient, Instructed on discharge instructions, follow up and referral plans. medication usage, Demonstrated understanding of instructions, follow-up care, medications, Prescriptions given X 1, 23:02 Patient left the ED. jb4 Signatures: Kobe Montoya, RN RN jb4 Peri Dueñas 3 Natalie Mcdaniel PA-C PA-C sb4 Marx, Katie, RN RN 8
[2023-07-24] MEDS ORDERED: SMZ./TMP. 800/160 MG TABLET ONE (23:05)
[2023-07-24 23:31] VITALS: BP 113/88; TEMP 97.9; O2SAT 99
== END 2023-07-24 23:02 | disposition home or self-care (01) ==
LOC: ER 20:15
PROC: 0H96XZZ Drainage of Back Skin, External Approach (ICD-10-PCS; principal; 2023-07-24)
DX: L02.212 Cutaneous abscess of back [any part, except buttock and flank] (principal); E11.9 Type 2 diabetes mellitus without complications; I10 Essential (primary) hypertension
CPT/HCPCS: 99283; J2001

== ENCOUNTER → 2023-12-26 | Emergency (ER) | payer OTHER ==
[~2023-12-26] MED LIST: HYDROCODONE/APAP 10/325 TAB ONE; KETOROLAC 30 MG/ML INJ ONE; ONDANSETRON 4 MG (ODT) TAB ONE
--- OUTSIDE RECORDS SUMMARY | 2023-12-26 12:22 | XMS REPORT | Continuity of Care Document ---
Author Name Unknown Address [address] [facility] [address] [place] [address] [facility] Address [address] [facility] [place] [address] Care Team Providers Care Test Case Developer Name Role Phone Vish Waller Primary Care Physician Kia Cordova MD Attending Clinician [phone] Hellen Mendoza MD Attending Clinician [phone] [facility] Attending Clinician Unavailable Mariaelena Gordon MD Attending Clinician [phone] MARIAELENA GORDON Attending Clinician Unavailab fortino Mayer [facility] Attending Clinician [phone] [facility] Nurse Visit [facility] Attending Clinicia n Unavailable Leonor Abbasi MD Attending Clinician [phone] LEONOR ABBASI Attending Clinician Unavail able KIA CORDOVA Attending Clinician Unavailab JEFFRY Sales Attending Clinician Unavailable Jeffry Briceño MD Attending Clinician [phone] Doctor Unassigned, [place] Attending Clinician U Essie Rodriguez LVN Attending Clinician [phone] NATHANAEL JOSE Attending Clinician Unavailable NATHANAEL JOSE Attending Clinician Unavailable Aristides Peraza MD Attending Clinician [phone] Sharif Abarca DO Attending Clinician [phone] Papi WEEKS, Prachi Singh Attending Clinician David Amador RN, Mariya Suarez Attending Clinician Unavaila dariana Nievesegvan MIRANDA, Tanja Attending Clinician [phone] Wilbur Bloom MD Attending Clinician [phone] Bridger Newman MD Attending Clinician [phone] Ines Og MD Attending Clinician [phone] BRIDGER NEWMAN Attending Clinician Unavaila dariana Garcia RN, Chanell Suarez Attending Clinician Unamamie lyable Arabella Rodriguez Attending Clinician [phone] Arabella TRIMBLE Attending Clinician Unavailable NATHANAEL JOSE Admitting Clinician Unavailable Ines Og MD Admitting Clinician [phone] INES OG Admitting Clinician Unavailable Payers Payer Name Policy Type Policy Number Effective Date Expirati on Date Source Problems Condition Name Condition Details Condition Category Status Onset Date Resolution Date Last Treatment Date Treating Clinician Comments Source Midline thoracic back pain, unspecifie d chronicity Midline thoracic back pain, unspecifie d chronicity Disease Active 2022-10 00:00: 00 [facility] Morbid obesity with body mass index of 40.0-49.9 Morbid obesity with body mass index of 40.0-49.9 Disease Active 07-05 00:00: 00 [facility] Weakness Weakness Disease Active 07-05 00:00: 00 [facility] Obesity (BMI 30-39.9) Obesity (BMI 30-39.9) Disease Active 07-05 00:00: 00 [facility] Allergies, Adverse Reactions, Alerts Allergy Name Allergy Type Status Severity Reaction(s) Onset Date Inactive Date Treating Clinician Comments Source NO KNOWN ALLERGIE S Drug Class Active [facility] Social History Social Habit Start Date Stop Date Quantity Comments [facility] 2023-08-01 00:00:00 2023-08-01 00:00:00 Lifetime non-drinker (finding) [facility] History of Social function 2023-07-17 00:00:00 2023-07-17 00:00:00 [facility] Tobacco use and exposure 2023-07-05 00:00:00 2023-07-05 00:00:00 Smokeless tobacco non-user [facility] Sex Assigned At 1970 00:00:00 1970 00:00:00 [facility] Smoking Status Start Date Stop Date Source Never smoked tobacco [facility] Medications Ordered Medication Name Filled Medication Name Start Date Stop Date Current Medication? Ordering Clinician Indication Dosage Frequency Signature (SIG) Comments Components Source secukinumab (COSENTYX PEN) 150 mg/mL SC injection 3-20 00:00: 00 Yes [id number] 300mg inject 2 Pens under the skin every 4 (four) weeks. Indication s: plaque psoriasis [facility] secukinumab (COSENTYX PEN) 150 mg/mL SC injection 320 00:00: 00 Yes [id number] 300mg inject 2 Pens under the skin every 4 (four) weeks. Indication s: plaque psoriasis [facility] secukinumab (COSENTYX PEN) 150 mg/mL SC injection 3-20 00:00: 00 Yes 2394 300mg inject 2 Pens under the skin every 4 (four) weeks. Indication s: plaque psoriasis [facility] secukinumab (COSENTYX PEN) 150 mg/mL SC injection 2-28 00:00: 00 Yes 2394 300mg inject 2 Pens under the skin every 4 (four) weeks. Indication s: plaque psoriasis [facility] secukinumab (COSENTYX PEN) 150 mg/mL SC injection 0 2-28 00:00: 00 Yes 2394 300mg inject 2 Pens under the skin every 4 (four) weeks. Indication s: plaque psoriasis [facility] secukinumab (COSENTYX PEN) 150 mg/mL SC injection 0 2-28 00:00: 00 Yes 2394 300mg inject 2 Pens under the skin every 4 (four) weeks. Indication s: plaque psoriasis [facility] secukinumab (COSENTYX PEN) 150 mg/mL SC injection 12-03 00:00: 00 Yes 2394 300mg inject 2 Pens under the skin every 4 (four) weeks. Indication s: plaque psoriasis [facility] secukinumab (COSENTYX PEN) 150 mg/mL SC injection 12-03 00:00: 00 Yes 2394 300mg inject 2 Pens under the skin every 4 (four) weeks. Indication s: plaque psoriasis [facility] secukinumab (COSENTYX PEN) 150 mg/mL SC injection 12-03 00:00: 00 Yes 2394 300mg inject 2 Pens under the skin every 4 (four) weeks. Indication s: plaque psoriasis [facility] secukinumab (COSENTYX PEN) 150 mg/mL SC injection 12-03 00:00: 00 Yes 2394 300mg inject 2 Pens under the skin every 4 (four) weeks. Indication s: plaque psoriasis [facility] secukinumab (COSENTYX PEN) 150 mg/mL SC injection 12-03 00:00: 00 Yes [id number] 300mg inject 2 Pens under the skin every 4 (four) weeks. Indication s: plaque psoriasis [facility] secukinumab (COSENTYX PEN) SC injection 150 mg 2022-10 17:30: 00 08-20 17:40 :00 No [id number] 150mg [facility] secukinumab (COSENTYX PEN) SC injection 150 mg 2022-10 17:30: 00 08-20 17:39 :00 No [id number] [address] [facility] secukinumab (COSENTYX PEN) SC injection 150 mg 2022-10 17:30: 00 08-20 17:39 :00 No [id number] 150mg 150 mg, Subcutaneo us, ONCE, 1 dose, On Fri08/20/23 at 1145, Routine [facility] secukinumab (COSENTYX PEN) SC injection 150 mg 2022-10 17:30: 00 08-20 17:40 :00 No [id number] 150mg 150 mg, Subcutaneo us, ONCE, 1 dose, On Fri08/20/23 at 1145, Routine [facility] secukinumab (COSENTYX PEN) SC injection 150 mg 2022-10 17:30: 00 08-20 17:40 :00 No [id number] 150mg [facility] secukinumab (COSENTYX PEN) SC injection 150 mg 2022-10 17:30: 00 08-20 17:39 :00 No [id number] 150mg [facility] secukinumab (COSENTYX PEN) SC injection 150 mg 2022-10 17:30: 00 08-20 17:39 :00 No [id number] 150mg 150 mg, Subcutaneo us, ONCE, 1 dose, On Fri08/20/23 at 1145, Routine [facility] secukinumab (COSENTYX PEN) SC injection 150 mg 2022-10 17:30: 00 08-20 17:40 :00 No [id number] 150mg 150 mg, Subcutaneo us, ONCE, 1 dose, On Fri08/20/23 at 1145, Routine [facility] secukinumab (COSENTYX PEN) SC injection 150 mg 2022-10 17:30: 00 08-20 17:40 :00 No [id number] 150mg [facility] secukinumab (COSENTYX PEN) SC injection 150 mg 2022-10 17:30: 00 08-20 17:39 :00 No [id number] 150mg [facility] secukinumab (COSENTYX PEN) SC injection 150 mg 2022-10 17:30: 00 08-20 17:39 :00 No [id number] 150mg 150 mg, Subcutaneo us, ONCE, 1 dose, On Fri08/20/23 at 1145, Routine [facility] secukinumab (COSENTYX PEN) SC injection 150 mg 2022-10 17:30: 00 08-20 17:40 :00 No [id number] 150mg 150 mg, Subcutaneo us, ONCE, 1 dose, On Fri08/20/23 at 1145, Routine [facility] secukinumab (COSENTYX PEN) SC injection 150 mg 2022-10 17:30: 00 08-20 17:40 :00 No [id number] [address] [facility] secukinumab (COSENTYX PEN) SC injection 150 mg 2022-10 17:30: 00 08-20 17:39 :00 No [id number] [address] [facility] [facility] secukinumab (COSENTYX PEN) SC injection 150 mg 2022-10 17:30: 00 08-20 17:39 :00 No [id number] 150mg 150 mg, Subcutaneo us, ONCE, 1 dose, On Fri08/20/23 at 1145, Routine [facility] secukinumab (COSENTYX PEN) SC injection 150 mg 2022-10 17:30: 00 08-20 17:40 :00 No [id number] 150mg 150 mg, Subcutaneo us, ONCE, 1 dose, On Fri08/20/23 at 1145, Routine [facility] secukinumab (COSENTYX PEN) 150 mg/mL SC injection 2022-10 00:00: 00 Yes [id number] Inject 2 pens under the skin on weeks 0, 1, 2, 3, 4 (loading dose) Indication s: plaque psoriasis [facility] secukinumab (COSENTYX PEN) 150 mg/mL SC injection 2022-10 00:00: 00 Yes [id number] Inject 2 pens under the skin on weeks 0, 1, 2, 3, 4 (loading dose) Indication s: plaque psoriasis [facility] secukinumab (COSENTYX PEN) 150 mg/mL SC injection 2022-10 00:00: 00 Yes 2394 Inject 2 pens under the skin on weeks 0, 1, 2, 3, 4 (loading dose) Indication s: plaque psoriasis [facility] secukinumab (COSENTYX PEN) 150 mg/mL SC injection 2022-10 00:00: 00 Yes 2394 Inject 2 pens under the skin on weeks 0, 1, 2, 3, 4 (loading dose) Indication s: plaque psoriasis [facility] secukinumab (COSENTYX PEN) 150 mg/mL SC injection 2022-10 00:00: 00 Yes 2394 Inject 2 pens under the skin on weeks 0, 1, 2, 3, 4 (loading dose) Indication s: plaque psoriasis [facility] secukinumab (COSENTYX PEN) 150 mg/mL SC injection 2022-10 00:00: 00 Yes 2394 Inject 2 pens under the skin on weeks 0, 1, 2, 3, 4 (loading dose) Indication s: plaque psoriasis [facility] secukinumab (COSENTYX PEN) 150 mg/mL SC injection 2022-10 00:00: 00 Yes 2394 Inject 2 pens under the skin on weeks 0, 1, 2, 3, 4 (loading dose) Indication s: plaque psoriasis [facility] secukinumab (COSENTYX PEN) 150 mg/mL SC injection 2022-10 00:00: 00 Yes 2394 Inject 2 pens under the skin on weeks 0, 1, 2, 3, 4 (loading dose) Indication s: plaque psoriasis [facility] secukinumab (COSENTYX PEN) 150 mg/mL SC injection 2022-10 00:00: 00 Yes 2394 Inject 2 pens under the skin on weeks 0, 1, 2, 3, 4 (loading dose) Indication s: plaque psoriasis [facility] secukinumab (COSENTYX PEN) 150 mg/mL SC injection 2022-10 00:00: 00 Yes 2394 Inject 2 pens under the skin on weeks 0, 1, 2, 3, 4 (loading dose) Indication s: plaque psoriasis [facility] secukinumab (COSENTYX PEN) 150 mg/mL SC injection 2022-10 00:00: 00 Yes 2394 Inject 2 pens under the skin on weeks 0, 1, 2, 3, 4 (loading dose) Indication s: plaque psoriasis [facility] secukinumab (COSENTYX PEN) 150 mg/mL SC injection 2022-10 00:00: 00 Yes 2394 Inject 2 pens under the skin on weeks 0, 1, 2, 3, 4 (loading dose) Indication s: plaque psoriasis [facility] secukinumab (COSENTYX PEN) 150 mg/mL SC injection 2022-10 00:00: 00 Yes 2394 Inject 2 pens under the skin on weeks 0, 1, 2, 3, 4 (loading dose) Indication s: plaque psoriasis [facility] secukinumab (COSENTYX PEN) 150 mg/mL SC injection 2022-10 00:00: 00 Yes 2394 Inject 2 pens under the skin on weeks 0, 1, 2, 3, 4 (loading dose) Indication s: plaque psoriasis [facility] secukinumab (COSENTYX PEN) 150 mg/mL SC injection 2022-10 00:00: 00 Yes 2394 300mg inject 2 Pens under the skin every 4 (four) weeks. Indication s: plaque psoriasis [facility] secukinumab (COSENTYX PEN) 150 mg/mL SC injection 2022-10 00:00: 00 Yes 2394 Inject 2 pens under the skin on weeks 0, 1, 2, 3, 4 (loading dose) Indication s: plaque psoriasis [facility] secukinumab (COSENTYX PEN) 150 mg/mL SC injection 2022-10 00:00: 00 Yes 2394 300mg inject 2 Pens under the skin every 4 (four) weeks. Indication s: plaque psoriasis [facility] secukinumab (COSENTYX PEN) 150 mg/mL SC injection 2022-10 00:00: 00 Yes 2394 300mg inject 2 Pens under the skin every 4 (four) weeks. Indication s: plaque psoriasis [facility] secukinumab (COSENTYX PEN) 150 mg/mL SC injection 2022-10 00:00: 00 Yes 2394 300mg inject 2 Pens under the skin every 4 (four) weeks. Indication s: plaque psoriasis [facility] secukinumab (COSENTYX PEN) 150 mg/mL SC injection 2022-10 00:00: 00 Yes 2394 300mg inject 2 Pens under the skin every 4 (four) weeks. Indication s: plaque psoriasis [facility] secukinumab (COSENTYX PEN) 150 mg/mL SC injection 2022-10 00:00: 00 Yes 2394 300mg inject 2 Pens under the skin every 4 (four) weeks. Indication s: plaque psoriasis [facility] secukinumab (COSENTYX PEN) 150 mg/mL SC injection 2022-10 00:00: 00 Yes 2394 300mg inject 2 Pens under the skin every 4 (four) weeks. Indication s: plaque psoriasis [facility] secukinumab (COSENTYX PEN) 150 mg/mL SC injection 2022-10 00:00: 00 Yes 2394 300mg inject 2 Pens under the skin every 4 (four) weeks. Indication s: plaque psoriasis [facility] secukinumab (COSENTYX PEN) 150 mg/mL SC injection 2022-10 00:00: 00 Yes 2394 300mg inject 2 Pens under the skin every 4 (four) weeks. Indication s: plaque psoriasis [facility] secukinumab (COSENTYX PEN) 150 mg/mL SC injection 2022-10 00:00: 00 Yes 2394 300mg inject 2 Pens under the skin every 4 (four) weeks. Indication s: plaque psoriasis [facility] secukinumab (COSENTYX PEN) 150 mg/mL SC injection 2022-10 00:00: 00 12-03 00:00 :00 No [id number] 300mg inject 2 Pens under the skin every 4 (four) weeks. Indication s: plaque psoriasis [facility] secukinumab (COSENTYX PEN) 150 mg/mL SC injection 2022-10 00:00: 00 12-03 00:00 :00 No [id number] 300mg inject 2 Pens under the skin every 4 (four) weeks. Indication s: plaque psoriasis [facility] secukinumab (COSENTYX PEN) 150 mg/mL SC injection 2022-10 00:00: 00 12-03 00:00 :00 No [id number] 300mg inject 2 Pens under the skin every 4 (four) weeks. Indication s: plaque psoriasis [facility] secukinumab (COSENTYX PEN) 150 mg/mL SC injection 2022-10 00:00: 00 08-20 00:00 :00 No [id number] Inject 2 pens under the skin on weeks 0, 1, 2, 3, 4 (loading dose) Indication s: plaque psoriasis [facility] ixekizumab 80 mg/mL 2022-10 00:00: 00 Yes 2394 Inject 1 pen under the skin at weeks 2, 4, 6, 8 , 10, 12 Indication s: plaque psoriasis [facility] ixekizumab 80 mg/mL 2022-10 00:00: 00 Yes 2394 80mg inject 1 Pen under the skin every 4 (four) weeks. Indication s: plaque psoriasis [facility] ixekizumab 80 mg/mL 2022-10 00:00: 00 Yes 2394 Inject 1 pen under the skin at weeks 2, 4, 6, 8 , 10, 12 Indication s: plaque psoriasis [facility] ixekizumab 80 mg/mL 2022-10 00:00: 00 Yes 2394 80mg inject 1 Pen under the skin every 4 (four) weeks. Indication s: plaque psoriasis [facility] ixekizumab 80 mg/mL 2022-10 00:00: 00 08-13 05:59 :00 No [id number] 160mg inject 2 Pens under the skin once now for 1 dose. Indication s: plaque psoriasis [facility] ixekizumab 80 mg/mL 2022-10 00:00: 00 08-13 05:59 :00 No [id number] 160mg inject 2 Pens under the skin once now for 1 dose. Indication s: plaque psoriasis [facility] ixekizumab (TALTZ AUTOINJECTO R) 80 mg/mL 2022-10 00:00: 00 Yes [id number] Inject 2 auto-injec tors under the skin on week 0, then inject 1 auto-injec tor under the skin at weeks 2, 4, 6, 8, 10, and 12. [facility] ixekizumab (TALTZ AUTOINJECTO R) 80 mg/mL 2022-10 00:00: 00 Yes [id number] Inject 1 auto-injec tor under the skin every 4 weeks, starting on week 16. [facility] ixekizumab (TALTZ AUTOINJECTO R) 80 mg/mL 2022-10 00:00: 00 08-12 00:00 :00 No [id number] Inject 2 auto-injec tors under the skin on week 0, then inject 1 auto-injec tor under the skin at weeks 2, 4, 6, 8, 10, and 12. [facility] ixekizumab (TALTZ AUTOINJECTO R) 80 mg/mL 2022-10 00:00: 00 08-12 00:00 :00 No [id number] Inject 1 auto-injec tor under the skin every 4 weeks, starting on week 16. [facility] ixekizumab (TALTZ AUTOINJECTO R) 80 mg/mL 2022-10 00:00: 00 08-12 00:00 :00 No [id number] Inject 2 auto-injec tors under the skin on week 0, then inject 1 auto-injec tor under the skin at weeks 2, 4, 6, 8, 10, and 12. [facility] ixekizumab (TALTZ AUTOINJECTO R) 80 mg/mL 2022-10 00:00: 00 08-12 00:00 :00 No [id number] Inject 1 auto-injec tor under the skin every 4 weeks, starting on week 16. [facility] triamcinolo ne acetonide 0.1 % ointment 2022-10 00:00: 00 Yes [id number] Apply to area(s) 2 (two) times daily. [facility] fluocinonid e 0.05 % solution 2022-10 00:00: 00 Yes [id number] Apply to area(s) 2 (two) times daily as needed for Rash or Itching. [facility] triamcinolo ne acetonide 0.1 % ointment 2022-10 00:00: 00 Yes [id number] Apply to area(s) 2 (two) times daily. [facility] fluocinonid e 0.05 % solution 2022-10 00:00: 00 Yes [id number] Apply to area(s) 2 (two) times daily as needed for Rash or Itching. [facility] triamcinolo ne acetonide 0.1 % ointment 2022-10 00:00: 00 Yes [id number] Apply to area(s) 2 (two) times daily. [facility] fluocinonid e 0.05 % solution 2022-10 00:00: 00 Yes [id number] Apply to area(s) 2 (two) times daily as needed for Rash or Itching. [facility] triamcinolo ne acetonide 0.1 % ointment 2022-10 00:00: 00 Yes [id number] Apply to area(s) 2 (two) times daily. [facility] fluocinonid e 0.05 % solution 2022-10 00:00: 00 Yes [id number] Apply to area(s) 2 (two) times daily as needed for Rash or Itching. [facility] triamcinolo ne acetonide 0.1 % ointment 2022-10 00:00: 00 Yes [id number] Apply to area(s) 2 (two) times daily. [facility] fluocinonid e 0.05 % solution 2022-10 00:00: 00 Yes [id number] Apply to area(s) 2 (two) times daily as needed for Rash or Itching. [facility] triamcinolo ne acetonide 0.1 % ointment 2022-10 00:00: 00 Yes [id number] Apply to area(s) 2 (two) times daily. [facility] fluocinonid e 0.05 % solution 2022-10 00:00: 00 Yes [id number] Apply to area(s) 2 (two) times daily as needed for Rash or Itching. [facility] triamcinolo ne acetonide 0.1 % ointment 2022-10 00:00: 00 Yes [id number] Apply to area(s) 2 (two) times daily. [facility] fluocinonid e 0.05 % solution 2022-10 00:00: 00 Yes [id number] Apply to area(s) 2 (two) times daily as needed for Rash or Itching. [facility] triamcinolo ne acetonide 0.1 % ointment 2022-10 00:00: 00 Yes [id number] Apply to area(s) 2 (two) times daily. [facility] fluocinonid e 0.05 % solution 2022-10 00:00: 00 Yes [id number] Apply to area(s) 2 (two) times daily as needed for Rash or Itching. [facility] triamcinolo ne acetonide 0.1 % ointment 2022-10 00:00: 00 Yes [id number] Apply to area(s) 2 (two) times daily. [facility] fluocinonid e 0.05 % solution 2022-10 00:00: 00 Yes [id number] Apply to area(s) 2 (two) times daily as needed for Rash or Itching. [facility] triamcinolo ne acetonide 0.1 % ointment 2022-10 00:00: 00 Yes [id number] Apply to area(s) 2 (two) times daily. [facility] fluocinonid e 0.05 % solution 2022-10 00:00: 00 Yes [id number] Apply to area(s) 2 (two) times daily as needed for Rash or Itching. [facility] triamcinolo ne acetonide 0.1 % ointment 2022-10 00:00: 00 Yes [id number] Apply to area(s) 2 (two) times daily. [facility] fluocinonid e 0.05 % solution 2022-10 00:00: 00 Yes [id number] Apply to area(s) 2 (two) times daily as needed for Rash or Itching. [facility] triamcinolo ne acetonide 0.1 % ointment 2022-10 00:00: 00 Yes [id number] Apply to area(s) 2 (two) times daily. [facility] fluocinonid e 0.05 % solution 2022-10 00:00: 00 Yes [id number] Apply to area(s) 2 (two) times daily as needed for Rash or Itching. [facility] triamcinolo ne acetonide 0.1 % ointment 2022-10 00:00: 00 Yes [id number] Apply to area(s) 2 (two) times daily. [facility] fluocinonid e 0.05 % solution 2022-10 00:00: 00 Yes [id number] Apply to area(s) 2 (two) times daily as needed for Rash or Itching. [facility] triamcinolo ne acetonide 0.1 % ointment 2022-10 00:00: 00 Yes [id number] Apply to area(s) 2 (two) times daily. [facility] fluocinonid e 0.05 % solution 2022-10 00:00: 00 Yes [id number] Apply to area(s) 2 (two) times daily as needed for Rash or Itching. [facility] triamcinolo ne acetonide 0.1 % ointment 2022-10 00:00: 00 Yes [id number] Apply to area(s) 2 (two) times daily. [facility] fluocinonid e 0.05 % solution 2022-10 00:00: 00 Yes [id number] Apply to area(s) 2 (two) times daily as needed for Rash or Itching. [facility] triamcinolo ne acetonide 0.1 % ointment 2022-10 00:00: 00 Yes [id number] Apply to area(s) 2 (two) times daily. [facility] fluocinonid e 0.05 % solution 2022-10 00:00: 00 Yes [id number] Apply to area(s) 2 (two) times daily as needed for Rash or Itching. [facility] triamcinolo ne acetonide 0.1 % ointment 2022-10 00:00: 00 Yes [id number] Apply to area(s) 2 (two) times daily. [facility] fluocinonid e 0.05 % solution 2022-10 00:00: 00 Yes [id number] Apply to area(s) 2 (two) times daily as needed for Rash or Itching. [facility] triamcinolo ne acetonide 0.1 % ointment 2022-10 00:00: 00 Yes [id number] Apply to area(s) 2 (two) times daily. [facility] fluocinonid e 0.05 % solution 2022-10 00:00: 00 Yes [id number] Apply to area(s) 2 (two) times daily as needed for Rash or Itching. [facility] triamcinolo ne acetonide 0.1 % ointment 2022-10 00:00: 00 Yes [id number] Apply to area(s) 2 (two) times daily. [facility] fluocinonid e 0.05 % solution 2022-10 00:00: 00 Yes [id number] Apply to area(s) 2 (two) times daily as needed for Rash or Itching. [facility] triamcinolo ne acetonide 0.1 % ointment 2022-10 00:00: 00 Yes [id number] Apply to area(s) 2 (two) times daily. [facility] fluocinonid e 0.05 % solution 2022-10 00:00: 00 Yes [id number] Apply to area(s) 2 (two) times daily as needed for Rash or Itching. [facility] triamcinolo ne acetonide 0.1 % ointment 2022-10 00:00: 00 Yes [id number] Apply to area(s) 2 (two) times daily. [facility] fluocinonid e 0.05 % solution 2022-10 00:00: 00 Yes [id number] Apply to area(s) 2 (two) times daily as needed for Rash or Itching. [facility] triamcinolo ne acetonide 0.1 % ointment 2022-10 00:00: 00 Yes [id number] Apply to area(s) 2 (two) times daily. [facility] fluocinonid e 0.05 % solution 2022-10 00:00: 00 Yes [id number] Apply to area(s) 2 (two) times daily as needed for Rash or Itching. [facility] triamcinolo ne acetonide 0.1 % ointment 2022-10 00:00: 00 Yes [id number] Apply to area(s) 2 (two) times daily. [facility] fluocinonid e 0.05 % solution 2022-10 00:00: 00 Yes [id number] Apply to area(s) 2 (two) times daily as needed for Rash or Itching. [facility] triamcinolo ne acetonide 0.1 % ointment 2022-10 00:00: 00 Yes [id number] Apply to area(s) 2 (two) times daily. [facility] fluocinonid e 0.05 % solution 2022-10 00:00: 00 Yes [id number] Apply to area(s) 2 (two) times daily as needed for Rash or Itching. [facility] lisinopriL 20 mg tablet 2022-10 15:11: 38 Yes 20mg Take 1 tablet by mouth daily. [facility] lisinopriL 20 mg tablet 2022-10 15:11: 38 Yes 20mg Take 1 tablet by mouth daily. [facility] lisinopriL 20 mg tablet 2022-10 15:11: 38 Yes 20mg Take 1 tablet by mouth daily. [facility] lisinopriL 20 mg tablet 2022-10 15:11: 38 Yes 20mg Take 1 tablet by mouth daily. [facility] lisinopriL 20 mg tablet 2022-10 15:11: 38 Yes 20mg Take 1 tablet by mouth daily. [facility] lisinopriL 20 mg tablet 2022-10 15:11: 38 Yes 20mg Take 1 tablet by mouth daily. [facility] lisinopriL 20 mg tablet 2022-10 15:11: 38 Yes 20mg Take 1 tablet by mouth daily. [facility] lisinopriL 20 mg tablet 2022-10 15:11: 38 Yes 20mg Take 1 tablet by mouth daily. [facility] lisinopriL 20 mg tablet 2022-10 15:11: 38 Yes 20mg Take 1 tablet by mouth daily. [facility] lisinopriL 20 mg tablet 2022-10 15:11: 38 Yes 20mg Take 1 tablet by mouth daily. [facility] lisinopriL 20 mg tablet 2022-10 15:11: 38 Yes 20mg Take 1 tablet by mouth daily. [facility] lisinopriL 20 mg tablet 2022-10 15:11: 38 Yes 20mg Take 1 tablet by mouth daily. [facility] lisinopriL 20 mg tablet 2022-10 15:11: 38 Yes 20mg Take 1 tablet by mouth daily. [facility] lisinopriL 20 mg tablet 2022-10 15:11: 38 Yes 20mg Take 1 tablet by mouth daily. [facility] lisinopriL 20 mg tablet 2022-10 15:11: 38 Yes 20mg Take 1 tablet by mouth daily. [facility] lisinopriL 20 mg tablet 2022-10 15:11: 38 Yes 20mg Take 1 tablet by mouth daily. [facility] lisinopriL 20 mg tablet 2022-10 15:11: 38 Yes 20mg Take 1 tablet by mouth daily. [facility] lisinopriL 20 mg tablet 2022-10 15:11: 38 Yes 20mg Take 1 tablet by mouth daily. [facility] lisinopriL 20 mg tablet 2022-10 15:11: 38 Yes 20mg Take 1 tablet by mouth daily. [facility] lisinopriL 20 mg tablet 2022-10 15:11: 38 Yes 20mg Take 1 tablet by mouth daily. [facility] lisinopriL 20 mg tablet 2022-10 15:11: 38 Yes 20mg Take 1 tablet by mouth daily. [facility] lisinopriL 20 mg tablet 2022-10 15:11: 38 Yes 20mg Take 1 tablet by mouth daily. [facility] lisinopriL 20 mg tablet 2022-10 15:11: 38 Yes 20mg Take 1 tablet by mouth daily. [facility] lisinopriL 20 mg tablet 2022-10 15:11: 38 Yes 20mg Take 1 tablet by mouth daily. [facility] lisinopriL 20 mg tablet 2022-10 15:11: 38 Yes 20mg Take 1 tablet by mouth daily. [facility] lisinopriL 20 mg tablet 2022-10 15:11: 38 Yes 20mg Take 1 tablet by mouth daily. [facility] lisinopriL 20 mg tablet 2022-10 15:11: 38 Yes 20mg Take 1 tablet by mouth daily. [facility] lisinopriL (PRINIVIL,Z ESTRIL) tablet 20 mg 2022-10 14:00: 00 Yes 20mg 20 mg, Oral, DAILY, First dose on Fri07/18/23 at 0900, Until Discontinu ed, Routine [facility] insulin glargine (LANTUS U-100) injection 18 Units 2022-10 02:00: 00 Yes 18U 18 Units, Subcutaneo us, QHS, First dose on Fri07/17/23 at 2100, Until Discontinu ed [facility] metFORMIN (GLUCOPHAGE ) tablet 500 mg 2022-10 22:00: 00 Yes 500mg 500 mg, Oral, BID MEALS, First dose on Fri07/17/23 at 1700, Until Discontinu ed, Routine [facility] enoxaparin (LOVENOX) injection 40 mg 2022-10 22:00: 00 Yes 40mg 40 mg, Subcutaneo us, DAILY, First dose on Fri07/17/23 at 1700, Until Discontinu ed, Routine [facility] cyclobenzap rine (FLEXERIL) tablet 5 mg 2022-10 21:20: 32 Yes 5mg 5 mg, Oral, QPMPRN, Starting on Fri07/17/23 at 1620, Until Discontinu ed, Routine, Muscle Spasms [facility] Sliding Scale Insulin - Lispro (HumaLOG) 2022-10 17:30: 00 Yes Subcutaneo us, TID MEALS+HS, First dose (after last modificati on) on Fri07/17/23 at 1230, Until Discontinu ed, Routine [facility] lisinopriL 20 mg tablet 2022-10 17:06: 40 Yes 20mg Take 1 tablet by mouth daily. [facility] lisinopriL 20 mg tablet 2022-10 17:06: 40 Yes 20mg Take 1 tablet by mouth daily. [facility] lisinopriL 20 mg tablet 2022-10 17:06: 40 Yes 20mg Take 1 tablet by mouth daily. [facility] lisinopriL 20 mg tablet 2022-10 17:06: 40 Yes 20mg Take 1 tablet by mouth daily. [facility] ondansetron (ZOFRAN (PF)) injection 4 mg 2022-10 12:57: 26 Yes 4mg 4 mg, Slow IV Push, Q6HPRN, Starting on Fri07/17/23 at 0757, Until Discontinu ed, Routine, Nausea and Vomiting (N/V) [facility] morpHINE (4 mg/mL) injection 4 mg 2022-10 12:57: 24 07-18 12:56 :24 No 4mg 4 mg, Slow IV Push, Q4HPRN, Starting on Jami 07/17/23 at 0757, Until 07/18/23 at 0756, Routine, Pain (scale 7-10) [facility] traMADoL (ULTRAM) tablet 50 mg 2022-10 12:57: 22 07-19 12:56 :22 No 50mg 50 mg, Oral, Q8HPRN, Starting on Jami 07/17/23 at 0757, Until 07/19/23 at 0756, Routine, Pain (scale 4-6) [facility] acetaminoph en (TYLENOL) tablet 650 mg 2022-10 12:57: 19 Yes 650mg 650 mg, Oral, Q6HPRN, Starting on Fri07/17/23 at 0757, Until Discontinu ed, Routine, Pain (scale 1-3) [facility] iopamidol (ISOVUE 370-500 mL) injection 100 mL 2022-10 08:15: 00 07-17 08:15 :00 No [id number] 100mL 100 mL, Intravenou s, ONCE, 1 dose, On Fri07/17/23 at 0315, Routine [facility] NaCl 0.9% (NS) bolus infusion 1,000 mL 2022-10 08:00: 00 07-17 08:40 :00 No 1000mL at 999 mL/hr, 1,000 mL, IV Piggyback, ONCE, 1 dose, On Fri07/17/23 at 0300, STAT [facility] Blood-Gluco se Meter (TRUE METRIX GLUCOSE METER) Kit 2022-10 00:00: 00 Yes [id number] Test blood sugar one in the morning and once in the evening. Use as directed [facility] Blood-Gluco se Meter (TRUE METRIX GLUCOSE METER) Kit 2022-10 00:00: 00 Yes [id number] Test blood sugar one in the morning and once in the evening. Use as directed [facility] Blood-Gluco se Meter (TRUE METRIX GLUCOSE METER) Kit 2022-10 0 00:00: 00 Yes [id number] Test blood sugar one in the morning and once in the evening. Use as directed [facility] Blood-Gluco se Meter (TRUE METRIX GLUCOSE METER) Kit 2022-10 0 00:00: 00 Yes [id number] Test blood sugar one in the morning and once in the evening. Use as directed [facility] Blood-Gluco se Meter (TRUE METRIX GLUCOSE METER) Kit 2022-10 0 00:00: 00 Yes [id number] Test blood sugar one in the morning and once in the evening. Use as directed [facility] Blood-Gluco se Meter (TRUE METRIX GLUCOSE METER) Kit 2022-10 0 00:00: 00 Yes [id number] Test blood sugar one in the morning and once in the evening. Use as directed [facility] Blood-Gluco se Meter (TRUE METRIX GLUCOSE METER) Kit 2022-10 00:00: 00 Yes [id number] Test blood sugar one in the morning and once in the evening. Use as directed [facility] Blood-Gluco se Meter (TRUE METRIX GLUCOSE METER) Kit 2022-10 00:00: 00 Yes [id number] Test blood sugar one in the morning and once in the evening. Use as directed [facility] Blood-Gluco se Meter (TRUE METRIX GLUCOSE METER) Kit 2022-10 0 00:00: 00 Yes [id number] Test blood sugar one in the morning and once in the evening. Use as directed [facility] Blood-Gluco se Meter (TRUE METRIX GLUCOSE METER) Kit 2022-10 0 00:00: 00 Yes [id number] Test blood sugar one in the morning and once in the evening. Use as directed [facility] Blood-Gluco se Meter (TRUE METRIX GLUCOSE METER) Kit 2022-10 0 00:00: 00 Yes [id number] Test blood sugar one in the morning and once in the evening. Use as directed [facility] Blood-Gluco se Meter (TRUE METRIX GLUCOSE METER) Kit 2022-10 0 00:00: 00 Yes [id number] Test blood sugar one in the morning and once in the evening. Use as directed [facility] Blood-Gluco se Meter (TRUE METRIX GLUCOSE METER) Kit 2022-10 0 00:00: 00 Yes [id number] Test blood sugar one in the morning and once in the evening. Use as directed [facility] Blood-Gluco se Meter (TRUE METRIX GLUCOSE METER) Kit 2022-10 00:00: 00 Yes [id number] Test blood sugar one in the morning and once in the evening. Use as directed [facility] Blood-Gluco se Meter (TRUE METRIX GLUCOSE METER) Kit 2022-10 0 00:00: 00 Yes [id number] Test blood sugar one in the morning and once in the evening. Use as directed [facility] Blood-Gluco se Meter (TRUE METRIX GLUCOSE METER) Kit 2022-10 00:00: 00 Yes [id number] Test blood sugar one in the morning and once in the evening. Use as directed [facility] Blood-Gluco se Meter (TRUE METRIX GLUCOSE METER) Kit 2022-10 00:00: 00 Yes [id number] Test blood sugar one in the morning and once in the evening. Use as directed [facility] Blood-Gluco se Meter (TRUE METRIX GLUCOSE METER) Kit 2022-10 0 00:00: 00 Yes [id number] Test blood sugar one in the morning and once in the evening. Use as directed [facility] Blood-Gluco se Meter (TRUE METRIX GLUCOSE METER) Kit 2022-10 0 00:00: 00 Yes [id number] Test blood sugar one in the morning and once in the evening. Use as directed [facility] Blood-Gluco se Meter (TRUE METRIX GLUCOSE METER) Kit 2022-10 0 00:00: 00 Yes [id number] Test blood sugar one in the morning and once in the evening. Use as directed [facility] Blood-Gluco se Meter (TRUE METRIX GLUCOSE METER) Kit 2022-10 012 00:00: 00 Yes [id number] Test blood sugar one in the morning and once in the evening. Use as directed [facility] Blood-Gluco se Meter (TRUE METRIX GLUCOSE METER) Kit 2022-10 012 00:00: 00 Yes [id number] Test blood sugar one in the morning and once in the evening. Use as directed [facility] Blood-Gluco se Meter (TRUE METRIX GLUCOSE METER) Kit 2022-10 0 00:00: 00 Yes [id number] Test blood sugar one in the morning and once in the evening. Use as directed [facility] Blood-Gluco se Meter (TRUE METRIX GLUCOSE METER) Kit 2022-10 00:00: 00 Yes [id number] Test blood sugar one in the morning and once in the evening. Use as directed [facility] Blood-Gluco se Meter (TRUE METRIX GLUCOSE METER) Kit 2022-10 00:00: 00 Yes [id number] Test blood sugar one in the morning and once in the evening. Use as directed [facility] Blood-Gluco se Meter (TRUE METRIX GLUCOSE METER) Kit 2022-10 0 00:00: 00 Yes [id number] Test blood sugar one in the morning and once in the evening. Use as directed [facility] Blood-Gluco se Meter (TRUE METRIX GLUCOSE METER) Kit 2022-10 0 00:00: 00 Yes [id number] Test blood sugar one in the morning and once in the evening. Use as directed [facility] Blood-Gluco se Meter (TRUE METRIX GLUCOSE METER) Kit 2022-10 0 00:00: 00 Yes [id number] Test blood sugar one in the morning and once in the evening. Use as directed [facility] Blood-Gluco se Meter (TRUE METRIX GLUCOSE METER) Kit 2022-10 012 00:00: 00 Yes [id number] Test blood sugar one in the morning and once in the evening. Use as directed [facility] Blood-Gluco se Meter (TRUE METRIX GLUCOSE METER) Kit 2022-10 0 00:00: 00 Yes [id number] Test blood sugar one in the morning and once in the evening. Use as directed [facility] Insulin Glargine (BASAGLAR KWIKPEN U-100 INSULIN) 100 unit/mL (3 mL) injection 2022-10 00:00: 00 Yes [id number] 18U inject 18 Units under the skin at bedtime. [facility] insulin lispro (HUMALOG KWIKPEN INSULIN) 100 unit/mL pen injector 2022-10 00:00: 00 Yes [id number] 6U inject 6 Units under the skin 3 (three) times daily before meals. [facility] insulin lispro (HUMALOG KWIKPEN INSULIN) 100 unit/mL pen injector 2022-10 00:00: 00 Yes [id number] 1U inject 1 Units under the skin SEE-INSTRU CTIONS. Extra Humalog insulin If blood sugar before meal [...] hours and cover again with sliding scale. [facility] Insulin [place], Disposable, (BD INSULIN PEN NEEDLE UF) 31 gauge x 5/16" Ndle 2022-10 00:00: 00 Yes [id number] Use as directed [facility] Insulin Glargine (BASAGLAR KWIKPEN U-100 INSULIN) 100 unit/mL (3 mL) injection 2022-10 00:00: 00 Yes [id number] 18U inject 18 Units under the skin at bedtime. [facility] insulin lispro (HUMALOG KWIKPEN INSULIN) 100 unit/mL pen injector 2022-10 00:00: 00 Yes [id number] 6U inject 6 Units under the skin 3 (three) times daily before meals. [facility] insulin lispro (HUMALOG KWIKPEN INSULIN) 100 unit/mL pen injector 2022-10 00:00: 00 Yes [id number] 1U inject 1 Units under the skin SEE-INSTRU CTIONS. Extra Humalog insulin If blood sugar before meal [...] hours and cover again with sliding scale. [facility] Insulin [place], Disposable, (BD INSULIN PEN NEEDLE UF) 31 gauge x 5/16" Ndle 2022-10 00:00: 00 Yes [id number] Use as directed [facility] Insulin Glargine (BASAGLAR KWIKPEN U-100 INSULIN) 100 unit/mL (3 mL) injection 2022-10 00:00: 00 Yes [id number] 18U inject 18 Units under the skin at bedtime. [facility] insulin lispro (HUMALOG KWIKPEN INSULIN) 100 unit/mL pen injector 2022-10 00:00: 00 Yes [id number] 6U inject 6 Units under the skin 3 (three) times daily before meals. [facility] insulin lispro (HUMALOG KWIKPEN INSULIN) 100 unit/mL pen injector 2022-10 00:00: 00 Yes [id number] 1U inject 1 Units under the skin SEE-INSTRU CTIONS. Extra Humalog insulin If blood sugar before meal [...] hours and cover again with sliding scale. [facility] Insulin [place], Disposable, (BD INSULIN PEN NEEDLE UF) 31 gauge x 5/16" Ndle 2022-10 00:00: 00 Yes [id number] Use as directed [facility] Insulin Glargine (BASAGLAR KWIKPEN U-100 INSULIN) 100 unit/mL (3 mL) injection 2022-10 00:00: 00 Yes [id number] 18U inject 18 Units under the skin at bedtime. [facility] insulin lispro (HUMALOG KWIKPEN INSULIN) 100 unit/mL pen injector 2022-10 00:00: 00 Yes [id number] 6U inject 6 Units under the skin 3 (three) times daily before meals. [facility] insulin lispro (HUMALOG KWIKPEN INSULIN) 100 unit/mL pen injector 2022-10 00:00: 00 Yes [id number] 1U inject 1 Units under the skin SEE-INSTRU CTIONS. Extra Humalog insulin If blood sugar before meal [...] hours and cover again with sliding scale. [facility] Insulin [place], Disposable, (BD INSULIN PEN NEEDLE UF) 31 gauge x 5/16" Ndle 2022-10 0 00:00: 00 Yes [id number] Use as directed [facility] Insulin Glargine (BASAGLAR KWIKPEN U-100 INSULIN) 100 unit/mL (3 mL) injection 2022-10 00:00: 00 Yes [id number] 18U inject 18 Units under the skin at bedtime. [facility] insulin lispro (HUMALOG KWIKPEN INSULIN) 100 unit/mL pen injector 2022-10 00:00: 00 Yes [id number] 6U inject 6 Units under the skin 3 (three) times daily before meals. [facility] insulin lispro (HUMALOG KWIKPEN INSULIN) 100 unit/mL pen injector 2022-10 00:00: 00 Yes [id number] 1U inject 1 Units under the skin SEE-INSTRU CTIONS. Extra Humalog insulin If blood sugar before meal [...] hours and cover again with sliding scale. [facility] Insulin [place], Disposable, (BD INSULIN PEN NEEDLE UF) 31 gauge x 5/16" Ndle 2022-10 00:00: 00 Yes [id number] Use as directed [facility] Insulin Glargine (BASAGLAR KWIKPEN U-100 INSULIN) 100 unit/mL (3 mL) injection 2022-10 00:00: 00 Yes [id number] 18U inject 18 Units under the skin at bedtime. [facility] insulin lispro (HUMALOG KWIKPEN INSULIN) 100 unit/mL pen injector 2022-10 00:00: 00 Yes [id number] 6U inject 6 Units under the skin 3 (three) times daily before meals. [facility] insulin lispro (HUMALOG KWIKPEN INSULIN) 100 unit/mL pen injector 2022-10 00:00: 00 Yes [id number] 1U inject 1 Units under the skin SEE-INSTRU CTIONS. Extra Humalog insulin If blood sugar before meal [...] hours and cover again with sliding scale. [facility] Insulin [place], Disposable, (BD INSULIN PEN NEEDLE UF) 31 gauge x 5/16" Ndle 2022-10 00:00: 00 Yes [id number] Use as directed [facility] Insulin Glargine (BASAGLAR KWIKPEN U-100 INSULIN) 100 unit/mL (3 mL) injection 2022-10 00:00: 00 Yes [id number] 18U inject 18 Units under the skin at bedtime. [facility] insulin lispro (HUMALOG KWIKPEN INSULIN) 100 unit/mL pen injector 2022-10 00:00: 00 Yes [id number] 6U inject 6 Units under the skin 3 (three) times daily before meals. [facility] insulin lispro (HUMALOG KWIKPEN INSULIN) 100 unit/mL pen injector 2022-10 00:00: 00 Yes [id number] 1U inject 1 Units under the skin SEE-INSTRU CTIONS. Extra Humalog insulin If blood sugar before meal [...] hours and cover again with sliding scale. [facility] Insulin [place], Disposable, (BD INSULIN PEN NEEDLE UF) 31 gauge x 5/16" Ndle 2022-10 00:00: 00 Yes [id number] Use as directed [facility] Insulin Glargine (BASAGLAR KWIKPEN U-100 INSULIN) 100 unit/mL (3 mL) injection 2022-10 00:00: 00 Yes [id number] 18U inject 18 Units under the skin at bedtime. [facility] insulin lispro (HUMALOG KWIKPEN INSULIN) 100 unit/mL pen injector 2022-10 00:00: 00 Yes [id number] 6U inject 6 Units under the skin 3 (three) times daily before meals. [facility] insulin lispro (HUMALOG KWIKPEN INSULIN) 100 unit/mL pen injector 2022-10 00:00: 00 Yes [id number] 1U inject 1 Units under the skin SEE-INSTRU CTIONS. Extra Humalog insulin If blood sugar before meal [...] hours and cover again with sliding scale. [facility] Insulin [place], Disposable, (BD INSULIN PEN NEEDLE UF) 31 gauge x 5/16" Ndle 2022-10 00:00: 00 Yes [id number] Use as directed [facility] Insulin Glargine (BASAGLAR KWIKPEN U-100 INSULIN) 100 unit/mL (3 mL) injection 2022-10 00:00: 00 Yes [id number] 18U inject 18 Units under the skin at bedtime. [facility] insulin lispro (HUMALOG KWIKPEN INSULIN) 100 unit/mL pen injector 2022-10 00:00: 00 Yes [id number] 6U inject 6 Units under the skin 3 (three) times daily before meals. [facility] insulin lispro (HUMALOG KWIKPEN INSULIN) 100 unit/mL pen injector 2022-10 00:00: 00 Yes [id number] 1U inject 1 Units under the skin SEE-INSTRU CTIONS. Extra Humalog insulin If blood sugar before meal [...] hours and cover again with sliding scale. [facility] Insulin [place], Disposable, (BD INSULIN PEN NEEDLE UF) 31 gauge x 5/16" Ndle 2022-10 0 00:00: 00 Yes [id number] Use as directed [facility] Insulin Glargine (BASAGLAR KWIKPEN U-100 INSULIN) 100 unit/mL (3 mL) injection 2022-10 00:00: 00 Yes [id number] 18U inject 18 Units under the skin at bedtime. [facility] insulin lispro (HUMALOG KWIKPEN INSULIN) 100 unit/mL pen injector 2022-10 00:00: 00 Yes [id number] 6U inject 6 Units under the skin 3 (three) times daily before meals. [facility] insulin lispro (HUMALOG KWIKPEN INSULIN) 100 unit/mL pen injector 2022-10 00:00: 00 Yes [id number] 1U inject 1 Units under the skin SEE-INSTRU CTIONS. Extra Humalog insulin If blood sugar before meal [...] hours and cover again with sliding scale. [facility] Insulin [place], Disposable, (BD INSULIN PEN NEEDLE UF) 31 gauge x 5/16" Ndle 2022-10 0 00:00: 00 Yes [id number] Use as directed [facility] Insulin Glargine (BASAGLAR KWIKPEN U-100 INSULIN) 100 unit/mL (3 mL) injection 2022-10 00:00: 00 Yes [id number] 18U inject 18 Units under the skin at bedtime. [facility] insulin lispro (HUMALOG KWIKPEN INSULIN) 100 unit/mL pen injector 2022-10 00:00: 00 Yes [id number] 6U inject 6 Units under the skin 3 (three) times daily before meals. [facility] insulin lispro (HUMALOG KWIKPEN INSULIN) 100 unit/mL pen injector 2022-10 00:00: 00 Yes [id number] 1U inject 1 Units under the skin SEE-INSTRU CTIONS. Extra Humalog insulin If blood sugar before meal [...] hours and cover again with sliding scale. [facility] Insulin [place], Disposable, (BD INSULIN PEN NEEDLE UF) 31 gauge x 5/16" Ndle 2022-10 00:00: 00 Yes [id number] Use as directed [facility] Insulin Glargine (BASAGLAR KWIKPEN U-100 INSULIN) 100 unit/mL (3 mL) injection 2022-10 00:00: 00 Yes [id number] 18U inject 18 Units under the skin at bedtime. [facility] insulin lispro (HUMALOG KWIKPEN INSULIN) 100 unit/mL pen injector 2022-10 00:00: 00 Yes [id number] 6U inject 6 Units under the skin 3 (three) times daily before meals. [facility] insulin lispro (HUMALOG KWIKPEN INSULIN) 100 unit/mL pen injector 2022-10 00:00: 00 Yes [id number] 1U inject 1 Units under the skin SEE-INSTRU CTIONS. Extra Humalog insulin If blood sugar before meal [...] hours and cover again with sliding scale. [facility] Insulin [place], Disposable, (BD INSULIN PEN NEEDLE UF) 31 gauge x 5/16" Ndle 2022-10 0 00:00: 00 Yes [id number] Use as directed [facility] Insulin Glargine (BASAGLAR KWIKPEN U-100 INSULIN) 100 unit/mL (3 mL) injection 2022-10 00:00: 00 Yes [id number] 18U inject 18 Units under the skin at bedtime. [facility] insulin lispro (HUMALOG KWIKPEN INSULIN) 100 unit/mL pen injector 2022-10 00:00: 00 Yes [id number] 6U inject 6 Units under the skin 3 (three) times daily before meals. [facility] insulin lispro (HUMALOG KWIKPEN INSULIN) 100 unit/mL pen injector 2022-10 00:00: 00 Yes [id number] 1U inject 1 Units under the skin SEE-INSTRU CTIONS. Extra Humalog insulin If blood sugar before meal [...] hours and cover again with sliding scale. [facility] Insulin [place], Disposable, (BD INSULIN PEN NEEDLE UF) 31 gauge x 5/16" Ndle 2022-10 0 00:00: 00 Yes [id number] Use as directed [facility] Insulin Glargine (BASAGLAR KWIKPEN U-100 INSULIN) 100 unit/mL (3 mL) injection 2022-10 00:00: 00 Yes [id number] 18U inject 18 Units under the skin at bedtime. [facility] insulin lispro (HUMALOG KWIKPEN INSULIN) 100 unit/mL pen injector 2022-10 00:00: 00 Yes [id number] 6U inject 6 Units under the skin 3 (three) times daily before meals. [facility] insulin lispro (HUMALOG KWIKPEN INSULIN) 100 unit/mL pen injector 2022-10 00:00: 00 Yes [id number] 1U inject 1 Units under the skin SEE-INSTRU CTIONS. Extra Humalog insulin If blood sugar before meal [...] hours and cover again with sliding scale. [facility] Insulin [place], Disposable, (BD INSULIN PEN NEEDLE UF) 31 gauge x 5/16" Ndle 2022-10 00:00: 00 Yes [id number] Use as directed [facility] Insulin Glargine (BASAGLAR KWIKPEN U-100 INSULIN) 100 unit/mL (3 mL) injection 2022-10 00:00: 00 Yes [id number] 18U inject 18 Units under the skin at bedtime. [facility] insulin lispro (HUMALOG KWIKPEN INSULIN) 100 unit/mL pen injector 2022-10 00:00: 00 Yes [id number] 6U inject 6 Units under the skin 3 (three) times daily before meals. [facility] insulin lispro (HUMALOG KWIKPEN INSULIN) 100 unit/mL pen injector 2022-10 00:00: 00 Yes [id number] 1U inject 1 Units under the skin SEE-INSTRU CTIONS. Extra Humalog insulin If blood sugar before meal [...] hours and cover again with sliding scale. [facility] Insulin [place], Disposable, (BD INSULIN PEN NEEDLE UF) 31 gauge x 5/16" [facility] 2022-10 0 00:00: 00 Yes [id number] Use as directed [facility] Insulin Glargine (BASAGLAR KWIKPEN U-100 INSULIN) 100 unit/mL (3 mL) injection 2022-10 00:00: 00 Yes [id number] 18U inject 18 Units under the skin at bedtime. [facility] insulin lispro (HUMALOG KWIKPEN INSULIN) 100 unit/mL pen injector 2022-10 00:00: 00 Yes [id number] 6U inject 6 Units under the skin 3 (three) times daily before meals. [facility] insulin lispro (HUMALOG KWIKPEN INSULIN) 100 unit/mL pen injector 2022-10 00:00: 00 Yes [id number] 1U inject 1 Units under the skin SEE-INSTRU CTIONS. Extra Humalog insulin If blood sugar before meal [...] hours and cover again with sliding scale. [facility] Insulin [place], Disposable, (BD INSULIN PEN NEEDLE UF) 31 gauge x 5/16" [facility] 2022-10 00:00: 00 Yes [id number] Use as directed [facility] Insulin Glargine (BASAGLAR KWIKPEN U-100 INSULIN) 100 unit/mL (3 mL) injection 2022-10 00:00: 00 Yes [id number] 18U inject 18 Units under the skin at bedtime. [facility] insulin lispro (HUMALOG KWIKPEN INSULIN) 100 unit/mL pen injector 2022-10 00:00: 00 Yes [id number] 6U inject 6 Units under the skin 3 (three) times daily before meals. [facility] insulin lispro (HUMALOG KWIKPEN INSULIN) 100 unit/mL pen injector 2022-10 00:00: 00 Yes [id number] 1U inject 1 Units under the skin SEE-INSTRU CTIONS. Extra Humalog insulin If blood sugar before meal [...] hours and cover again with sliding scale. [facility] Insulin [place], Disposable, (BD INSULIN PEN NEEDLE UF) 31 gauge x 5/16" [facility] 2022-10 00:00: 00 Yes [id number] Use as directed [facility] Insulin Glargine (BASAGLAR KWIKPEN U-100 INSULIN) 100 unit/mL (3 mL) injection 2022-10 00:00: 00 Yes [id number] 18U inject 18 Units under the skin at bedtime. [facility] insulin lispro (HUMALOG KWIKPEN INSULIN) 100 unit/mL pen injector 2022-10 00:00: 00 Yes [id number] 6U inject 6 Units under the skin 3 (three) times daily before meals. [facility] insulin lispro (HUMALOG KWIKPEN INSULIN) 100 unit/mL pen injector 2022-10 00:00: 00 Yes [id number] 1U inject 1 Units under the skin SEE-INSTRU CTIONS. Extra Humalog insulin If blood sugar before meal [...] hours and cover again with sliding scale. [facility] Insulin [place], Disposable, (BD INSULIN PEN NEEDLE UF) 31 gauge x 5/16" [facility] 2022-10 00:00: 00 Yes [id number] Use as directed [facility] Insulin Glargine (BASAGLAR KWIKPEN U-100 INSULIN) 100 unit/mL (3 mL) injection 2022-10 00:00: 00 Yes [id number] 18U inject 18 Units under the skin at bedtime. [facility] insulin lispro (HUMALOG KWIKPEN INSULIN) 100 unit/mL pen injector 2022-10 00:00: 00 Yes [id number] 6U inject 6 Units under the skin 3 (three) times daily before meals. [facility] insulin lispro (HUMALOG KWIKPEN INSULIN) 100 unit/mL pen injector 2022-10 00:00: 00 Yes [id number] 1U inject 1 Units under the skin SEE-INSTRU CTIONS. Extra Humalog insulin If blood sugar before meal [...] hours and cover again with sliding scale. [facility] Insulin [place], Disposable, (BD INSULIN PEN NEEDLE UF) 31 gauge x 5/16" [facility] 2022-10 0 00:00: 00 Yes [id number] Use as directed [facility] Insulin Glargine (BASAGLAR KWIKPEN U-100 INSULIN) 100 unit/mL (3 mL) injection 2022-10 00:00: 00 Yes [id number] 18U inject 18 Units under the skin at bedtime. [facility] insulin lispro (HUMALOG KWIKPEN INSULIN) 100 unit/mL pen injector 2022-10 00:00: 00 Yes [id number] 6U inject 6 Units under the skin 3 (three) times daily before meals. [facility] insulin lispro (HUMALOG KWIKPEN INSULIN) 100 unit/mL pen injector 2022-10 00:00: 00 Yes [id number] 1U inject 1 Units under the skin SEE-INSTRU CTIONS. Extra Humalog insulin If blood sugar before meal [...] hours and cover again with sliding scale. [facility] Insulin [place], Disposable, (BD INSULIN PEN NEEDLE UF) 31 gauge x 5/16" [facility] 2022-10 0 00:00: 00 Yes [id number] Use as directed [facility] Insulin Glargine (BASAGLAR KWIKPEN U-100 INSULIN) 100 unit/mL (3 mL) injection 2022-10 00:00: 00 Yes [id number] 18U inject 18 Units under the skin at bedtime. [facility] insulin lispro (HUMALOG KWIKPEN INSULIN) 100 unit/mL pen injector 2022-10 00:00: 00 Yes [id number] 6U inject 6 Units under the skin 3 (three) times daily before meals. [facility] insulin lispro (HUMALOG KWIKPEN INSULIN) 100 unit/mL pen injector 2022-10 00:00: 00 Yes [id number] 1U inject 1 Units under the skin SEE-INSTRU CTIONS. Extra Humalog insulin If blood sugar before meal [...] hours and cover again with sliding scale. [facility] Insulin [place], Disposable, (BD INSULIN PEN NEEDLE UF) 31 gauge x 5/16" [facility] 2022-10 00:00: 00 Yes [id number] Use as directed [facility] Insulin Glargine (BASAGLAR KWIKPEN U-100 INSULIN) 100 unit/mL (3 mL) injection 2022-10 00:00: 00 Yes [id number] 18U inject 18 Units under the skin at bedtime. [facility] insulin lispro (HUMALOG KWIKPEN INSULIN) 100 unit/mL pen injector 2022-10 00:00: 00 Yes [id number] 6U inject 6 Units under the skin 3 (three) times daily before meals. [facility] insulin lispro (HUMALOG KWIKPEN INSULIN) 100 unit/mL pen injector 2022-10 00:00: 00 Yes [id number] 1U inject 1 Units under the skin SEE-INSTRU CTIONS. Extra Humalog insulin If blood sugar before meal [...] hours and cover again with sliding scale. [facility] Insulin [place], Disposable, (BD INSULIN PEN NEEDLE UF) 31 gauge x 5/16" [facility] 2022-10 0 00:00: 00 Yes [id number] Use as directed [facility] Insulin Glargine (BASAGLAR KWIKPEN U-100 INSULIN) 100 unit/mL (3 mL) injection 2022-10 00:00: 00 Yes [id number] 18U inject 18 Units under the skin at bedtime. [facility] insulin lispro (HUMALOG KWIKPEN INSULIN) 100 unit/mL pen injector 2022-10 00:00: 00 Yes [id number] 6U inject 6 Units under the skin 3 (three) times daily before meals. [facility] insulin lispro (HUMALOG KWIKPEN INSULIN) 100 unit/mL pen injector 2022-10 00:00: 00 Yes [id number] 1U inject 1 Units under the skin SEE-INSTRU CTIONS. Extra Humalog insulin If blood sugar before meal [...] hours and cover again with sliding scale. [facility] Insulin [place], Disposable, (BD INSULIN PEN NEEDLE UF) 31 gauge x 5/16" [facility] 2022-10 0 00:00: 00 Yes [id number] Use as directed [facility] Insulin Glargine (BASAGLAR KWIKPEN U-100 INSULIN) 100 unit/mL (3 mL) injection 2022-10 00:00: 00 Yes [id number] 18U inject 18 Units under the skin at bedtime. [facility] insulin lispro (HUMALOG KWIKPEN INSULIN) 100 unit/mL pen injector 2022-10 00:00: 00 Yes [id number] 6U inject 6 Units under the skin 3 (three) times daily before meals. [facility] insulin lispro (HUMALOG KWIKPEN INSULIN) 100 unit/mL pen injector 2022-10 00:00: 00 Yes [id number] 1U inject 1 Units under the skin SEE-INSTRU CTIONS. Extra Humalog insulin If blood sugar before meal [...] hours and cover again with sliding scale. [facility] Insulin [place], Disposable, (BD INSULIN PEN NEEDLE UF) 31 gauge x 5/16" [facility] 2022-10 00:00: 00 Yes [id number] Use as directed [facility] Insulin Glargine (BASAGLAR KWIKPEN U-100 INSULIN) 100 unit/mL (3 mL) injection 2022-10 00:00: 00 Yes [id number] 18U inject 18 Units under the skin at bedtime. [facility] insulin lispro (HUMALOG KWIKPEN INSULIN) 100 unit/mL pen injector 2022-10 00:00: 00 Yes [id number] 6U inject 6 Units under the skin 3 (three) times daily before meals. [facility] insulin lispro (HUMALOG KWIKPEN INSULIN) 100 unit/mL pen injector 2022-10 00:00: 00 Yes [id number] 1U inject 1 Units under the skin SEE-INSTRU CTIONS. Extra Humalog insulin If blood sugar before meal [...] hours and cover again with sliding scale. [facility] Insulin [place], Disposable, (BD INSULIN PEN NEEDLE UF) 31 gauge x 5/16" [facility] 2022-10 00:00: 00 Yes [id number] Use as directed [facility] Insulin Glargine (BASAGLAR KWIKPEN U-100 INSULIN) 100 unit/mL (3 mL) injection 2022-10 00:00: 00 Yes [id number] 18U inject 18 Units under the skin at bedtime. [facility] insulin lispro (HUMALOG KWIKPEN INSULIN) 100 unit/mL pen injector 2022-10 00:00: 00 Yes [id number] 6U inject 6 Units under the skin 3 (three) times daily before meals. [facility] insulin lispro (HUMALOG KWIKPEN INSULIN) 100 unit/mL pen injector 2022-10 00:00: 00 Yes [id number] 1U inject 1 Units under the skin SEE-INSTRU CTIONS. Extra Humalog insulin If blood sugar before meal [...] hours and cover again with sliding scale. [facility] Insulin [place], Disposable, (BD INSULIN PEN NEEDLE UF) 31 gauge x 5/16" [facility] 2022-10 00:00: 00 Yes [id number] Use as directed [facility] Insulin Glargine (BASAGLAR KWIKPEN U-100 INSULIN) 100 unit/mL (3 mL) injection 2022-10 00:00: 00 Yes [id number] 18U inject 18 Units under the skin at bedtime. [facility] insulin lispro (HUMALOG KWIKPEN INSULIN) 100 unit/mL pen injector 2022-10 00:00: 00 Yes [id number] 6U inject 6 Units under the skin 3 (three) times daily before meals. [facility] insulin lispro (HUMALOG KWIKPEN INSULIN) 100 unit/mL pen injector 2022-10 00:00: 00 Yes [id number] 1U inject 1 Units under the skin SEE-INSTRU CTIONS. Extra Humalog insulin If blood sugar before meal [...] hours and cover again with sliding scale. [facility] Insulin [place], Disposable, (BD INSULIN PEN NEEDLE UF) 31 gauge x 5/16" [facility] 2022-10 00:00: 00 Yes [id number] Use as directed [facility] Insulin Glargine (BASAGLAR KWIKPEN U-100 INSULIN) 100 unit/mL (3 mL) injection 2022-10 00:00: 00 Yes [id number] 18U inject 18 Units under the skin at bedtime. [facility] insulin lispro (HUMALOG KWIKPEN INSULIN) 100 unit/mL pen injector 2022-10 00:00: 00 Yes [id number] 6U inject 6 Units under the skin 3 (three) times daily before meals. [facility] insulin lispro (HUMALOG KWIKPEN INSULIN) 100 unit/mL pen injector 2022-10 00:00: 00 Yes [id number] 1U inject 1 Units under the skin SEE-INSTRU CTIONS. Extra Humalog insulin If blood sugar before meal [...] hours and cover again with sliding scale. [facility] Insulin [place], Disposable, (BD INSULIN PEN NEEDLE UF) 31 gauge x 5/16" [facility] 2022-10 0 00:00: 00 Yes [id number] Use as directed [facility] Insulin Glargine (BASAGLAR KWIKPEN U-100 INSULIN) 100 unit/mL (3 mL) injection 2022-10 00:00: 00 Yes [id number] 18U inject 18 Units under the skin at bedtime. [facility] insulin lispro (HUMALOG KWIKPEN INSULIN) 100 unit/mL pen injector 2022-10 00:00: 00 Yes [id number] 6U inject 6 Units under the skin 3 (three) times daily before meals. [facility] insulin lispro (HUMALOG KWIKPEN INSULIN) 100 unit/mL pen injector 2022-10 00:00: 00 Yes [id number] 1U inject 1 Units under the skin SEE-INSTRU CTIONS. Extra Humalog insulin If blood sugar before meal [...] hours and cover again with sliding scale. [facility] Insulin [place], Disposable, (BD INSULIN PEN NEEDLE UF) 31 gauge x 5/16" Ndle 2022-10 0 00:00: 00 Yes [id number] Use as directed [facility] Insulin Glargine (BASAGLAR KWIKPEN U-100 INSULIN) 100 unit/mL (3 mL) injection 2022-10 00:00: 00 Yes [id number] 18U inject 18 Units under the skin at bedtime. [facility] insulin lispro (HUMALOG KWIKPEN INSULIN) 100 unit/mL pen injector 2022-10 00:00: 00 Yes [id number] 6U inject 6 Units under the skin 3 (three) times daily before meals. [facility] insulin lispro (HUMALOG KWIKPEN INSULIN) 100 unit/mL pen injector 2022-10 00:00: 00 Yes [id number] 1U inject 1 Units under the skin SEE-INSTRU CTIONS. Extra Humalog insulin If blood sugar before meal [...] hours and cover again with sliding scale. [facility] Insulin [place], Disposable, (BD INSULIN PEN NEEDLE UF) 31 gauge x 5/16" Ndle 2022-10 00:00: 00 Yes [id number] Use as directed [facility] Insulin Glargine (BASAGLAR KWIKPEN U-100 INSULIN) 100 unit/mL (3 mL) injection 2022-10 00:00: 00 Yes [id number] 18U inject 18 Units under the skin at bedtime. [facility] insulin lispro (HUMALOG KWIKPEN INSULIN) 100 unit/mL pen injector 2022-10 00:00: 00 Yes [id number] 6U inject 6 Units under the skin 3 (three) times daily before meals. [facility] insulin lispro (HUMALOG KWIKPEN INSULIN) 100 unit/mL pen injector 2022-10 00:00: 00 Yes [id number] 1U inject 1 Units under the skin SEE-INSTRU CTIONS. Extra Humalog insulin If blood sugar before meal [...] hours and cover again with sliding scale. [facility] Insulin [place], Disposable, (BD INSULIN PEN NEEDLE UF) 31 gauge x 5/16" Ndle 2022-10 0 00:00: 00 Yes [id number] Use as directed [facility] Insulin Glargine (BASAGLAR KWIKPEN U-100 INSULIN) 100 unit/mL (3 mL) injection 2022-10 00:00: 00 Yes [id number] 18U inject 18 Units under the skin at bedtime. [facility] insulin lispro (HUMALOG KWIKPEN INSULIN) 100 unit/mL pen injector 2022-10 00:00: 00 Yes [id number] 6U inject 6 Units under the skin 3 (three) times daily before meals. [facility] insulin lispro (HUMALOG KWIKPEN INSULIN) 100 unit/mL pen injector 2022-10 00:00: 00 Yes [id number] 1U inject 1 Units under the skin SEE-INSTRU CTIONS. Extra Humalog insulin If blood sugar before meal [...] hours and cover again with sliding scale. [facility] Insulin [place], Disposable, (BD INSULIN PEN NEEDLE UF) 31 gauge x 5/16" [facility] 2022-10 0 00:00: 00 Yes [id number] Use as directed [facility] insulin glargine 100 unit/mL injection 0-06 00:00: 00 Yes [id number] 18U inject 18 Units under the skin daily. [facility] insulin glargine 100 unit/mL injection 2022 0-06 00:00: 00 Yes [id number] 18U inject 18 Units under the skin daily. [facility] insulin glargine 100 unit/mL injection [facility] 0-06 00:00: 00 Yes [id number] 18U inject 18 Units under the skin daily. [facility] insulin glargine 100 unit/mL injection [facility] 0-06 00:00: 00 Yes [id number] 18U inject 18 Units under the skin daily. [facility] insulin glargine 100 unit/mL injection [facility] 0-06 00:00: 00 Yes [id number] 18U inject 18 Units under the skin daily. [facility] insulin glargine 100 unit/mL injection [facility] 0-06 00:00: 00 Yes [id number] 18U inject 18 Units under the skin daily. [facility] insulin glargine 100 unit/mL injection [facility] 0-06 00:00: 00 Yes [id number] 18U inject 18 Units under the skin daily. [facility] insulin glargine 100 unit/mL injection [facility] 0-06 00:00: 00 Yes [id number] 18U inject 18 Units under the skin daily. [facility] insulin glargine 100 unit/mL injection [facility] 0-06 00:00: 00 Yes [id number] 18U inject 18 Units under the skin daily. [facility] insulin glargine 100 unit/mL injection [facility] 0-06 00:00: 00 Yes [id number] 18U inject 18 Units under the skin daily. [facility] insulin glargine 100 unit/mL injection [facility] 0-06 00:00: 00 Yes [id number] 18U inject 18 Units under the skin daily. [facility] insulin glargine 100 unit/mL injection 2022-10 0-06 00:00: 00 07-16 00:00 :00 No [id number] 18U inject 18 Units under the skin daily. [facility] insulin glargine 100 unit/mL injection 2022-10 0-06 00:00: 07-16 00:00 :00 No [id number] 18U inject 18 Units under the skin daily. [facility] insulin glargine 100 unit/mL injection 2022-10 0-06 00:00: 00 07-16 00:00 :00 No [id number] 18U inject 18 Units under the skin daily. [facility] lisinopriL 20 mg tablet 2022-10 0-05 18:34: 53 Yes 20mg Take 1 tablet by mouth daily. [facility] lisinopriL 20 mg tablet 2022-10 0-05 18:34: 53 Yes 20mg Take 1 tablet by mouth daily. [facility] lisinopriL 20 mg tablet 2022-10 0-05 18:34: 53 Yes 20mg Take 1 tablet by mouth daily. [facility] lisinopriL 20 mg tablet 2022-10 0-05 18:34: 53 Yes 20mg Take 1 tablet by mouth daily. [facility] lisinopriL 20 mg tablet 2022-10 0-05 18:34: 53 Yes 20mg Take 1 tablet by mouth daily. [facility] lisinopriL 20 mg tablet 2022-10 0-05 18:34: 53 Yes 20mg Take 1 tablet by mouth daily. [facility] lisinopriL 20 mg tablet 2022-10 0-05 18:34: 53 Yes 20mg Take 1 tablet by mouth daily. [facility] lisinopriL 20 mg tablet 2022-10 0-05 18:34: 53 Yes 20mg Take 1 tablet by mouth daily. [facility] lisinopriL 20 mg tablet 2022-10 0-05 18:34: 53 Yes 20mg Take 1 tablet by mouth daily. [facility] lisinopriL 20 mg tablet 2022-10 0-05 18:34: 53 Yes 20mg Take 1 tablet by mouth daily. [facility] lisinopriL 20 mg tablet 2022-10 18:34: 53 Yes 20mg Take 1 tablet by mouth daily. [facility] lisinopriL 20 mg tablet 2022-10 18:34: 53 Yes 20mg Take 1 tablet by mouth daily. [facility] lisinopriL 20 mg tablet 2022-10 18:34: 53 Yes 20mg Take 1 tablet by mouth daily. [facility] lisinopriL 20 mg tablet 2022-10 18:34: 53 Yes 20mg Take 1 tablet by mouth daily. [facility] metFORMIN 1,000 mg tablet 2022-10 18:34: 51 07-10 00:00 :00 No 1000mg Take 1 tablet by mouth 2 (two) times daily with meals. [facility] glipiZIDE XL 2.5 mg 24 hr tablet 2022-10 18:34: 51 07-10 00:00 :00 No 2.5mg Take 1 tablet by mouth daily with breakfast. [facility] Sliding Scale Insulin - Lispro (HumaLOG) 2022-10 01:00: 00 Yes Subcutaneo us, Q4H, First dose (after last modificati on) on Fri07/09/23 at 1999, Until Discontinu ed, Routine [facility] fluocinonid e (LIDEX) 0.05 % solution 2022-10 01:00: 00 Yes Topical, BID, First dose on Fri07/09/23 at 1999, Until Discontinu ed, Routine [facility] cyclobenzap rine 5 mg tablet 2022-10 00:00: 00 Yes [id number] 5mg Take 1 tablet by mouth every evening as needed for Muscle Spasms. [facility] fluocinonid e 0.05 % solution 2022-10 00:00: 00 Yes [id number] Apply to area(s) 2 (two) times daily. [facility] triamcinolo ne acetonide 0.1 % cream 2022-10 00:00: 00 Yes [id number] Apply to area(s) 2 (two) times daily. [facility] SITagliptin phosphate (JANUVIA) 25 mg tablet 2022-10 0 00:00: 00 Yes [id number] 25mg Take 1 tablet by mouth daily. [facility] lancets 33 gauge Misc 2022-10 00:00: 00 Yes [id number] Use as directed [facility] blood sugar diagnostic (RELION PRIME TEST STRIPS) strip 2022-10 0 00:00: 00 Yes [id number] Use as directed [facility] metFORMIN 1,000 mg tablet 2022-10 00:00: 00 Yes [id number] 1000mg Take 1 tablet by mouth 2 (two) times daily with meals. [facility] cyclobenzap rine 5 mg tablet 2022-10 00:00: 00 Yes [id number] 5mg Take 1 tablet by mouth every evening as needed for Muscle Spasms. [facility] fluocinonid e 0.05 % solution 2022-10 00:00: 00 Yes [id number] Apply to area(s) 2 (two) times daily. [facility] triamcinolo ne acetonide 0.1 % cream 2022-10 00:00: 00 Yes [id number] Apply to area(s) 2 (two) times daily. [facility] SITagliptin phosphate (JANUVIA) 25 mg tablet 2022-10 00:00: 00 Yes [id number] 25mg Take 1 tablet by mouth daily. [facility] lancets 33 gauge Misc 2022-10 0 00:00: 00 Yes [id number] Use as directed [facility] blood sugar diagnostic (RELION PRIME TEST STRIPS) strip 2022-10 0 00:00: 00 Yes [id number] Use as directed [facility] metFORMIN 1,000 mg tablet 2022-10 0 00:00: 00 Yes [id number] 1000mg Take 1 tablet by mouth 2 (two) times daily with meals. [facility] cyclobenzap rine 5 mg tablet 2022-10 0 00:00: 00 Yes [id number] 5mg Take 1 tablet by mouth every evening as needed for Muscle Spasms. [facility] fluocinonid e 0.05 % solution 2022-10 0 00:00: 00 Yes [id number] Apply to area(s) 2 (two) times daily. [facility] triamcinolo ne acetonide 0.1 % cream 2022-10 0 00:00: 00 Yes [id number] Apply to area(s) 2 (two) times daily. [facility] SITagliptin phosphate (JANUVIA) 25 mg tablet 2022-10 0 00:00: 00 Yes [id number] 25mg Take 1 tablet by mouth daily. [facility] lancets 33 gauge Misc 2022-10 0 00:00: 00 Yes [id number] Use as directed [facility] blood sugar diagnostic (RELION PRIME TEST STRIPS) strip 2022-10 00:00: 00 Yes [id number] Use as directed [facility] metFORMIN 1,000 mg tablet 2022-10 0 00:00: 00 Yes [id number] 1000mg Take 1 tablet by mouth 2 (two) times daily with meals. [facility] cyclobenzap rine 5 mg tablet 2022-10 0 00:00: 00 Yes [id number] 5mg Take 1 tablet by mouth every evening as needed for Muscle Spasms. [facility] fluocinonid e 0.05 % solution 2022-10 0 00:00: 00 Yes [id number] Apply to area(s) 2 (two) times daily. [facility] triamcinolo ne acetonide 0.1 % cream 2022-10 0 00:00: 00 Yes [id number] Apply to area(s) 2 (two) times daily. [facility] SITagliptin phosphate (JANUVIA) 25 mg tablet 2022-10 0 00:00: 00 Yes [id number] 25mg Take 1 tablet by mouth daily. [facility] lancets 33 gauge Misc 2022-10 00:00: 00 Yes [id number] Use as directed [facility] blood sugar diagnostic (RELION PRIME TEST STRIPS) strip 2022-10 00:00: 00 Yes [id number] Use as directed [facility] metFORMIN 1,000 mg tablet 2022-10 00:00: 00 Yes [id number] 1000mg Take 1 tablet by mouth 2 (two) times daily with meals. [facility] cyclobenzap rine 5 mg tablet 2022-10 00:00: 00 Yes [id number] 5mg Take 1 tablet by mouth every evening as needed for Muscle Spasms. [facility] fluocinonid e 0.05 % solution 2022-10 00:00: 00 Yes [id number] Apply to area(s) 2 (two) times daily. [facility] triamcinolo ne acetonide 0.1 % cream 2022-10 00:00: 00 Yes [id number] Apply to area(s) 2 (two) times daily. [facility] SITagliptin phosphate (JANUVIA) 25 mg tablet 2022-10 00:00: 00 Yes [id number] 25mg Take 1 tablet by mouth daily. [facility] lancets 33 gauge [facility] [place]-10 00:00: 00 Yes [id number] Use as directed [facility] blood sugar diagnostic (RELION PRIME TEST STRIPS) strip 2022-10 00:00: 00 Yes [id number] Use as directed [facility] metFORMIN 1,000 mg tablet 2022-10 00:00: 00 Yes [id number] 1000mg Take 1 tablet by mouth 2 (two) times daily with meals. [facility] cyclobenzap rine 5 mg tablet 2022-10 00:00: 00 Yes [id number] 5mg Take 1 tablet by mouth every evening as needed for Muscle Spasms. [facility] fluocinonid e 0.05 % solution 2022-10 00:00: 00 Yes [id number] Apply to area(s) 2 (two) times daily. [facility] triamcinolo ne acetonide 0.1 % cream 2022-10 0 00:00: 00 Yes [id number] Apply to area(s) 2 (two) times daily. [facility] SITagliptin phosphate (JANUVIA) 25 mg tablet 2022-10 0 00:00: 00 Yes [id number] 25mg Take 1 tablet by mouth daily. [facility] lancets 33 gauge Misc 2022-10 0 00:00: 00 Yes [id number] Use as directed [facility] blood sugar diagnostic (RELION PRIME TEST STRIPS) strip 2022-10 0 00:00: 00 Yes [id number] Use as directed [facility] metFORMIN 1,000 mg tablet 2022-10 0 00:00: 00 Yes [id number] 1000mg Take 1 tablet by mouth 2 (two) times daily with meals. [facility] cyclobenzap rine 5 mg tablet 2022-10 0 00:00: 00 Yes [id number] 5mg Take 1 tablet by mouth every evening as needed for Muscle Spasms. [facility] fluocinonid e 0.05 % solution 2022-10 0 00:00: 00 Yes [id number] Apply to area(s) 2 (two) times daily. [facility] triamcinolo ne acetonide 0.1 % cream 2022-10 0 00:00: 00 Yes [id number] Apply to area(s) 2 (two) times daily. [facility] SITagliptin phosphate (JANUVIA) 25 mg tablet 2022-10 0 00:00: 00 Yes [id number] 25mg Take 1 tablet by mouth daily. [facility] lancets 33 gauge Misc 2022-10 0 00:00: 00 Yes [id number] Use as directed [facility] blood sugar diagnostic (RELION PRIME TEST STRIPS) strip 2022-10 0 00:00: 00 Yes [id number] Use as directed [facility] metFORMIN 1,000 mg tablet 2022-10 0- 00:00: 00 Yes [id number] 1000mg Take 1 tablet by mouth 2 (two) times daily with meals. [facility] cyclobenzap rine 5 mg tablet 2022-10 0 00:00: 00 Yes [id number] 5mg Take 1 tablet by mouth every evening as needed for Muscle Spasms. [facility] fluocinonid e 0.05 % solution 2022-10 0 00:00: 00 Yes [id number] Apply to area(s) 2 (two) times daily. [facility] triamcinolo ne acetonide 0.1 % cream 2022-10 0 00:00: 00 Yes [id number] Apply to area(s) 2 (two) times daily. [facility] SITagliptin phosphate (JANUVIA) 25 mg tablet 2022-10 0 00:00: 00 Yes [id number] 25mg Take 1 tablet by mouth daily. [facility] lancets 33 gauge Misc 2022-10 0 00:00: 00 Yes [id number] Use as directed [facility] blood sugar diagnostic (RELION PRIME TEST STRIPS) strip 2022-10 0 00:00: 00 Yes [id number] Use as directed [facility] metFORMIN 1,000 mg tablet 2022-10 0 00:00: 00 Yes [id number] 1000mg Take 1 tablet by mouth 2 (two) times daily with meals. [facility] cyclobenzap rine 5 mg tablet 2022-10 0 00:00: 00 Yes [id number] 5mg Take 1 tablet by mouth every evening as needed for Muscle Spasms. [facility] fluocinonid e 0.05 % solution 2022-10 0 00:00: 00 Yes [id number] Apply to area(s) 2 (two) times daily. [facility] triamcinolo ne acetonide 0.1 % cream 2022-10 0 00:00: 00 Yes [id number] Apply to area(s) 2 (two) times daily. [facility] SITagliptin phosphate (JANUVIA) 25 mg tablet 2022-10 0 00:00: 00 Yes [id number] 25mg Take 1 tablet by mouth daily. [facility] lancets 33 gauge Misc 2022-10 0 00:00: 00 Yes [id number] Use as directed [facility] blood sugar diagnostic (RELION PRIME TEST STRIPS) strip 2022-10 0 00:00: 00 Yes [id number] Use as directed [facility] metFORMIN 1,000 mg tablet 2022-10 0 00:00: 00 Yes [id number] 1000mg Take 1 tablet by mouth 2 (two) times daily with meals. [facility] cyclobenzap rine 5 mg tablet 2022-10 00:00: 00 Yes [id number] 5mg Take 1 tablet by mouth every evening as needed for Muscle Spasms. [facility] fluocinonid e 0.05 % solution 2022-10 00:00: 00 Yes [id number] Apply to area(s) 2 (two) times daily. [facility] triamcinolo ne acetonide 0.1 % cream 2022-10 00:00: 00 Yes [id number] Apply to area(s) 2 (two) times daily. [facility] SITagliptin phosphate (JANUVIA) 25 mg tablet 2022-10 00:00: 00 Yes [id number] 25mg Take 1 tablet by mouth daily. [facility] lancets 33 gauge Misc 2022-10 00:00: 00 Yes [id number] Use as directed [facility] blood sugar diagnostic (RELION PRIME TEST STRIPS) strip 2022-10 0 00:00: 00 Yes [id number] Use as directed [facility] metFORMIN 1,000 mg tablet 2022-10 0 00:00: 00 Yes [id number] 1000mg Take 1 tablet by mouth 2 (two) times daily with meals. [facility] cyclobenzap rine 5 mg tablet 2022-10 0 00:00: 00 Yes [id number] 5mg Take 1 tablet by mouth every evening as needed for Muscle Spasms. [facility] fluocinonid e 0.05 % solution 2022-10 0 00:00: 00 Yes [id number] Apply to area(s) 2 (two) times daily. [facility] triamcinolo ne acetonide 0.1 % cream 2022-10 0 00:00: 00 Yes [id number] Apply to area(s) 2 (two) times daily. [facility] SITagliptin phosphate (JANUVIA) 25 mg tablet 2022-10 0 00:00: 00 Yes [id number] 25mg Take 1 tablet by mouth daily. [facility] lancets 33 gauge Misc 2022-10 0 00:00: 00 Yes [id number] Use as directed [facility] blood sugar diagnostic (RELION PRIME TEST STRIPS) strip 2022-10 0 00:00: 00 Yes [id number] Use as directed [facility] metFORMIN 1,000 mg tablet 2022-10 0 00:00: 00 Yes [id number] 1000mg Take 1 tablet by mouth 2 (two) times daily with meals. [facility] cyclobenzap rine 5 mg tablet 2022-10 0 00:00: 00 Yes [id number] 5mg Take 1 tablet by mouth every evening as needed for Muscle Spasms. [facility] fluocinonid e 0.05 % solution 2022-10 0 00:00: 00 Yes [id number] Apply to area(s) 2 (two) times daily. [facility] triamcinolo ne acetonide 0.1 % cream 2022-10 0 00:00: 00 Yes [id number] Apply to area(s) 2 (two) times daily. [facility] SITagliptin phosphate (JANUVIA) 25 mg tablet 2022-10 0 00:00: 00 Yes [id number] 25mg Take 1 tablet by mouth daily. [facility] lancets 33 gauge Misc 2022-10 0 00:00: 00 Yes [id number] Use as directed [facility] blood sugar diagnostic (RELION PRIME TEST STRIPS) strip 2022-10 0 00:00: 00 Yes [id number] Use as directed [facility] metFORMIN 1,000 mg tablet 2022-10 0 00:00: 00 Yes [id number] 1000mg Take 1 tablet by mouth 2 (two) times daily with meals. [facility] cyclobenzap rine 5 mg tablet 2022-10 0 00:00: 00 Yes [id number] 5mg Take 1 tablet by mouth every evening as needed for Muscle Spasms. [facility] fluocinonid e 0.05 % solution 2022-10 00:00: 00 Yes [id number] Apply to area(s) 2 (two) times daily. [facility] triamcinolo ne acetonide 0.1 % cream 2022-10 00:00: 00 Yes [id number] Apply to area(s) 2 (two) times daily. [facility] SITagliptin phosphate (JANUVIA) 25 mg tablet 2022-10 00:00: 00 Yes [id number] 25mg Take 1 tablet by mouth daily. [facility] lancets 33 gauge Misc 2022-10 00:00: 00 Yes [id number] Use as directed [facility] blood sugar diagnostic (RELION PRIME TEST STRIPS) strip 2022-10 00:00: 00 Yes [id number] Use as directed [facility] metFORMIN 1,000 mg tablet 2022-10 0 00:00: 00 Yes [id number] 1000mg Take 1 tablet by mouth 2 (two) times daily with meals. [facility] cyclobenzap rine 5 mg tablet 2022-10 00:00: 00 Yes [id number] 5mg Take 1 tablet by mouth every evening as needed for Muscle Spasms. [facility] fluocinonid e 0.05 % solution 2022-10 0 00:00: 00 Yes [id number] Apply to area(s) 2 (two) times daily. [facility] insulin lispro, human, 100 unit/mL injection 2022-10 0 00:00: 00 Yes [id number] 6U inject 6 Units under the skin 3 (three) times daily with meals. [facility] insulin lispro, human, 100 unit/mL injection 2022-10 0 00:00: 00 Yes [id number] Extra Humalog insulin If blood sugar before meal is higher than 140: Blood sugar 140 to 160, give 1 unit. Blood sugar 161 to 180, give 2 units. Blood sugar 181 to 200, give 3 units. Blood sugar 201 to 220, give 4 units. [facility] triamcinolo ne acetonide 0.1 % cream 2022-10 0 00:00: 00 Yes [id number] Apply to area(s) 2 (two) times daily. [facility] SITagliptin phosphate (JANUVIA) 25 mg tablet 2022-10 0 00:00: 00 Yes [id number] 25mg Take 1 tablet by mouth daily. [facility] Blood-Gluco se Meter (RELION PRIME METER) [facility] 0 00:00: 00 Yes [id number] Use as directed [facility] lancets 33 gauge [facility] [place]-10 0 00:00: 00 Yes [id number] Use as directed [facility] blood sugar diagnostic (RELION PRIME TEST STRIPS) strip 2022-10 0 00:00: 00 Yes [id number] Use as directed [facility] metFORMIN 1,000 mg tablet 2022-10 0 00:00: 00 Yes [id number] 1000mg Take 1 tablet by mouth 2 (two) times daily with meals. [facility] cyclobenzap rine 5 mg tablet 2022-10 0 00:00: 00 Yes [id number] 5mg Take 1 tablet by mouth every evening as needed for Muscle Spasms. [facility] fluocinonid e 0.05 % solution 2022-10 0 00:00: 00 Yes [id number] Apply to area(s) 2 (two) times daily. [facility] insulin lispro, human, 100 unit/mL injection 2022-10 005 00:00: 00 Yes [id number] 6U inject 6 Units under the skin 3 (three) times daily with meals. [facility] insulin lispro, human, 100 unit/mL injection 2022-10 0-05 00:00: 00 Yes [id number] Extra Humalog insulin If blood sugar before meal is higher than 140: Blood sugar 140 to 160, give 1 unit. Blood sugar 161 to 180, give 2 units. Blood sugar 181 to 200, give 3 units. Blood sugar 201 to 220, give 4 units. [facility] triamcinolo ne acetonide 0.1 % cream 2022-10 0 00:00: 00 Yes [id number] Apply to area(s) 2 (two) times daily. [facility] SITagliptin phosphate (JANUVIA) 25 mg tablet 2022-10 00:00: 00 Yes [id number] 25mg Take 1 tablet by mouth daily. [facility] Blood-Gluco se Meter (RELION PRIME METER) [facility] [place]10 00:00: 00 Yes [id number] Use as directed [facility] lancets 33 gauge [facility] [place]-10 00:00: 00 Yes [id number] Use as directed [facility] blood sugar diagnostic (RELION PRIME TEST STRIPS) strip 2022-10 00:00: 00 Yes [id number] Use as directed [facility] metFORMIN 1,000 mg tablet 2022-10 00:00: 00 Yes [id number] 1000mg Take 1 tablet by mouth 2 (two) times daily with meals. [facility] cyclobenzap rine 5 mg tablet 2022-10 00:00: 00 Yes [id number] 5mg Take 1 tablet by mouth every evening as needed for Muscle Spasms. [facility] fluocinonid e 0.05 % solution 2022-10 00:00: 00 Yes [id number] Apply to area(s) 2 (two) times daily. [facility] insulin lispro, human, 100 unit/mL injection 2022-10 0 00:00: 00 Yes [id number] 6U inject 6 Units under the skin 3 (three) times daily with meals. [facility] insulin lispro, human, 100 unit/mL injection 2022-10 0 00:00: 00 Yes [id number] Extra Humalog insulin If blood sugar before meal is higher than 140: Blood sugar 140 to 160, give 1 unit. Blood sugar 161 to 180, give 2 units. Blood sugar 181 to 200, give 3 units. Blood sugar 201 to 220, give 4 units. [facility] triamcinolo ne acetonide 0.1 % cream 2022-10 00:00: 00 Yes [id number] Apply to area(s) 2 (two) times daily. [facility] SITagliptin phosphate (JANUVIA) 25 mg tablet 2022-10 00:00: 00 Yes [id number] 25mg Take 1 tablet by mouth daily. [facility] Blood-Gluco se Meter (RELION PRIME METER) [facility] [place]-10 00:00: 00 Yes [id number] Use as directed [facility] lancets 33 gauge [facility] [place]22-10 00:00: 00 Yes [id number] Use as directed [facility] cyclobenzap rine 5 mg tablet 2022-10 00:00: 00 Yes [id number] 5mg Take 1 tablet by mouth every evening as needed for Muscle Spasms. [facility] blood sugar diagnostic (RELION PRIME TEST STRIPS) strip 2022-10 00:00: 00 Yes [id number] Use as directed [facility] metFORMIN 1,000 mg tablet 2022-10 00:00: 00 Yes [id number] 1000mg Take 1 tablet by mouth 2 (two) times daily with meals. [facility] cyclobenzap rine 5 mg tablet 2022-10 00:00: 00 Yes [id number] 5mg Take 1 tablet by mouth every evening as needed for Muscle Spasms. [facility] fluocinonid e 0.05 % solution 2022-10 00:00: 00 Yes [id number] Apply to area(s) 2 (two) times daily. [facility] insulin lispro, human, 100 unit/mL injection 2022-10 00:00: 00 Yes [id number] 6U inject 6 Units under the skin 3 (three) times daily with meals. [facility] insulin lispro, human, 100 unit/mL injection 2022-10 0 00:00: 00 Yes [id number] Extra Humalog insulin If blood sugar before meal is higher than 140: Blood sugar 140 to 160, give 1 unit. Blood sugar 161 to 180, give 2 units. Blood sugar 181 to 200, give 3 units. Blood sugar 201 to 220, give 4 units. [facility] fluocinonid e 0.05 % solution 2022-10 0 00:00: 00 Yes [id number] Apply to area(s) 2 (two) times daily. [facility] triamcinolo ne acetonide 0.1 % cream 2022-10 0 00:00: 00 Yes [id number] Apply to area(s) 2 (two) times daily. [facility] SITagliptin phosphate (JANUVIA) 25 mg tablet 2022-10 0 00:00: 00 Yes [id number] 25mg Take 1 tablet by mouth daily. [facility] Blood-Gluco se Meter (RELION PRIME METER) [facility] [place]-10 0 00:00: 00 Yes [id number] Use as directed [facility] lancets 33 gauge [facility] [place]22-10 0 00:00: 00 Yes [id number] Use as directed [facility] blood sugar diagnostic (RELION PRIME TEST STRIPS) strip 2022-10 0 00:00: 00 Yes [id number] Use as directed [facility] metFORMIN 1,000 mg tablet 2022-10 0 00:00: 00 Yes [id number] 1000mg Take 1 tablet by mouth 2 (two) times daily with meals. [facility] cyclobenzap rine 5 mg tablet 2022-10 0 00:00: 00 Yes [id number] 5mg Take 1 tablet by mouth every evening as needed for Muscle Spasms. [facility] fluocinonid e 0.05 % solution 2022-10 0 00:00: 00 Yes [id number] Apply to area(s) 2 (two) times daily. [facility] insulin lispro, human, 100 unit/mL injection 2022-10 00:00: 00 Yes [id number] 6U inject 6 Units under the skin 3 (three) times daily with meals. [facility] insulin lispro, human, 100 unit/mL injection 2022-10 00:00: 00 Yes [id number] Extra Humalog insulin If blood sugar before meal is higher than 140: Blood sugar 140 to 160, give 1 unit. Blood sugar 161 to 180, give 2 units. Blood sugar 181 to 200, give 3 units. Blood sugar 201 to 220, give 4 units. [facility] triamcinolo ne acetonide 0.1 % cream 2022-10 00:00: 00 Yes [id number] Apply to area(s) 2 (two) times daily. [facility] SITagliptin phosphate (JANUVIA) 25 mg tablet 2022-10 00:00: 00 Yes [id number] 25mg Take 1 tablet by mouth daily. [facility] Blood-Gluco se Meter (RELION PRIME METER) [facility] [place]-10 00:00: 00 Yes [id number] Use as directed [facility]ets [facility] 20[facility]10 00:00: 00 Yes [id number] Use as directed [facility] blood sugar diagnostic (RELION PRIME TEST STRIPS) strip 2022-10 00:00: 00 Yes [id number] Use as directed [facility] insulin lispro, human, 100 unit/mL injection 2022-10 00:00: 00 Yes [id number] 6U inject 6 Units under the skin 3 (three) times daily with meals. [facility] metFORMIN 1,000 mg tablet 2022-10 00:00: 00 Yes [id number] 1000mg Take 1 tablet by mouth 2 (two) times daily with meals. [facility] cyclobenzap rine 5 mg tablet 2022-10 00:00: 00 Yes [id number] 5mg Take 1 tablet by mouth every evening as needed for Muscle Spasms. [facility] fluocinonid e 0.05 % solution 2022-10 00:00: 00 Yes [id number] Apply to area(s) 2 (two) times daily. [facility] insulin lispro, human, 100 unit/mL injection 2022-10 0 00:00: 00 Yes [id number] 6U inject 6 Units under the skin 3 (three) times daily with meals. [facility] insulin lispro, human, 100 unit/mL injection 2022-10 0 00:00: 00 Yes [id number] Extra Humalog insulin If blood sugar before meal is higher than 140: Blood sugar 140 to 160, give 1 unit. Blood sugar 161 to 180, give 2 units. Blood sugar 181 to 200, give 3 units. Blood sugar 201 to 220, give 4 units. [facility] insulin lispro, human, 100 unit/mL injection 2022-10 00:00: 00 Yes [id number] Extra Humalog insulin If blood sugar before meal is higher than 140: Blood sugar 140 to 160, give 1 unit. Blood sugar 161 to 180, give 2 units. Blood sugar 181 to 200, give 3 units. Blood sugar 201 to 220, give 4 units. [facility] triamcinolo ne acetonide 0.1 % cream 2022-10 00:00: 00 Yes [id number] Apply to area(s) 2 (two) times daily. [facility] SITagliptin phosphate (JANUVIA) 25 mg tablet 2022-10 00:00: 00 Yes [id number] 25mg Take 1 tablet by mouth daily. [facility] Blood-Gluco se Meter (RELION PRIME METER) [facility] [place]-10 00:00: 00 Yes [id number] Use as directed [facility] lancets 33 gauge [facility] [place]22-10 0 00:00: 00 Yes [id number] Use as directed [facility] blood sugar diagnostic (RELION PRIME TEST STRIPS) strip 2022-10 0 00:00: 00 Yes [id number] Use as directed [facility] metFORMIN 1,000 mg tablet 2022-10 00:00: 00 Yes [id number] 1000mg Take 1 tablet by mouth 2 (two) times daily with meals. [facility] cyclobenzap rine 5 mg tablet 2022-10 00:00: 00 Yes [id number] 5mg Take 1 tablet by mouth every evening as needed for Muscle Spasms. [facility] triamcinolo ne acetonide 0.1 % cream 2022-10 00:00: 00 Yes [id number] Apply to area(s) 2 (two) times daily. [facility] fluocinonid e 0.05 % solution 2022-10 00:00: 00 Yes [id number] Apply to area(s) 2 (two) times daily. [facility] insulin lispro, human, 100 unit/mL injection 2022-10 00:00: 00 Yes [id number] 6U inject 6 Units under the skin 3 (three) times daily with meals. [facility] insulin lispro, human, 100 unit/mL injection 2022-10 00:00: 00 Yes [id number] Extra Humalog insulin If blood sugar before meal is higher than 140: Blood sugar 140 to 160, give 1 unit. Blood sugar 161 to 180, give 2 units. Blood sugar 181 to 200, give 3 units. Blood sugar 201 to 220, give 4 units. [facility] triamcinolo ne acetonide 0.1 % cream 2022-10 00:00: 00 Yes [id number] Apply to area(s) 2 (two) times daily. [facility] SITagliptin phosphate (JANUVIA) 25 mg tablet 2022-10 00:00: 00 Yes [id number] 25mg Take 1 tablet by mouth daily. [facility] Blood-Gluco se Meter (RELION PRIME METER) [facility] [place]-10 00:00: 00 Yes [id number] Use as directed [facility] lancets 33 gauge [facility] [place]22-10 00:00: 00 Yes [id number] Use as directed [facility] blood sugar diagnostic (RELION PRIME TEST STRIPS) strip 2022-10 00:00: 00 Yes [id number] Use as directed [facility] metFORMIN 1,000 mg tablet 2022-10 00:00: 00 Yes [id number] 1000mg Take 1 tablet by mouth 2 (two) times daily with meals. [facility] SITagliptin phosphate (JANUVIA) 25 mg tablet 2022-10 00:00: 00 Yes [id number] 25mg Take 1 tablet by mouth daily. [facility] cyclobenzap rine 5 mg tablet 2022-10 00:00: 00 Yes [id number] 5mg Take 1 tablet by mouth every evening as needed for Muscle Spasms. [facility] fluocinonid e 0.05 % solution 2022-10 00:00: 00 Yes [id number] Apply to area(s) 2 (two) times daily. [facility] insulin lispro, human, 100 unit/mL injection 2022-10 00:00: 00 Yes [id number] 6U inject 6 Units under the skin 3 (three) times daily with meals. [facility] insulin lispro, human, 100 unit/mL injection 2022-10 00:00: 00 Yes [id number] Extra Humalog insulin If blood sugar before meal is higher than 140: Blood sugar 140 to 160, give 1 unit. Blood sugar 161 to 180, give 2 units. Blood sugar 181 to 200, give 3 units. Blood sugar 201 to 220, give 4 units. [facility] triamcinolo ne acetonide 0.1 % cream 2022-10 00:00: 00 Yes [id number] Apply to area(s) 2 (two) times daily. [facility] SITagliptin phosphate (JANUVIA) 25 mg tablet 2022-10 00:00: 00 Yes [id number] 25mg Take 1 tablet by mouth daily. [facility] Blood-Gluco se Meter (RELION PRIME METER) [facility] [place]22-10 00:00: 00 Yes [id number] Use as directed [facility] Blood-Gluco se Meter (RELION PRIME METER) [facility] [place]22-10 0 00:00: 00 Yes [id number] Use as directed [facility] lancets 33 gauge [facility] [place]22-10 00:00: 00 Yes [id number] Use as directed [facility] blood sugar diagnostic (RELION PRIME TEST STRIPS) strip 2022-10 00:00: 00 Yes [id number] Use as directed [facility] metFORMIN 1,000 mg tablet 2022-10 00:00: 00 Yes [id number] 1000mg Take 1 tablet by mouth 2 (two) times daily with meals. [facility] cyclobenzap rine 5 mg tablet 2022-10 00:00: 00 Yes [id number] 5mg Take 1 tablet by mouth every evening as needed for Muscle Spasms. [facility] fluocinonid e 0.05 % solution 2022-10 00:00: 00 Yes [id number] Apply to area(s) 2 (two) times daily. [facility] lancets 33 gauge [facility] [place]22-10 00:00: 00 Yes [id number] Use as directed [facility] insulin lispro, human, 100 unit/mL injection 2022-10 00:00: 00 Yes [id number] 6U inject 6 Units under the skin 3 (three) times daily with meals. [facility] insulin lispro, human, 100 unit/mL injection 2022-10 00:00: 00 Yes [id number] Extra Humalog insulin If blood sugar before meal is higher than 140: Blood sugar 140 to 160, give 1 unit. Blood sugar 161 to 180, give 2 units. Blood sugar 181 to 200, give 3 units. Blood sugar 201 to 220, give 4 units. [facility] triamcinolo ne acetonide 0.1 % cream 2022-10 00:00: 00 Yes [id number] Apply to area(s) 2 (two) times daily. [facility] SITagliptin phosphate (JANUVIA) 25 mg tablet 2022-10 00:00: 00 Yes [id number] 25mg Take 1 tablet by mouth daily. [facility] Blood-Gluco se Meter (RELION PRIME METER) [facility] [place]22-10 00:00: 00 Yes [id number] Use as directed [facility] lancets 33 gauge Misc 2022-10 00:00: 00 Yes [id number] Use as directed [facility] blood sugar diagnostic (RELION PRIME TEST STRIPS) strip 2022-10 0 00:00: 00 Yes [id number] Use as directed [facility] metFORMIN 1,000 mg tablet 2022-10 00:00: 00 Yes [id number] 1000mg Take 1 tablet by mouth 2 (two) times daily with meals. [facility] blood sugar diagnostic (RELION PRIME TEST STRIPS) strip 2022-10 00:00: 00 Yes [id number] Use as directed [facility] cyclobenzap rine 5 mg tablet 2022-10 00:00: 00 Yes [id number] 5mg Take 1 tablet by mouth every evening as needed for Muscle Spasms. [facility] fluocinonid e 0.05 % solution 2022-10 00:00: 00 Yes [id number] Apply to area(s) 2 (two) times daily. [facility] insulin lispro, human, 100 unit/mL injection 2022-10 00:00: 00 Yes [id number] 6U inject 6 Units under the skin 3 (three) times daily with meals. [facility] insulin lispro, human, 100 unit/mL injection 2022-10 00:00: 00 Yes [id number] Extra Humalog insulin If blood sugar before meal is higher than 140: Blood sugar 140 to 160, give 1 unit. Blood sugar 161 to 180, give 2 units. Blood sugar 181 to 200, give 3 units. Blood sugar 201 to 220, give 4 units. [facility] triamcinolo ne acetonide 0.1 % cream 2022-10 00:00: 00 Yes [id number] Apply to area(s) 2 (two) times daily. [facility] SITagliptin phosphate (JANUVIA) 25 mg tablet 2022-10 00:00: 00 Yes [id number] 25mg Take 1 tablet by mouth daily. [facility] Blood-Gluco se Meter (RELION PRIME METER) [facility] [place] 0 00:00: 00 Yes [id number] Use as directed [facility] metFORMIN 1,000 mg tablet 2022-10 0 00:00: 00 Yes [id number] 1000mg Take 1 tablet by mouth 2 (two) times daily with meals. [facility] lancets 33 gauge [facility]10 0 00:00: 00 Yes [id number] Use as directed [facility] blood sugar diagnostic (RELION PRIME TEST STRIPS) strip 2022-10 0 00:00: 00 Yes [id number] Use as directed [facility] metFORMIN 1,000 mg tablet 2022-10 00:00: 00 Yes [id number] 1000mg Take 1 tablet by mouth 2 (two) times daily with meals. [facility] cyclobenzap rine 5 mg tablet 2022-10 00:00: 00 Yes [id number] 5mg Take 1 tablet by mouth every evening as needed for Muscle Spasms. [facility] fluocinonid e 0.05 % solution 2022-10 00:00: 00 Yes [id number] Apply to area(s) 2 (two) times daily. [facility] triamcinolo ne acetonide 0.1 % cream 2022-10 00:00: 00 Yes [id number] Apply to area(s) 2 (two) times daily. [facility] SITagliptin phosphate (JANUVIA) 25 mg tablet 2022-10 00:00: 00 Yes [id number] 25mg Take 1 tablet by mouth daily. [facility] Blood-Gluco se Meter (RELION PRIME METER) [facility] 0 00:00: 00 Yes [id number] Use as directed [facility] lancets 33 gauge [facility] [place]22-10 0 00:00: 00 Yes [id number] Use as directed [facility] blood sugar diagnostic (RELION PRIME TEST STRIPS) strip 2022-10 0 00:00: 00 Yes [id number] Use as directed [facility] metFORMIN 1,000 mg tablet 2022-10 0 00:00: 00 Yes [id number] 1000mg Take 1 tablet by mouth 2 (two) times daily with meals. [facility] cyclobenzap rine 5 mg tablet 2022-10 0 00:00: 00 Yes [id number] 5mg Take 1 tablet by mouth every evening as needed for Muscle Spasms. [facility] fluocinonid e 0.05 % solution 2022-10 0 00:00: 00 Yes [id number] Apply to area(s) 2 (two) times daily. [facility] triamcinolo ne acetonide 0.1 % cream 2022-10 0 00:00: 00 Yes [id number] Apply to area(s) 2 (two) times daily. [facility] SITagliptin phosphate (JANUVIA) 25 mg tablet 2022-10 0 00:00: 00 Yes [id number] 25mg Take 1 tablet by mouth daily. [facility] Blood-Gluco se Meter (REL[facility]IME METER) [facility] 00:00: 00 Yes [id number] Use as directed [facility] lancets [facility] gauge [facility] 0 00:00: 00 Yes [id number] Use as directed [facility] blood sugar diagnostic (RELION PRIME TEST STRIPS) strip 2022-10 0 00:00: 00 Yes [id number] Use as directed [facility] metFORMIN 1,000 mg tablet 2022-10 005 00:00: 00 Yes [id number] 1000mg Take 1 tablet by mouth 2 (two) times daily with meals. [facility] cyclobenzap rine 5 mg tablet 2022-10 0-05 00:00: 00 Yes [id number] 5mg Take 1 tablet by mouth every evening as needed for Muscle Spasms. [facility] fluocinonid e 0.05 % solution 2022-10 0-05 00:00: 00 Yes [id number] Apply to area(s) 2 (two) times daily. [facility] triamcinolo ne acetonide 0.1 % cream 2022-10 0 00:00: 00 Yes [id number] Apply to area(s) 2 (two) times daily. [facility] SITagliptin phosphate (JANUVIA) 25 mg tablet 2022-10 0 00:00: 00 Yes [id number] 25mg Take 1 tablet by mouth daily. [facility] Blood-Gluco se Meter (RELION PRIME METER) [facility] [place] 0 00:00: 00 Yes [id number] Use as directed [facility] lancets [facility] gauge [facility] [place]-10 0 00:00: 00 Yes [id number] Use as directed [facility] blood sugar diagnostic (RELION PRIME TEST STRIPS) strip 2022-10 0 00:00: 00 Yes [id number] Use as directed [facility] metFORMIN 1,000 mg tablet 2022-10 0 00:00: 00 Yes [id number] 1000mg Take 1 tablet by mouth 2 (two) times daily with meals. [facility] cyclobenzap rine 5 mg tablet 2022-10 00:00: 00 Yes [id number] 5mg Take 1 tablet by mouth every evening as needed for Muscle Spasms. [facility] fluocinonid e 0.05 % solution 2022-10 00:00: 00 Yes [id number] Apply to area(s) 2 (two) times daily. [facility] triamcinolo ne acetonide 0.1 % cream 2022-10 00:00: 00 Yes [id number] Apply to area(s) 2 (two) times daily. [facility] SITagliptin phosphate (JANUVIA) 25 mg tablet 2022-10 0 00:00: 00 Yes [id number] 25mg Take 1 tablet by mouth daily. [facility] lancets 33 gauge [facility] [place]22-10 0 00:00: 00 Yes [id number] Use as directed [facility] blood sugar diagnostic (RELION PRIME TEST STRIPS) strip 2022-10 0 00:00: 00 Yes [id number] Use as directed [facility] metFORMIN 1,000 mg tablet 2022-10 0 00:00: 00 Yes [id number] 1000mg Take 1 tablet by mouth 2 (two) times daily with meals. [facility] cyclobenzap rine 5 mg tablet 2022-10 0 00:00: 00 Yes [id number] 5mg Take 1 tablet by mouth every evening as needed for Muscle Spasms. [facility] fluocinonid e 0.05 % solution 2022-10 0 00:00: 00 Yes [id number] Apply to area(s) 2 (two) times daily. [facility] triamcinolo ne acetonide 0.1 % cream 2022-10 0 00:00: 00 Yes [id number] Apply to area(s) 2 (two) times daily. [facility] SITagliptin phosphate (JANUVIA) 25 mg tablet 2022-10 0 00:00: 00 Yes [id number] 25mg Take 1 tablet by mouth daily. [facility] lancets 33 gauge Misc 2022-10 0 00:00: 00 Yes [id number] Use as directed [facility] blood sugar diagnostic (RELION PRIME TEST STRIPS) strip 2022-10 0 00:00: 00 Yes [id number] Use as directed [facility] metFORMIN 1,000 mg tablet 2022-10 0 00:00: 00 Yes [id number] 1000mg Take 1 tablet by mouth 2 (two) times daily with meals. [facility] cyclobenzap rine 5 mg tablet 2022-10 0 00:00: 00 Yes [id number] 5mg Take 1 tablet by mouth every evening as needed for Muscle Spasms. [facility] fluocinonid e 0.05 % solution 2022-10 0 00:00: 00 Yes [id number] Apply to area(s) 2 (two) times daily. [facility] triamcinolo ne acetonide 0.1 % cream 2022-10 0 00:00: 00 Yes [id number] Apply to area(s) 2 (two) times daily. [facility] SITagliptin phosphate (JANUVIA) 25 mg tablet 2022-10 0 00:00: 00 Yes [id number] 25mg Take 1 tablet by mouth daily. [facility] lancets 33 gauge Misc 2022-10 0 00:00: 00 Yes [id number] Use as directed [facility] blood sugar diagnostic (RELION PRIME TEST STRIPS) strip 2022-10 0 00:00: 00 Yes [id number] Use as directed [facility] metFORMIN 1,000 mg tablet 2022-10 0 00:00: 00 Yes [id number] 1000mg Take 1 tablet by mouth 2 (two) times daily with meals. [facility] cyclobenzap rine 5 mg tablet 2022-10 00:00: 00 Yes [id number] 5mg Take 1 tablet by mouth every evening as needed for Muscle Spasms. [facility] fluocinonid e 0.05 % solution 2022-10 00:00: 00 Yes [id number] Apply to area(s) 2 (two) times daily. [facility] triamcinolo ne acetonide 0.1 % cream 2022-10 00:00: 00 Yes [id number] Apply to area(s) 2 (two) times daily. [facility] SITagliptin phosphate (JANUVIA) 25 mg tablet 2022-10 00:00: 00 Yes [id number] 25mg Take 1 tablet by mouth daily. [facility] lancets 33 gauge Misc 2022-10 0 00:00: 00 Yes [id number] Use as directed [facility] blood sugar diagnostic (RELION PRIME TEST STRIPS) strip 2022-10 0 00:00: 00 Yes [id number] Use as directed [facility] metFORMIN 1,000 mg tablet 2022-10 0 00:00: 00 Yes [id number] 1000mg Take 1 tablet by mouth 2 (two) times daily with meals. [facility] cyclobenzap rine 5 mg tablet 2022-10 0 00:00: 00 Yes [id number] 5mg Take 1 tablet by mouth every evening as needed for Muscle Spasms. [facility] fluocinonid e 0.05 % solution 2022-10 0 00:00: 00 Yes [id number] Apply to area(s) 2 (two) times daily. [facility] triamcinolo ne acetonide 0.1 % cream 2022-10 0 00:00: 00 Yes [id number] Apply to area(s) 2 (two) times daily. [facility] SITagliptin phosphate (JANUVIA) 25 mg tablet 2022-10 0 00:00: 00 Yes [id number] 25mg Take 1 tablet by mouth daily. [facility] lancets 33 gauge Misc 2022-10 00:00: 00 Yes [id number] Use as directed [facility] blood sugar diagnostic (RELION PRIME TEST STRIPS) strip 2022-10 0 00:00: 00 Yes [id number] Use as directed [facility] metFORMIN 1,000 mg tablet 2022-10 0 00:00: 00 Yes [id number] 1000mg Take 1 tablet by mouth 2 (two) times daily with meals. [facility] cyclobenzap rine 5 mg tablet 2022-10 00:00: 00 Yes [id number] 5mg Take 1 tablet by mouth every evening as needed for Muscle Spasms. [facility] fluocinonid e 0.05 % solution 2022-10 0 00:00: 00 Yes [id number] Apply to area(s) 2 (two) times daily. [facility] triamcinolo ne acetonide 0.1 % cream 2022-10 0 00:00: 00 Yes [id number] Apply to area(s) 2 (two) times daily. [facility] SITagliptin phosphate (JANUVIA) 25 mg tablet 2022-10 0 00:00: 00 Yes [id number] 25mg Take 1 tablet by mouth daily. [facility] lancets 33 gauge Misc 2022-10 0 00:00: 00 Yes [id number] Use as directed [facility] blood sugar diagnostic (RELION PRIME TEST STRIPS) strip 2022-10 0 00:00: 00 Yes [id number] Use as directed [facility] metFORMIN 1,000 mg tablet 2022-10 0 00:00: 00 Yes [id number] 1000mg Take 1 tablet by mouth 2 (two) times daily with meals. [facility] cyclobenzap rine 5 mg tablet 2022-10 0 00:00: 00 Yes [id number] 5mg Take 1 tablet by mouth every evening as needed for Muscle Spasms. [facility] fluocinonid e 0.05 % solution 2022-10 0 00:00: 00 Yes [id number] Apply to area(s) 2 (two) times daily. [facility] triamcinolo ne acetonide 0.1 % cream 2022-10 0 00:00: 00 Yes [id number] Apply to area(s) 2 (two) times daily. [facility] SITagliptin phosphate (JANUVIA) 25 mg tablet 2022-10 00:00: 00 Yes [id number] 25mg Take 1 tablet by mouth daily. [facility] lancets 33 gauge Misc 2022-10 0 00:00: 00 Yes [id number] Use as directed [facility] blood sugar diagnostic (RELION PRIME TEST STRIPS) strip 2022-10 0 00:00: 00 Yes [id number] Use as directed [facility] metFORMIN 1,000 mg tablet 2022-10 0 00:00: 00 Yes [id number] 1000mg Take 1 tablet by mouth 2 (two) times daily with meals. [facility] cyclobenzap rine 5 mg tablet 2022-10 0 00:00: 00 Yes [id number] 5mg Take 1 tablet by mouth every evening as needed for Muscle Spasms. [facility] fluocinonid e 0.05 % solution 2022-10 0 00:00: 00 Yes [id number] Apply to area(s) 2 (two) times daily. [facility] triamcinolo ne acetonide 0.1 % cream 2022-10 0 00:00: 00 Yes [id number] Apply to area(s) 2 (two) times daily. [facility] SITagliptin phosphate (JANUVIA) 25 mg tablet 2022-10 0 00:00: 00 Yes [id number] 25mg Take 1 tablet by mouth daily. [facility] lancets 33 gauge Misc 2022-10 0 00:00: 00 Yes [id number] Use as directed [facility] blood sugar diagnostic (RELION PRIME TEST STRIPS) strip 2022-10 0 00:00: 00 Yes [id number] Use as directed [facility] metFORMIN 1,000 mg tablet 2022-10 00:00: 00 Yes [id number] 1000mg Take 1 tablet by mouth 2 (two) times daily with meals. [facility] cyclobenzap rine 5 mg tablet 2022-10 00:00: 00 Yes [id number] 5mg Take 1 tablet by mouth every evening as needed for Muscle Spasms. [facility] fluocinonid e 0.05 % solution 2022-10 00:00: 00 Yes [id number] Apply to area(s) 2 (two) times daily. [facility] triamcinolo ne acetonide 0.1 % cream 2022-10 00:00: 00 Yes [id number] Apply to area(s) 2 (two) times daily. [facility] SITagliptin phosphate (JANUVIA) 25 mg tablet 2022-10 00:00: 00 Yes [id number] 25mg Take 1 tablet by mouth daily. [facility] lancets 33 gauge Misc 2022-10 0 00:00: 00 Yes [id number] Use as directed [facility] blood sugar diagnostic (RELION PRIME TEST STRIPS) strip 2022-10 0 00:00: 00 Yes [id number] Use as directed [facility] metFORMIN 1,000 mg tablet 2022-10 0 00:00: 00 Yes [id number] 1000mg Take 1 tablet by mouth 2 (two) times daily with meals. [facility] cyclobenzap rine 5 mg tablet 2022-10 0 00:00: 00 Yes [id number] 5mg Take 1 tablet by mouth every evening as needed for Muscle Spasms. [facility] fluocinonid e 0.05 % solution 2022-10 0 00:00: 00 Yes [id number] Apply to area(s) 2 (two) times daily. [facility] triamcinolo ne acetonide 0.1 % cream 2022-10 0 00:00: 00 Yes [id number] Apply to area(s) 2 (two) times daily. [facility] SITagliptin phosphate (JANUVIA) 25 mg tablet 2022-10 00:00: 00 Yes [id number] 25mg Take 1 tablet by mouth daily. [facility] lancets 33 gauge Misc 2022-10 00:00: 00 Yes [id number] Use as directed [facility] blood sugar diagnostic (RELION PRIME TEST STRIPS) strip 2022-10 00:00: 00 Yes [id number] Use as directed [facility] metFORMIN 1,000 mg tablet 2022-10 00:00: 00 Yes [id number] 1000mg Take 1 tablet by mouth 2 (two) times daily with meals. [facility] cyclobenzap rine 5 mg tablet 2022-10 00:00: 00 Yes [id number] 5mg Take 1 tablet by mouth every evening as needed for Muscle Spasms. [facility] fluocinonid e 0.05 % solution 2022-10 0 00:00: 00 Yes [id number] Apply to area(s) 2 (two) times daily. [facility] triamcinolo ne acetonide 0.1 % cream 2022-10 0 00:00: 00 Yes [id number] Apply to area(s) 2 (two) times daily. [facility] SITagliptin phosphate (JANUVIA) 25 mg tablet 2022-10 0 00:00: 00 Yes [id number] 25mg Take 1 tablet by mouth daily. [facility] lancets 33 gauge Misc 2022-10 0 00:00: 00 Yes [id number] Use as directed [facility] blood sugar diagnostic (RELION PRIME TEST STRIPS) strip 2022-10 0 00:00: 00 Yes [id number] Use as directed [facility] metFORMIN 1,000 mg tablet 2022-10 0- 00:00: 00 Yes [id number] 1000mg Take 1 tablet by mouth 2 (two) times daily with meals. [facility] cyclobenzap rine 5 mg tablet 2022-10 0 00:00: 00 Yes [id number] 5mg Take 1 tablet by mouth every evening as needed for Muscle Spasms. [facility] fluocinonid e 0.05 % solution 2022-10 0 00:00: 00 Yes [id number] Apply to area(s) 2 (two) times daily. [facility] triamcinolo ne acetonide 0.1 % cream 2022-10 0 00:00: 00 Yes [id number] Apply to area(s) 2 (two) times daily. [facility] SITagliptin phosphate (JANUVIA) 25 mg tablet 2022-10 0 00:00: 00 Yes [id number] 25mg Take 1 tablet by mouth daily. [facility] lancets 33 gauge Misc 2022-10 0 00:00: 00 Yes [id number] Use as directed [facility] blood sugar diagnostic (RELION PRIME TEST STRIPS) strip 2022-10 0 00:00: 00 Yes [id number] Use as directed [facility] metFORMIN 1,000 mg tablet 2022-10 0 00:00: 00 Yes [id number] 1000mg Take 1 tablet by mouth 2 (two) times daily with meals. [facility] cyclobenzap rine 5 mg tablet 2022-10 0 00:00: 00 Yes [id number] 5mg Take 1 tablet by mouth every evening as needed for Muscle Spasms. [facility] fluocinonid e 0.05 % solution 2022-10 0 00:00: 00 Yes [id number] Apply to area(s) 2 (two) times daily. [facility] triamcinolo ne acetonide 0.1 % cream 2022-10 0 00:00: 00 Yes [id number] Apply to area(s) 2 (two) times daily. [facility] SITagliptin phosphate (JANUVIA) 25 mg tablet 2022-10 0 00:00: 00 Yes [id number] 25mg Take 1 tablet by mouth daily. [facility] lancets 33 gauge Misc 2022-10 0 00:00: 00 Yes [id number] Use as directed [facility] blood sugar diagnostic (RELION PRIME TEST STRIPS) strip 2022-10 0 00:00: 00 Yes [id number] Use as directed [facility] metFORMIN 1,000 mg tablet 2022-10 0 00:00: 00 Yes [id number] 1000mg Take 1 tablet by mouth 2 (two) times daily with meals. [facility] cyclobenzap rine 5 mg tablet 2022-10 00:00: 00 Yes [id number] 5mg Take 1 tablet by mouth every evening as needed for Muscle Spasms. [facility] fluocinonid e 0.05 % solution 2022-10 0 00:00: 00 Yes [id number] Apply to area(s) 2 (two) times daily. [facility] triamcinolo ne acetonide 0.1 % cream 2022-10 00:00: 00 Yes [id number] Apply to area(s) 2 (two) times daily. [facility] SITagliptin phosphate (JANUVIA) 25 mg tablet 2022-10 0 00:00: 00 Yes [id number] 25mg Take 1 tablet by mouth daily. [facility] lancets 33 gauge Misc 2022-10 0 00:00: 00 Yes [id number] Use as directed [facility] blood sugar diagnostic (RELION PRIME TEST STRIPS) strip 2022-10 0 00:00: 00 Yes [id number] Use as directed [facility] metFORMIN 1,000 mg tablet 2022-10 0 00:00: 00 Yes [id number] 1000mg Take 1 tablet by mouth 2 (two) times daily with meals. [facility] cyclobenzap rine 5 mg tablet 2022-10 0 00:00: 00 Yes [id number] 5mg Take 1 tablet by mouth every evening as needed for Muscle Spasms. [facility] fluocinonid e 0.05 % solution 2022-10 0 00:00: 00 Yes [id number] Apply to area(s) 2 (two) times daily. [facility] triamcinolo ne acetonide 0.1 % cream 2022-10 0 00:00: 00 Yes [id number] Apply to area(s) 2 (two) times daily. [facility] SITagliptin phosphate (JANUVIA) 25 mg tablet 2022-10 0 00:00: 00 Yes [id number] 25mg Take 1 tablet by mouth daily. [facility] lancets 33 gauge Misc 2022-10 0 00:00: 00 Yes [id number] Use as directed [facility] blood sugar diagnostic (RELION PRIME TEST STRIPS) strip 2022-10 0 00:00: 00 Yes [id number] Use as directed [facility] metFORMIN 1,000 mg tablet 2022-10 0 00:00: 00 Yes [id number] 1000mg Take 1 tablet by mouth 2 (two) times daily with meals. [facility] cyclobenzap rine 5 mg tablet 2022-10 0 00:00: 00 Yes [id number] 5mg Take 1 tablet by mouth every evening as needed for Muscle Spasms. [facility] fluocinonid e 0.05 % solution 2022-10 0 00:00: 00 Yes [id number] Apply to area(s) 2 (two) times daily. [facility] triamcinolo ne acetonide 0.1 % cream 2022-10 0 00:00: 00 Yes [id number] Apply to area(s) 2 (two) times daily. [facility] SITagliptin phosphate (JANUVIA) 25 mg tablet 2022-10 0 00:00: 00 Yes [id number] 25mg Take 1 tablet by mouth daily. [facility] lancets 33 gauge Misc 2022-10 0 00:00: 00 Yes [id number] Use as directed [facility] blood sugar diagnostic (RELION PRIME TEST STRIPS) strip 2022-10 0 00:00: 00 Yes [id number] Use as directed [facility] metFORMIN 1,000 mg tablet 2022-10 0 00:00: 00 Yes [id number] 1000mg Take 1 tablet by mouth 2 (two) times daily with meals. [facility] cyclobenzap rine 5 mg tablet 2022-10 0 00:00: 00 Yes [id number] 5mg Take 1 tablet by mouth every evening as needed for Muscle Spasms. [facility] fluocinonid e 0.05 % solution 2022-10 00:00: 00 Yes [id number] Apply to area(s) 2 (two) times daily. [facility] triamcinolo ne acetonide 0.1 % cream 2022-10 00:00: 00 Yes [id number] Apply to area(s) 2 (two) times daily. [facility] SITagliptin phosphate (JANUVIA) 25 mg tablet 2022-10 00:00: 00 Yes [id number] 25mg Take 1 tablet by mouth daily. [facility] lancets 33 gauge Misc 2022-10 0 00:00: 00 Yes [id number] Use as directed [facility] blood sugar diagnostic (RELION PRIME TEST STRIPS) strip 2022-10 0 00:00: 00 Yes [id number] Use as directed [facility] metFORMIN 1,000 mg tablet 2022-10 0 00:00: 00 Yes [id number] 1000mg Take 1 tablet by mouth 2 (two) times daily with meals. [facility] cyclobenzap rine 5 mg tablet 2022-10 0 00:00: 00 Yes [id number] 5mg Take 1 tablet by mouth every evening as needed for Muscle Spasms. [facility] fluocinonid e 0.05 % solution 2022-10 0-05 00:00: 00 Yes [id number] Apply to area(s) 2 (two) times daily. [facility] triamcinolo ne acetonide 0.1 % cream 2022-10 0-05 00:00: 00 Yes [id number] Apply to area(s) 2 (two) times daily. [facility] SITagliptin phosphate (JANUVIA) 25 mg tablet 2022-10 0-05 00:00: 00 Yes [id number] 25mg Take 1 tablet by mouth daily. [facility] lancets 33 gauge [facility] [place] 0-05 00:00: 00 Yes [id number] Use as directed [facility] blood sugar diagnostic (RELION PRIME TEST STRIPS) strip 2022-10 0-05 00:00: 00 Yes [id number] Use as directed [facility] metFORMIN 1,000 mg tablet 2022-10 0-05 00:00: 00 Yes [id number] 1000mg Take 1 tablet by mouth 2 (two) times daily with meals. [facility] Blood-Gluco se Meter (RELION PRIME METER) [facility] [place] 0-05 00:00: 00 07-17 00:00 :00 No [id number] Use as directed [facility] Blood-Gluco se Meter (RELION PRIME METER) [facility] [place]22-10 0-05 00:00: 00 07-17 00:00 :00 No [id number] Use as directed [facility] insulin lispro, human, 100 unit/mL injection 2022-10 0-05 00:00: 00 07-16 00:00 :00 No [id number] 6U inject 6 Units under the skin 3 (three) times daily with meals. [facility] insulin lispro, human, 100 unit/mL injection 2022-10 0-05 00:00: 00 07-16 00:00 :00 No [id number] Extra Humalog insulin If blood sugar before meal is higher than 140: Blood sugar 140 to 160, give 1 unit. Blood sugar 161 to 180, give 2 units. Blood sugar 181 to 200, give 3 units. Blood sugar 201 to 220, give 4 units. [facility] insulin lispro, human, 100 unit/mL injection 2022-10 0-05 00:00: 00 07-16 00:00 :00 No [id number] 6U inject 6 Units under the skin 3 (three) times daily with meals. [facility] insulin lispro, human, 100 unit/mL injection 2022-10 0-05 00:00: 00 07-16 00:00 :00 No [id number] Extra Humalog insulin If blood sugar before meal is higher than 140: Blood sugar 140 to 160, give 1 unit. Blood sugar 161 to 180, give 2 units. Blood sugar 181 to 200, give 3 units. Blood sugar 201 to 220, give 4 units. [facility] insulin lispro, human, 100 unit/mL injection 2022-10 0-05 00:00: 00 07-16 00:00 :00 No [id number] 6U inject 6 Units under the skin 3 (three) times daily with meals. [facility] insulin lispro, human, 100 unit/mL injection 2022-10 0-05 00:00: 00 07-16 00:00 :00 No [id number] Extra Humalog insulin If blood sugar before meal is higher than 140: Blood sugar 140 to 160, give 1 unit. Blood sugar 161 to 180, give 2 units. Blood sugar 181 to 200, give 3 units. Blood sugar 201 to 220, give 4 units. [facility] cyclobenzap rine (FLEXERIL) tablet 5 mg 2022-10 0-04 21:45: 00 Yes 5mg 5 mg, Oral, QPMPRN, Starting on Fri07/09/23 at 1645, Until Discontinu ed, Routine, Muscle Spasms [facility] insulin glargine (LANTUS U-100) injection 15 Units 2022-10 0-04 18:45: 00 Yes 15U 15 Units, Subcutaneo us, DAILY, First dose (after last modificati on) on Fri07/09/23 at 1345, Until Discontinu ed, Routine [facility] insulin lispro (human) (HumaLOG U-100) injection 4 Units 2022-10 0-04 17:00: 00 Yes 4U 4 Units, Subcutaneo us, TID MEALS, First dose (after last modificati on) on Fri07/09/23 at 1200, Until Discontinu ed, Routine [facility] KCL (KLOR-CON M20) tablet 40 mEq 2022-10 004 13:45: 00 07-09 13:23 :00 No 40meq 40 mEq, Oral, ONCE, 1 dose, On Fri07/09/23 at 0845, Routine [facility] cyclobenzap rine (FLEXERIL) tablet 5 mg 2022-10 0 12:50: 32 07-09 21:42 :22 No 5mg 5 mg, Oral, TIDPRN, Starting on Fri07/09/23 at 0750, Until Fri07/09/23 at 1642, Routine, Muscle Spasms [facility] lactated ringers IV infusion 1,000 mL 2022-10 0 14:00: 00 07-09 21:42 :29 No 1000mL at 100 mL/hr, 1,000 mL, IV Infusion, CONTINUOUS , Starting on Fri07/08/23 at 0900, Until Fri07/09/23 at 1642, Routine [facility] insulin glargine (LANTUS U-100) injection 8 Units 2022-10 0-03 02:00: 00 07-09 16:44 :51 No 8U 8 Units, Subcutaneo us, QHS, First dose (after last modificati on) on Fri07/07/23 at 2100, Until Discontinu ed, Routine [facility] insulin lispro (human) (HumaLOG U-100) injection 2 Units 2022-10 0-02 17:00: 00 07-09 16:45 :16 No 2U 2 Units, Subcutaneo us, TID MEALS, First dose on Fri07/07/23 at 1200, Until Discontinu ed, Routine [facility] acetaminoph en (TYLENOL) tablet 650 mg 2022-10 0-02 13:58: 03 Yes 650mg 650 mg, Oral, Q8HPRN, Starting on Fri07/07/23 at 0858, Until Discontinu ed, Routine, Pain (scale 1-3), Temp > 38 C [facility] triamcinolo ne acetonide (TRIDERM) 0.1 % cream 2022-10 20:30: 00 Yes Topical, BID, First dose on Fri07/06/23 at 1530, Until Discontinu ed, Routine [facility] insulin glargine (LANTUS U-100) injection 8 Units 2022-10 16:09: 00 07-06 19:15 :00 No 8U 8 Units, Subcutaneo us, ONCE, 1 dose, On Fri07/06/23 at 1115, Routine [facility] KCL (KLOR-CON M20) tablet 20 mEq 2022-10 12:30: 00 07-06 13:10 :00 No 20meq 20 mEq, Oral, ONCE, 1 dose, On Fri07/06/23 at 0730, Routine [facility] lactated ringers IV infusion 1,000 mL 2022-10 11:45: 00 07-06 13:12 :00 No 1000mL at 999 mL/hr, 1,000 mL, Intravenou s, ONCE, 1 dose, On Fri07/06/23 at 0645, STAT [facility] vancomycin (VANCOCIN) 1,500 mg in NaCl 0.9% (NS) 500 mL VIAL-MATE IV piggyback 2022-10 06:15: 00 07-08 12:17 :10 No 15mg/kg 1,500 mg (rounded from 1,408.5 mg = 15 mg/kg ?93.9 kg), IV Piggyback, Q12H ABX, 6 doses, First dose on Fri07/06/23 at 0115, Last dose on Fri07/08/23 at 1315, Administer over 90 Minutes, 500 mL
R pauly for Anti-Infec tive: Empiric Therapy for Suspected Infection< br>Empiric Therapy Site: Blood
D uration of therapy: [address] [facility] ceFEPIme (MAXIPIME) 1,000 mg in NaCl 0.9% (NS) 100 mL MINI-BAG 2022-10 0 06:06: 00 07-08 10:05 :42 No 1000mg 1,000 mg, IV Piggyback, Q8H ABX, 9 doses, First dose (after last modificati on) on Fri07/06/23 at 0115, Last dose on Fri07/08/23 at 1715, Administer over 4 Hours, 100 mL
Reas on for Anti-Infec tive: Empiric Therapy for Suspected Infection< br>Empiric Therapy Site: Blood
D uration of therapy: 72 hours [facility] acetaminoph en (TYLENOL) tablet 650 mg 07-05 21:15: 00 07-05 21:20 :00 No 650mg 650 mg, Oral, ONCE, 1 dose, On 07/05/23 at 1615, Routine [facility] sennosides- docusate sodium (SENOKOT-S) 8.6-50 mg per tablet 1 tablet 07-05 14:00: 00 Yes 1{tbl} 1 tablet, Oral, DAILY, First dose on 07/05/23 at 0900, Until Discontinu ed, Routine [facility] NaCl 0.9% (NS) IV infusion 500 mL 07-05 13:45: 00 07-05 13:24 :00 No 500mL at 100 mL/hr, IV Infusion, ONCE, 1 dose, On [facility] 07/05/23 at 0845, Routine [facility] Sliding Scale Insulin - Lispro (HumaLOG) 07-05 13:00: 00 07-09 21:37 :23 No Subcutaneo us, TID MEALS+HS, First dose on Fri07/05/23 at 0800, Until Discontinu ed, Routine [facility] doxycycline hyclate (Vibramycin ) capsule 100 mg 07-05 11:00: 00 07-12 10:59 :00 No 100mg 100 mg, Oral, Q12HA2, 14 doses, First dose on Fri07/05/23 at 0600, Last dose on Fri07/11/23 at 1800, AMELIA
Re ason for Anti-Infec tive: Documented Infection< br>Documen brittnee Infection Site: Other
O ther site: liver
D uration of Therapy: 7 days [facility] ibuprofen (MOTRIN IB) tablet 200 mg 07-05 09:59: 39 Yes 200mg 200 mg, Oral, Q6HPRN, Starting on 07/05/23 at 0459, Until Discontinu ed, Routine, Pain (scale 1-3), Temp > 38.5 C [facility] lactulose (CEPHULAC) solution 15 mL 07-05 07:22: 38 07-09 21:42 :39 No 15mL 15 mL, Oral, TIDPRN, Starting on 07/05/23 at 0222, Until 07/09/23 at 1642, Routine, Constipati on, Encephalop hathy [facility] melatonin (MELATIN) tablet 3 mg 07-05 07:04: 24 Yes 3mg 3 mg, Oral, QHSPRN, Starting on 07/05/23 at 0204, Until Discontinu ed, Routine, Insomnia [facility] dextrose 10% (D10W) bolus infusion 250 mL 07-05 07:03: 19 Yes 250mL 250 mL, IV Infusion, PRN - SEE INSTRUCTIO NS, Administer over 60 Minutes, Other, If blood [...] blood glucose is < 80 mg/dL, repeat.
[facility] glucagon (GLUCAGEN DIAGNOSTIC KIT) injection 1 mg 07-05 07:03: 16 Yes 1mg 1 mg, Intramuscu lar, PRN, Starting on Fri07/05/23 at 0203, Until Discontinu ed, AMELIA, Blood Glucose < or = 70 mg/dL and patient is NPO, unable to swallow or has mental changes. [facility] ondansetron (ZOFRAN (PF)) injection 4 mg 07-05 04:45: 00 07-05 04:04 :00 No 4mg 4 mg, Slow IV Push, ONCE, 1 dose, On Fri07/04/23 at 2345, AMELIA [facility] iopamidol (ISOVUE 370-500 mL) injection 85 mL 07-05 01:20: 00 07-05 01:30 :00 No [id number] 85mL 85 mL, Intravenou s, ONCE, 1 dose, On Fri07/04/23 at 2030, Routine [facility] NaCl 0.9% (NS) bolus infusion 1,000 mL 07-05 01:00: 00 07-05 01:08 :00 No 1000mL at 999 mL/hr, 1,000 mL, IV Infusion, ONCE, 1 dose, On Fri07/04/23 at 2000, STAT [facility] TAKE 1 TABLET DAILY DIRECTED. 06-18 00:00: 00 No INJECT 10 UNITS BELOW THE SKIN DAILY START WITH 10 UNITS DAILY BEFORE DINNER. MONITOR BLOOD SUGAR BID. 06-17 00:00: 00 No TAKE 1 TABLET EVERY MORNING. 06-17 00:00: 00 No Dose Unknown 03-26 00:00: 00 No Dose Unknown 03-26 00:00: 00 No amlodipine 5 mg tablet 03-25 00:00: 00 No 1mg lisinopril 20 mg-hydrochl orothiazide 25 mg tablet 03-25 00:00: 00 No 1mg TAKE 1 TABLET DAILY DIRECTED. 03-25 00:00: 00 No Dose Unknown 03-25 00:00: 00 No Dose Unknown 03-25 00:00: 00 No ondansetron (ZOFRAN ODT) 4 mg disintegrat ing tablet 05-03 00:00: 00 Yes [id number] 4mg Take 1 tablet by mouth every 8 (eight) hours as needed for Nausea and Vomiting (N/V). [facility] ondansetron (ZOFRAN ODT) 4 mg disintegrat ing tablet 05-03 00:00: 00 Yes [id number] 4mg Take 1 tablet by mouth every 8 (eight) hours as needed for Nausea and Vomiting (N/V). [facility] ondansetron (ZOFRAN ODT) 4 mg disintegrat ing tablet 05-03 00:00: 00 Yes [id number] 4mg Take 1 tablet by mouth every 8 (eight) hours as needed for Nausea and Vomiting (N/V). [facility] ondansetron (ZOFRAN ODT) 4 mg disintegrat ing tablet 05-03 00:00: 00 Yes [id number] 4mg Take 1 tablet by mouth every 8 (eight) hours as needed for Nausea and Vomiting (N/V). [facility] ondansetron (ZOFRAN ODT) 4 mg disintegrat ing tablet 05-03 00:00: 00 Yes [id number] 4mg Take 1 tablet by mouth every 8 (eight) hours as needed for Nausea and Vomiting (N/V). [facility] ondansetron (ZOFRAN ODT) 4 mg disintegrat ing tablet 05-03 00:00: 00 Yes [id number] 4mg Take 1 tablet by mouth every 8 (eight) hours as needed for Nausea and Vomiting (N/V). [facility] ondansetron (ZOFRAN ODT) 4 mg disintegrat ing tablet 05-03 00:00: 00 Yes [id number] 4mg Take 1 tablet by mouth every 8 (eight) hours as needed for Nausea and Vomiting (N/V). [facility] ondansetron (ZOFRAN ODT) 4 mg disintegrat ing tablet 05-03 00:00: 00 Yes [id number] 4mg Take 1 tablet by mouth every 8 (eight) hours as needed for Nausea and Vomiting (N/V). [facility] ondansetron (ZOFRAN ODT) 4 mg disintegrat ing tablet 05-03 00:00: 00 Yes [id number] 4mg Take 1 tablet by mouth every 8 (eight) hours as needed for Nausea and Vomiting (N/V). [facility] ondansetron (ZOFRAN ODT) 4 mg disintegrat ing tablet 05-03 00:00: 00 Yes [id number] 4mg Take 1 tablet by mouth every 8 (eight) hours as needed for Nausea and Vomiting (N/V). [facility] ondansetron (ZOFRAN ODT) 4 mg disintegrat ing tablet 05-03 00:00: 00 Yes [id number] 4mg Take 1 tablet by mouth every 8 (eight) hours as needed for Nausea and Vomiting (N/V). [facility] ondansetron (ZOFRAN ODT) 4 mg disintegrat ing tablet 05-03 00:00: 00 Yes [id number] 4mg Take 1 tablet by mouth every 8 (eight) hours as needed for Nausea and Vomiting (N/V). [facility] ondansetron (ZOFRAN ODT) 4 mg disintegrat ing tablet 05-03 00:00: 00 Yes [id number] 4mg Take 1 tablet by mouth every 8 (eight) hours as needed for Nausea and Vomiting (N/V). [facility] ondansetron (ZOFRAN ODT) 4 mg disintegrat ing tablet 05-03 00:00: 00 Yes [id number] 4mg Take 1 tablet by mouth every 8 (eight) hours as needed for Nausea and Vomiting (N/V). [facility] ondansetron (ZOFRAN ODT) 4 mg disintegrat ing tablet 05-03 00:00: 00 Yes [id number] 4mg Take 1 tablet by mouth every 8 (eight) hours as needed for Nausea and Vomiting (N/V). [facility] ondansetron (ZOFRAN ODT) 4 mg disintegrat ing tablet 05-03 00:00: 00 Yes [id number] 4mg Take 1 tablet by mouth every 8 (eight) hours as needed for Nausea and Vomiting (N/V). [facility] ondansetron (ZOFRAN ODT) 4 mg disintegrat ing tablet 05-03 00:00: 00 Yes [id number] 4mg Take 1 tablet by mouth every 8 (eight) hours as needed for Nausea and Vomiting (N/V). [facility] ondansetron (ZOFRAN ODT) 4 mg disintegrat ing tablet 05-03 00:00: 00 Yes [id number] 4mg Take 1 tablet by mouth every 8 (eight) hours as needed for Nausea and Vomiting (N/V). [facility] ondansetron (ZOFRAN ODT) 4 mg disintegrat ing tablet 05-03 00:00: 00 Yes [id number] 4mg Take 1 tablet by mouth every 8 (eight) hours as needed for Nausea and Vomiting (N/V). [facility] ondansetron (ZOFRAN ODT) 4 mg disintegrat ing tablet 05-03 00:00: 00 Yes [id number] 4mg Take 1 tablet by mouth every 8 (eight) hours as needed for Nausea and Vomiting (N/V). [facility] ondansetron (ZOFRAN ODT) 4 mg disintegrat ing tablet 05-03 00:00: 00 Yes [id number] 4mg Take 1 tablet by mouth every 8 (eight) hours as needed for Nausea and Vomiting (N/V). [facility] ondansetron (ZOFRAN ODT) 4 mg disintegrat ing tablet 05-03 00:00: 00 Yes [id number] 4mg Take 1 tablet by mouth every 8 (eight) hours as needed for Nausea and Vomiting (N/V). [facility] ondansetron (ZOFRAN ODT) 4 mg disintegrat ing tablet 05-03 00:00: 00 Yes [id number] 4mg Take 1 tablet by mouth every 8 (eight) hours as needed for Nausea and Vomiting (N/V). [facility] ondansetron (ZOFRAN ODT) 4 mg disintegrat ing tablet 05-03 00:00: 00 Yes [id number] 4mg Take 1 tablet by mouth every 8 (eight) hours as needed for Nausea and Vomiting (N/V). [facility] ondansetron (ZOFRAN ODT) 4 mg disintegrat ing tablet 05-03 00:00: 00 Yes [id number] 4mg Take 1 tablet by mouth every 8 (eight) hours as needed for Nausea and Vomiting (N/V). [facility] ondansetron (ZOFRAN ODT) 4 mg disintegrat ing tablet 05-03 00:00: 00 Yes [id number] 4mg Take 1 tablet by mouth every 8 (eight) hours as needed for Nausea and Vomiting (N/V). [facility] ondansetron (ZOFRAN ODT) 4 mg disintegrat ing tablet 05-03 00:00: 00 Yes [id number] 4mg Take 1 tablet by mouth every 8 (eight) hours as needed for Nausea and Vomiting (N/V). [facility] ondansetron (ZOFRAN ODT) 4 mg disintegrat ing tablet 05-03 00:00: 00 Yes [id number] 4mg Take 1 tablet by mouth every 8 (eight) hours as needed for Nausea and Vomiting (N/V). [facility] ondansetron (ZOFRAN ODT) 4 mg disintegrat ing tablet 05-03 00:00: 00 Yes [id number] 4mg Take 1 tablet by mouth every 8 (eight) hours as needed for Nausea and Vomiting (N/V). [facility] ondansetron (ZOFRAN ODT) 4 mg disintegrat ing tablet 05-03 00:00: 00 Yes [id number] 4mg Take 1 tablet by mouth every 8 (eight) hours as needed for Nausea and Vomiting (N/V). [facility] ondansetron (ZOFRAN ODT) 4 mg disintegrat ing tablet 05-03 00:00: 00 Yes [id number] 4mg Take 1 tablet by mouth every 8 (eight) hours as needed for Nausea and Vomiting (N/V). [facility] ondansetron (ZOFRAN ODT) 4 mg disintegrat ing tablet 05-03 00:00: 00 Yes [id number] 4mg Take 1 tablet by mouth every 8 (eight) hours as needed for Nausea and Vomiting (N/V). [facility] ondansetron (ZOFRAN ODT) 4 mg disintegrat ing tablet 05-03 00:00: 00 Yes [id number] 4mg Take 1 tablet by mouth every 8 (eight) hours as needed for Nausea and Vomiting (N/V). [facility] ondansetron (ZOFRAN ODT) 4 mg disintegrat ing tablet 05-03 00:00: 00 Yes [id number] 4mg Take 1 tablet by mouth every 8 (eight) hours as needed for Nausea and Vomiting (N/V). [facility] ondansetron (ZOFRAN ODT) 4 mg disintegrat ing tablet 05-03 00:00: 00 Yes [id number] 4mg Take 1 tablet by mouth every 8 (eight) hours as needed for Nausea and Vomiting (N/V). [facility] ondansetron (ZOFRAN ODT) 4 mg disintegrat ing tablet 05-03 00:00: 00 Yes [id number] 4mg Take 1 tablet by mouth every 8 (eight) hours as needed for Nausea and Vomiting (N/V). [facility] ondansetron (ZOFRAN ODT) 4 mg disintegrat ing tablet 05-03 00:00: 00 Yes [id number] 4mg Take 1 tablet by mouth every 8 (eight) hours as needed for Nausea and Vomiting (N/V). [facility] ondansetron (ZOFRAN ODT) 4 mg disintegrat ing tablet 05-03 00:00: 00 Yes [id number] 4mg Take 1 tablet by mouth every 8 (eight) hours as needed for Nausea and Vomiting (N/V). [facility] ondansetron (ZOFRAN ODT) 4 mg disintegrat ing tablet 05-03 00:00: 00 Yes [id number] 4mg Take 1 tablet by mouth every 8 (eight) hours as needed for Nausea and Vomiting (N/V). [facility] ondansetron (ZOFRAN ODT) 4 mg disintegrat ing tablet 05-03 00:00: 00 Yes [id number] 4mg Take 1 tablet by mouth every 8 (eight) hours as needed for Nausea and Vomiting (N/V). [facility] ondansetron (ZOFRAN ODT) 4 mg disintegrat ing tablet 05-03 00:00: 00 Yes [id number] 4mg Take 1 tablet by mouth every 8 (eight) hours as needed for Nausea and Vomiting (N/V). [facility] ondansetron (ZOFRAN ODT) 4 mg disintegrat ing tablet 05-03 00:00: 00 Yes [id number] 4mg Take 1 tablet by mouth every 8 (eight) hours as needed for Nausea and Vomiting (N/V). [facility] ondansetron (ZOFRAN ODT) 4 mg disintegrat ing tablet 05-03 00:00: 00 Yes [id number] 4mg Take 1 tablet by mouth every 8 (eight) hours as needed for Nausea and Vomiting (N/V). [facility] ondansetron (ZOFRAN ODT) 4 mg disintegrat ing tablet 05-03 00:00: 00 Yes [id number] 4mg Take 1 tablet by mouth every 8 (eight) hours as needed for Nausea and Vomiting (N/V). [facility] ondansetron (ZOFRAN ODT) 4 mg disintegrat ing tablet 05-03 00:00: 00 Yes [id number] 4mg Take 1 tablet by mouth every 8 (eight) hours as needed for Nausea and Vomiting (N/V). [facility] Vital Signs Vital Name Observation Time Observation Value Comments S costainés Body weight 2023-08-20 17:28:00 90.855 kg [facility] BMI 2023-08-20 17:28:00 35.48 kg/m2 [facility] Systolic blood pressure 2023-08-01 20:15:00 131 mm[Hg] [facility] Diastolic blood pressure 2023-08-01 20:15:00 91 mm[Hg] [facility] Heart rate 2023-08-01 20:12:00 97 /min Unive [facility] Body height 2023-08-01 20:12:00 160 cm [facility] Body weight 2023-08-01 20:12:00 90.855 kg [facility] BMI 2023-08-01 20:12:00 35.48 kg/m2 [facility] Oxygen saturation in Arterial blood by Pulse oximetry 2023-08-01 20:12:00 97 /min [facility] Systolic blood pressure 2023-07-17 20:44:00 134 mm[Hg] [facility] Diastolic blood pressure 2023-07-17 20:44:00 95 mm[Hg] [facility] Heart rate 2023-07-17 20:44:00 98 /min Unive [facility] Body temperature 2023-07-17 20:44:00 37 Tatiana [facility] Respiratory rate 2023-07-17 20:44:00 22 /min [facility] Oxygen saturation in Arterial blood by Pulse oximetry 2023-07-17 20:44:00 97 /min [facility] Body weight 2023-07-17 12:29:00 91.173 kg [facility] BMI 2023-07-17 12:29:00 35.61 kg/m2 [facility] Body height 2023-07-17 11:20:00 160 cm [facility] Systolic blood pressure 2023-07-10 20:14:00 150 mm[Hg] [facility] Diastolic blood pressure 2023-07-10 20:14:00 89 mm[Hg] [facility] Heart rate 2023-07-10 20:14:00 75 /min Unive [facility] Body temperature 2023-07-10 20:14:00 36.11 Tatiana [facility] Respiratory rate 2023-07-10 20:14:00 17 /min [facility] Oxygen saturation in Arterial blood by Pulse oximetry 2023-07-10 20:14:00 92 /min [place] [facility] Body weight 2023-07-10 09:02:00 93.486 kg [facility] BMI 2023-07-10 09:02:00 36.51 kg/m2 [facility] Body height 2023-07-05 06:18:00 160 cm [facility] BP Systolic 2022-06-18 11:25:00 134 mm[Hg] BP [...] 18.00 /min Procedures Procedure Date / Time Performed Performing Clinician Source CONSENT/REFUSAL FOR DIAGNOSIS AND TREATMENT 2023-08-01 19:48:07 Doctor Unassigned, [place] [facility] POCT GLUCOSE (AUTOMATED) 2023-07-17 20:46:00 Claudia Abarca [facility] TRANSTHORACIC ECHO (TTE) COMPLETE 2023-07-17 18:51:30 Nathanael Jose [facility] POCT GLUCOSE (AUTOMATED) 2023-07-17 16:26:00 Claudia Abarca [facility] HB ECG ROUTINE & RHYTHM STRIP 2023-07-17 08:36:02 Aristides Peraza [facility] CT ABDOMEN PELVIS W CONTRAST 2023-07-17 07:24:00 Aristides Peraza [facility] CT CHEST PULMONARY ANGIOGRAM 2023-07-17 07:24:00 Aristides Peraza [facility] XR CHEST 1 VW 2023-07-17 06:16:06 Aristides Peraza [facility] LIPASE 2023-07-17 06:07:00 Aristides Peraza [facility] TROPONIN I 2023-07-17 06:07:00 Aristides Peraza [facility] COMP. METABOLIC PANEL ([id number]) 2023-07-17 06:07:00 Aristides Peraza [facility] CBC WITH DIFF 2023-07-17 06:07:00 Aristides Peraza [facility] D-DIMER 2023-07-17 06:07:00 Aristides Peraza [facility] URINALYSIS 2023-07-17 05:53:00 Aristides Peraza [facility] CONSENT/REFUSAL FOR DIAGNOSIS AND TREATMENT 2023-07-17 05:28:31 Doctor Unassigned, [place] [facility] POCT GLUCOSE (AUTOMATED) 2023-07-10 16:43:00 Ines Og [facility] POCT GLUCOSE (AUTOMATED) 2023-07-10 13:26:00 Ines Og [facility] MAGNESIUM 2023-07-10 09:23:00 [facility] HEPATIC FUNCTION PANEL ([id number]) (ALB,T.PRO,BILI T,BU/BC,ALT,AST,ALK PHOS) 2023-07-10 09:23:00 Florentino Be [facility] BASIC METABOLIC PANEL (NA, K, CL, CO2, GLUCOSE, BUN, CREATININE, CA) 2023-07-10 09:23:00 Fransisca Koehler [facility] CBC WITH DIFF 2023-07-10 09:23:00 Fransisca Koehler [facility] POCT GLUCOSE (AUTOMATED) 2023-07-10 09:00:00 Og, [facility] POCT GLUCOSE (AUTOMATED) 2023-07-10 04:48:00 Earle [facility] POCT GLUCOSE (AUTOMATED) 2023-07-10 01:28:00 Earle [facility] POCT GLUCOSE (AUTOMATED) 2023-07-09 22:06:00 Earle [facility] POCT GLUCOSE (AUTOMATED) 2023-07-09 19:49:00 Earle [facility] POCT GLUCOSE (AUTOMATED) 2023-07-09 16:51:00 Earle [facility] POCT GLUCOSE (AUTOMATED) 2023-07-09 13:06:00 Earle [facility] MAGNESIUM 2023-07-09 10:19:00 Tanja Ortiz [facility] HEPATIC FUNCTION PANEL ([id number]) (ALB,T.PRO,BILI T,BU/BC,ALT,AST,ALK PHOS) 2023-07-09 10:19:00 Theo Troncoso [facility] BASIC METABOLIC PANEL (NA, K, CL, CO2, GLUCOSE, BUN, CREATININE, CA) 2023-07-09 10:19:00 Theo Troncoso [facility] CBC WITH DIFF 2023-07-09 10:19:00 Theo Troncoso [facility] POCT GLUCOSE (AUTOMATED) 2023-07-09 04:15:00 Earle [facility] POCT GLUCOSE (AUTOMATED) 2023-07-09 01:54:00 Earle [facility] POCT GLUCOSE (AUTOMATED) 2023-07-08 22:05:00 Earle [facility] POCT GLUCOSE (AUTOMATED) 2023-07-08 17:38:00 Earle [facility] BLOOD CULTURE SCREEN 2023-07-08 16:38:00 Suhas Gao [facility] BLOOD CULTURE SCREEN 2023-07-08 16:26:00 Suhas Gao [facility] POCT GLUCOSE (AUTOMATED) 2023-07-08 13:16:00 Ines Og [facility] MAGNESIUM 2023-07-08 10:17:00 Tanja Ortiz [facility] FERRITIN SERUM 2023-07-08 10:17:00 [facility] 2023-07-08 10:17:00 Cari Gao [facility] HEPATIC FUNCTION PANEL ([id number]) (ALB,T.PRO,BILI T,BU/BC,ALT,AST,ALK PHOS) 2023-07-08 10:17:00 Zakia [facility] BASIC METABOLIC PANEL (NA, K, CL, CO2, GLUCOSE, BUN, CREATININE, CA) 2023-07-08 10:17:00 Zakia [facility] CBC WITH DIFF 2023-07-08 10:17:00 Tanja Ortiz [facility] POCT GLUCOSE (AUTOMATED) 2023-07-08 01:32:00 Og [facility] POCT GLUCOSE (AUTOMATED) 2023-07-07 22:51:00 Earle [facility] VANCOMYCIN TROUGH 2023-07-07 21:49:00 Zakia [facility] POCT GLUCOSE (AUTOMATED) 2023-07-07 16:43:00 Earle [facility] POCT GLUCOSE (AUTOMATED) 2023-07-07 13:37:00 Earle [facility] MAGNESIUM 2023-07-07 06:36:[address] [facility] HEPATIC FUNCTION PANEL ([id number]) (ALB,T.PRO,BILI T,BU/BC,ALT,AST,ALK PHOS) 2023-07-07 06:36:00 Zakia [facility] BASIC METABOLIC PANEL (NA, K, CL, CO2, GLUCOSE, BUN, CREATININE, CA) 2023-07-07 06:36:00 Zakia [facility] CBC WITH DIFF 2023-07-07 06:36:00 Fransisca Koehler [facility] POCT GLUCOSE (AUTOMATED) 2023-07-07 01:47:00 Earle [facility] POCT GLUCOSE (AUTOMATED) 2023-07-06 23:11:00 Earle [facility] DIFF CONSULT BY PATHOLOGIST 2023-07-06 19:55:00 Zakia [facility] CBC WITH DIFF 2023-07-06 19:55:00 Zakia [facility] MISCELLANEOUS SEND OUT TEST 2023-07-06 19:55:00 Tanja Ortiz [facility] DIFF CONSULT INTERPRETATION 2023-07-06 19:55:00 Zakia [facility] POCT GLUCOSE (AUTOMATED) 2023-07-06 18:11:00 Earle [facility] POCT GLUCOSE (AUTOMATED) 2023-07-06 13:24:00 Earle [facility] LACTIC ACID WHOLE BLOOD 2023-07-06 11:31:00 Leonard Gao [facility] QUANTIFERON-TB ASSAY 2023-07-06 11:30:00 Tayler Koehler [facility] QFT TB2 MINUS NIL 2023-07-06 11:30:00 Fransisca Koehler [facility] MAGNESIUM 2023-07-06 08:33:[address] [facility] HEPATIC FUNCTION PANEL (69508) (ALB,T.PRO,BILI T,BU/BC,ALT,AST,ALK PHOS) 2023-07-06 08:33:00 Tanja Ortiz [facility] BASIC METABOLIC PANEL (NA, K, CL, CO2, GLUCOSE, BUN, CREATININE, CA) 2023-07-06 08:33:00 [facility] WITH DIFF 2023-07-06 08:33:00 Fransisca Koehler [facility] POCT GLUCOSE (AUTOMATED) 2023-07-06 05:06:00 Earle [facility] POCT GLUCOSE (AUTOMATED) 2023-07-06 02:10:00 Earle [facility] DERMATOPATHOLOGY TISSUE EXAM 2023-07-06 00:00:00 Sanford Bustillos [facility] POCT GLUCOSE (AUTOMATED) 2023-07-05 22:42:00 Earle Ines [facility] CRYOGLOBULIN QUALITATIVE 2023-07-05 21:39:00 Fransisca Koehler [facility] MRSA / MSSA SCREEN BY PCR, NARES 2023-07-05 21:38:00 Fransisca Koehler [facility] POCT GLUCOSE (AUTOMATED) 2023-07-05 18:54:00 Earle Ines [facility] POCT GLUCOSE (AUTOMATED) 2023-07-05 15:06:00 Earle [facility] XR CHEST 2 VW 2023-07-05 10:22:07 [facility] RICHIE-RUIZ VIRUS BY QUANTITATIVE NAAT, PLASMA 2023-07-05 09:15:00 Sima [facility] OSMOLALITY URINE 2023-07-05 08:36:00 Sima [facility] SODIUM, URINE RANDOM 2023-07-05 08:36:00 Tayler Koehler [facility] HSV 1&2, VZV NAAT 2023-07-05 08:36:00 Sima [facility] LEGIONELLA AND STREPTOCOCCUS PNEUMONIAE URINARY ANTIGENS 2023-07-05 08:36:00 Tanja Ortiz [facility] OSMOLALITY, SERUM OR PLASMA 2023-07-05 08:15:00 [facility] TYPHUS FEVER AB, IGG 2023-07-05 08:15:00 Sima [facility] SYPHILIS IGG/IGM 2023-07-05 08:15:00 Fransisca Koehler [facility] WOLZP-CFFLOQ-WOUIPJTAF ABS 2023-07-05 08:11:00 Tg huber [facility] AMMONIA, PLASMA 2023-07-05 08:11:00 Leonard Gao [facility] CERULOPLASMIN 2023-07-05 08:11:00 Harmouch, [facility] C-REACTIVE PROTEIN 2023-07-05 08:11:00 Cari Gao [facility] HEPATIC FUNCTION PANEL (68796) (ALB,T.PRO,BILI T,BU/BC,ALT,AST,ALK PHOS) 2023-07-05 08:11:00 [facility] BASIC METABOLIC PANEL (NA, K, CL, CO2, GLUCOSE, BUN, CREATININE, CA) 2023-07-05 08:11:00 Sima [facility] LIPID PANEL (65492)(TOTAL CHOLESTEROL, TRIGLYCERIDES, HDL) 2023-07-05 08:11[facility] 2023-07-05 08:11:[address] [facility] DIFF CONSULT BY PATHOLOGIST 2023-07-05 08:11:00 [facility] CBC WITH DIFF 2023-07-05 08:11:00 Sima [facility] GLYCOSYLATED HEMOGLOBIN (A1C) 2023-07-05 08:11:00 Sima [facility] PROTHROMBIN TIME / INR 2023-07-05 08:11:00 [facility]TI-NUCLEAR ANTIBODY SCREEN 2023-07-05 08:11:00 Sima [facility] HEPATITIS B SURFACE ANTIBODY 2023-07-05 08:11:00 Sima [facility] HEPATITIS B SURFACE ANTIGEN 2023-07-05 08:11:00 Sima [facility] HCV ANTIBODY 2023-07-05 08:11:00 Sima [facility] HEPATITIS B CORE ANTIBODY IGM 2023-07-05 08:11:00 Sima [facility] ANCA SCREEN 2023-07-05 08:11:00 Fransisca Koehler [facility] HAV ANTIBODY (IGG AND IGM) 2023-07-05 08:11:00 Tg huber [facility] ANTI-NUCLEAR ANTIBODY TITER 2023-07-05 08:11:00 [facility] CMV BY QUANTITATIVE NAAT 2023-07-05 08:11:00 Sima [facility] DIFF CONSULT INTERPRETATION 2023-07-05 08:11:00 [facility] ANTI-NUCLEAR ANTIBODY-PATHOLOGIST INTERPRETATION 2023-07-05 08:11:00 [facility] BLOOD [facility] SCREEN 2023-07-05 08:10:00 Suhas Gao [facility] US ABDOMEN LIMITED WITH DOPPLER 2023-07-05 07:45:05 [facility] URINE DRUG (IMMUNOASSAY) - COMPREHENSIVE DRUG SCREEN 2023-07-05 01:51:00 Wilbur Bloom [facility] CT ABDOMEN PELVIS W CONTRAST 2023-07-05 01:29:11 Wilbur Bloom [facility] HB ECG ROUTINE & RHYTHM STRIP 2023-07-04 23:43:38 Wilbur Bloom [facility] CREATINE KINASE 2023-07-04 23:37:00 [facility]-04 23:37:00 Wilbur Bloom [facility] FERRITIN SERUM 2023-07-04 23:37:00 [facility] FREE T4 2023-07-04 23:37:00 Wilbur Bloom [facility] THYROID STIMULATING HORMONE 2023-07-04 23:37:00 Wilbur Bloom [facility] COMP. METABOLIC PANEL (57082) 2023-07-04 23:37:00 Wilbur Bloom [facility] SALICYLATE 2023-07-04 23:37:00 Wilbur Bloom [facility] CBC WITH DIFF 2023-07-04 23:37:00 Wilbur Bloom [facility] PROTHROMBIN TIME / INR 2023-07-04 23:37:00 Polo Bloom [facility] ACTIVATED PARTIAL THRMPLAS RUPAL 2023-07-04 23:37:00 Wilbur Bloom [facility] URINALYSIS 2023-07-04 23:37:[address] [facility] AC PANEL 21 + LACTIC ACID 2023-07-04 23:37:00 Wilbur Bloom [facility] HIV 1/2 AG-AB WITH REFLEX 2023-07-04 23:37:00 Leonard Gao [facility] POCT GLUCOSE (AUTOMATED) 2023-07-04 23:02:00 Bart Bloom [facility] CONSENT/REFUSAL FOR DIAGNOSIS AND TREATMENT 2023-07-04 22:45:55 Doctor Unassigned, Reiffton [facility] NOTICE OF PRIVACY PRACTICES 2023-07-04 22:45:34 Doctor Unassigned, [place]if[place]on [facility] HOSPITAL ADMISSION 2023-07-04 05:01:00 Doctor Un assigned, [place]if[place]on [facility] Plan of Care Planned Activity Planned Date Details Comments Source Goal Plan of Care Note [code = 09771-7] Goal Plan of Care Note [code = 56839-1] Goal Plan of Care Note [code = 87160-8] Goal Plan of Care Note [code = 18625-9] Goal Plan of Care Note [code = 71625-1] Goal Plan of Care Note [code = 94196-6] Goal Plan of Care Note [code = 58446-1] Goal Plan of Care Note [code = 54171-9] Encounters Start Date/Time End Date/Time Encounter Type Admission Type Attending [facility] Care Department Encounter ID Source 2023-12-24 00:00:00 2023-12-24 00:00:00 [facility] .840.114 350.1.13.10 4.2.7.2.686 [id number] [facility] 2023-12-24 00:00:00 2023-12-24 00:00:00 [facility] 1..840.114 350.1.13.10 4.2.7.2.686 [id number] [facility] 2023-12-24 00:00:00 2023-12-24 00:00:[address] [facility] 1..0.114 350.1.13.10 4.2.7.2.686 [id number] [facility] 2023-12-16 00:00:00 2023-12-16 00:00:00 Telephone Hellen Mendoza [facility] 1.2.840.114 350.1.13.10 4.2.7.2.686 [id number] [facility] 2023-12-03 16:45:00 2023-12-03 17:00:00 Type Mapper Visit [facility] Dusty Mariaelena [facility] 1.840.114 350.1.13.10 4.2.7.2.686 [id number] [facility] 2023-12-03 16:45:00 2023-12-03 16:45:00 Outpatient R MARIAELENA GORDON [facility] [id number] [facility] 2023-12-03 15:30:00 2023-12-03 16:07:02 Office Visit Hellen Mendoza Mariaelena Gordon [facility] 1.840.114 350.1.13.10 4.2.7.2.686 [id number] [facility] 2023-11-24 10:03:31 2023-11-24 10:03:31 Outpatient SFA SFA [id number] 0219 Erasmo Muñoz Jimmy 2023-10-27 00:00:00 2023-10-27 00:00:[address] [facility] 1.840.114 350.1.13.10 4.2.7.2.686 [id number] [facility] 2023-10-10 16:08:58 2023-10-10 16:08:58 Outpatient SFA SFA [id number] Erasmo Marquez 2023-09-06 12:15:30 2023-09-06 12:15:30 Outpatient SFA [facility] [id number] Erasmo Marquez 2023-08-21 00:00:00 2023-08-21 00:00:00 Telephone Tony Mayer [facility] 1..114 350.1.13.10 4.2.7.2.686 [id number] [facility] 2023-08-20 10:00:00 2023-08-20 10:15:00 Nurse Visit Paramjit, [facility] Nurse Visit Leonor Gutierrez [facility] 1.114 350.1.13.10 4.2.7.2.686 [id number] [facility] 2023-08-20 10:00:00 2023-08-20 10:00:00 Outpatient LEONOR CORONADO [facility] [id number] [facility] 2023-08-20 00:00:00 2023-08-20 00:00:00 Telephone [address] Cordova [facility] 1.114 350.1.13.10 4.2.7.2.686 [id number] [facility] 2023-08-14 00:00:00 2023-08-14 00:00:00 Telephone Tony Mayer [facility] 1..114 350.1.13.10 4.2.7.2.686 [id number] [facility] 2023 00:00:00 2023 00:00:00 Telephone Tony Mayer [facility] 1..114 350.1.13.10 4.2.7.2.686 [id number] [facility] 2023-08-12 00:00:00 2023-08-12 00:00:[address] [facility] 1.0.114 350.1.13.10 4.2.7.2.686 [id number] [facility] 2023-08-08 09:45:00 2023-08-08 10:48:20 Outpatient KIA AGGARWAL [facility] [id number] [facility] 2023-08-08 09:45:00 2023-08-08 10:48:20 Office Visit Hellen Mendoza Janice May [facility] 1.0.114 350.1.13.10 4.2.7.2.686 [id number] [facility] 2023-08-01 15:00:00 2023-08-01 16:22:15 Outpatient JEFFRY HOPPER [facility] [id number] [facility] 2023-08-01 15:00:00 2023-08-01 16:22:15 Office Visit Jeffry Briceño [facility] 1.0.114 350.1.13.10 4.2.7.2.686 [id number] [facility] 2023-08-01 00:00:00 2023-08-01 00:00:00 Orders Only Doctor Unassigned, Reiffton [facility] 1.2840.114 350.1.13.10 4.2.7.2.686 [id number] [facility] 2023-07-18 00:00:00 2023-07-18 00:00:00 Transition of Care Essie Wu 1.2840.114 350.1.13.10 4.2.7.2.686 [id number] [facility] 2023-07-17 00:34:00 2023-07-17 17:00:00 Inpatient X REBECA, NATHANAEL JOSE, [facility] [id number] [facility] 2023-07-17 00:34:00 2023-07-17 17:00:00 Hospital Encounter Aristides Peraza, Sharif Jose, [facility] 1.2.840.114 350.1.13.10 4.2.7.2.686 [id number] [facility] 2023-07-16 00:00:00 2023-07-16 00:00:00 Telephone [facility] 1.2.840.114 350.1.13.10 4.2.7.2.686 [id number] [facility] 2023-07-15 00:00:00 2023-07-15 00:00:00 Transition of Care Mariya Amador 1.2.840.114 350.1.13.10 4.2.7.2.686 [id number] [facility] 2023-07-14 00:00:00 2023-07-14 00:00:00 Telephone [facility] 1.2.840.114 350.1.13.10 4.2.7.2.686 [id number] [facility] 2023-07-14 00:00:00 2023-07-14 00:00:00 Transition of Care Mariya Amador PLAMARCUS 1.2.840.114 350.1.13.10 4.2.7.2.686 [id number] [facility] 2023-07-11 00:00:00 2023-07-11 00:00:00 Transition of Care Mariya Amador 1.2.840.114 350.1.13.10 4.2.7.2.686 [id number] [facility] 2023-07-11 00:00:00 2023-07-11 00:00:00 Telephone Tanja Ortiz [facility] 1.2.840.114 350.1.13.10 4.2.7.2.686 [id number] [facility] 2023-07-11 00:00:00 2023-07-11 00:00:00 Patient Secure Msg Doctor Unassigned, Reif[place]on [facility] 1.2.840.114 350.1.13.10 4.2.7.2.686 [id number] [facility] 2023-07-04 18:03:00 2023-07-10 18:34:00 Hospital Encounter Wilbur Bloom Thomas A Cintron, [facility] 1.2.840.114 350.1.13.10 4.2.7.2.686 [id number] [facility] 2023-07-04 18:03:00 2023-07-10 18:34:00 Inpatient X BRIDGER [facility] [id number] [facility] 2023-06-16 09:47:47 2023-06-16 09:47:47 Outpatient SFA [facility] [id number] Erasmo F Jimmy 2023-05-23 09:19:21 2023-05-23 09:19:21 Outpatient SFA [facility] [id number] Erasmo F Jimmy 2023-05-16 13:52:37 2023-05-16 13:52:37 Outpatient SFA [facility] [id number] Erasmo Muñoz Jimmy 2023-05-13 14:12:57 2023-05-13 14:12:57 Outpatient SFA [facility] [id number] Erasmo F Jimmy 2023-05-12 13:33:59 2023-05-12 13:33:59 Outpatient SFA [facility] [id number] Erasmo Marquez 2023-04-21 15:15:51 2023-04-21 15:15:51 Outpatient SFA [facility] [id number] Erasmo Marquez 2023-01-24 09:26:24 2023-01-24 09:26:24 Outpatient SFA [facility] [id number] Erasmo Marquez 2023-01-22 14:56:47 2023-01-22 14:56:47 Outpatient SFA [facility] [id number] Erasmo Marquez 2022-09-11 09:49:50 2022-09-11 09:49:50 Outpatient SFA [facility] [id number] Erasmo Marquez 2022 10:31:13 2022 10:31:13 Outpatient SFA [facility] 1108 Erasmo Marquez 2022-06-18 00:00:00 2022-06-18 00:00:00 Outpatient Visit [id number] 2020-05-04 00:00:00 2020-05-04 00:00:00 Letter (Out) [facility] 1.2.840.114 350.1.13.10 4.2.7.2.686 [id number] 2020-05-04 00:00:00 2020-05-04 00:00:00 Telephone [facility] 1.2.840.114 350.1.13.10 4.2.7.2.686 [id number] 2020-05-03 12:39:41 2020-05-03 15:13:00 Emergency Arabella Trimble [facility] 1.2.840.114 350.1.13.10 4.2.7.2.686 [id number] 2020-05-03 12:39:41 2020-05-03 12:39:41 Emergency X Arabella TRIMBLE [facility] ERT [id number] [facility] Results Test Description Test Time Test Comments Results Result Co mments Source CULTURE, URINE 2023-12-21 12:36:34 SPECIMEN NUMBER: [id number] CULTURE, URINE SPECIMEN NUMBER: [id number] SPECIMEN COMMENT: URINE SOURCE: URINE REPORT STATUS: FINAL ISOLATE NUMBER 1: ORGANISM: 12/20/2023 10-50,000 CFU/ML GRAM NEGATIVE BACILLI IDENTIFICATION: 12/21/2023 KLEBSIELLA PNEUMONIAE CONFIRMED POSITIVE EXTENDED-SPECTRUM BETA-LACTAMASE (ESBL). THESE ORGANISMS ARE UNIFORMLY RESISTANT TO ALL PENICILLINS, CEPHALOSPORINS AND AZTREONAM. ADDITIONAL OBSERVATIONS: 12/21/2023 10-50,000 CFU/ML UROGENITAL THERESA PRESENT NO COMMON PATHOGENS K. PNEUMONIAE ES AMOXI CILLIN/CA SENSITIVE <=8/4AMPICILLIN RESISTANT >16CEFAZOLIN RESISTANT >16CEFTRIAXONE RESISTANT >32CIPROFLOXACIN SENSITIVE <=1ERTAPENEM SENSITIVE <=0.5LEVOFLOXACIN SENSITIVE <=2MEROPENEM SENSITIVE <=1NITROFURANTOIN INTERMED 64PIP/TAZOBAC SENSITIVE <=16TETRACYCLINE RESISTANT >8TOBRAMYCIN SENSITIVE <=4TRIMETH/SULFA RESISTANT >2/38 NOTE: NUMBERS DISPLAYED REPRESENT MINIMUM INHIBITORY CONCENTRATION (OPAL) WHICH IS EXPRESSED IN MCG/ML. CULTURE, [id number] 12:11:49SPECIMEN NUMBER: [id number] CULTURE, URINE SPECIMEN NUMBER: [id number] SPECIMEN COMMENT: URINE SOURCE: URINE REPORT STATUS: FINAL ISOLATE NUMBER 1: ORGANISM: 11/26/2023 >100,000 CFU/ML GRAM NEGATIVE BACILLI IDENTIFICATION: 11/27/2023 KLEBSIELLA PNEUMONIAE CONFIRMED POSITIVE EXTENDED-SPECTRUM BETA-LACTAMASE (ESBL). THESE ORGANISMS ARE UNIFORMLY RESISTANT TO ALL PENICILLINS, CEPHALOSPORINS AND AZTREONAM. K. PNEUMONIAE ES AMOXICILLIN/CA SENSITIVE <=8/4AMPICILLIN RESISTANT >16CEFAZOLIN RESISTANT >16CEFTRIAXONE RESISTANT >32CIPROFLOXACIN SENSITIVE <=1ERTAPENEM SENSI TIVE <=0.5LEVOFLOXACIN SENSITIVE <=2MEROPENEM SENSITIVE <=1NITROFURANTOIN INTERMED 64PIP/TAZOBAC SENSITIVE <=16TETRACYCLINE RESISTANT >8TOBRAMYCIN SENSITIVE <=4TRIMETH/SULFA RESISTANT >2/ NOTE: NUMBERS DISPLAYED REPRESENT MINIMUM INHIBITORY CONCENTRATION (OPAL) WHICH IS EXPRESSED IN MCG/ML. UNLESS OTHERWISE INDICATED, ALL TESTING PERFORMED AT [facility] [employer] [address] [place] [address] PLANOGRAPH OPERATOR: JENA FAULKNER M.D. CLIA NUMBER [id number] [place]. [id number] 23:46:23* Test Item Value Reference Range Interpretation Comme nts CHOLESTEROL (test code = 2210) 161 MG/DL <200 TRIGLYCERIDES (test code = 2232) 139 MG/DL <150 HDL CHOLESTEROL (test code = 2220) 38 MG/DL >39 L CALC LDL CHOL (test code = 2237) 99 MG/DL <100 NOTE: CALCULATED LDL IS BASED ON JASMEET-AVENDAÑO METHOD WHICHINCLUDES ADJUSTABLE TRIGLYCERIDE:VLDL CHOLESTEROL RATIO.THIS FACTOR VARIES BY MEASURED TRIGLYCERIDE AND NON-HDLCHOLESTEROL CONCENTRATIONS WITH INCREASED CALCULATED LDL SEENIN HIGHER TRIGLYCERIDE OR LOWER NON-HDL SPECIMENS. FOR MOREINFORMATION, SEE CLIENT ANNOUNCEMENT AT [email or web address] RISK RATIO LDL/HDL (test code = 2238) 2.61 RATIO <3.22 UNLESS OTHERW ISE INDICATED, ALL TESTING PERFORMED AT [facility] [employer] [address] [place] [address] PLANOGRAPH OPERATOR: JENA FAULKNER M.D. CLIA NUMBER [id number] [place]. [id number] HEMOGLOBIN [id number] 02:57:35* Test Item Value Reference Range Interpretation Comme [facility] HEMOGLOBIN A1c (test code = 92127) 8.3 % 4.2-5.6 H [employer] GUIDELINES FOR HGB A1C: PREDIABETES/INCREASED RISK . . . . . . . 5.7-6.4% DIAGNOSIS OF DIABETES . . . . . . . . . >=6.5% WITH CONFIRMATION OR APPROPRIATE SYMPTOMS NOTE: ASSAY MAY BE AFFECTED BY HEMOGLOBINOPATHIES (SICKLE CELL ANEMIA, S-C DISEASE, OTHERS) OR ARTIFICIALLY LOWERED BY DECREASED RED CELL SURVIVAL (HEMOLYTIC ANEMIAS, BLOOD LOSS, ETC.). CONSIDER ALTERNATE TESTING OR LABORATORY CONSULTATION. POCT GLUCOSE (AUTOMATED)2023-07-17 21:07:12* Test Item Value Reference Range Interpretation Comme nts POCT GLU (test code = 9371101467) 231 mg/dL 70-110 H Lab Interpretation (test cod e = 48048-1) [facility] 21:02:47* Test Item Value Reference Range Interpretation Comme nts Height (test code = 0334138341) 63 in Weight (test code = 2745725546) 201 lbs Systolic BP (test code = 2272684621) 142 mmHg Diastolic BP (test code = 2910236573) 98 mmHg Heart Rate (test code = 0123781809) 91 bpm BSA (test code = 9697695402) 1.94 m2 IVS (test code = 1154028041) 1.05 cm Interventricular Septum Diastolic Thickness by 2D (test code = 6546518) 1.05 cm LVIDD (test code = 5059825928) 3.90 cm Left Ventricular End Diastolic Volume by Teichholz Method (test code = 1620076) 65.6 mL LVPWD (test code = 4947922677) 1.05 cm PW (test code = 6294036533) 1.05 cm 0.6-1.1 EF(Teich) (test code = 8909789529) 81.20 % LVIDS (test code = 5004361991) 1.97 cm Left Ventricular End Systolic Volume by Teichholz Method (test code = 1714667) 12.3 mL FS (test code = 0952571055) 49 % EF - 2D (test code = 89637287) 81.20 % LVOT diameter (test code = 6332192996) 1.94 cm LVOT area (test code = 6784788531) 3.00 cm2 Ao root diam (test code = 1559928816) 2.90 cm Aortic root (test code = 5720623405) 2.9 cm Ao root annulus (test code = 7508781387) 2.9 cm LA size (test code = 6168463010) 4.1 cm LAV(MOD-sp4) (test code = 1203087586) 66.10 mL MV Peak E Raymond (test code = 9410485379) 56.9 cm/s MV Peak A Raymond (test code = 0110158620) 83.3 cm/s E/A ratio (test code = 3592797156) 0.68 ratio MV valve area p 1/2 method (test code = 7494409721) 4.30 cm2 MV dec slope (test code = 4278107265) 331.40 cm/s2 MV P1/2t max raymond (test code = 3844974860) 57.40 cm/s MV Prop V (test code = 9141335606) 58.60 cm/s Tapse (test code = 7836745946) 2.11 cm LVOT stroke volume (test code = 1782796196) 67.40 cm3 LVOT peak raymond (test code = 8980809295) 122.8 cm/s LVOT mn grad (test code = 9783398796) 2.9 mmHg AV LVOT peak gradient (test code = 1875210971) 6.0 mmHg LVOT peak VTI (test code = 7102891819) 22.8 cm LV V1 mean (test code = 1411072456) 79.40 cm/s Aortic valve mean velocity (test code = 9470765972) 93.9 cm/s Ao peak raymond (test code = 8697211564) 145.5 cm/s Ao VTI (test code = 8730780999) 22.8 cm AV area by cont VTI (test code = 4953985033) 3.0 cm2 AV area peak raymond (test code = 9861960321) 2.5 cm2 Ao max PG (test code = 2062378984) 8.50 mm[Hg] AV peak gradient (test code = 6018898449) 8.5 mmHg AV valve area (test code = 5168590700) 3.00 cm2 AV mean gradient (test code = 5770281647) 4.1 mmHg LA Volume Index (BP) (test code = 3294715526) 35.6 mL/m2 LA volume (BP) (test code = 2952171865) 68.9 mL LAV(MOD-sp2) (test code = 5161852528) 68.50 mL Radiology Study observation (narrative) (test code = 56784-0) BERT (test code = BERT) ?Left?Ventricle: Left [...] sized annulus, sinus of Valsalva and ascending aorta.PericardiumEvide nce of epicardial fat. Small circumferential pericardial effusion present. No indication of cardiac tamponade.Study DetailsStudy quality was adequate. A complete echocardiogram was performed using 2D, color flow Doppler and spectral Doppler. Patient exhibited sinus rhythm[facility] 16:37:49* Test Item Value Reference Range Interpretation Comme nts POCT GLU (test code = 0643299281) 331 mg/dL 70-110 H Lab Interpretation (test cod e = 17726-3) [facility][id number] 07:23:33* Test Item Value Reference Range Interpretation Comments D-DIMER (test code = 4853371087) 4.50 See_Comment H [Automated message] The system which generated this result transmitted reference range: <0.41 ?g/mL (FEU). The reference range was not used to interpret this result as normal/abnormal. BERT (test code = BERT) This test may be used in conjunction with a clinical pretest [...] context, in forming a diagnosis. Lab Interpretation (test code = 97372-9) Abnormal [facility] WITH [id number] 07:11:17* Test Item Value Reference Range Interpretation Comme nts WBC (test code = 6690-2) 9.03 See_Comment [Automated [employer]] The system which generated this result transmitted reference range: 4.30 - 11.10 10*3/?L. The reference range was not used to interpret this result as normal/abnormal. RBC (test code = 789-8) 4.32 See_Comment [Automated [employer]] The system which generated this result transmitted reference range: 3.93 - 5.25 10*6/?L. The reference range was not used to interpret this result as normal/abnormal. HGB (test code = 718-7) 12.4 g/dL 11.6-15.0 HCT (test code = 4544-3) 37.6 % 35.7-45.2 MCV (test code = 787-2) 87.0 fL 80.6-95.5 MCH (test code = 785-6) 28.7 pg 25.9-32.8 MCHC (test code = 786-4) 33.0 g/dL 31.6-35.1 RDW-SD (test code = 98593-9) 39.3 fL 39.0-49.9 RDW-CV (test code = 788-0) 12.2 % 12.0-15.5 PLT (test code = 777-3) 281 See_Comment [Automated [employer]] The system which generated this result transmitted reference range: 166 - 358 10*3/?L. The reference range was not used to interpret this result as normal/abnormal. MPV (test code = 73951-2) 10.7 fL 9.5-12.9 IPF % (test code = 1731931652) 3.0 % 1.3-7.7 Platelet count measured by fluorescence method. NRBC/100 WBC (test code = 4736113489) 0.3 See_Comment [Automated [employer]age] The system which generated this result transmitted reference range: 0.0 - 10.0 /100 WBCs. The reference range was not used to interpret this result as normal/abnormal. NRBC x10^3 (test code = 4236994382) 0.03 See_Comment [Automated [employer]] The system which generated this result transmitted reference range: 10*3/?L. The reference range was not used to interpret this result as normal/abnormal. GRAN MAT (NEUT) % (test code = 770-8) 55.7 % IMM GRAN % (test code = 7406309117) 0.90 % LYMPH % (test code = 736-9) 29.7 % MONO % (test code = 5905-5) 9.9 % EOS % (test code = 713-8) 2.7 % BASO % (test code = 706-2) 1.1 % GRAN MAT x10^3(ANC) (test code = 4309029240) 5.04 10*3/uL 1.88-7.09 IMM GRAN x10^3 (test code = 7908819985) 0.08 10*3/uL 0.00-0.06 H LYMPH x10^3 (test code = 731-0) 2.68 10*3/uL 1.32-3.29 MONO x10^3 (test code = 742-7) 0.89 10*3/uL 0.33-0.92 EOS x10^3 (test code = 711-2) 0.24 10*3/uL 0.03-0.39 BASO x10^3 (test code = 704-7) 0.10 10*3/uL 0.01-0.07 H PLT ESTIMATE (test code = 9317-9) Normal Normal Lab Interpretation (test code = 22275-2) [facility] [id number] 06:59:29* Test Item Value Reference Range Interpretation Comme nts TROPONIN I (test code = 0944048782) 0.002 ng/mL <=0.034 BERT (test code = BERT) Reference (Normal) [...] patient's use of biotin. Lab Interpretation (test code = 46698-5) Normal [facility] RockCOMP. METABOLIC PANEL (84740)2023-07-17 06:47:48* Test Item Value Reference Range Interpretation Comme nts NA (test code = 5524867923) 132 mmol/L 135-145 L K (test code = 2183813816) 4.2 mmol/L 3.5-5.0 CL (test code = 4968997279) 95 mmol/L 98-108 L CO2 TOTAL (test code = 8200058873) 24 mmol/L 23-31 AGAP (test code = 7998730971) 13 2-16 BUN (test code = 0367389911) 12 mg/dL 7-23 GLUCOSE (test code = 2803193876) 228 mg/dL 70-110 H CREATININE (test code = 3854012801) 0.68 mg/dL 0.50-1.04 TOTAL BILI (test code = 7101803021) 0.7 mg/dL 0.1-1.1 CALCIUM (test code = 4055035067) 9.0 mg/dL 8.6-10.6 T PROTEIN (test code = 9643821838) 7.6 g/dL 6.3-8.2 ALBUMIN (test code = 4069051581) 3.5 g/dL 3.5-5.0 ALK PHOS (test code = 8737057713) 153 U/L 34-122 H ALTv (test code = 1742-6) 74 U/L 5-35 H AST(SGOT) (test code = 0997610629) 39 U/L 13-40 eGFR (test code = 6255303467) 91.2 mL/min/1.73m2 BERT (test code = BERT) Association of [...] or abnormalities in imaging tests). Lab Interpretation (test code = 77184-0) [facility] 06:47:28* Test Item Value Reference Range Interpretation Comme nts LIPASE (test code = 7595091469) 643 U/L 0-220 H Lab Interpretation (test cod e = 05714-1) [facility]normal [facility] RockHEPAT[facility] FUNCTION PANEL (37664) (ALB,T.PRO,BILI T,BU/BC,ALT,AST,ALK PHOS)2023-07-10 17:06:32* Test Item Value Reference Range Interpretation Comme nts TOTAL BILI (test code = 8976401408) 0.6 mg/dL 0.1-1.1 BILI UNCON (test code = 4851649592) 0.4 mg/dL 0.1-1.1 BILI CONJ (test code = 4760548965) 0.0 mg/dL 0.0-0.3 T PROTEIN (test code = 8369888017) 5.9 g/dL 6.3-8.2 L ALBUMIN (test code = 9285149541) 2.7 g/dL 3.5-5.0 L ALK PHOS (test code = 8526018824) 156 U/L 34-122 H ALTv (test code = 1742-6) 283 U/L 5-35 H AST(SGOT) (test code = 5387721834) 82 U/L 13-40 H Lab Interpretation (test cod e = 66081-0) Abnormal [facility] GLUCOSE (AUTOMATED)2023-07-10 16:45:42* Test Item Value Reference Range Interpretation Comme nts POCT GLU (test code = 0229309041) 256 mg/dL 70-110 H Lab Interpretation (test cod e = 13288-8) Abnormal [facility] GLUCOSE (AUTOMATED)2023-07-10 13:36:59* Test Item Value Reference Range Interpretation Comme nts POCT GLU (test code = 3540025470) 182 mg/dL 70-110 H Lab Interpretation (test cod e = 48684-0) Abnormal [facility] WITH [id number] 10:34:19* Test Item Value Reference Range Interpretation Comme nts WBC (test code = 6690-2) 5.73 See_Comment [Automated messa ge] The system which generated this result transmitted reference range: 4.30 - 11.10 10*3/?L. The reference range was not used to interpret this result as normal/abnormal. RBC (test code = 789-8) 3.91 See_Comment L [Automated messa ge] The system which generated this result transmitted reference range: 3.93 - 5.25 10*6/?L. The reference range was not used to interpret this result as normal/abnormal. HGB (test code = 718-7) 11.0 g/dL 11.6-15.0 L HCT (test code = 4544-3) 33.0 % 35.7-45.2 L MCV (test code = 787-2) 84.4 fL 80.6-95.5 MCH (test code = 785-6) 28.1 pg 25.9-32.8 MCHC (test code = 786-4) 33.3 g/dL 31.6-35.1 RDW-SD (test code = 12101-4) 36.9 fL 39.0-49.9 L RDW-CV (test code = 788-0) 12.0 % 12.0-15.5 PLT (test code = 777-3) 217 See_Comment [Automated messa ge] The system which generated this result transmitted reference range: 166 - 358 10*3/?L. The reference range was not used to interpret this result as normal/abnormal. MPV (test code = 26266-1) 10.1 fL 9.5-12.9 NRBC/100 WBC (test code = 4564540334) 0.0 See_Comment [Automated [employer] ssage] The system which generated this result transmitted reference range: 0.0 - 10.0 /100 WBCs. The reference range was not used to interpret this result as normal/abnormal. NRBC x10^3 (test code = 6839766229) See_Comment [Automated CFO[employer]coma ge] The system which generated this result transmitted reference range: 10*3/?L. The reference range was not used to interpret this result as normal/abnormal. GRAN MAT (NEUT) % (test code = 770-8) 63.9 % IMM GRAN % (test code = 7531480914) 1.20 % LYMPH % (test code = 736-9) 23.4 % MONO % (test code = 5905-5) 8.7 % EOS % (test code = 713-8) 1.9 % BASO % (test code = 706-2) 0.9 % GRAN MAT x10^3(ANC) (test code = 1270617975) 3.66 10*3/uL 1.88-7.09 IMM GRAN x10^3 (test code = 0382550890) 0.07 10*3/uL 0.00-0.06 H LYMPH x10^3 (test code = 731-0) 1.34 10*3/uL 1.32-3.29 MONO x10^3 (test code = 742-7) 0.50 10*3/uL 0.33-0.92 EOS x10^3 (test code = 711-2) 0.11 10*3/uL 0.03-0.39 BASO x10^3 (test code = 704-7) 0.05 10*3/uL 0.01-0.07 BANDS (test code = 8786845823) Increased A REACT LYMPHS (test code = 8427745590) Rare Lab Interpretation (test code = 58371-7) Abnormal [facility] METABOLIC PANEL (NA, K, CL, CO2, GLUCOSE, BUN, CREATININE, CA)2023-07-10 10:15:08* Test Item Value Reference Range Interpretation Comme nts NA (test code = 3762303775) 132 mmol/L 135-145 L K (test code = 1538216209) 3.8 mmol/L 3.5-5.0 CL (test code = 1975432467) 97 mmol/L 98-108 L CO2 TOTAL (test code = 3700952128) 28 mmol/L 23-31 AGAP (test code = 4065339775) 7 2-16 BUN (test code = 9327962116) 7 mg/dL 7-23 GLUCOSE (test code = 3920635559) 197 mg/dL 70-110 H CREATININE (test code = 9891946023) 0.36 mg/dL 0.50-1.04 L CALCIUM (test code = 8947573169) 7.9 mg/dL 8.6-10.6 L eGFR (test code = 6301239477) 190.0 mL/min/1.73m2 BERT (test code = BERT) Association of [...] or abnormalities in imaging tests). Lab Interpretation (test code = 14720-1) [facility]normal [facility]2023-10-05 10:15:08* Test Item Value Reference Range Interpretation Comme nts MAGNESIUM (test code = 8354708317) 2.0 mg/dL 1.7-2.4 Lab Interpretation (test cod e = 55197-7) Normal [facility] RockBLOOD CULTURE [id number] 10:01:57* Test Item Value Reference Range Interpretation Comme nts Blood Culture-Aerobic (test code = 59858-0) No organisms isolated No growth Previous preliminary verified result was Culture In Progress on 07/05/2023 at 0801 CDTPrevious preliminary verified result was No growth at 24 hours on 07/06/2023 at 0501 CDTPrevious preliminary verified result was No growth at 48 hours on 07/07/2023 at 0501 CDTPrevious preliminary verified result was No growth at 72 hours on 07/08/2023 at 0501 CDT Blood Culture-Anaerobic (test code = 58601-9) No organisms isolated No growth Previous preliminary verified result was Culture In Progress on 07/05/2023 at 0801 CDTPrevious preliminary verified result was No growth at 24 hours on 07/06/2023 at 0501 CDTPrevious preliminary verified result was No growth at 48 hours on 07/07/2023 at 0501 CDTPrevious preliminary verified result was No growth at 72 hours on 07/08/2023 at 0501 CDT Lab Interpretation (test code = 83191-0) Normal [facility] GLUCOSE (AUTOMATED)2023-07-10 09:06:49* Test Item Value Reference Range Interpretation Comme nts POCT GLU (test code = 3802527060) 182 mg/dL 70-110 H Lab Interpretation (test cod e = 74024-8) [facility]normal [facility] RockLIVER-KIDNEY-MICROSOME [id number] 05:12:25 * Test Item Value Reference Range Interpretation Comme nts Rkyfm-Ookefa-Bfbtb some Abs, IgG by IFA (test code = 9838-4) <1:20 See_Comment INTERPRETIVE INF ORMATION: ?Xrafv-Rrlmxa-Xjlwnxzuk Abs, IgG Liver-Kidney Microsome IgG antibody (anti-LKM), as detected by indirect immunofluorescent antibody (IFA) techniques, may be observed in patients with autoimmune hepatitis type 2 (AIH-2), AIH-2 associated with autoimmune polyendocrinopathy-candidiasis -ectodermal dystrophy (APECED), viral hepatitis C or D, and some forms of drug-induced hepatitis. This IFA does not differentiate among the four types of LKM antibodies (LKM-1, LKM-2, LKM-3, and a fourth type that recognizes CY and CY antigens). Of these, anti-LKM-1 (cytochrome Y417NYO5) IgG antibodies are considered specific for AIH-2. This test was developed and its performance characteristics determined by [facility]. It has not been cleared or approved by the [place] Food and Drug Administration. This test was performed in a CLIA certified laboratory and is intended for clinical purposes.Performed By: [facility] [place] [address] [id number] Director: Marshall Harden MD, PhDCLIA Number: [id number] [Automated message] The system which generated this result transmitted reference range: <1:20. The reference range was not used to interpret this result as normal/abnormal. [facility] GLUCOSE (AUTOMATED)2023-07-10 04:50:24* Test Item Value Reference Range Interpretation Comme nts POCT GLU (test code = 6628061755) 210 mg/dL 70-110 H Lab Interpretation (test cod e = 37714-9) [facility]ATED)2023-07-10 01:30:52* Test Item Value Reference Range Interpretation Comme nts POCT GLU (test code = 0395783222) 269 mg/dL 70-110 H Lab Interpretation (test cod e = 64578-2) Abnormal [facility] RockTyphus Fever Ab, [id number] 23:36:21* Test Item Value Reference Range Interpretation Comme nts Typhus Fever Antibody, IgG (test code = 5324-9) <1:64 See_Comment INTERPRETIVE INF ORMATION: Typhus Fever Antibody, IgG ?Less than 1:64 ....... Negative - No significant level of ? IgG antibody detected. ?1:64 - 1:128 ......... Equivocal - Questionable presence ? of IgG antibody detected. Repeat ? testing in 10-14 days may be ? helpful. ?1:256 or greater ..... Positive - Presence of IgG antibody ? to detected, suggestive of current ? or past infection. Antibody reactivity to Rickettsia typhi antigen should be considered group-reactive for the Typhus Fever group, which includes Rickettsia prowazekii. Seroconversion between acute and convalescent sera is considered strong evidence of recent infection. The best evidence for infection is a significant change (fourfold difference in titer) on two appropriately timed specimens, where both tests are done in the same laboratory at the same time. Acute-phase specimens are collected during the first week of illness and convalescent -phase samples are generally obtained 2-4 weeks after resolution of illness. Ideally these samples should be tested simultaneously at the same facility. If the samples submitted was collected during the acute phase of illness, submit a marked convalecsent sample within 25 days for paired testing.Performed By: [facility] [place] [address] [id number] Director: Marshall Harden MD, PhDCLIA Number: [id number] [Automated message] The system which generated this result transmitted reference range: <1:64. The reference range was not used to interpret this result as normal/abnormal. [facility] GLUCOSE (AUTOMATED)2023-07-09 22:08:48* Test Item Value Reference Range Interpretation Comme nts POCT GLU (test code = 9396044099) 214 mg/dL 70-110 H Lab Interpretation (test cod e = 70360-5) Abnormal [facility] GLUCOSE (AUTOMATED)2023-07-09 19:50:51* Test Item Value Reference Range Interpretation Comme nts POCT GLU (test code = 7314365743) 223 mg/dL 70-110 H Lab Interpretation (test cod e = 16030-6) Abnormal [facility] GLUCOSE (AUTOMATED)2023-07-09 16:59:11* Test Item Value Reference Range Interpretation Comme nts POCT GLU (test code = 9602664386) 209 mg/dL 70-110 H Lab Interpretation (test cod e = 27025-7) Abnormal [facility] GLUCOSE (AUTOMATED)2023-07-09 13:17:13* Test Item Value Reference Range Interpretation Comme nts POCT GLU (test code = 5607257749) 225 mg/dL 70-110 H Lab Interpretation (test cod e = 95867-1) [facility]normal [facility] RockHEPAT[facility] FUNCTION PANEL (04897) (ALB,T.PRO,BILI T,BU/BC,ALT,AST,ALK PHOS)2023-07-09 13:12:01* Test Item Value Reference Range Interpretation Comme nts TOTAL BILI (test code = 4170818642) 0.6 mg/dL 0.1-1.1 BILI UNCON (test code = 8871290908) 0.5 mg/dL 0.1-1.1 BILI CONJ (test code = 3943342150) 0.0 mg/dL 0.0-0.3 T PROTEIN (test code = 4392889586) 6.4 g/dL 6.3-8.2 ALBUMIN (test code = 3269853263) 2.9 g/dL 3.5-5.0 L ALK PHOS (test code = 3986021683) 150 U/L 34-122 H ALTv (test code = 1742-6) 381 U/L 5-35 H AST(SGOT) (test code = 4767097190) 105 U/L 13-40 H Lab Interpretation (test cod e = 27669-3) Abnormal [facility] METABOLIC PANEL (NA, K, CL, CO2, GLUCOSE, BUN, CREATININE, CA)2023-07-09 12:06:27* Test Item Value Reference Range Interpretation Comme nts NA (test code = 3295773947) 130 mmol/L 135-145 L K (test code = 9140207571) 3.4 mmol/L 3.5-5.0 L Slight hemolysis CL (test code = 4506936353) 97 mmol/L 98-108 L CO2 TOTAL (test code = 9921360090) 25 mmol/L 23-31 AGAP (test code = 3456271441) 8 2-16 BUN (test code = 5228772079) 8 mg/dL 7-23 Slight hemolysis GLUCOSE (test code = 3931617846) 193 mg/dL 70-110 H CREATININE (test code = 4620469717) 0.37 mg/dL 0.50-1.04 L CALCIUM (test code = 6337717779) 8.1 mg/dL 8.6-10.6 L eGFR (test code = 2425891975) 184.1 mL/min/1.73m2 BERT (test code = BERT) Association of [...] or abnormalities in imaging tests). Lab Interpretation (test code = 50504-2) [facility]2023-10-04 12:06:27* Test Item Value Reference Range Interpretation Comme nts MAGNESIUM (test code = 5760317514) 2.0 mg/dL 1.7-2.4 Lab Interpretation (test cod e = 20302-6) Normal [facility] WITH [id number] 11:28:47* Test Item Value Reference Range Interpretation Comme nts WBC (test code = 6690-2) 5.18 See_Comment [Automated [employer]] The system which generated this result transmitted reference range: 4.30 - 11.10 10*3/?L. The reference range was not used to interpret this result as normal/abnormal. RBC (test code = 789-8) 4.24 See_Comment [Automated [employer]] The system which generated this result transmitted reference range: 3.93 - 5.25 10*6/?L. The reference range was not used to interpret this result as normal/abnormal. HGB (test code = 718-7) 12.0 g/dL 11.6-15.0 HCT (test code = 4544-3) 35.7 % 35.7-45.2 MCV (test code = 787-2) 84.2 fL 80.6-95.5 MCH (test code = 785-6) 28.3 pg 25.9-32.8 MCHC (test code = 786-4) 33.6 g/dL 31.6-35.1 RDW-SD (test code = 94057-1) 36.5 fL 39.0-49.9 L RDW-CV (test code = 788-0) 12.0 % 12.0-15.5 PLT (test code = 777-3) 176 See_Comment [Automated messa ge] The system which generated this result transmitted reference range: 166 - 358 10*3/?L. The reference range was not used to interpret this result as normal/abnormal. MPV (test code = 84732-1) 10.8 fL 9.5-12.9 NRBC/100 WBC (test code = 8563774524) 0.0 See_Comment [Automated [employer]age] The system which generated this result transmitted reference range: 0.0 - 10.0 /100 WBCs. The reference range was not used to interpret this result as normal/abnormal. NRBC x10^3 (test code = 7072893306) See_Comment [Automated messa ge] The system which generated this result transmitted reference range: 10*3/?L. The reference range was not used to interpret this result as normal/abnormal. GRAN MAT (NEUT) % (test code = 770-8) 65.3 % IMM GRAN % (test code = 1204855470) 1.20 % LYMPH % (test code = 736-9) 23.6 % MONO % (test code = 5905-5) 6.2 % EOS % (test code = 713-8) 2.9 % BASO % (test code = 706-2) 0.8 % GRAN MAT x10^3(ANC) (test code = 7344714857) 3.39 10*3/uL 1.88-7.09 IMM GRAN x10^3 (test code = 0252367409) 0.06 10*3/uL 0.00-0.06 LYMPH x10^3 (test code = 731-0) 1.22 10*3/uL 1.32-3.29 L MONO x10^3 (test code = 742-7) 0.32 10*3/uL 0.33-0.92 L EOS x10^3 (test code = 711-2) 0.15 10*3/uL 0.03-0.39 BASO x10^3 (test code = 704-7) 0.04 10*3/uL 0.01-0.07 BANDS (test code = 9919082156) Increased A Lab Interpretation (test code = 67384-2) Abnormal [facility] GLUCOSE (AUTOMATED)2023-07-09 04:19:55* Test Item Value Reference Range Interpretation Comme [facility] POCT GLU (test code = 7585926384) 218 mg/dL 70-110 H Lab Interpretation (test cod e = 66767-7) Abnormal [facility] MUSCLE AB,IGG W/[id number] 04:12:43* Test Item Value Reference Range Interpretation Comme nts F-ACTIN (SMOOTH MUSCLE) AB, IGG(BEAKER) (test code = 07443-3) 3 See_Comment If F-Actin (Smoo th Muscle) Antibody, IgG is negative, the Smooth Muscle Antibody titer by IFA is not performed.REFERENCE INTERVAL: F-Actin (Smooth Muscle) Antibody, IgG by ?VIOLETA ?19 Units or less ....... Negative ?20 - 30 Units .......... Weak Positive-Suggest repeat ? testing in two to three weeks ? with fresh specimen. ?31 Units or greater..... Positive-Suggestive of ? autoimmune hepatitis type 1 ? or chronic active hepatitis. F-actin IgG antibodies have been shown to have increased sensitivity for autoimmune hepatitis (AIH) but lower specificity than smooth muscle antibodies (SMA). F-actin IgG antibodies can also be seen in SMA-negative disease controls (non-AIH), especially in patients with primary biliary cirrhosis and chronic hepatitis C infections. Some patients with AIH may be SMA-positive but negative for F-actin IgG. Consider testing for SMA by IFA if suspicion for AIH is strong.Performed By: [facility] [place] [address] [id number] Director: Marshall Harden MD, PhDCLIA Number: [id number] [Automated message] The system which generated this result transmitted reference range: 0 - 19 Units. The reference range was not used to interpret this result as normal/abnormal. [facility] GLUCOSE (AUTOMATED)2023-07-09 01:55:32* Test Item Value Reference Range Interpretation Comme [facility] POCT GLU (test code = 8830489223) 321 mg/dL 70-110 H Lab Interpretation (test cod e = 49914-2) [facility]normal [facility] RockEPSTEIN-RUIZ VIRUS BY QUANTITATIVE NAAT, [id number] 01:32:23* Test Item Value Reference Range Interpretation Comme nts EBV Qnt by NAAT, Plasma IU/mL (test code = 81008-2) Not Quantified EBV Qnt by NAAT, Plasma log IU/mL (test code = 300886-7) Not Quantified Not Quantified- EBV DNA was detected, but at a level below 1.54 log IU/mL (35.0 IU/mL). Virus detected at a level below 1.54 log IU/mL cannot be accurately quantified by this assay. EBV Qnt by NAAT, Plasma Interp (test code = 5005-4) Detected Not Detected A INTERPRETIVE INFORMATION: EBV by Quantitative NAAT, Plasma The quantitative range of this test is 1.54 - 8.00 log IU/mL (35.0 - 100,000,000 IU/mL). An interpretation of "Not Detected" does not rule out the presence of inhibitors or EBV DNA concentration below the level of detection of the assay. Care should be taken in the interpretation of any single viral load determination. International standardization has improved comparability of assay results across laboratories, but discrepancies still exist due to commutability issues with the standard.Performed By: [facility] [place] [address] [id number] Director: Marshall Harden MD, PhDCLIA Number: [id number] Lab Interpretation (test code = 44115-8) Abnormal [facility] RockANTI-NUCLEAR ANTIBODY-PATHOLOGIST [id number] 23:13:54ANA - Pathologist InterpretationANA HEp-2 IIFA Pathologist Interpretation Report Patient Name: Libia Morin? ?Antinuclear Antibody (WILFREDO) Test (Anti-Cell Antibodies Test) Indirect Immun ofluorescence Assay on HEp-2 Cells Screening titer: 1:80 [...] TIF1-beta, Ku, U1RNP, U2RNP, Arias, RNA polymerase III, and other currently unspecified autoantigens. As such, this pattern may be found in a wide variety of systemic autoimmune rheumatic diseases, including Sjogren's syndrome, systemic lupus erythematosus (SLE), systemic sclerosis, mixed connective tissue disease (MCTD), undifferentiated connective tissue disease (UCTD), dermatomyositis, polymyositis, and systemic sclerosis-autoimmune myopathy [...] a guide to differential diagnosis formation and/or subsequentfollow-up test selection in the appropriate clinical setting. Importantly, a nuclear speckled pattern with a titer of 1:80 is a non-specific finding whose clinical meaningfulness is uncertain and dependent on the patient's overall clinical presentation. This is because up to approximately 10-12% ofindividuals in the general healthy population are estimated to have a positive WILFREDO with a titer of at least 1:80. A positive WILFERDO may be seen in even higher percentages [...] likelihood of a SARD in patients presenting with symptoms suggestive of SARD, SARD may occasionally present with low WILFREDO titers. Clinical correlation - with possibly repeating the WILFREDO and any other clinically indicated subserologies - is therefore needed to accurately assess the clinical significance of this non-specific WILFREDO result as it pertains to the patient's overall clinical presentation. References: - Jet A, Beltran R, Dean J, Adrian DH, Phillip PANDYA. Guidelines for clinical use of the antinuclear antibody test and tests for specific autoantibodies to nuclear antigens. [employer]. Arch Pathol Lab Med. 2000;124(1):71-81. doi:10.5858/6047-946-2905-GFCUOT ?- Bryan Rodriguez, Urbano ULRICH, Rose Easton. Rational use of blood tests in the evaluation of rheumatic diseases. Mo Med. 2012;109(1):59- 63. ? The WILFREDO test isan important screening test for systemic autoimmune rheumatic disease (SARD). However, the WILFREDO testis non-specific for SARD and may be positive in a variety of clinical settings, including autoimmune, inflammatory, infectious, and neoplastic/malignant conditions, as well as due to certain medications. Additionally, WILFREDO positivity may be seen in varying percentages of healthy individuals, especially at lower titers, in the healthy elderly population, and in individuals with a family history of rheumatic disease. Therefore, a diagnosis cannot be based exclusively on WILFREDO detection and/or pattern and thus should be made via the integration of patient history, physical exam findings, and other diagnostic tests as clinically indicated. Trinidad Schmid MD ?07/08/2023 ?6:12 PM 07/08/2023 6:13 PM [facility] RockANTI-NUCLEAR ANTIBODY [id number] 23:11:06 * Test Item Value Reference Range Interpretation Comme nts WILFREDO Titer by IFA (test code = 7046349173) 1:80 WILFREDO Pattern (test code = 7096575810) Speckled BERT (test code = BERT) Anti-nuclear antib odies are seen in a variety of autoimmune diseases and may also be seen in low titers in otherwise normal individuals without evidence of autoimmune disease. In general, a titer greater than or equal to 1:160 is considered significant. For further information, contact the appropriate Specialist. For additional WILFREDO tests, refer to the Laboratory Test Directory. The specimen will be held for 7 days. [facility] GLUCOSE (AUTOMATED)2023-07-08 22:08:36* Test Item Value Reference Range Interpretation Comme nts POCT GLU (test code = 3702792892) 234 mg/dL 70-110 H Lab Interpretation (test cod e = 02991-2) [facility] RockANCA [id number] 18:21:54* Test Item Value Reference Range Interpretation Comme nts Myeloperoxidase (MPO) Antibodies, IgG Interpretation (test code = 01235-7) Negative Negative Proteinase 3 (PR3) Antibodies, IgG Interpretation (test code = 20955-8) Negative Negative Myeloperoxidase (MPO) Antibodies, IgG (test code = 2078280781) <=3.5 Proteinase 3 (PR3) Antibodies, IgG (test code = 3150461415) <=2.0 BERT (test code = BERT) Test ?Unit ? Negative ? ? ? Equivocal ? Positive Annika MPOs ? ? ? U/ml ? <3.5 ? 3.5-5.0 ? >5 Annika PR3s ? ? ? U/ml ? <2.0 ? 2.0-3.0 ? >3.0 In case of equivocal results, we recommend to retest the patient after 8 - 12 weeks. Lab Interpretation (test code = 38749-0) Normal [facility] GLUCOSE (AUTOMATED)2023-07-08 17:44:35* Test Item Value Reference Range Interpretation Comme nts POCT GLU (test code = 6702601879) 278 mg/dL 70-110 H Lab Interpretation (test cod e = 77648-9) [facility]normal [facility] RockHAPTOGLOBIN, [id number] 17:15:02* Test Item Value Reference Range Interpretation Comme nts HAPTOGLOB (test code = 6563639547) 277 mg/dL 16-200 H Lab Interpretation (test cod e = 82722-9) [facility]normal [facility] RockFERRITIN [id number] 14:02:59* Test Item Value Reference Range Interpretation Comme nts FERRITIN (test code = 5949437436) 1650.0 ng/mL 11.0-264.0 H BERT (test code = BERT) Biotin has been reported to cause a negative bias, interpret results relative to patient's use of biotin. Lab Interpretation (test code = 41648-4) Abnormal [facility] RockPOSC GLUCOSE (AUTOMATED)2023-07-08 13:55:08* Test Item Value Reference Range Interpretation Comme nts POCT GLU (test code = 9620240442) 152 mg/dL 70-110 H Lab Interpretation (test cod e = 92956-3) [facility] RockMAGNESIUM2023-10-03 11:52:02* Test Item Value Reference Range Interpretation Comme nts MAGNESIUM (test code = 0144752656) 1.9 mg/dL 1.7-2.4 Lab Interpretation (test cod e = 74673-5) Normal [facility] METABOLIC PANEL (NA, K, CL, CO2, GLUCOSE, BUN, CREATININE, CA)2023-07-08 11:52:02* Test Item Value Reference Range Interpretation Comme nts NA (test code = 1988074642) 127 mmol/L 135-145 L K (test code = 5877733381) 3.6 mmol/L 3.5-5.0 Slight hemolysis CL (test code = 9405615964) 98 mmol/L 98-108 CO2 TOTAL (test code = 2195236280) 22 mmol/L 23-31 L AGAP (test code = 1008360188) 7 2-16 BUN (test code = 6295309276) 7 mg/dL 7-23 Slight hemolysis GLUCOSE (test code = 9401299136) 164 mg/dL 70-110 H CREATININE (test code = 5526214680) 0.34 mg/dL 0.50-1.04 L CALCIUM (test code = 3947789854) 7.6 mg/dL 8.6-10.6 L eGFR (test code = 0728239697) 203.0 mL/min/1.73m2 BERT (test code = BERT) Association of [...] or abnormalities in imaging tests). Lab Interpretation (test code = 45069-0) [facility]normal [facility] RockHEPATIC FUNCTION PANEL (75752) (ALB,T.PRO,BILI T,BU/BC,ALT,AST,ALK PHOS)2023-07-08 11:52:02* Test Item Value Reference Range Interpretation Comme nts TOTAL BILI (test code = 5566817520) 0.7 mg/dL 0.1-1.1 BILI UNCON (test code = 9739818515) 0.4 mg/dL 0.1-1.1 BILI CONJ (test code = 6448015984) 0.0 mg/dL 0.0-0.3 T PROTEIN (test code = 6443667764) 6.0 g/dL 6.3-8.2 L ALBUMIN (test code = 9984858891) 2.7 g/dL 3.5-5.0 L ALK PHOS (test code = 9643336676) 123 U/L 34-122 H ALTv (test code = 1742-6) 461 U/L 5-35 H AST(SGOT) (test code = 2505691034) 178 U/L 13-40 H Lab Interpretation (test cod e = 48633-4) Abnormal [facility] WITH [id number] 11:22:07* Test Item Value Reference Range Interpretation Comme nts WBC (test code = 6690-2) 4.51 See_Comment [Automated messa ge] The system which generated this result transmitted reference range: 4.30 - 11.10 10*3/?L. The reference range was not used to interpret this result as normal/abnormal. RBC (test code = 789-8) 3.80 See_Comment L [Automated messa ge] The system which generated this result transmitted reference range: 3.93 - 5.25 10*6/?L. The reference range was not used to interpret this result as normal/abnormal. HGB (test code = 718-7) 11.1 g/dL 11.6-15.0 L HCT (test code = 4544-3) 32.8 % 35.7-45.2 L MCV (test code = 787-2) 86.3 fL 80.6-95.5 MCH (test code = 785-6) 29.2 pg 25.9-32.8 MCHC (test code = 786-4) 33.8 g/dL 31.6-35.1 RDW-SD (test code = 66483-1) 38.5 fL 39.0-49.9 L RDW-CV (test code = 788-0) 12.0 % 12.0-15.5 PLT (test code = 777-3) 144 See_Comment L [Automated messa ge] The system which generated this result transmitted reference range: 166 - 358 10*3/?L. The reference range was not used to interpret this result as normal/abnormal. MPV (test code = 47662-5) 11.2 fL 9.5-12.9 NRBC/100 WBC (test code = 4473853440) 0.0 See_Comment [Automated me ssage] The system which generated this result transmitted reference range: 0.0 - 10.0 /100 WBCs. The reference range was not used to interpret this result as normal/abnormal. NRBC x10^3 (test code = 6909834992) See_Comment [Automated messa ge] The system which generated this result transmitted reference range: 10*3/?L. The reference range was not used to interpret this result as normal/abnormal. SEG % (test code = 36706-0) 62 % 33-76 BAND % (test code = 83202-4) 16 % 0-1 H LYMPH % (test code = 77334-0) 14 % 14-54 PLSMACYTD LYMPH % (test code = 46489-3) 2 % <=0 H MONO % (test code = 87795-4) 5 % 0-4 H BASO % (test code = 22926-7) 1 % 0-1 ANC (test code = 753-4) 3.52 10*3/uL 1.88-7.09 ROGER CELLS (test code = 7790-9) 2+ See_Comment A [Automated CFO.coma [facility]] The system which generated this result transmitted reference range: (none). The reference range was not used to interpret this result as normal/abnormal. Lab Interpretation (test code = 03318-1) Abnormal [facility] GLUCOSE (AUTOMATED)2023-07-08 01:33:25* Test Item Value Reference Range Interpretation Comme nts POCT GLU (test code = 5836603745) 239 mg/dL 70-110 H Lab Interpretation (test cod e = 41740-9) Abnormal [facility] GLUCOSE (AUTOMATED)2023-07-07 22:58:26* Test Item Value Reference Range Interpretation Comme nts POCT GLU (test code = 6670854411) 225 mg/dL 70-110 H Lab Interpretation (test cod e = 19850-1) Abnormal [facility] RockANTI-NUCLEAR ANTIBODY [id number] 22:23:17* Test Item Value Reference Range Interpretation Comme nts WILFREDO (test code = 3609703836) Positive Negative A BERT (test code = BERT) Negative: ?No Anti-Nuclear Antibodies detected by IFA. Positive: ?WILFREDO IFA screen performed with a 1:80 dilution in adults and a 1:40 dilution in pediatrics. ?A titer is performed and reported separately when the WILFREDO is "Positive" or when "Cytoplasmic staining is observed." Lab Interpretation (test code = 43678-7) Abnormal [facility] GLUCOSE (AUTOMATED)2023-07-07 16:53:57* Test Item Value Reference Range Interpretation Comme nts POCT GLU (test code = 2814215820) 249 mg/dL 70-110 H Lab Interpretation (test cod e = 61428-7) Abnormal [facility] RockDIFF CONSULT [id number] 15:52:07 WHITE BLOOD CELLS: LEUKOCYTOPENIA WITH LEFT SHIFT, MILDLY INCREASED PLASMA CELLS, AND ABSOLUTE LYMPHOPENIA, MONOCYTOPENIA, AND EOSINOPENIA. SPEP, SUSHMA, AND FREE LIGHT CHAINS MAY BE INFORMATIVE.?RED BLOOD CELLS: UNREMARKABLE.?PLATELETS: THROMBOCYTOPENIA.[facility] GLUCOSE (AUTOMATED) 2023-07-07 13:39:20* Test Item Value Reference Range Interpretation Comme nts POCT GLU (test code = 2100335557) 205 mg/dL 70-110 H Lab Interpretation (test cod e = 20914-7) Abnormal [facility] GLUCOSE (AUTOMATED)2023-07-07 01:49:22* Test Item Value Reference Range Interpretation Comme nts POCT GLU (test code = 7915684316) 234 mg/dL 70-110 H Lab Interpretation (test cod e = 59020-4) Abnormal [facility] GLUCOSE (AUTOMATED)2023-07-06 23:12:36* Test Item Value Reference Range Interpretation Comme nts POCT GLU (test code = 2479479559) 205 mg/dL 70-110 H Lab Interpretation (test cod e = 50054-6) Abnormal [facility] RockCMV BY QUANTITATIVE [id number] 19:02:30* Test Item Value Reference Range Interpretation Comme nts Specimen Tested (test code = 9127408440) Plasma CMV NAAT (test code = 2923591301) Not Detected Indeterminate, See Comment/Narrative. , Not Detected IU/mL BERT (test code = BERT) The Aptima CMV Quant Dx assay is an FDA-approved real-time cigar head puncher-mediated amplification (TMA) test used for quantitation of [...] specimen for repeat testing if clinically indicated. [facility] GLUCOSE (AUTOMATED)2023-07-06 18:15:28* Test Item Value Reference Range Interpretation Comme nts POCT GLU (test code = 8988689304) 236 mg/dL 70-110 H Lab Interpretation (test cod e = 94208-6) Abnormal [facility] RockSYPHILIS [id number] 14:55:36* Test Item Value Reference Range Interpretation Comme nts Syphilis IgG/IgM (test code = 06288-8) Non-reactive Non-reactive BERT (test code = BERT) Non-reactive - No serologic evidence of T. pallidum infection. Cannot exclude incubating or early syphilis. Submit a second specimen in 2-4 weeks if syphilis is clinically suspected. Equivocal - Further testing to follow. Reactive - Further testing to follow. Lab Interpretation (test code = 42169-6) Normal [facility] GLUCOSE (AUTOMATED)2023-07-06 13:25:32* Test Item Value Reference Range Interpretation Comme nts POCT GLU (test code = 5248964395) 190 mg/dL 70-110 H Lab Interpretation (test cod e = 88309-4) Abnormal [facility] RockLapaic Acid Whole [id number] 11:39:27* Test Item Value Reference Range Interpretation Comme nts LACTIC ACID (test code = 1393910259) 1.44 mmol/L 0.50-2.20 QUES Lab Interpretation (test cod e = 16404-7) Normal [facility] GLUCOSE (AUTOMATED)2023-07-06 05:07:41* Test Item Value Reference Range Interpretation Comme nts POCT GLU (test code = 1358537375) 217 mg/dL 70-110 H Lab Interpretation (test cod e = 69563-0) Abnormal [facility] GLUCOSE (AUTOMATED)2023-07-06 02:12:19* Test Item Value Reference Range Interpretation Comme nts POCT GLU (test code = 5625652504) 326 mg/dL 70-110 H Lab Interpretation (test cod e = 23114-4) Abnormal [facility] GLUCOSE (AUTOMATED)2023-07-05 22:53:44* Test Item Value Reference Range Interpretation Comme [facility] POCT GLU (test code = 2244787323) 217 mg/dL 70-110 H Lab Interpretation (test cod e = 46150-3) Abnormal [facility] RockGLYCOSYLATED HEMOGLOBIN (A1C)2023-07-05 22:37:43* Test Item Value Reference Range Interpretation Comme [facility] HGB A1C (test code = 4548-4) 11.5 % 4.0-5.7 H BERT (test code = BERT) Reference RangesNormal: <5.7%Prediabetes: 5.7 - 6.4%Diabetes: > 6.5% Lab Interpretation (test code = 91031-0) Abnormal [facility] GLUCOSE (AUTOMATED)2023-07-05 18:58:16* Test Item Value Reference Range Interpretation Comme [facility] POCT GLU (test code = 6859162776) 293 mg/dL 70-110 H Lab Interpretation (test cod e = 53481-5) Abnormal [facility] RockC-REACTIVE [id number] 18:25:06* Test Item Value Reference Range Interpretation Comme [facility] CRP (test code = 1916609274) 28.4 mg/dL <=0.8 H Lab Interpretation (test cod e = 31843-9) Abnormal [facility] RockHEPATITIS B SURFACE [id number] 16:11:09* Test Item Value Reference Range Interpretation Comme nts HBsAB (test code = 4328914432) Negative HBsAb Semi-Quantitative (test code = 6533717922) 0.00 mIU/mL BERT (test code = BERT) Interpretation: ?Hepatitis B Surface Antibody ? Negative - Patient is considered to be not immune to infection with HBV. ? ? Positive - Anti-HBs detected at greater than or equal to 12 mIU/mL. ?Patient is considered to be immune to infection with HBV. ? [facility] RockCERULOPLASMIN2023-09-30 15:26:34* Test Item Value Reference Range Interpretation Comme nts CERULO (test code = 6681482488) 48 mg/dL 25-63 Lab Interpretation (test cod e = 38175-5) Normal [facility] RockPOCT GLUCOSE (AUTOMATED)2023-07-05 15:07:40* Test Item Value Reference Range Interpretation Comme [facility] POCT GLU (test code = 1165659358) 197 mg/dL 70-110 H Lab Interpretation (test cod e = 37600-7) Abnormal [facility] RockAMMONIA, [id number] 14:54:04* Test Item Value Reference Range Interpretation Comme nts AMMONIA (test code = 8499867819) 17 umol/L 9-33 Lab Interpretation (test cod e = 92259-7) Normal [facility] RockHAV ANTIBODY (IGG AND IGM)2023-07-05 12:14:23 * Test Item Value Reference Range Interpretation Comme [facility] HAV Total (test code = 9624668637) Positive HAVT Semi-Quantitative (test code = 7002936578) 0.05 BERT (test code = BERT) Indicates past or present infection with HAV or exposure to HAV due to vaccination. [facility] RockHCV [id number] 10:27:25* Test Item Value Reference Range Interpretation Comme [facility] HCV Ab (test code = 32332-8) Negative HCV Semi-Quantitative (test code = 51179-7) 0.01 [facility] B CORE ANTIBODY [id number] 10:17:00* Test Item Value Reference Range Interpretation Comme nts HBCM Semi-Quantitative (test code = 27256-8) 0.05 BERT (test code = BERT) Biotin has been reported to cause a negative bias, interpret results relative to patient's use of biotin. [facility] B SURFACE [id number] 10:12:01 * Test Item Value Reference Range Interpretation Comme [facility] HBsAg Semi-Quantitative (beth t code = 5195-3) 0.14 Negative [facility] RockSEDIMENTATION [id number] 09:48:35* Test Item Value Reference Range Interpretation Comme nts ESR (test code = 13801-6) 77 See_Comment H [Automated messa ge] The system which generated this result transmitted reference range: 2 - 30 mm/HR. The reference range was not used to interpret this result as normal/abnormal. Lab Interpretation (test code = 75337-9) Abnormal [facility] RockOSMOLALITY, SERUM OR [id number] 09:41:32 * Test Item Value Reference Range Interpretation Comme nts OSMOLALITY (test code = 2692-2) 272 See_Comment L [Automated messa ge] The system which generated this result transmitted reference range: 278 - 305 mOsm/kg. The reference range was not used to interpret this result as normal/abnormal. Lab Interpretation (test code = 24354-3) Abnormal [facility] METABOLIC PANEL (NA, K, CL, CO2, GLUCOSE, BUN, CREATININE, CA)2023-07-05 09:39:35* Test Item Value Reference Range Interpretation Comme nts NA (test code = 7187863451) 123 mmol/L 135-145 L K (test code = 5507022296) 3.9 mmol/L 3.5-5.0 CL (test code = 4570310868) 89 mmol/L 98-108 L CO2 TOTAL (test code = 0113130982) 25 mmol/L 23-31 AGAP (test code = 8695166748) 9 2-16 BUN (test code = 3502589513) 11 mg/dL 7-23 GLUCOSE (test code = 6243352106) 303 mg/dL 70-110 H CREATININE (test code = 6205357516) 0.51 mg/dL 0.50-1.04 CALCIUM (test code = 1897213290) 7.8 mg/dL 8.6-10.6 L eGFR (test code = 6769220429) 127.1 mL/min/1.73m2 BERT (test code = BERT) Association of [...] or abnormalities in imaging tests). Lab Interpretation (test code = 19255-2) [facility]normal [facility] RockHEPATIC FUNCTION PANEL (67787) (ALB,T.PRO,BILI T,BU/BC,ALT,AST,ALK PHOS)2023-07-05 09:39:35* Test Item Value Reference Range Interpretation Comme nts TOTAL BILI (test code = 6014017146) 0.7 mg/dL 0.1-1.1 BILI UNCON (test code = 9322134266) 0.3 mg/dL 0.1-1.1 BILI CONJ (test code = 3214037587) 0.0 mg/dL 0.0-0.3 T PROTEIN (test code = 1701276898) 5.2 g/dL 6.3-8.2 L ALBUMIN (test code = 2748522815) 2.8 g/dL 3.5-5.0 L ALK PHOS (test code = 5623770768) 112 U/L 34-122 ALTv (test code = 1742-6) 621 U/L 5-35 H AST(SGOT) (test code = 1177225666) 589 U/L 13-40 H Lab Interpretation (test cod e = 91304-6) Abnormal [facility] RockLIPID PANEL (58419)(TOTAL CHOLESTEROL, TRIGLYCERIDES, HDL)2023-07-05 09:39:35* Test Item Value Reference Range Interpretation Comme nts CHOL (test code = 8076259544) 77 mg/dL 120-200 L HDL (test code = 4003541913) 16 mg/dL >=50 L HDLC RATIO (test code = 3661143936) 4.8 <=4.5 H TRIG (test code = 7282726021) 139 mg/dL 30-170 LDL CHOL (test code = 36962-9) 33 mg/dL <=160 VLDL (test code = 7046689126) 28 mg/dL 5-60 Lab Interpretation (test cod e = 86202-9) Abnormal [facility] WITH [id number] 09:37:54* Test Item Value Reference Range Interpretation Comme nts WBC (test code = 6690-2) 3.82 See_Comment L [Automated messa ge] The system which generated this result transmitted reference range: 4.30 - 11.10 10*3/?L. The reference range was not used to interpret this result as normal/abnormal. RBC (test code = 789-8) 4.26 See_Comment [Automated messa ge] The system which generated this result transmitted reference range: 3.93 - 5.25 10*6/?L. The reference range was not used to interpret this result as normal/abnormal. HGB (test code = 718-7) 12.3 g/dL 11.6-15.0 HCT (test code = 4544-3) 35.7 % 35.7-45.2 MCV (test code = 787-2) 83.8 fL 80.6-95.5 MCH (test code = 785-6) 28.9 pg 25.9-32.8 MCHC (test code = 786-4) 34.5 g/dL 31.6-35.1 RDW-SD (test code = 89650-9) 36.2 fL 39.0-49.9 L RDW-CV (test code = 788-0) 11.9 % 12.0-15.5 L PLT (test code = 777-3) 95 See_Comment L [Automated messa ge] The system which generated this result transmitted reference range: 166 - 358 10*3/?L. The reference range was not used to interpret this result as normal/abnormal. MPV (test code = 16124-1) 11.9 fL 9.5-12.9 IPF % (test code = 5562481515) 11.1 % 1.3-7.7 H Platelet count measured by fluorescence method. NRBC/100 WBC (test code = 2687313458) 0.0 See_Comment [Automated me ssage] The system which generated this result transmitted reference range: 0.0 - 10.0 /100 WBCs. The reference range was not used to interpret this result as normal/abnormal. NRBC x10^3 (test code = 3548559043) See_Comment [Automated messa ge] The system which generated this result transmitted reference range: 10*3/?L. The reference range was not used to interpret this result as normal/abnormal. GRAN MAT (NEUT) % (test code = 770-8) 76.4 % IMM GRAN % (test code = 3667318906) 0.80 % LYMPH % (test code = 736-9) 16.0 % MONO % (test code = 5905-5) 6.8 % EOS % (test code = 713-8) 0.0 % BASO % (test code = 706-2) 0.0 % GRAN MAT x10^3(ANC) (test code = 6284129164) 2.92 10*3/uL 1.88-7.09 IMM GRAN x10^3 (test code = 4138278591) 0.03 10*3/uL 0.00-0.06 LYMPH x10^3 (test code = 731-0) 0.61 10*3/uL 1.32-3.29 L MONO x10^3 (test code = 742-7) 0.26 10*3/uL 0.33-0.92 L EOS x10^3 (test code = 711-2) 0.03-0.39 L BASO x10^3 (test code = 704-7) 0.01-0.07 BANDS (test code = 1301195065) Increased A REACT LYMPHS (test code = 8567559320) Rare Lab Interpretation (test code = 10773-9) [facility]normal [facility] RockProthrombin Time / [id number] 09:04:11* Test Item Value Reference Range Interpretation Comme nts PROTIME PATIENT (test code = 5964-2) 16.3 See_Comment H [Automated messa ge] The system which generated this result transmitted reference range: 10.1 - 12.6 Seconds. The reference range was not used to interpret this result as normal/abnormal. INR (test code = 6301-6) 1.4 Normal INR <1.1; Warfarin Therapeutic range 2.0 to 3.0 or 2.5 to 3.5, depending upon the indications. Lab Interpretation (test code = 62571-4) Abnormal [facility] RockAC PANEL 21 + LACTIC [id number] 23:45:02* Test Item Value Reference Range Interpretation Comme nts PH (test code = 0987246298) 7.43 7.32-7.42 H PCO2 BAYLEE (test code = 0574840883) 43 See_Comment [Automated messa ge] The system which generated this result transmitted reference range: 41 - 51 mmHg. The reference range was not used to interpret this result as normal/abnormal. PO2 BAYLEE (test code = 3082490308) 20 See_Comment L [Automated messa ge] The system which generated this result transmitted reference range: 25 - 40 mmHg. The reference range was not used to interpret this result as normal/abnormal. HCO3 BAYLEE (test code = 7335694742) 28 See_Comment [Automated messa ge] The system which generated this result transmitted reference range: 24 - 28 mEq/L. The reference range was not used to interpret this result as normal/abnormal. AC VBE(BEAKER) (test code = 6212624971) 3.7 mEq/L THB B[place]E (test code = 9628509312) 14.7 g/dL 12.0-16.0 %O2HB B[place]E (test code = 5097148359) 37.8 % 52.0-63.0 L %COHB [place] (test code = 0546900882) 1.2 % 0.0-1.5 %METHB [place] (test code = 9373131757) 0.3 % 0.4-1.5 L VOL%O2 BAY[place]E (test code = 8780183920) 7.9 % 6.0-12.0 NA (test code = 4536670437) 126 mmol/L 135-145 L K+ (test code = 8714507224) 4.1 mmol/L 3.5-5.0 AC CA IONZ (test code = 6206683415) 4.60 mg/dL 4.50-5.30 GLUCOSE (test code = 9738596163) 316 mg/dL 70-110 H LACTIC ACID (test code = 2959400002) 1.56 mmol/L 0.50-2.20 Lab Interpretation (test code = 69314-9) [facility]normal [facility] RockPOCT GLU[facility]SE (AUTOMATED)2023-07-04 23:03:32* Test Item Value Reference Range Interpretation Comme [facility] POCT GLU (test code = 0421269204) 295 mg/dL 70-110 H Lab Interpretation (test cod e = 64126-4) Abnormal [facility] RockHEMOGLOBIN [id number] 04:31:17* Test Item Value Reference Range Interpretation Comme [facility] HEMOGLOBIN A1c (test code = 33567) 10.0 % 4.2-5.6 H [employer] GUIDELINES FOR HGB A1C: PREDIABETES/INCREASED RISK . . . . . . . 5.7-6.4% DIAGNOSIS OF DIABETES . . . . . . . . . >=6.5% WITH CONFIRMATION OR APPROPRIATE SYMPTOMS NOTE: ASSAY MAY BE AFFECTED BY HEMOGLOBINOPATHIES (SICKLE CELL ANEMIA, S-C DISEASE, OTHERS) OR ARTIFICIALLY LOWERED BY DECREASED RED CELL SURVIVAL (HEMOLYTIC ANEMIAS, BLOOD LOSS, ETC.). CONSIDER ALTERNATE TESTING OR LABORATORY CONSULTATION. LIPID [id number] 04:25:09* Test Item Value Reference Range Interpretation Comme nts CHOLESTEROL (test code = 2210) 186 MG/DL <200 TRIGLYCERIDES (test code = 2232) 254 MG/DL <150 H HDL CHOLESTEROL (test code = 2220) 34 MG/DL >39 L CALC LDL CHOL (test code = 2237) 116 MG/DL <100 H NOTE: CALCULATED LDL IS BASED ON JASMEET-AVENDAÑO METHOD WHICHINCLUDES ADJUSTABLE TRIGLYCERIDE:VLDL CHOLESTEROL RATIO.THIS FACTOR VARIES BY MEASURED TRIGLYCERIDE AND NON-HDLCHOLESTEROL CONCENTRATIONS WITH INCREASED CALCULATED LDL SEENIN HIGHER TRIGLYCERIDE OR LOWER NON-HDL SPECIMENS. FOR MOREINFORMATION, SEE CLIENT ANNOUNCEMENT AT [email or web address] RISK RATIO LDL/HDL (test code = 2238) 3.41 RATIO <3.22 H COMPREHENSIVE METABOLIC [id number] 04:25:09* Test Item Value Reference Range Interpretation Comme nts GLUCOSE (test code = 2217) 344 MG/DL 70-99 H BUN (test code = 2208) 14 MG/DL 6-20 CREATININE (test code = 2214) 0.63 MG/DL 0.60-1.30 eGFR (2020 CKD-EPI) (test code = 80614) 107 ML/MIN/1.73 >60 CALC BUN/CREAT (test code = 223) 22 RATIO 6-28 SODIUM (test code = 223) 135 MEQ/L 133-146 POTASSIUM (test code = 2228) 4.7 MEQ/L 3.5-5.4 CHLORIDE (test code = 221) 97 MEQ/L 95-107 CARBON DIOXIDE (test code = 2206) 24 MEQ/L 19-31 CALCIUM (test code = 220) 9.7 MG/DL 8.5-10.5 PROTEIN, TOTAL (test code = 2228) 6.8 G/DL 6.1-8.3 ALBUMIN (test code = 2200) 4.4 G/DL 3.5-5.2 CALC GLOBULIN (test code = 2240) 2.4 G/DL 1.9-3.7 CALC A/G RATIO (test code = 223) 1.8 RATIO 1.0-2.6 BILIRUBIN, TOTAL (test code = 2206) 0.3 MG/DL See_Comment [Automated me ssage] The system which generated this result transmitted reference range: <=1.2. The reference range was not used to interpret this result as normal/abnormal. ALKALINE PHOSPHATASE (test code = 2203) 115 U/L 40-130 AST (test code = 2218) 28 U/L 9-40 ALT (test code = 2219) 49 U/L 5-40 H UNLESS OTHERWISE INDICATED, ALL TESTING PERFORMED AT [facility] [address] [place] [address] PLANOGRAPH OPERATOR: JENA FAULKNER M.D. CLIA NUMBER [id number] [place]. [id number] COMPREHENSIVE METABOLIC [id number] 07:15:53* Test Item Value Reference Range Interpretation Comme nts GLUCOSE (test code = 2217) 251 MG/DL 70-99 H BUN (test code = 2208) 12 MG/DL 6-20 CREATININE (test code = 2214) 0.67 MG/DL 0.60-1.30 eGFR (2020 CKD-EPI) (test code = 69690) 106 ML/MIN/1.73 >60 CALC BUN/CREAT (test code = 2235) 18 RATIO 6-28 SODIUM (test code = 223) 138 MEQ/L 133-146 POTASSIUM (test code = 2228) 4.5 MEQ/L 3.5-5.4 CHLORIDE (test code = 2215) 98 MEQ/L 95-107 CARBON DIOXIDE (test code = 2206) 26 MEQ/L 19-31 CALCIUM (test code = 2208) 10.0 MG/DL 8.5-10.5 PROTEIN, TOTAL (test code = 2228) 7.0 G/DL 6.1-8.3 ALBUMIN (test code = 2200) 4.8 G/DL 3.5-5.2 CALC GLOBULIN (test code = 2240) 2.2 G/DL 1.9-3.7 CALC A/G RATIO (test code = 2233) 2.2 RATIO 1.0-2.6 BILIRUBIN, TOTAL (test code = 2206) 0.6 MG/DL See_Comment [Automated me ssage] The system which generated this result transmitted reference range: <=1.2. The reference range was not used to interpret this result as normal/abnormal. ALKALINE PHOSPHATASE (test code = 2203) 111 U/L 40-130 AST (test code = 2217) 18 U/L 9-40 ALT (test code = 221) 26 U/L 5-40 LIPID [id number] 07:15:53* Test Item Value Reference Range Interpretation Comme nts CHOLESTEROL (test code = 2210) 193 MG/DL <200 TRIGLYCERIDES (test code = 2232) 129 MG/DL <150 HDL CHOLESTEROL (test code = 2219) 46 MG/DL >39 CALC LDL CHOL (test code = 2236) 123 MG/DL <100 H NOTE: CALCULATED LDL IS BASED ON JASMEET-AVENDA[employer]O METHOD WHICHINCLUDES ADJUSTABLE TRIGLYCERIDE:VLDL CHOLESTEROL RATIO.THIS FACTOR VARIES BY MEASURED TRIGLYCERIDE AND NON-HDLCHOLESTEROL CONCENTRATIONS WITH INCREASED CALCULATED LDL SEENIN HIGHER TRIGLYCERIDE OR LOWER NON-HDL SPECIMENS. FOR MOREINFORMATION, SEE CLIENT ANNOUNCEMENT AT [email or web address] RATIO LDL/HDL (test code = 2238) 2.67 RATIO <3.22 [facility] has i mportant pathology staff changes effective 12/04/2022. New pathology staff will provide uninterrupted, excellent patient care and clinical consultation. See URL: [email or web address]. UNLESS OTHERWISE INDICATED, ALL TESTING PERFORMED AT [facility] [address] [place] [address] PLANOGRAPH OPERATOR: JENA FAULKNER M.D. IA NUMBER [id number] [facility] [place]. [id number] HEMOGLOBIN [id number] 04:45:19* Test Item Value Reference Range Interpretation Comme nts HEMOGLOBIN A1c (test code = 83580) 9.7 % 4.2-5.6 H [employer] GUIDELINES FOR HGB A1C: PREDIABETES/INCREASED RISK . . . . . . . 5.7-6.4% DIAGNOSIS OF DIABETES . . . . . . . . . >=6.5% WITH CONFIRMATION OR APPROPRIATE SYMPTOMS NOTE: ASSAY MAY BE AFFECTED BY HEMOGLOBINOPATHIES (SICKLE CELL ANEMIA, S-C DISEASE, OTHERS) OR ARTIFICIALLY LOWERED BY DECREASED RED CELL SURVIVAL (HEMOLYTIC ANEMIAS, BLOOD LOSS, ETC.). CONSIDER ALTERNATE TESTING OR LABORATORY CONSULTATION. COMPREHENSIVE METABOLIC [id number] 06:57:12* Test Item Value Reference Range Interpretation Comme nts GLUCOSE (test code = 2217) 229 MG/DL 70-99 H BUN (test code = 2208) 12 MG/DL 6-20 CREATININE (test code = 2214) 0.65 MG/DL 0.60-1.30 eGFR (2020 CKD-EPI) (test code = 03351) 107 ML/MIN/1.73 >60 CALC BUN/CREAT (test code = 2235) 18 RATIO 6-28 SODIUM (test code = 2231) 141 MEQ/L 133-146 POTASSIUM (test code = 2228) 4.5 MEQ/L 3.5-5.4 CHLORIDE (test code = 2215) 100 MEQ/L 95-107 CARBON DIOXIDE (test code = 2206) 26 MEQ/L 19-31 CALCIUM (test code = 2209) 9.6 MG/DL 8.5-10.5 PROTEIN, TOTAL (test code = 222) 7.1 G/DL 6.1-8.3 ALBUMIN (test code = 2201) 4.5 G/DL 3.5-5.2 CALC GLOBULIN (test code = 2240) 2.6 G/DL 1.9-3.7 CALC A/G RATIO (test code = 2234) 1.7 RATIO 1.0-2.6 BILIRUBIN, TOTAL (test code = 2207) 0.6 MG/DL See_Comment [Automated me ssage] The system which generated this result transmitted reference range: <=1.2. The reference range was not used to interpret this result as normal/abnormal. ALKALINE PHOSPHATASE (test code = 2204) 95 U/L 40-128 AST (test code = 2218) 17 U/L 9-40 ALT (test code = 2219) 23 U/L 5-40 LIPID [id number] 06:57:12* Test Item Value Reference Range Interpretation Comme nts CHOLESTEROL (test code = 2210) 198 MG/DL <200 TRIGLYCERIDES (test code = 2232) 148 MG/DL <150 HDL CHOLESTEROL (test code = 2220) 44 MG/DL >39 CALC LDL CHOL (test code = 2237) 128 MG/DL <100 H NOTE: CALCULATED LDL IS BASED ON JASMEET-AVENDA[employer]O METHOD WHICHINCLUDES ADJUSTABLE TRIGLYCERIDE:VLDL CHOLESTEROL RATIO.THIS FACTOR VARIES BY MEASURED TRIGLYCERIDE AND NON-HDLCHOLESTEROL CONCENTRATIONS WITH INCREASED CALCULATED LDL SEENIN HIGHER TRIGLYCERIDE OR LOWER NON-HDL SPECIMENS. FOR MOREINFORMATION, SEE CLIENT ANNOUNCEMENT AT [email or web address] RATIO LDL/HDL (test code = 2238) 2.91 RATIO <3.22 HEMOGLOBIN [id number] 06:50:25* Test Item Value Reference Range Interpretation Comme nts HEMOGLOBIN A1c (test code = 39207) 9.5 % 4.2-5.6 H [employer] GUIDELINES FOR HGB A1C: PREDIABETES/INCREASED RISK . . . . . . . 5.7-6.4% DIAGNOSIS OF DIABETES . . . . . . . . . >=6.5% WITH CONFIRMATION OR APPROPRIATE SYMPTOMS NOTE: ASSAY MAY BE AFFECTED BY HEMOGLOBINOPATHIES (SICKLE CELL ANEMIA, S-C DISEASE, OTHERS) OR ARTIFICIALLY LOWERED BY DECREASED RED CELL SURVIVAL (HEMOLYTIC ANEMIAS, BLOOD LOSS, ETC.). CONSIDER ALTERNATE TESTING OR LABORATORY CONSULTATION. UNLESS OTHERWISE INDICATED, ALL TESTING PERFORMED [facility] [address] [place] [address] PLANOGRAPH OPERATOR: CATHERINE MOLINA M.D. IA NUMBER [id number] [place]. [id number] HEMOGLOBIN [id number] 04:18:05* Test Item Value Reference Range Interpretation Comme nts HEMOGLOBIN A1c (test code = 45322) 11.3 % 4.2-5.6 H [employer] GUIDELINES FOR HGB A1C: PREDIABETES/INCREASED RISK . . . . . . . 5.7-6.4% DIAGNOSIS OF DIABETES . . . . . . . . . >=6.5% WITH CONFIRMATION OR APPROPRIATE SYMPTOMS NOTE: ASSAY MAY BE AFFECTED BY HEMOGLOBINOPATHIES (SICKLE CELL ANEMIA, S-C DISEASE, OTHERS) OR ARTIFICIALLY LOWERED BY DECREASED RED CELL SURVIVAL (HEMOLYTIC ANEMIAS, BLOOD LOSS, ETC.). CONSIDER ALTERNATE TESTING OR LABORATORY CONSULTATION. ALBUMIN/CREATININE RATIO, URINE, [id number] 04:17:19* Test Item Value Reference Range Interpretation Comme nts CREATININE, URINE, RANDOM (test code = 2072) 85.2 MG/DL NOT ESTAB ALBUMIN, URINE, RANDOM (test code = 75240) 0.3 MG/DL NOT ESTAB CALC ALBUMIN/CREAT, RND (test code = 87435) 4 MG/G <30 Note: Albumin/Creatinine ratio reference interval reflects ADA and NKF guidelines. COMPREHENSIVE METABOLIC [id number] 04:11:01* Test Item Value Reference Range Interpretation Comme nts GLUCOSE (test code = 2217) 299 MG/DL 70-99 H BUN (test code = 2208) 17 MG/DL 6-20 CREATININE (test code = 2214) 0.61 MG/DL 0.60-1.30 eGFR (2020 CKD-EPI) (test code = 77161) 109 ML/MIN/1.73 >60 CALC BUN/CREAT (test code = 2235) 28 RATIO 6-28 SODIUM (test code = 2231) 135 MEQ/L 133-146 POTASSIUM (test code = 2228) 4.8 MEQ/L 3.5-5.4 CHLORIDE (test code = 2215) 96 MEQ/L 95-107 CARBON DIOXIDE (test code = 2206) 25 MEQ/L 19-31 CALCIUM (test code = 2209) 9.9 MG/DL 8.5-10.5 PROTEIN, TOTAL (test code = 222) 6.9 G/DL 6.1-8.3 ALBUMIN (test code = 220) 4.5 G/DL 3.5-5.2 CALC GLOBULIN (test code = 2240) 2.4 G/DL 1.9-3.7 CALC A/G RATIO (test code = 2234) 1.9 RATIO 1.0-2.6 BILIRUBIN, TOTAL (test code = 2207) 0.6 MG/DL See_Comment [Automated me ssage] The system which generated this result transmitted reference range: <=1.2. The reference range was not used to interpret this result as normal/abnormal. ALKALINE PHOSPHATASE (test code = 2204) 130 U/L 40-128 H AST (test code = 2218) 14 U/L 9-40 ALT (test code = 2219) 22 U/L 5-40 LIPID [id number] 04:11:01* Test Item Value Reference Range Interpretation Comme nts CHOLESTEROL (test code = 2210) 195 MG/DL <200 TRIGLYCERIDES (test code = 2232) 127 MG/DL <150 HDL CHOLESTEROL (test code = 0) 41 MG/DL >39 CALC LDL CHOL (test code = 7) 130 MG/DL <100 H NOTE: CALCULATED LDL IS BASED ON JASMEET-AVENDA[employer]O METHOD WHICHINCLUDES ADJUSTABLE TRIGLYCERIDE:VLDL CHOLESTEROL RATIO.THIS FACTOR VARIES BY MEASURED TRIGLYCERIDE AND NON-HDLCHOLESTEROL CONCENTRATIONS WITH INCREASED CALCULATED LDL SEENIN HIGHER TRIGLYCERIDE OR LOWER NON-HDL SPECIMENS. FOR MOREINFORMATION, SEE CLIENT ANNOUNCEMENT AT [email or web address] [email or web address] RATIO LDL/HDL (test code = 2238) 3.17 RATIO <3.22 UNLESS OTHERW ISE INDICATED, [facility] [address] [place] [address] PLANOGRAPH OPERATOR: CATHERINE MOLINA M.D. CLIA NUMBER [id number] [place]. [id number] MICROALBUMIN/CREATININE, RANDOM AND [id number] 00:00:00* Test Item Value Reference Range Interpretation Comme nts CREATININE, URINE, RANDOM (t est code = 2072) 85.2 MG/DL ALBUMIN, URINE, RANDOM (test code = 80866) 0.3 MG/DL CALC ALBUMIN/CREAT, RND (beth t code = 21937) 4 MG/G MICROALBUMIN/CREATININE, RANDOM AND [id number] 00:00:00* Test Item Value Reference Range Interpretation Comme nts CREATININE, URINE, RANDOM (t est code = 2072) 85.2 MG/DL ALBUMIN, URINE, RANDOM (test code = 89469) 0.3 MG/DL CALC ALBUMIN/CREAT, RND (beth t code = 08895) 4 MG/G HEMOGLOBIN [id number] 00:00:00* Test Item Value Reference Range Interpretation Comme nts HEMOGLOBIN A1c (test code = 03661) 11.3 % HEMOGLOBIN [id number] 00:00:00* Test Item Value Reference Range Interpretation Comme nts HEMOGLOBIN A1c (test code = 65947) 11.3 % HEMOGLOBIN [id number] 00:00:00* Test Item Value Reference Range Interpretation Comme nts HEMOGLOBIN A1c (test code = 36431) 11.3 % COMPREHENSIVE METABOLIC [id number] 00:00:00* Test Item Value Reference Range Interpretation Comme nts GLUCOSE (test code = 7) 299 MG/DL BUN (test code = 2208) 17 MG/DL CREATININE (test code = 2214) 0.61 MG/DL eGFR (2020 CKD-EPI) (test code = 89235) 109 ML/MIN/1.73 CALC BUN/CREAT (test code = 2235) 28 RATIO SODIUM (test code = 2231) 135 MEQ/L POTASSIUM (test code = 2228) 4.8 MEQ/L CHLORIDE (test code = 2215) 96 MEQ/L CARBON DIOXIDE (test code = 2206) 25 MEQ/L CALCIUM (test code = 2209) 9.9 MG/DL PROTEIN, TOTAL (test code = 2229) 6.9 G/DL ALBUMIN (test code = 2201) 4.5 G/DL CALC GLOBULIN (test code = 2240) 2.4 G/DL CALC A/G RATIO (test code = 2234) 1.9 RATIO BILIRUBIN, TOTAL (test code = 2207) 0.6 MG/DL ALKALINE PHOSPHATASE (test code = 2204) 130 U/L AST (test code = 2218) 14 U/L ALT (test code = 2219) 22 U/L COMPREHENSIVE METABOLIC [id number] 00:00:00* Test Item Value Reference Range Interpretation Comme nts GLUCOSE (test code = 2217) 299 MG/DL BUN (test code = 2208) 17 MG/DL CREATININE (test code = 2214) 0.61 MG/DL eGFR (2020 CKD-EPI) (test code = 06878) 109 ML/MIN/1.73 CALC BUN/CREAT (test code = 2235) 28 RATIO SODIUM (test code = 2231) 135 MEQ/L POTASSIUM (test code = 2228) 4.8 MEQ/L CHLORIDE (test code = 2215) 96 MEQ/L CARBON DIOXIDE (test code = 2206) 25 MEQ/L CALCIUM (test code = 2209) 9.9 MG/DL PROTEIN, TOTAL (test code = 2229) 6.9 G/DL ALBUMIN (test code = 220) 4.5 G/DL CALC GLOBULIN (test code = 2240) 2.4 G/DL CALC A/G RATIO (test code = 2234) 1.9 RATIO BILIRUBIN, TOTAL (test code = 2207) 0.6 MG/DL ALKALINE PHOSPHATASE (test code = 2204) 130 U/L AST (test code = 2218) 14 U/L ALT (test code = 2219) 22 U/L LIPID [id number] 00:00:00* Test Item Value Reference Range Interpretation Comme nts CHOLESTEROL (test code = 2210) 195 MG/DL TRIGLYCERIDES (test code = 2232) 127 MG/DL HDL CHOLESTEROL (test code = 2220) 41 MG/DL CALC LDL CHOL (test code = 2237) 130 MG/DL RISK RATIO LDL/HDL (test cod e = 2238) 3.17 RATIO LIPID [id number] 00:00:00* Test Item Value Reference Range Interpretation Comme nts CHOLESTEROL (test code = 2210) 195 MG/DL TRIGLYCERIDES (test code = 2232) 127 MG/DL HDL CHOLESTEROL (test code = 2220) 41 MG/DL CALC LDL CHOL (test code = 2237) 130 MG/DL RISK RATIO LDL/HDL (test cod e = 2238) 3.17 RATIO RSV BY [id number] 00:00:00* Test Item Value Reference Range Interpretation Comme nts RSV BY DFA (test code = 81196) Negative SOURCE (test code = 25525) Not Provided RSV BY [id number] 00:00:00* Test Item Value Reference Range Interpretation Comme nts RSV BY DFA (test code = 55242) Negative SOURCE (test code = 03841) Not Provided SARS-CoV-2 (COVID-19) by RT-PCR (HIGH RISK)2021-07-11 00:00:00* Test Item Value Reference Range Interpretation Comme nts SARS-CoV-2 INTERPRETATION (t est code = 17616) NEGATIVE SOURCE (test code = 32339) NOT SPECIFIED SARS-CoV-2 (COVID-19) by RT-PCR (HIGH RISK)2021-07-11 00:00:00* Test Item Value Reference Range Interpretation Comme nts SARS-CoV-2 INTERPRETATION (t est code = 42711) NEGATIVE SOURCE (test code = 48045) NOT SPECIFIED SARS-CoV-2 (COVID-19) by RT-PCR (HIGH RISK)2020-10-27 00:00:00* Test Item Value Reference Range Interpretation Comme nts SARS-CoV-2 INTERPRETATION (t est code = 99939) NEGATIVE SOURCE (test code = 29205) NOT SPECIFIED SARS-CoV-2 (COVID-19) by RT-PCR (HIGH RISK)2020-10-27 00:00:00* Test Item Value Reference Range Interpretation Comme nts SARS-CoV-2 INTERPRETATION (t est code = 20170) NEGATIVE SOURCE (test code = 49224) NOT SPECIFIED Notes Date/Time Note Provider Source 2023-12-24 15:24:06 8N1yrmc3YLChvXpn8z/hrma69/kikd1um1F J0GsmyyL7iUZfa1TfiazVe6FHNMRS8224-9 12-23T15:24:06 Spoke with patient's daughter and informed her that the prior authorization has been completed and approved for the Cosentyx. New prescription has been e-scribed to [facility] and now patient can contact the pharmacy and arrange delivery of the medication. Patient's daughter gave verbal understanding 21782-8Carfxntbf encounter IlkxJJ0436-34-84Q53:24:15Telephone encounter NoteTXT1.2.840.589851.1.13.104.2.7. 2.507546|[id number] for patient migv68463-9ZjjxWWKPSVBBJSJXpcyjisfi C-CDA narrative bvmb530839339Bbkhtx Simpson [id number] 5MCUMWCEGMWKDRKDIPUSGFR0579-33-79S5 5:24:151.2.840.005287.1.72.3.15|1.2 .840.064433.1.13.104.2.7.2.727879_2 [id number] [facility] 2023-12-24 15:22:32 m5shUGWA2GmcIAhas34yxzqV7vPhYqzji6w Ylvk4u7AzLYQP/PXfiT5xm9otKwL11968-4 5:22:32 Routing to [facility] as patient is returning phone call 05291-8Rvtkvbvyg encounter GudaOX0580-58-57P91:22:58Telephone encounter NoteTXT1.2.840.437311.1.13.104.2.7. 2.275859|[id number] for patient iarp66414-4OgspRWIMOYUKTJNKzlrxmtfl C-CDA narrative odcp255439872Vnlcifz Berger [id number] 5KNPNADJXVETBPLAJSDPIVC7913-29-92I1 5:22:581.2.840.001459.1.72.3.15|1.2 .840.714210.1.13.104.2.7.2.727879_2 [id number] Gaviota Hamm MA [facility] 2023-12-24 15:22:25 JmFS8eA196EbbTAFvzXCcjSyHY9EVOLJxAx WG4Rp5EAbWGbGibXvekihHupyDmvZ3709-4 5:22:25 Spoke with patient's daughter and informed her that the prior authorization has been completed and approved for the Cosentyx. New prescription has been e-scribed to [facility] and now patient can contact the pharmacy and arrange delivery of the medication. Patient's daughter gave verbal understanding 24925-7Pclxwdbal encounter NrnjLK2890-12-97F17:23:56Telephone encounter NoteTXT1.2.840.752303.1.13.104.2.7. 2.250716|[id number] for patient vuyd61046-2TvsnPNECKTXPVIPUtxsyenpk C-CDA narrative yffw298251390Asxfgf Sridhar [address] Lb[id number] 7HAGOUIIFMCUFLJWKHFRTQS6177-32-36C5 5:23:561.2.840.467981.1.72.3.15|1.2 .840.172006.1.13.104.2.7.2.727879_2 [id number] [facility] 2023-12-24 14:55:43 cMh1xEwWOLfNhCzncaDFPnWIuQ6al5504CE CnLWmGOmV4OC1smUp9WDCOLEgkn5o6223-1 :55:43 Copied from [facility] #[id number]. Topic: Clinical - Medical Advice>> Dec 24, 2023 2:54 PM Patient Newborn Photographer wrote:Libia Morin is a 53 year old femalePts daughter calling back because she was told she needed to be with pt when she returned phone call and she is with pt now. Pt received a VM and is returning call.Please advise. 94817-4Fdpsqmajd encounter DducAM5502-83-83C63:56:58Telephone encounter NoteTXT1.2.840.628233.1.13.104.2.7. 2.825687|[id number] for patient mzrt62506-3YacyRFGUMWTSHIZUzcjauqfp C-CDA narrative smlg9554066Ppkjt E [id number] 5IWTCTQDGEUTHIABHMQSXWC4539-38-65M1 4:56:581.2.840.569563.1.72.3.15|1.2 .840.900508.1.13.104.2.7.2.727879_2 [id number] Fatou Saucedo [facility] 2023-12-24 14:52:46 kPst5G6HRMiysgT+Eh2FqTiMWW6T+edMglb m+FYSgYjaPFZ6zD/tgWfJ+igsD9p96246-8 4:52:46 Libia Morin is a 53 year old femalePts daughter calling back with pt on the line to speak to Robert.Please advise. 86046-5Talxgsgff encounter QzeoZA0274-77-94F95:53:49Telephone encounter NoteTXT1.2.840.256624.1.13.104.2.7. 2.325624|[id number] for patient lqmw95208-7AtslNVNOLYACNRXEacxleggi C-CDA narrative daas4323932Ohvgf E [id number] 6CDNTMGYPCARKDCFZASVVPA5788-81-82P8 4:53:491.2.840.345225.1.72.3.15|1.2 .840.716692.1.13.104.2.7.2.727879_2 [id number] Fatou Saucedo [facility] 2023-12-24 14:30:31 kztiY39K/EASHCjJ44rxa2WqcSFOOhYJGOH 7mkMCrr2IJxyOObWSmpCSU+uNuv8o4357-2 :30:31 Patients insurance requires them to go to [facility] 99180-4Kltrecitc encounter QflgYC1806-84-15K95:32:20Telephone encounter NoteTXT1.2.840.486873.1.13.104.2.7. 2.973278|[id number] for patient lcoh09747-7NmbhOECUCIGDGEHJlomrzbrs C-CDA narrative [address] Bd[id number] 0CEHQJTYVCCQKNOLTPCGRNI0789-28-32H7 4:32:201.2.840.785356.1.72.3.15|1.2 .840.801721.1.13.104.2.7.2.727879_2 [id number] [facility] 2023-12-24 11:47:17 JQJDs5L8rKF5wWlVT4JcUvkhyi6ynW7AsXh zS1XkNEG18A35OzOguEYKOoFAEppF7276-9 :47:17 Copied from [facility] #[id number]. Topic: Clinical - Medical Advice>> Dec 24, 2023 11:46 AM Patient Newborn Photographer wrote:Libia Morin is a 53 year old femalePatient calling to get status of Rx Cosentyx Pen 150 mg/mL subcutaneous (secukinumab)Per patient she has contact pharmacy and she is currently due her shots.Please advise 24037-6Coskklnnf encounter NfosBC2473-02-53G33:47:37Telephone encounter NoteTXT1.2.840.865789.1.13.104.2.7. 2.373558|[id number] for patient xqgv73337-7OjvwPEQRVPOSPJNCwhkrnkjc C-CDA narrative djre902555559Zzcfakiahg Y Bustos [id number] 8ZGAVKDKMDVPGCZACXHALTE0955-82-41Z9 1:47:371.2.840.063326.1.72.3.15|1.2 .840.898477.1.13.104.2.7.2.727879_2 [id number] Karl Jones [facility] 2023-12-23 14:54:09 Y7JYz1jVP50KzWF9hhcP62R1E7+waLZqNlm NzhK5VYau8m/8iFmXJmxWcsqHISJ69713-1 4:54:09 Images from the original note were not included.Pa was re approved: 96695-1Dxwlgxknz encounter ZbxeJV6799-11-37F84:54:35Telephone encounter NoteTXT1.2.840.594613.1.13.104.2.7. 2.956198|[id number] for patient yfrf37046-0UtkyIWCKEHUUVAGYehazpcfo C-CDA narrative nwch769506512Jqbho [id number] 5DMBGBVKUPXZHHKGIAHFUMG4349-30-56G9 4:54:351.2.840.198836.1.72.3.15|1.2 .840.720066.1.13.104.2.7.2.727879_2 [id number] [facility] 2023-12-22 12:50:33 0AZuA7gO3liKTcUmqPZXalUDrKrSdRNcLjI Xw42N+VP4TcOAVvIsSZwkkoevDV2T6880-1 12-21T12:50:33 Nurse called and spoke with Pts daughter. Daughter states that they did schedule delivery for the 12 but medication did not come and that the pharmacy I needing some paperwork from the providers office. Nurse did find that they are asking for a PA but a PA was done in August. PT is also unaware that pharmacies were changed and that if possible she would like to go back to [facility]. Nurse advise her that she would figure out what was going on and get with our pharmacy staff and give her a call back.Ann Castañeda ART HISTORY PROFESSOR 12/22/2023 12:55 PM 89270-7Sxmcgwope encounter LenkBZ4265-17-58Y16:55:28Telephone encounter NoteTXT1.2.840.838123.1.13.104.2.7. 2.145698|[id number] for patient sekl35395-9XvchQMJISRWIAAUCxmcpztmh C-CDA narrative [id number] M [address] Qu[id number] 3LCRFTXCHYJDGXOHODAEJDY7425-35-42X2 2:55:281.2.840.783599.1.72.3.15|1.2 .840.886346.1.13.104.2.7.2.727879_2 [id number] Ann Castañeda [facility] 2023-12-22 11:07:25 C5Aw0GeiVXP9bOmga7Wj24tTOnoOZgQGW6O gfAHEUGYFfqk+BvhH8rw8Zn620eCK2888-0 1:07:25 Copied from [facility] #[id number]. Topic: Clinical - Medical Advice>> Dec 22, 2023 11:06 AM Patient Newborn Photographer wrote:Libia Morin is a 53 year old female.Patient's daughter is calling requesting an update on RX Cosentyx pen due to not receiving any updates.Patient's daughter states patient was to receive her shot on 12/16. 47646-5Nkcyvubxs encounter WyfpXX5187-26-14X19:09:48Telephone encounter NoteTXT1.2.840.335638.1.13.104.2.7. 2.885359|[id number] for patient yyfz90384-2QiszXHNJWEPIQWIQaljrwgzi C-CDA narrative [id number] Z [address] Jv[id number] 4ERAZMAPVAOCCARLSTGDJDU5384-01-87U4 1:09:481.2.840.034151.1.72.3.15|1.2 .840.458625.1.13.104.2.7.2.727879_2 [id number] Kristina Maldonado [facility] 2023-12-22 06:38:20 rUXs5FY9wA7Q+5IO/x4EI07iIXAgYu6GHIM uE+Ql69B38XuMz8ilBBol2Mk7Zw9Y0111-3 06:38:20 Libia Morin is a 53 year old femalePlease review and close encounterThank you 60189-7Nrwpmwhgb encounter BepnJD1440-96-37H91:39:37Telephone encounter NoteTXT1.2.840.433629.1.13.104.2.7. 2.160240|[id number] for patient omlj91757-6VjfsDXHGMYNOGDTRpsdirsjx C-CDA narrative [id number] [id number] 7HNFBCBZUFECDGKMKGYJFHO8584-75-25A3 6:39:371.2.840.215070.1.72.3.15|1.2 .840.788432.1.13.104.2.7.2.727879_2 [id number] Rosemarie [facility] 2023-12-16 11:28:52 LlgF+/m4AaxdPWNP1pZBeXR2SAo3q1VKvKx MEE9E7M/xgNgpMuS1b12qJ6vzZzpc9516-6 1:28:52 Copied from [facility] #[id number]. Topic: Clinical - Medical Advice>> Dec 16, 2023 11:26 AM Patient Newborn Photographer wrote:Libia Morin is a 53 year old female.Arabella from [facility] is calling stating patient needs a PA for RX secukinumab (COSENTYX PEN) 150 mg/mL SC injection.Patient is supposed to get injection tmr and arabella is requesting this is request be expedited.PA phone line : [phone] signed by Kristina Maldonado at 12/16/2023 11:29 AM NZA21559-3Ngqoylpny encounter KgzfEI9238-03-82P51:29:27Telephone encounter NoteTXT1.2.840.970677.1.13.104.2.7. 2.385795|[id number] for patient nvwt92949-0TzcrSUTLKGRANBUSomgpkxvy C-CDA narrative [id number] 9LUIJVOANZMSCYHCXVLEXHR9823-40-81W7 1:29:271.2.840.980359.1.72.3.15|1.2 .840.418528.1.13.104.2.7.2.727879_2 [id number] [facility] 2023-12-16 11:02:12 us1DS4M2tFx5u9g6L7YSUQqwIZH8Uzf6Syn sprGqzPgFCaM85AtHi6N/mQ3IJLv95070-7 1:02:12 Libia Morin is a 53 year old femalePt is requesting status of auth for med refill for rxsecukinumab (COSENTYX PEN) 150 mg/mL SC injectionPt can be reached at [phone] you 03441-4Vdsgbjzox encounter VpqbGP9446-86-67R08:05:30Telephone encounter NoteTXT1.2.840.825354.1.13.104.2.7. 2.332860|[id number] for patient yvpp43782-5YmesSYFBASDMYAVWhtwdpqct C-CDA narrative text[address] Nn[id number] 1YJCYIBJGEXVBFNCQJLXNDO8068-48-14M8 1:05:301.2.840.298738.1.72.3.15|1.2 .840.965079.1.13.104.2.7.2.727879_2 [id number] [facility] 2023-12-03 16:45:00 46NdAmHeyU3m78VmDeHi25iIFqZjWdpSrbM zPOA8NWKF9+DjX1iPh7d42kmZ9DEq9545-7 12-03T16:45:00 Images from the original note were not included.Venipuncture collection performed by clean technique on the left anticubitus. Total of 1 attempts were made. Slight pressure and a bandage/dressing were applied to the site(s). The patient experienced no complications. The following specimens were processed according to instructions and sent to [facility] laboratoriesLT BLUELt GreenSSTREDLAV 1PPTDK GREEN (L)DK GREEN (S)///Fibrosure set BLUE,SST & LAVGRAYDK BLUE (K2)DK BLUE (S)ACDRST 1BLOOD CULTURE SETBLOOD CULTURE (AFB AND FUNGUS )VERIFYNOWMonogramTYPENEX (LAV TOP) ARM BAND ON PATIENTZ plasma preservative tube (call lab for tube)ARUPVasoactive Intestinal Peptide (call lab for tube)ARUPFEDEX ( NIPT)URINEURINE CULTUREAPTIMA URINESTOOL 38037-1Fwodu WumbDU4684-00-23A12:15:45Nurse NoteTXT1.2.840.467525.1.13.104.2.7. 2.454910|[id number] for patient dnyk48688-4Gwraf NoteLNNARRATIVEFormatted C-CDA narrative textUT[address] Kd[id number] 3DQIYJKWMJMIDUQJBLPRAMP8123-62-40O1 6:15:451.2.840.278245.1.72.3.15|1.2 .840.961331.1.13.104.2.7.2.727879_2 [id number] [facility] 2023-10-27 16:23:11 XuA+4Eby+tXzpR2ZdDe9X9Ajw0opuTDDy4q XEJ0lH4scKi++xcC6k2X1wb3F1qhV2310-6 10-27T16:23:11 Requested PrescriptionsPending Prescriptions Disp Refillssecukinumab (COSENTYX PEN) 150 mg/mL SC injection 2 Pen 2Sig: inject 2 Pens under the skin every 4 (four) weeks. Indications: plaque psoriasisThere is no refill protocol information for this orderRecent VisitsDate Type Provider Dept110/20/22 Nurse Visit Paramjit, Derm Nurse Visit Jose [facility] Derm FacultyShowing recent visits within past 365 days and meeting all other requirementsFuture AppointmentsNo visits were found meeting these conditions.Showing future appointments within next 365 days and meeting all other requirementsRefill request denied. [facility] PT was asked to return to clinic in 3 months for follow up and PT has not returned to clinic for follow up.Note from [facility]:1) Psoriasis: Initial Assessment (chronic, flaring, not at goal)Date completed: 08/11/23Diagnosis: plaque psoriasis, guttate psoriasisTBSA (0-100): 40%PGA (0-4): (Erythema: 4+ Induration: 3 + Scalin ) ?3 = 3.33Composite score: (TBSA: 40) ?(PGA: 3.33) = 133.2ROS/PMH (+): psoriatic scalp lesions, nail dystrophyFailed/past therapies:Topical: topical corticosteroid (triamcinolone, lidex) and emollient/moisturizerSystemic: NoneBiologic: None, will consult clinical pharmacist to see which biologic/systemic would be covered by her insuranceContraindications to therapy: None. No known history of MS, IBD or CHFInterventions:Continue triamcinolone 0.1% ointment BID to affected areas, eRx sentContinue lidex 0.05% solution BID to scalp lesions , eRx sentConsult clinical pharmacist to see which biologic/systemic would be covered by her insuranceAnnual TB test (QFT-Gold)QFT Gold Plus Result (no units)Date Value07/06/2023 NegativeLabs reviewed: CBC, CMP (AST slight elevated at 74), HBsAb, HBsAg, HBcAb, HIV Ab, HCV Ab, QFT-GoldLabs ordered today: None2) Pemphigus foliaceous?- Etiology and treatment options discussed- Labs discussed today: [facility] pemphigus panel (+IgG 1:40, monkey esophagus,+IgG desmoglein 1: 37u/ml, - IgG desmoglein 3)- Discussed lesions seen today are more consistent with psoriasis and P. Foliaceous might be an incidental finding. However, given this diagnosis was considered in the differential based on the clinical findings of the original lesions on 07/06/23. Will monitor and can consider [facility] 3 monthsSara Brianna Mendoza [address]Ann Castaeñda 10/27/2023 4:23 PM 12668-5Ywxxyazud encounter KlzzMF6606-87-91I79:31:24Telephone encounter NoteTXT1.2.840.699838.1.13.104.2.7. 2.742323|[id number] for patient rzvd57874-5AqohEXRFOXYBJJOLkyrtaboc C-CDA narrative [id number] M Dew[address]UT[address] Aj[id number] 8WKJVNOVYSLZUVESKFNHABQ6962-35-70C2 6:31:241.2.840.679502.1.72.3.15|1.2 .840.079011.1.13.104.2.7.2.727879_2 [id number] Ann Castañeda [facility] 2023-10-27 16:08:33 yiX7kGT6PWZRbUiOjff34QCgx0UqoLrzZ4E ZND+Zvg8RQ340x0ojRAIefWAxk1SO8663-0 10-27T16:08:33 Libia Morin is a 53 year old female.Patient's daughter is calling stating patient needs a refill on RX secukinumab (COSENTYX PEN) 150 mg/mL SC injection .Patient is to take last dose on 11/18.[facility] - [address], [place]Phone: Sdghjl advise [id number] encounter RudlSS1908-20-38K77:10:03Telephone encounter NoteTXT1.2.840.747283.1.13.104.2.7. 2.986608|[id number] for patient zdvo60763-7NvrvMGDAVBOCARXGucdjssjq C-CDA narrative [id number] Z [address] Hz[id number] 1VKCSKBSPXNELEZHYLZXFPG2697-47-82O2 6:10:031.2.840.443060.1.72.3.15|1.2 .840.698597.1.13.104.2.7.2.727879_2 [id number] Kristina Lehman [facility]
--- NOTE | 2023-12-26 14:36 | EDPHYS ---
Physician Documentation [facility] Name: Libia Morin Age: 53 yrs Sex: Female : 1970 Arrival Date: 12/26/2023 Time: 12:10 Bed 18 Private MD: ED Physician Gómez Junior HPI: 12/25 14:27 This 53 yrs old Female presents to ER via Wheelchair with complaints of Leg brenna Pain. 14:27 The patient presents with decreased range of motion, pain, swelling. The complaints brenna affect the left knee. Context: resulted from the patient falling, the patient can partially bear weight, must have assistance, from family. Onset: The symptoms/episode began/occurred 3 day(s) ago. Modifying factors: The symptoms are alleviated by elevating leg, remaining still, the symptoms are aggravated by weight bearing. Associated signs and symptoms: The patient has no apparent associated signs or symptoms. Treatment prior to arrival includes: over the counter medications, NSAIDS. Severity of symptoms: At their worst the symptoms were moderate, in the emergency department the symptoms are unchanged. The patient has experienced similar episodes in the past, a few times. Historical: - Allergies: 12:18 No Known Allergies; iw - PMHx: 12:18 Diabetes - NIDDM; Hypertension; iw - PSHx: 12:18 Cholecystectomy; hysterectomy; iw - Immunization history:: Adult Immunizations unknown. - Family history:: not pertinent. - Social history:: Smoking status: Patient denies any tobacco usage or history of. ROS: 14:27 Constitutional: Negative for fever, chills, and weight loss, Eyes: Negative for injury, brenna pain, redness, and discharge, ENT: Negative for injury, pain, and discharge, Neck: Negative for injury, pain, and swelling, Cardiovascular: Negative for chest pain, palpitations, and edema, Respiratory: Negative for shortness of breath, cough, wheezing, and pleuritic chest pain, Abdomen/GI: Negative for abdominal pain, nausea, vomiting, diarrhea, and constipation, Back: Negative for injury and pain, : Negative for injury, bleeding, discharge, and swelling, Skin: Negative for injury, rash, and discoloration, Neuro: Negative for headache, weakness, numbness, tingling, and seizure, Psych: Negative for depression, anxiety, suicide ideation, homicidal ideation, and hallucinations, Allergy/Immunology: Negative for hives, rash, and allergies, Endocrine: Negative for neck swelling, polydipsia, polyuria, polyphagia, and marked weight changes, Hematologic/Lymphatic: Negative for swollen nodes, abnormal bleeding, and unusual bruising, 14:27 MS/extremity: Positive for decreased range of motion, pain, swelling, tenderness, of the left knee, Exam: 14:27 Constitutional: This is a well developed, well nourished patient who is awake, alert, brenna and in no acute distress. Head/Face: Normocephalic, atraumatic. Eyes: Pupils equal round and reactive to light, extra-ocular motions intact. Lids and lashes normal. Conjunctiva and sclera are non-icteric and not injected. Cornea within normal limits. Periorbital areas with no swelling, redness, or edema. ENT: Nares patent. No nasal discharge, no septal abnormalities noted. Tympanic membranes are normal and external auditory canals are clear. Oropharynx with no redness, swelling, or masses, exudates, or evidence of obstruction, uvula midline. Mucous membranes moist. Neck: Trachea midline, no thyromegaly or masses palpated, and no cervical lymphadenopathy. Supple, full range of motion without nuchal rigidity, or vertebral point tenderness. No Meningismus. Chest/axilla: Normal chest wall appearance and motion. Nontender with no deformity. No lesions are appreciated. Cardiovascular: Regular rate and rhythm with a normal S1 and S2. No gallops, murmurs, or rubs. Normal PMI, no JVD. No pulse deficits. Respiratory: Lungs have equal breath sounds bilaterally, clear to auscultation and percussion. No rales, rhonchi or wheezes noted. No increased work of breathing, no retractions or nasal flaring. Abdomen/GI: Soft, non-tender, with normal bowel sounds. No distension or tympany. No guarding or rebound. No evidence of tenderness throughout. Back: No spinal tenderness. No costovertebral tenderness. Full range of motion. Skin: Warm, dry with normal turgor. Normal color with no rashes, no lesions, and no evidence of cellulitis. Neuro: Awake and alert, GCS 15, oriented to person, place, time, and situation. Cranial nerves II-XII grossly intact. Motor strength 5/5 in all extremities. Sensory grossly intact. Cerebellar exam normal. Normal gait. Psych: Awake, alert, with orientation to person, place and time. Behavior, mood, and affect are within normal limits. 14:27 Musculoskeletal/extremity: ROM: limited active range of motion due to pain, limited passive range of motion due to pain, Circulation is intact in all extremities. Sensation intact. Compartment Syndrome exam of affected extremity: is normal. Weight bearing: can bear weight with assistance only, , DVT Exam: negative Homans' sign noted on exam, no appreciated bluish discoloration, no erythema, no increased warmth, pain, swelling, tenderness, Vital Signs: 12:18 BP 124 / 93; Pulse 96; Resp 16; Temp 98.4; Pulse Ox 99% ; Weight 88.9 kg; Height 5 ft. iw 3 in. ; Pain 10/10; 15:00 BP 131 / 60; Pulse 86; Resp 16; Pulse Ox 99% on R/A; db 12:18 Body Mass Index 34.72 (88.90 kg, 160.02 cm) iw 12:18 Pain Scale: Adult iw MDM: 12:19 Patient medically screened. [facility] 14:33 Differential diagnosis: closed fracture, contusion, tendonitis. Data reviewed: vital brenna signs, nurses notes, radiologic studies, plain films. Consideration of Admission/Observation Escalation of care including admission/observation considered. I considered the following discharge prescriptions or medication management in the emergency department Medications were administered in the Emergency Department. See MAR. Independent interpretation of the following test(s) in the Emergency Department X-Ray: My interpretation is NO FX . Test considered but Not performed: Labs: NO CBC , NO COMP MET. Historians other than the Patient: Spouse/Significant Other: WELL INFORMED. Care significantly affected by the following chronic conditions: Diabetes, Hypertension, Obesity. 12/25 12:52 Order name: Knee Left 3 View XRAY [facility] 12/25 12:52 Order name: Knee Immobilizer; Complete Time: 15:05 [facility] 12/25 12:52 Order name: Ice pack; Complete Time: 15:05 [facility] 12/25 14:33 Order name: Crutches; Complete Time: 15:05 [facility] Administered Medications: 13:34 Drug: Ondansetron Oral Disintegrating Tablet Oral Disintegrating Tablet 4 mg PO once db Route: PO; 15:06 Follow up: Response: No adverse reaction db 13:37 Drug: [place] PO 10 mg-325 mg 1 tabs PO once Route: PO; db 15:05 Follow up: Response: No adverse reaction db 13:40 Drug: Ketorolac IM 60 mg IM once Route: IM; Site: right ventrogluteal; db 15:06 Follow up: Response: No adverse reaction db Disposition Summary: 12/26/23 14:35 Discharge Ordered Notes: Location: Home brenna Problem: new brenna Symptoms: have improved brenna Condition: Stable brenna Diagnosis - Fall on same level, unspecified brenna - Pain in left knee brenna - Sprain of other specified parts of left knee brenna - Other specified arthritis, left knee brenna Followup: brenna - With: Private Physician - When: 2 - 3 days - Reason: Recheck today's complaints, Continuance of care, Re-evaluation by your physician Followup: brenna - With: Kyler Wilkes MD - When: 2 - 3 days - Reason: Recheck today's complaints, Re-evaluation by your physician Discharge Instructions: - Discharge Summary Sheet [facility] - Joint Pain [facility] - Arthritis [facility] - How to Use a Knee Brace brenna - Acute Knee Pain, Adult [facility] - How to Use Cold Therapy, Baye-wt-Wtcm [facility] - Arthritis, Biua-at-Clpx brenna - Joint Pain, Gham-gf-Fvdl [facility] Forms: - Medication Reconciliation Form [facility] - Thank You Letter [facility] - Antibiotic Education [facility] - Prescription Opioid Use [facility] - Patient Portal Instructions [facility] - Leadership Thank You Letter [facility] Prescriptions: - acetaminophen-codeine 300-30 mg Oral tablet - take 2 tablet ORAL route every 6 hours; 20 tablet; Refills: 0, Product [facility] Selection Permitted - diclofenac sodium 25 mg Oral tablet, delayed release (enteric coated) - take 1 tablet ORAL route 3 times per day; 30 tablet; Refills: 0, Product [facility] Selection Permitted - Medrol (Dada) 4 mg Oral Tablets, Dose Pack - take 1 tablet ORAL route as directed - follow package instructions; 1 packet; [facility] Refills: 0, Product Selection Permitted Signatures: Dispatcher [employer] Gómez Chaudhary MD MD cha Williams, Irene RN DESI iw Nadine Acosta RN RN db
--- NOTE | 2023-12-26 14:36 | ER ---
Nurse's Notes [facility] Name: Libia Morin Age: 53 yrs Sex: Female : 1970 Arrival Date: 12/26/2023 Time: 12:10 Bed 18 Private MD: Diagnosis: Fall on same level, unspecified;Pain in left knee;Sprain of other specified parts of left knee;Other specified arthritis, left knee Presentation: 12/25 12:16 Chief complaint: Patient states: left knee pain started 2 weeks ago, pain is worse iw today , she feel on it and the pain is worse, she was seen by her doctor and they gave her a steroid shot and it helped for a day. 12:18 Coronavirus screen: At this time, the client does not indicate any symptoms associated iw with coronavirus-19. Ebola Screen: Patient negative for fever greater than or equal to 101.5 degrees Fahrenheit, and additional compatible Ebola Virus Disease symptoms Patient denies exposure to infectious person. Patient denies travel to an Ebola-affected area in the 21 days before illness onset. No symptoms or risks identified at this time. 12:18 Method Of Arrival: Wheelchair iw 12:18 Acuity: RUDDY 3 iw 12:18 Initial Sepsis Screen: Does the patient meet any 2 criteria? No. Patient's initial iw sepsis screen is negative. Does the patient have a suspected source of infection? No. Patient's initial sepsis screen is negative. Onset of symptoms was December 12, 2023. 12:19 Risk Assessment: Do you want to hurt yourself or someone else? Patient reports no iw desire to harm self or others. Triage Assessment: 12:16 General: Appears in no apparent distress. Behavior is calm, cooperative. Pain: iw Complains of pain in left knee. Historical: - Allergies: 12:18 No Known Allergies; iw - PMHx: 12:18 Diabetes - NIDDM; Hypertension; iw - PSHx: 12:18 Cholecystectomy; hysterectomy; iw - Immunization history:: Adult Immunizations unknown. - Family history:: not pertinent. - Social history:: Smoking status: Patient denies any tobacco usage or history of. Screenin:00 [facility] ED Fall Risk Assessment (Adult) History of falling in the last 3 months, db including since admission Yes- single mechanical fall (1 pt) Confusion or Disorientation No (0 pts) Intoxicated or Sedated No (0 pts) Impaired Gait No (0 pts) Mobility Assist Device Used No (0 pt) Altered Elimination No (0 pt) Score/Fall Risk Level 0 - 2 = Low Risk Oriented to surroundings, Maintained a safe environment. Abuse screen: Denies threats or abuse. Denies injuries from another. Nutritional screening: No deficits noted. Tuberculosis screening: No symptoms or risk factors identified. Assessment: 14:00 Reassessment: Patient appears in no apparent distress at this time. Patient and/or db family updated on plan of care and expected duration. Pain level reassessed. Patient is alert, oriented x 3, equal unlabored respirations, skin warm/dry/pink. 15:00 Reassessment: Patient appears in no apparent distress at this time. Patient and/or db family updated on plan of care and expected duration. Pain level reassessed. Patient is alert, oriented x 3, equal unlabored respirations, skin warm/dry/pink. General: Appears in no apparent distress. comfortable, Behavior is calm, cooperative. Pain: Complains of pain in left leg and left knee. Neuro: Level of Consciousness is awake, alert, obeys commands, Oriented to person, place, time, situation, Speech is normal. Respiratory: Airway is patent Respiratory effort is even, unlabored, Respiratory pattern is regular, symmetrical. Vital Signs: 12:18 BP 124 / 93; Pulse 96; Resp 16; Temp 98.4; Pulse Ox 99% ; Weight 88.9 kg; Height 5 ft. iw 3 in. ; Pain 10/10; 15:00 BP 131 / 60; Pulse 86; Resp 16; Pulse Ox 99% on R/A; db 12:18 Body Mass Index 34.72 (88.90 kg, 160.02 cm) iw 12:18 Pain Scale: Adult iw ED Course: 12:13 Patient arrived in ED. mr 12:18 Triage completed. iw 12:18 Arm band placed on. iw 12:19 Gómez Junior MD is Attending Physician. [facility] 13:35 Nadine Acosta, DESI is Primary Nurse. db 14:00 Patient has correct armband on for positive identification. Provided Education on: db CRUTCHES. Pulse ox on. NIBP on. Warm blanket given. 14:00 No provider procedures requiring assistance completed. Patient did not have IV access db during this emergency room visit. Crutch training done. Knee immobilizer applied on. 14:34 Kyler Wilkes MD is Referral Physician. [facility] 14:36 Knee Left 3 View XRAY In Process Unspecified. EDMS Administered Medications: 13:34 Drug: Ondansetron Oral Disintegrating Tablet Oral Disintegrating Tablet 4 mg PO once db Route: PO; 15:06 Follow up: Response: No adverse reaction db 13:37 Drug: [place] PO 10 mg-325 mg 1 tabs PO once Route: PO; db 15:05 Follow up: Response: No adverse reaction db 13:40 Drug: Ketorolac IM 60 mg IM once Route: IM; Site: right ventrogluteal; db 15:06 Follow up: Response: No adverse reaction db Medication: 14:00 VIS not applicable for this client. db Outcome: 14:00 Discharged to home ambulatory, db 14:00 Condition: stable 14:00 Discharge instructions given to patient, Instructed on discharge instructions, follow up and referral plans. Prescriptions given X 1, 14:35 Discharge ordered by . [facility] 15:14 Patient left the ED. db Signatures: Dispatcher [employer] EDMS Gómez Junior MD MD cha Rivera, Mary, Reg Reg mr Ashley Guerrero, RN RN Nadine Gauthier, RN RN db Corrections: (The following items were deleted from the chart) 12:19 12:18 BP 124 / 93; Pulse 96bpm; Resp 16bpm; Pulse Ox 99%; Temp 98.4F; iw iw
--- NOTE | 2023-12-26 14:47 | RAD REPORT ---
EXAM DESCRIPTION: RAD - Knee Left 3 View - 12/26/2023 2:34 pm CLINICAL HISTORY: PAIN COMPARISON: No comparisons FINDINGS: Mild medial compartment space narrowing suggesting osteoarthritis. No fracture or dislocat ion. Small suprapatellar joint effusion.
[2023-12-26 16:01] VITALS: BP 124/93; TEMP 98.4; O2SAT 99
== END ==
LOC: ER 12:10
DX: S83.8X2A Sprain of other specified parts of left knee, initial encounter (principal); M13.862 Other specified arthritis, left knee; W18.30XA Fall on same level, unspecified, initial encounter
CPT/HCPCS: 73562; 96372; 99284; Q0162

== ENCOUNTER 2024-12-09 22:28 | Emergency (ER) | payer OTHER ==
--- OUTSIDE RECORDS SUMMARY | 2024-12-09 22:36 | XMS REPORT | Continuity of Care Document ---
Author Name Unknown Address [address] [facility] [place] [place] [address] [facility] [place] Address [address] [facility] [place]. 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 Novelty Name Role Phone Vish Waller Primary Care Physician [phone] GRISELDA COTTRELL Attending Clinician Unavailable JUAN A AGUERO Attending Clinician Unava ilPETE Robles Attending Clinician Unav ailable LAB90 Attending Clinician Unavailable LAB47 Attending Clinician Unavailable ISABELL PAINTER Attending Clinician Unavailable YANELI PUENTE Attending Clinician Unavailab Kia Rodríguez MD Attending Clinician [phone] Hellen Mendoza MD Attending Clinician [phone] [facility] Attending Clinician Unavailable Mariaelena Gordon MD Attending Clinician [phone] MARIAELENA GORDON Attending Clinician Unavailab fortino Mayer Tony Sagastume Attending Clinician [phone] [facility] Nurse Visit Jose Attending Clinicia lula Unavailable Leonor Abbasi MD Attending Clinician [phone] LEONOR ABBASI Attending Clinician Unavail able KIA CORDOVA Attending Clinician Unavailab JEFFRY Sales Attending Clinician Unavailable Jeffry Briceño MD Attending Clinician [phone] Doctor Unassigned, [place] Attending Clinician U brock Bryce SHENN, Essie Attending Clinician [phone] NATHANAEL JOSE Attending Clinician Unavailable NATHANAEL JOSE Attending Clinician Unavailable Aristides Peraza MD Attending Clinician [phone] Rima DO Sharif Attending Clinician [phone] Papi RN, Prachi Singh Attending Clinician David Amador RN, Mariya Lynch Attending Clinician Unavaila Tanja Haque DO Attending Clinician + [phone] Wilbur Bloom MD Attending Clinician [phone] Bridger Newman MD Attending Clinician + [phone] Ines Og MD Attending Clinician [phone] BRIDGER NEWMAN Attending Clinician Unavaila dariana Garcia RN, Chanell Lynch Attending Clinician Unav ailable Arabella Rodriguez Attending Clinician [phone] Arabella TRIMBLE Attending Clinician Unavailable NATHANAEL JOSE Admitting Clinician Unavailable Ines Og MD Admitting Clinician [phone] INES OG Admitting Clinician Unavailable Payers Payer Name Policy Type Policy Number Effective Date Expirati on Date Source [facility] DENNIS CHAVIRA COPAY FOCUS 9 [id number] 2024 00:00:00 [facility] [id number] 2024 00:00:00 [employer] [id number] 2023 00:00:00 Problems Condition Name Condition Details Condition Category Status Onset Date Resolution Date Last Treatment Date Treating Clinician Comments Source Well adult exam Well adult exam Disease Active 2023-10 2-10 00:00: 00 Arabella lynch DM type 2 with diabetic mixed hyperlipid emia (multi HCC) DM type 2 with diabetic mixed hyperlipid emia (multi HCC) Disease Active 2023-10 0-14 00:00: 00 Arabella lynch Midline thoracic back pain, unspecifie d chronicity Midline thoracic back pain, unspecifie d chronicity Disease Active 2022-10 0 00:00: 00 [facility] Morbid obesity with body mass index of 40.0-49.9 Morbid obesity with body mass index of 40.0-49.9 Disease Active 07-05 00:00: 00 [facility] Weakness Weakness Disease Active 07-05 00:00: 00 [facility] Obesity (BMI 30-39.9) Obesity (BMI 30-39.9) Disease Active 07-05 00:00: 00 [facility] HTN (hypertens ion) HTN (hypertens ion) Disease Active Arabella Naqvi - Externa l Severe obesity Severe obesity Disease Active Arabella Naqvi - Externa l Fatty liver Fatty liver Disease Active Arabella Julienold - Externa l Allergies, Adverse Reactions, Alerts Allergy Name Allergy Type Status Severity Reaction(s) Onset Date Inactive Date Treating Clinician Comments Source NO KNOWN ALLERGIE S Drug Class Active [facility] Social History Social Habit Start Date Stop Date Quantity Comments Source ASSERTION Not Arabella Naqvi - External Sexual orientation K juliano Driss - External Alcoholic beverage intake 2024-11-11 00:00:00 2024-11-11 00:00:00 Lifetime non-drinker (finding) Arabella Naqvi - External History of Social function 2024-07-19 00:00:00 2024-07-19 00:00:00 Arabella Naqvi - External Education 2024-07-19 00:00:00 2024-07-19 00:00:00 6 Arabella Naqvi - External Tobacco use and exposure 2024-04-16 00:00:00 2024-04-16 00:00:00 Smokeless tobacco non-user Arabella Naqvi - External Sex 2023-09-04 07:39:15 2023-09-04 07:39:15 Female (finding) Arabella Naqvi - External Alcohol intake 2023-08-01 00:00:00 2023-08-01 00:00:00 Lifetime non-drinker (finding) [facility] Sex assigned at 1970 00:00:00 1970 00:00:00 Arabella Mcdonald Smoking Status Start Date Stop Date Source Never smoked tobacco Arabella Naqvi Keon Mcdonald Medications Ordered Medication Name Filled Medication Name Start Date Stop Date Current Medication? Ordering Clinician Indication Dosage Frequency Signature (SIG) Comments Components Source Secukinumab , 300 MG Dose, (Cosentyx Sensoready, 300 MG,) 150 MG/ML subcutaneou s Solution Auto-inject or 11-10 00:00: 00 Yes [id number] Maintenanc e dosing: injection 300mg subcutaneo usly every 4 weeks. Arabella lynch KETOCONAZOL E, TOPICAL, 2 % apply externally Shampoo 10-13 00:00: 00 Yes [id number] Apply to scalp (and other affected areas), leave in for 15 minutes, then rinse. Repeat three times weekly.. Arabella lynch Clobetasol Propionate 0.05 % apply externally Ointment 10-13 00:00: 00 Yes [id number] Apply to affected areas on body twice daily for up to two weeks. Then use as needed to affected areas.. Arabella lynch Clobetasol Propionate 0.05 % apply externally Solution 10-13 00:00: 00 Yes [id number] Apply to affected areas on scalp twice daily for up to two weeks. Then use as needed to affected areas.. Arabella lynch LISINOPRIL- HCTZ 20-25 MG oral Tablet 2023-10 00:00: 00 Yes [id number] 1{tbl} QD Take 1 tablet by mouth once daily Arabella lynch glipiZIDE 10 MG oral Tablet 2023-10 00:00: 00 Yes [id number] 3 TAKE 1 TABLET BY MOUTH IN THE MORNING AND 1 IN THE EVENING BEFORE MEAL(S) Arabella lynch Amlodipine Besylate (NORVASC) 5 MG oral Tablet 2023-10 00:00: 00 Yes [id number] 5mg QD Take 1 tablet by mouth once daily Arabella lynch Metformin HCl 1000 MG oral Tablet 2023-10 00:00: 00 Yes [id number] 3 1000mg QD TAKE 1 TABLET BY MOUTH IN THE MORNING AND IN THE EVENING WITH MEALS Arabella lynch Dulaglutide (Trulicity) 1.5 MG/0.5ML subcutaneou s Solution Auto-inject or 2023-10 2- 00:00: 00 Yes [id number] 3 1.5mg Q1W Inject 1.5 mg into the skin once a week. Arabella lynch Clobetasol Propionate 0.05 % apply externally Solution 2023-10 00:00: 00 10-13 00:00 :00 No [id number] Apply to affected areas on scalp twice daily for up to two weeks. Then use as needed to affected areas.. Arabella lynch Clobetasol Propionate 0.05 % apply externally Ointment 2023-10 00:00: 00 10-13 00:00 :00 No [id number] Apply to affected areas on body twice daily for up to two weeks. Then use as needed to affected areas.. Arabella lynch Cetirizine (ZYRTEC) 10 MG oral Tablet 2023-10 0- 00:00: 00 09-14 00:00 :00 No [id number] 10mg QD Take 1 tablet (10 mg total) by mouth daily. Arabella lynch Clobetasol Propionate 0.05 % apply externally Cream 2023-10 0 00:00: 00 08-10 05:59 :00 No [id number] Apply to affected areas on body BID x 2 weeks, take 1 week off, repeat cycle PRN flares only. Do not use on face, groin, or armpits.. Arabella Smileya cris Dulaglutide (Trulicity) 0.75 MG/0.5ML subcutaneou s Solution Pen-injecto r 2023-10 0-14 00:00: 00 Yes [id number] 3 .75mg Q1W Inject 0.75 mg into the skin once a week. Arabella Herbert Externa l Dulaglutide (Trulicity) 0.75 MG/0.5ML subcutaneou s Solution Pen-injecto r 2023-10 0-14 00:00: 09-14 00:00 :00 No [id number] 3 .75mg Q1W Inject 0.75 mg into the skin once a week. Arabella lynch Clobetasol Propionate 0.05 % apply externally Ointment 2023-10 0-08 00:00: 00 09-14 00:00 :00 No [id number] Apply to affected areas on body twice daily for up to two weeks. Then use as needed to affected areas.. Arabella lynch Clobetasol Propionate 0.05 % apply externally Solution 2023-10 0-08 00:00: 00 07-19 00:00 :00 No [id number] Apply to affected areas on scalp twice daily for up to two weeks. Then use as needed to affected areas.. Arabella lynch Cetirizine (ZYRTEC) 10 MG oral Tablet 9- 00:00: 00 07-26 00:00 :00 No 10mg QD Take 1 tablet (10 mg total) by mouth daily. Arabella lynch Triamcinolo ne Acetonide 0.1 % apply externally Cream 8-13 00:00: 00 09-14 00:00 :00 No [id number] Apply to affected skin twice daily as needed. Arabella lynch linaGLIPtin (Tradjenta) 5 MG oral Tablet 7-16 00:00: 00 07-19 00:00 :00 No [id number] 3 1{tbl} QD Take 1 tablet by mouth daily. Arabella lynch Amlodipine Besylate (NORVASC) 5 MG oral Tablet -12 00:00: 00 Yes [id number] 5mg QD Take 1 tablet (5 mg total) by mouth daily. Arabella lynch glipiZIDE 10 MG oral Tablet -12 00:00: 00 Yes [id number] 3 10mg Take 1 tablet (10 mg total) by mouth in the morning and 1 tablet (10 mg total) in the evening. Take before meals. Arabella lynch LISINOPRIL- HCTZ 20-25 MG oral Tablet 04-16 00:00: 00 Yes [id number] 1{tbl} QD Take 1 tablet by mouth daily. Arabella lynch Metformin HCl 1000 MG oral Tablet 04-16 00:00: 00 Yes [id number] 3 1000mg Take 1 tablet (1,000 mg total) by mouth in the morning and 1 tablet (1,000 mg total) in the evening. Take with meals. Arabella lynch Sitagliptin Phosphate (Januvia) 50 MG oral Tablet 04-16 00:00: 00 Yes [id number] 3 50mg QD Take 1 tablet (50 mg total) by mouth daily. Arabella lynch Triamcinolo ne Acetonide 0.1 % apply externally Cream 04-16 00:00: 00 Yes [id number] 1{appli cation} Q.5D Apply 1 Applicatio n topically 2 times daily. Arabella lynch predniSONE (DELTASONE) 10 MG oral tablet 04-16 00:00: 00 07-19 00:00 :00 No [id number] 10mg QD Take 1 tablet (10 mg total) by mouth daily. Arabella lynch Cetirizine HCl (ZyrTEC Allergy) 10 MG oral Capsule 04-16 00:00: 00 07-19 00:00 :00 No [id number] 10mg QD Take 1 capsule (10 mg total) by mouth daily. Arabella lynch secukinumab (COSENTYX PEN) 150 mg/mL SC injection 20 00:00: 00 Yes [id number] 300mg inject 2 Pens under the skin every 4 (four) weeks. Indication s: plaque psoriasis [facility] secukinumab (COSENTYX PEN) 150 mg/mL SC injection 12-03 00:00: 00 Yes [id number] 300mg inject 2 Pens under the skin every 4 (four) weeks. Indication s: plaque psoriasis [facility] Sitagliptin Phosphate (Januvia) 50 MG oral Tablet 2022-10 00:00: 00 04-16 00:00 :00 No Arabella lynch Amlodipine Besylate (NORVASC) 5 MG oral Tablet 2022-10 00:00: 00 04-16 00:00 :00 No 1mg 1 mg. Arabella lynch secukinumab (COSENTYX PEN) SC injection 150 mg 2022-10 17:30: 00 08-20 17:40 :00 No [id number] 150mg [facility] Secukinumab (Cosentyx Sensoready Pen) 150 MG/ML subcutaneou s Solution Auto-inject or 2022-10 00:00: 00 07-19 00:00 :00 No 300mg Inject 300 mg into the skin. Arabella lynch secukinumab (COSENTYX PEN) 150 mg/mL SC injection 2022-10 00:00: 00 12-03 00:00 :00 No [id number] 300mg inject 2 Pens under the skin every 4 (four) weeks. Indication s: plaque psoriasis [facility] ixekizumab 80 mg/mL 2022-10 00:00: 00 08-13 05:59 :00 No [id number] 160mg inject 2 Pens under the skin once now for 1 dose. Indication s: plaque psoriasis [facility] ixekizumab (TALTZ AUTOINJECTO R) 80 mg/mL 2022-10 00:00: 00 08-12 00:00 :00 No [id number] Inject 2 auto-injec tors under the skin on week 0, then inject 1 auto-injec tor under the skin at weeks 2, 4, 6, 8, 10, and 12. [facility] fluocinonid e 0.05 % solution 2022-10 00:00: 00 Yes [id number] Apply to area(s) 2 (two) times daily as needed for Rash or Itching. [facility] Triamcinolo ne Acetonide 0.1 % apply externally Ointment 2022-10 00:00: 00 04-16 00:00 :00 No Arabella Seybold - Externa l lisinopriL 20 mg tablet 2022-10 0 15:11: 38 Yes 20mg Take 1 tablet by mouth daily. [facility] lisinopriL (PRINIVIL,Z ESTRIL) tablet 20 mg 2022-10 14:00: 00 Yes 20mg 20 mg, Oral, DAILY, First dose on Fri07/18/23 at 0900, Until Discontinu ed, Routine [facility] insulin glargine (LANTUS U-100) injection 18 Units 2022-10 02:00: 00 Yes 18U 18 Units, Subcutaneo us, QHS, First dose on Fri07/17/23 at 2100, Until Discontinu ed [facility] metFORMIN (GLUCOPHAGE ) tablet 500 mg 2022-10 22:00: 00 Yes 500mg 500 mg, Oral, BID MEALS, First dose on Fri07/17/23 at 1700, Until Discontinu ed, Routine [facility] enoxaparin (LOVENOX) injection 40 mg 2022-10 22:00: 00 Yes 40mg 40 mg, Subcutaneo us, DAILY, First dose on Fri07/17/23 at 1700, Until Discontinu ed, Routine [facility] cyclobenzap rine (FLEXERIL) tablet 5 mg 2022-10 21:20: 32 Yes 5mg 5 mg, Oral, QPMPRN, Starting on Fri07/17/23 at 1620, Until Discontinu ed, Routine, Muscle Spasms [facility] Sliding Scale Insulin - Lispro (HumaLOG) 2022-10 17:30: 00 Yes Subcutaneo us, TID MEALS+HS, First dose (after last modificati on) on Fri07/17/23 at 1230, Until Discontinu ed, Routine [facility] lisinopriL 20 mg tablet 2022-10 17:06: 40 Yes 20mg Take 1 tablet by mouth daily. [facility] ondansetron (ZOFRAN (PF)) injection 4 mg 2022-10 12:57: 26 Yes 4mg 4 mg, Slow IV Push, Q6HPRN, Starting on Jami 07/17/23 at 0757, Until Discontinu ed, Routine, Nausea and Vomiting (N/V) [facility] morpHINE (4 mg/mL) injection 4 mg 2022-10 12:57: 24 07-18 12:56 :24 No 4mg 4 mg, Slow IV Push, Q4HPRN, Starting on Jami 07/17/23 at 0757, Until Fri07/18/23 at 0756, Routine, Pain (scale 7-10) [facility] traMADoL (ULTRAM) tablet 50 mg 2022-10 12:57: 22 07-19 12:56 :22 No 50mg 50 mg, Oral, Q8HPRN, Starting on Jami 07/17/23 at 0757, Until 07/19/23 at 0756, Routine, Pain (scale 4-6) [facility] acetaminoph en (TYLENOL) tablet 650 mg 2022-10 12:57: 19 Yes 650mg 650 mg, Oral, Q6HPRN, Starting on Jami 07/17/23 at 0757, Until Discontinu ed, Routine, Pain (scale 1-3) [facility] iopamidol (ISOVUE 370-500 mL) injection 100 mL 2022-10 08:15: 00 07-17 08:15 :00 No [id number] 100mL 100 mL, Intravenou s, ONCE, 1 dose, On Fri07/17/23 at 0315, Routine [facility] NaCl 0.9% (NS) bolus infusion 1,000 mL 2022-10 08:00: 00 07-17 08:40 :00 No 1000mL at 999 mL/hr, 1,000 mL, IV Piggyback, ONCE, 1 dose, On Fri07/17/23 at 0300, STAT [facility] Blood Glucose Monitoring Suppl (True Metrix Meter) w/Device does not apply Kit 2022-10 00:00: 00 Yes Arabella lynch Blood-Gluco se Meter (TRUE METRIX GLUCOSE METER) Kit 2022-10 0 00:00: 00 Yes [id number] Test blood sugar one in the morning and once in the evening. Use as directed [facility] Insulin Glargine (BASAGLAR KWIKPEN U-100 INSULIN) 100 unit/mL (3 mL) injection 2022-10 00:00: 00 Yes [id number] 18U inject 18 Units under the skin at bedtime. [facility] insulin lispro (HUMALOG KWIKPEN INSULIN) 100 unit/mL pen injector 2022-10 00:00: 00 Yes [id number] 6U inject 6 Units under the skin 3 (three) times daily before meals. [facility] insulin lispro (HUMALOG KWIKPEN INSULIN) 100 unit/mL pen injector 2022-10 00:00: 00 Yes [id number] 1U inject 1 Units under the skin [...] hours and cover again with sliding scale. [facility] Insulin [place], Disposable, (BD INSULIN PEN NEEDLE UF) 31 gauge x 5/16" Ndle 2022-10 00:00: 00 Yes [id number] Use as directed [facility] insulin lispro (HUMALOG KWIKPEN INSULIN) 100 unit/mL pen injector 2022-10 00:00: 00 Yes [id number] 1U inject 1 Units under the skin [...] hours and cover again with sliding scale. [facility] Insulin Glargine (BASAGLAR KWIKPEN U-100 INSULIN) 100 unit/mL (3 mL) injection 2022-10 00:00: 00 Yes [id number] 18U inject 18 Units under the skin at bedtime. [facility] insulin lispro (HUMALOG KWIKPEN INSULIN) 100 unit/mL pen injector 2022-10 00:00: 00 Yes [id number] 6U inject 6 Units under the skin 3 (three) times daily before meals. [facility] insulin glargine 100 unit/mL injection 2022-10 00:00: 00 07-16 00:00 :00 No [id number] 18U inject 18 Units under the skin daily. [facility] lisinopriL 20 mg tablet 2022-10 18:34: 53 Yes 20mg Take 1 tablet by mouth daily. [facility] metFORMIN 1,000 mg tablet 2022-10 18:34: 51 07-10 00:00 :00 No 1000mg Take 1 tablet by mouth 2 (two) times daily with meals. [facility] glipiZIDE XL 2.5 mg 24 hr tablet 2022-10 18:34: 51 07-10 00:00 :00 No 2.5mg Take 1 tablet by mouth daily with breakfast. [facility] Sliding Scale Insulin - Lispro (HumaLOG) 2022-10 0 01:00: 00 Yes Subcutaneo us, Q4H, First dose (after last modificati on) on Fri07/09/23 at 1999, Until Discontinu ed, Routine [facility] fluocinonid e (LIDEX) 0.05 % solution 2022-10 0 01:00: 00 Yes Topical, BID, First dose on Fri07/09/23 at 1999, Until Discontinu ed, Routine [facility] Glucose Blood (ReliOn Prime Test) in vitro Strip 2022-10 0 00:00: 00 Yes See Admin Instructio ns. Arabella lynch cyclobenzap rine 5 mg tablet 2022-10 0 00:00: 00 Yes [id number] 5mg Take 1 tablet by mouth every evening as needed for Muscle Spasms. [facility] fluocinonid e 0.05 % solution 2022-10 0 00:00: 00 Yes [id number] Apply to area(s) 2 (two) times daily. [facility] triamcinolo ne acetonide 0.1 % cream 2022-10 00:00: 00 Yes [id number] Apply to area(s) 2 (two) times daily. [facility] SITagliptin phosphate (JANUVIA) 25 mg tablet 2022-10 00:00: 00 Yes [id number] 25mg Take 1 tablet by mouth daily. [facility] lancets 33 gauge [facility] [place]22-10 0 00:00: 00 Yes [id number] Use as directed [facility] metFORMIN 1,000 mg tablet 2022-10 0 00:00: 00 Yes [id number] 1000mg Take 1 tablet by mouth 2 (two) times daily with meals. [facility] Blood-Gluco se Meter (RELION PRIME METER) [facility] 2022-10 0 00:00: 00 07-17 00:00 :00 No [id number] Use as directed [facility] insulin lispro, human, 100 unit/mL injection 2022-10 005 00:00: 00 07-16 00:00 :00 No [id number] 6U inject 6 Units under the skin 3 (three) times daily with meals. [facility] cyclobenzap rine (FLEXERIL) tablet 5 mg 2022-10 004 21:45: 00 Yes 5mg 5 mg, Oral, QPMPRN, Starting on Fri07/09/23 at 1645, Until Discontinu ed, Routine, Muscle Spasms [facility] insulin glargine (LANTUS U-100) injection 15 Units 2022-10 0-04 18:45: 00 Yes 15U 15 Units, Subcutaneo us, DAILY, First dose (after last modificati on) on Fri07/09/23 at 1345, Until Discontinu ed, Routine [facility] insulin lispro (human) (HumaLOG U-100) injection 4 Units 2022-10 0-04 17:00: 00 Yes 4U 4 Units, Subcutaneo us, TID MEALS, First dose (after last modificati on) on Fri07/09/23 at 1200, Until Discontinu ed, Routine [facility] KCL (KLOR-CON M20) tablet 40 mEq 2022-10 0-04 13:45: 00 07-09 13:23 :00 No 40meq 40 mEq, Oral, ONCE, 1 dose, On Fri07/09/23 at 0845, Routine [facility] cyclobenzap rine (FLEXERIL) tablet 5 mg 2022-10 0-04 12:50: 32 07-09 21:42 :22 No 5mg 5 mg, Oral, TIDPRN, Starting on Fri07/09/23 at 0750, Until Fri07/09/23 at 1642, Routine, Muscle Spasms [facility] lactated ringers IV infusion 1,000 mL 2022-10 0-03 14:00: 00 07-09 21:42 :29 No 1000mL at 100 mL/hr, 1,000 mL, IV Infusion, CONTINUOUS , Starting on Fri07/08/23 at 0900, Until Fri07/09/23 at 1642, Routine [facility] insulin glargine (LANTUS U-100) injection 8 Units 2022-10 0-03 02:00: 00 07-09 16:44 :51 No 8U 8 Units, Subcutaneo us, QHS, First dose (after last modificati on) on Fri07/07/23 at 2100, Until Discontinu ed, Routine [facility] insulin lispro (human) (HumaLOG U-100) injection 2 Units 2022-10 0-02 17:00: 00 07-09 16:45 :16 No 2U 2 Units, Subcutaneo us, TID MEALS, First dose on Fri07/07/23 at 1200, Until Discontinu ed, [facility]amin[facility] ([facility]OL) tablet 650 mg 2022-10 002 13:58: 03 Yes 650mg 650 mg, Oral, Q8HPRN, Starting on Fri07/07/23 at 0858, Until Discontinu ed, Routine, Pain (scale 1-3), Temp > 38 C [facility] triamcinolo ne acetonide (TRIDERM) 0.1 % cream 2022-10 0 20:30: 00 Yes Topical, BID, First dose on Fri07/06/23 at 1530, Until Discontinu ed, Routine [facility] glargine (LANTUS U-100) injection 8 Units 2022-10 16:09: 00 07-06 19:15 :00 No 8U 8 Units, Subcutaneo us, ONCE, 1 dose, On Fri07/06/23 at 1115, Routine [facility] KCL (KLOR-CON M20) tablet 20 mEq 2022-10 12:30: 00 07-06 13:10 :00 No 20meq 20 mEq, Oral, ONCE, 1 dose, On Fri07/06/23 at 0730, Routine [facility] lactated ringers IV infusion 1,000 mL 2022-10 11:45: 00 07-06 13:12 :00 No 1000mL at 999 mL/hr, 1,000 mL, Intravenou s, ONCE, 1 dose, On Fri07/06/23 at 0645, STAT [facility] vancomycin (VANCOCIN) 1,500 mg in NaCl 0.9% (NS) 500 mL VIAL-MATE IV piggyback 2022-10 0 06:15: 00 07-08 12:17 :10 No 15mg/kg 1,500 mg (rounded from 1,408.5 mg = 15 mg/kg ?93.9 kg), IV Piggyback, Q12H ABX, 6 doses, First dose on Fri07/06/23 at 0115, Last dose on Fri07/08/23 at 1315, Administer over 90 Minutes, 500 mL
R pauly for Anti-Infec tive: Empiric Therapy for Suspected Infection< br>Empiric Therapy Site: Blood
D uration of therapy: 5 days [facility] ceFEPIme (MAXIPIME) 1,000 mg in NaCl 0.9% (NS) 100 mL MINI-BAG 2022-10 06:06: 00 07-08 10:05 :42 No 1000mg 1,000 mg, IV Piggyback, Q8H ABX, 9 doses, First dose (after last modificati on) on Fri07/06/23 at 0115, Last dose on Fri07/08/23 at 1715, Administer over 4 Hours, 100 mL
Reas on for Anti-Infec tive: Empiric Therapy for Suspected Infection< br>Empiric Therapy Site: Blood
D uration of therapy: 72 hours [facility] acetaminoph en (TYLENOL) tablet 650 mg 07-05 21:15: 00 07-05 21:20 :00 No 650mg 650 mg, Oral, ONCE, 1 dose, On [facility] 07/05/23 at 1615, Routine [facility] sennosides- docusate sodium (SENOKOT-S) 8.6-50 mg per tablet 1 tablet 07-05 14:00: 00 Yes 1{tbl} 1 tablet, Oral, DAILY, First dose on [facility] 07/05/23 at 0900, Until Discontinu ed, Routine [facility] NaCl 0.9% (NS) IV infusion 500 mL 07-05 13:45: 00 07-05 13:24 :00 No 500mL at 100 mL/hr, IV Infusion, ONCE, 1 dose, On [facility] 07/05/23 at 0845, Routine [facility] Sliding Scale Insulin - Lispro (HumaLOG) 07-05 13:00: 00 07-09 21:37 :23 No Subcutaneo us, TID MEALS+HS, First dose on Fri07/05/23 at 0800, Until Discontinu ed, Routine [facility] doxycycline hyclate (Vibramycin ) capsule 100 mg 07-05 11:00: 00 07-12 10:59 :00 No 100mg 100 mg, Oral, Q12HA2, 14 doses, First dose on Fri07/05/23 at 0600, Last dose on Fri07/11/23 at 1800, AMELIA
Re ason for Anti-Infec tive: Documented Infection< br>Documen brittnee Infection Site: Other
O ther site: liver
D uration of Therapy: 7 days [facility] ibuprofen (MOTRIN IB) tablet 200 mg 07-05 09:59: 39 Yes 200mg 200 mg, Oral, Q6HPRN, Starting on Fri07/05/23 at 0459, Until Discontinu ed, Routine, Pain (scale 1-3), Temp > 38.5 C [facility] lactulose (CEPHULAC) solution 15 mL 07-05 07:22: 38 07-09 21:42 :39 No 15mL 15 mL, Oral, TIDPRN, Starting on Fri07/05/23 at 0222, Until Fri07/09/23 at 1642, Routine, Constipati on, Encephalop hathy [facility] melatonin (MELATIN) tablet 3 mg 07-05 07:04: 24 Yes 3mg 3 mg, Oral, QHSPRN, Starting on Fri07/05/23 at 0204, Until Discontinu ed, Routine, Insomnia [facility] dextrose 10% (D10W) bolus infusion [...] blood glucose is < 80 mg/dL, repeat.
[facility] glucagon (GLUCAGEN DIAGNOSTIC KIT) injection 1 mg 07-05 07:03: 16 Yes 1mg 1 mg, Intramuscu lar, PRN, Starting on 07/05/23 at 0203, Until Discontinu ed, AMELIA, Blood Glucose < or = 70 mg/dL and patient is NPO, unable to swallow or has mental changes. [facility] ondansetron (ZOFRAN (PF)) injection 4 mg 07-05 04:45: 00 07-05 04:04 :00 No 4mg 4 mg, Slow IV Push, ONCE, 1 dose, On Fri07/04/23 at 2345, AMELIA [facility] iopamidol (ISOVUE 370-500 mL) injection 85 mL 07-05 01:20: 00 07-05 01:30 :00 No [id number] 85mL 85 mL, Intravenou s, ONCE, 1 dose, On Fri07/04/23 at 2030, Routine [facility] NaCl 0.9% (NS) bolus infusion 1,000 mL 07-05 01:00: 00 07-05 01:08 :00 No 1000mL at 999 mL/hr, 1,000 mL, IV Infusion, ONCE, 1 dose, On Fri07/04/23 at 2000, STAT [facility] Atorvastati n Calcium 10 MG oral Tablet 05-12 00:00: 00 04-16 00:00 :00 Manda lynch glipiZIDE 10 MG oral Tablet 05-12 00:00: 00 04-16 00:00 :00 No Arabella lynch LISINOPRIL- HCTZ 20-25 MG oral Tablet 2023-0 8-07 00:00: 00 04-16 00:00 :00 No Arabella Naqvi - Externa l Metformin HCl 1000 MG oral Tablet 7-19 00:00: 00 04-16 00:00 :00 No Arabella Julienold - Externa l TAKE 1 TABLET DAILY DIRECTED. 9-13 00:00: 00 No INJECT 10 UNITS BELOW [...] TABLET DAILY DIRECTED. 03-25 00:00: 00 No ondansetron (ZOFRAN ODT) 4 mg disintegrat ing tablet 05-03 00:00: 00 Yes [id number] 4mg Take 1 tablet by mouth every 8 (eight) hours as needed for Nausea and Vomiting (N/V). [facility] Immunizations Ordered Immunization Name Filled Immunization Name Date Status Comments Source AFLURIA TRIVALENT PF(0.5mL) Unknown Completed Arabella Seybold - External Pneumococcal Vaccine, Polysaccharide Unknown Completed Arabella Seybol d - External AFLURIA TRIVALENT MDV Unknown Completed Arabella Seybold - External AFLURIA TRIVALENT PF(0.5mL) Unknown Completed Arabella Seybold - External Pneumococcal Vaccine, Polysaccharide Unknown Completed Arabella Seybol d - External AFLURIA TRIVALENT MDV Unknown Completed Arabella Seybold - External AFLURIA TRIVALENT PF(0.5mL) Unknown Completed Arabella Seybold - External Pneumococcal Vaccine, Polysaccharide Unknown Completed Arabella Seybol d - External AFLURIA TRIVALENT MDV Unknown Completed Arabella Seybold - External AFLURIA TRIVALENT PF(0.5mL) Unknown Completed Arabella Seybold - External Pneumococcal Vaccine, Polysaccharide Unknown Completed Arabella Seybol d - External AFLURIA TRIVALENT MDV Unknown Completed Arabella Naqvi - External AFLURIA TRIVALENT PF(0.5mL) Unknown Completed Arabella Naqvi - External Pneumococcal Vaccine, Polysaccharide Unknown Completed Arabella Julienol d - External AFLURIA TRIVALENT MDV Unknown Completed Arabella Naqvi - External Influenza, Seasonal, Injectable, Preservative Free Unknown Completed Arabella Grajeda bold - External Pneumococcal Vaccine, Polysaccharide Unknown Completed Arabella Julienol d - External AFLURIA TRIVALENT PF(0.5mL) Unknown Completed Arabella Naqvi - External Pneumococcal Vaccine, Polysaccharide Unknown Completed Arabella Julienol d - External Vital Signs Vital Name Observation Time Observation Value Comments S ource Systolic blood pressure 2024-11-11 15:10:00 124 mm[Hg] Arabella Julieno ld - External Diastolic blood pressure 2024-11-11 15:10:00 84 mm[Hg] Arabella Heckybo ld - External Heart rate 2024-11-11 15:10:00 82 /min Kdse sullivan Seybold - External Body temperature 2024-11-11 15:10:00 36.22 Tatiana Arabella Heckybold - External Respiratory rate 2024-11-11 15:10:00 18 /min Arabella Naqvi - External Body height 2024-11-11 15:10:00 162.6 cm Violeta patel Seybtherese - External Body weight 2024-11-11 15:10:00 95.528 kg Violeta patel Seybold - External BMI 2024-11-11 15:10:00 36.15 kg/m2 Violeta patel Seybold - External Oxygen saturation in Arterial blood by Pulse oximetry 2024-11-11 15:10:00 99 /min Arabella Julieno ld - External Systolic blood pressure 2024-09-14 15:04:00 132 mm[Hg] Arabella Heckybo ld - External Diastolic blood pressure 2024-09-14 15:04:00 81 mm[Hg] Arabella Julieno ld - External Heart rate 2024-09-14 15:04:00 95 /min Kdse y Seybold - External Body temperature 2024-09-14 15:04:00 36.17 Tatiana Arabella Heckybold - External Respiratory rate 2024-09-14 15:04:00 20 /min Arabella Seybold - External Body height 2024-09-14 15:04:00 162.6 cm Violeta ey Seybold - External Body weight 2024-09-14 15:04:00 95.709 kg Violeta ey Seybold - External BMI 2024-09-14 15:04:00 36.22 kg/m2 Violeta ey Seybold - External Oxygen saturation in Arterial blood by Pulse oximetry 2024-09-14 15:04:00 98 /min Arabella Seybo ld - External Systolic blood pressure 2024-07-19 12:52:00 122 mm[Hg] Arabella Seybo ld - External Diastolic blood pressure 2024-07-19 12:52:00 74 mm[Hg] Arabella Seybo ld - External Heart rate 2024-07-19 12:52:00 80 /min Kelse y Seybold - External Body temperature 2024-07-19 12:52:00 36.67 Tatiana Arabella Seybold - External Respiratory rate 2024-07-19 12:52:00 18 /min Arabella Seybold - External Body height 2024-07-19 12:52:00 162.6 cm Violeta ey Seybold - External Body weight 2024-07-19 12:52:00 94.121 kg Violeta ey Seybold - External BMI 2024-07-19 12:52:00 35.62 kg/m2 Violeta ey Seybold - External Oxygen saturation in Arterial blood by Pulse oximetry 2024-07-19 12:52:00 98 /min Arabella Seybo ld - External Systolic blood pressure 2024-04-16 13:54:00 134 mm[Hg] Arabella Seybo ld - External Diastolic blood pressure 2024-04-16 13:54:00 80 mm[Hg] Arabella Seybo ld - External Heart rate 2024-04-16 13:51:00 80 /min Kelse y Seybold - External Body temperature 2024-04-16 13:51:00 36.94 Tatiana Arabella Seybold - External Respiratory rate 2024-04-16 13:51:00 18 /min Arabella Seybold - External Body height 2024-04-16 13:51:00 162.6 cm Violeta ey Seybold - External Body weight 2024-04-16 13:51:00 94.439 kg Violeta ey Seybold - External BMI 2024-04-16 13:51:00 35.74 kg/m2 Violeta ey Seybold - External Oxygen saturation in Arterial blood by Pulse oximetry 2024-04-16 13:51:00 98 /min Arabella Teran ld - External Body weight 2023-08-20 17:28:00 90.855 kg [facility] BMI 2023-08-20 17:28:00 35.48 kg/m2 [facility] Systolic blood pressure 2023-08-01 20:15:00 131 mm[Hg] [facility] Diastolic blood pressure 2023-08-01 20:15:00 91 mm[Hg] [facility] Heart rate 2023-08-01 20:12:00 97 /min General acute hospital Body height 2023-08-01 20:12:00 160 cm [facility] Body weight 2023-08-01 20:12:00 90.855 kg [facility] BMI 2023-08-01 20:12:00 35.48 kg/m2 [facility] Oxygen saturation in Arterial blood by Pulse oximetry 2023-08-01 20:12:00 97 /min [facility] Systolic blood pressure 2023-07-17 20:44:00 134 mm[Hg] [facility] Diastolic blood pressure 2023-07-17 20:44:00 95 mm[Hg] [facility] Heart rate 2023-07-17 20:44:00 98 /min General acute hospital Body temperature 2023-07-17 20:44:00 37 Tatiana [facility] Respiratory rate 2023-07-17 20:44:00 22 /min [facility] Oxygen saturation in Arterial blood by Pulse oximetry 2023-07-17 20:44:00 97 /min [facility] Body weight 2023-07-17 12:29:00 91.173 kg [facility] BMI 2023-07-17 12:29:00 35.61 kg/m2 [facility] Body height 2023-07-17 11:20:00 160 cm [facility] Systolic blood pressure 2023-07-10 20:14:00 150 mm[Hg] [facility] Diastolic blood pressure 2023-07-10 20:14:00 89 mm[Hg] [facility] Heart rate 2023-07-10 20:14:00 75 /min General acute hospital Body temperature 2023-07-10 20:14:00 36.11 Tatiana [facility] Respiratory rate 2023-07-10 20:14:00 17 /min [facility] Oxygen saturation in Arterial blood by Pulse oximetry 2023-07-10 20:14:00 92 /min [facility] Body weight 2023-07-10 09:02:00 93.486 kg [facility] BMI 2023-07-10 09:02:00 36.51 kg/m2 [facility] Body height 2023-07-05 06:18:00 160 cm [facility] BP Systolic 2022-06-18 11:25:00 134 mm[Hg] BP [...] DIAGNOSIS AND TREATMENT 2023-08-01 19:48:07 Doctor Unassigned, [place] [facility] POCT GLUCOSE (AUTOMATED) 2023-07-17 20:46:00 Claudia Abarca [facility] TRANSTHORACIC ECHO (TTE) COMPLETE 2023-07-17 18:51:30 Nathanael Jose [facility] POCT GLUCOSE (AUTOMATED) 2023-07-17 16:26:00 Claudia Abarca [facility] HB ECG ROUTINE & RHYTHM STRIP 2023-07-17 08:36:02 Aristides Peraza [facility] CT ABDOMEN PELVIS W CONTRAST 2023-07-17 07:24:00 Aristides Peraza [facility] CT CHEST PULMONARY ANGIOGRAM 2023-07-17 07:24:00 Aristides Peraza [facility] XR CHEST 1 VW 2023-07-17 06:16:06 Aristides Peraza [facility] LIPASE 2023-07-17 06:07:00 Aristides Peraza [facility] TROPONIN I 2023-07-17 06:07:00 Aristides Peraza [facility] COMP. METABOLIC PANEL ([id number]) 2023-07-17 06:07:00 Aristides Peraza [facility] CBC WITH DIFF 2023-07-17 06:07:00 Aristides Peraza [facility] D-DIMER 2023-07-17 06:07:00 Aristides Peraza [facility] URINALYSIS 2023-07-17 05:53:00 Aristides Peraza [facility] CONSENT/REFUSAL FOR DIAGNOSIS AND TREATMENT 2023-07-17 05:28:31 Doctor Unassigned, [place] [facility] POCT GLUCOSE (AUTOMATED) 2023-07-10 16:43:00 Earle Ines [facility] POCT GLUCOSE (AUTOMATED) 2023-07-10 13:26:00 Ines Og [facility] MAGNESIUM 2023-07-10 09:23:00 [facility] ([id number]) (ALB,T.PRO,BILI T,BU/BC,ALT,AST,ALK PHOS) 2023-07-10 09:23:00 Florentino Be [facility] BASIC METABOLIC PANEL (NA, K, CL, CO2, GLUCOSE, BUN, CREATININE, CA) 2023-07-10 09:23:00 [facility] CBC WITH DIFF 2023-07-10 09:23:00 [facility]) 2023-07-10 09:00:[address] [facility] POCT GLUCOSE (AUTOMATED) 2023-07-10 04:48:00 Og, [facility] POCT GLUCOSE (AUTOMATED) 2023-07-10 01:28:[address] [facility] POCT GLUCOSE (AUTOMATED) 2023-07-09 22:06:00 Og, [facility] POCT GLUCOSE (AUTOMATED) 2023-07-09 19:49:00 Og, [facility] POCT GLUCOSE (AUTOMATED) 2023-07-09 16:51:00 Og, [facility] POCT GLUCOSE (AUTOMATED) 2023-07-09 13:06:00 Og, [facility] MAGNESIUM 2023-07-09 10:19:[address] [facility] HEPATIC FUNCTION PANEL ([id number]) (ALB,T.PRO,BILI T,BU/BC,ALT,AST,ALK PHOS) 2023-07-09 10:19:00 [facility]ABOLIC PANEL (NA, K, CL, CO2, GLUCOSE, BUN, CREATININE, CA) 2023-07-09 10:19:00 Theo Troncoso [facility] CBC WITH DIFF 2023-07-09 10:19:00 Theo Troncoso [facility] POCT GLUCOSE (AUTOMATED) 2023-07-09 04:15:[address] [facility] POCT GLUCOSE (AUTOMATED) 2023-07-09 01:54:[address] [facility] POCT GLUCOSE (AUTOMATED) 2023-07-08 22:05:[address] [facility] POCT GLUCOSE (AUTOMATED) 2023-07-08 17:38:[address] [facility] BLOOD CULTURE SCREEN 2023-07-08 16:38:00 Suhas Gao [facility] BLOOD CULTURE SCREEN 2023-07-08 16:26:00 Suhas Gao [facility] POCT GLUCOSE (AUTOMATED) 2023-07-08 13:16:[address] [facility] MAGNESIUM 2023-07-08 10:17:[address] [facility] FERRITIN SERUM 2023-07-08 10:17:00 [facility] 2023-07-08 10:17:00 Cari Gao [facility] HEPATIC FUNCTION PANEL ([id number]) (ALB,T.PRO,BILI T,BU/BC,ALT,AST,ALK PHOS) 2023-07-08 10:17:00 [facility]IC [facility]OLIC PANEL (NA, K, CL, CO2, GLUCOSE, BUN, CREATININE, CA) 2023-07-08 10:17:00 Fransisca Koehler [facility] CBC WITH DIFF 2023-07-08 10:17:00 Tanja Ortiz [facility] POCT GLUCOSE (AUTOMATED) 2023-07-08 01:32:[address] [facility] POCT GLUCOSE (AUTOMATED) 2023-07-07 22:51:[address] [facility] VANCOMYCIN TROUGH 2023-07-07 21:49:00 Fransisca Koehler [facility] POCT GLUCOSE (AUTOMATED) 2023-07-07 16:43:[address] [facility] POCT GLUCOSE (AUTOMATED) 2023-07-07 13:37:[address] [facility] MAGNESIUM 2023-07-07 06:36:00 Fransisca Koehler [facility] HEPATIC FUNCTION PANEL ([id number]) (ALB,T.PRO,BILI T,BU/BC,ALT,AST,ALK PHOS) 2023-07-07 06:36:00 [facility] BASIC METABOLIC PANEL (NA, K, CL, CO2, GLUCOSE, BUN, CREATININE, CA) 2023-07-07 06:36:00 [facility] CBC WITH DIFF 2023-07-07 06:36:00 [facility]akia [facility] POCT GLUCOSE (AUTOMATED) 2023-07-07 01:47:[address] [facility] POCT GLUCOSE (AUTOMATED) 2023-07-06 23:11:[address] [facility] DIFF CONSULT BY PATHOLOGIST 2023-07-06 19:55:00 [facility] CBC WITH DIFF 2023-07-06 19:55:00 [facility] MISCELLANEOUS SEND OUT TEST 2023-07-06 19:55:00 Tanja Ortiz [facility] DIFF CONSULT INTERPRETATION 2023-07-06 19:55:00 [facility] POCT GLUCOSE (AUTOMATED) 2023-07-06 18:11:[address] [facility] POCT GLUCOSE (AUTOMATED) 2023-07-06 13:24:[address] [facility] LACTIC ACID WHOLE BLOOD 2023-07-06 11:31:00 Leonrad Gao [facility] QUANTIFERON-TB ASSAY 2023-07-06 11:30:00 Tayler Koehler [facility] QFT TB2 MINUS NIL 2023-07-06 11:30:00 [facility] MAGNESIUM 2023-07-06 08:33:00 [facility] HEPAT[facility] FUNCTION PANEL ([id number]) (ALB,T.PRO,BILI T,BU/BC,ALT,AST,ALK PHOS) 2023-07-06 08:33:00 [facility] BASIC METABOLIC PANEL (NA, K, CL, CO2, GLUCOSE, BUN, CREATININE, CA) 2023-07-06 08:33:00 [facility] CBC WITH DIFF 2023-07-06 08:33:00 Fransisca Koehler [facility] POCT GLUCOSE (AUTOMATED) 2023-07-06 05:06:[address] [facility] POCT GLUCOSE (AUTOMATED) 2023-07-06 02:10:[address] [facility] DERMATOPATHOLOGY TISSUE EXAM 2023-07-06 00:00:00 Sanford Bustillos [facility] POCT GLUCOSE (AUTOMATED) 2023-07-05 22:42:[address] [facility] CRYOGLOBULIN QUALITATIVE 2023-07-05 21:39:00 [facility] MRSA / MSSA SCREEN BY PCRISABELLA 2023-07-05 21:38:00 [facility] POCT GLUCOSE (AUTOMATED) 2023-07-05 18:54:[address] [facility] POCT GLUCOSE (AUTOMATED) 2023-07-05 15:06:[address] [facility] XR CHEST 2 VW 2023-07-05 10:22:07 [facility] RICHIE-RUIZ VIRUS BY QUANTITATIVE NAAT, PLASMA 2023-07-05 09:15:00 Sima [facility] OSMOLALITY URINE 2023-07-05 08:36:00 Sima [facility] SODIUM, URINE RANDOM 2023-07-05 08:36:00 Tayler [facility] HSV 1&2, VZV NAAT 2023-07-05 08:36:00 Sima [facility] LEGIONELLA AND STREPTOCOCCUS PNEUMONIAE URINARY ANTIGENS 2023-07-05 08:36:00 Theo Troncoso [facility] OSMOLALITY, SERUM OR PLASMA 2023-07-05 08:15:00 Sima [facility] TYPHUS FEVER AB, IGG 2023-07-05 08:15:00 Sima [facility] SYPHILIS IGG/IGM 2023-07-05 08:15:[address] [facility] PSFTS-MMFHEL-GTUPJEINT ABS 2023-07-05 08:11:00 Tg sagastume [facility] AMMONIA, PLASMA 2023-07-05 08:11:[address] [facility] CERULOPLASMIN 2023-07-05 08:11:00 Sima [facility] C-REACTIVE PROTEIN 2023-07-05 08:11:00 Sima [facility] HEPATIC FUNCTION PANEL ([id number]) (ALB,T.PRO,BILI T,BU/BC,ALT,AST,ALK PHOS) 2023-07-05 08:11:00 Sima [facility] BASIC METABOLIC PANEL (NA, K, CL, CO2, GLUCOSE, BUN, CREATININE, CA) 2023-07-05 08:11:00 Sima [facility] LIPID PANEL ([id number])(TOTAL CHOLESTEROL, TRIGLYCERIDES, HDL) 2023-07-05 08:11:00 Sima [facility] SEDIMENTATION RATE 2023-07-05 08:11:00 Sima [facility] DIFF CONSULT BY PATHOLOGIST 2023-07-05 08:11:00 Sima [facility] CBC WITH DIFF 2023-07-05 08:11:00 Sima [facility] GLYCOSYLATED HEMOGLOBIN (A1C) 2023-07-05 08:11:00 Sima [facility] PROTHROMBIN TIME / INR 2023-07-05 08:11:00 [facility] ANTI-NUCLEAR ANTIBODY SCREEN 2023-07-05 08:11:00 Sima [facility] HEPATITIS B SURFACE ANTIBODY 2023-07-05 08:11:00 Sima [facility] HEPATITIS B SURFACE ANTIGEN 2023-07-05 08:11:00 Sima [facility] HCV ANTIBODY 2023-07-05 08:11:[address] [facility] HEPATITIS B CORE ANTIBODY IGM 2023-07-05 08:11:00 Sima [facility] ANCA SCREEN 2023-07-05 08:11:00 Fransisca Koehler [facility] HAV ANTIBODY (IGG AND IGM) 2023-07-05 08:11:00 Tg sagastume [facility] ANTI-NUCLEAR ANTIBODY TITER 2023-07-05 08:11:00 Sima [facility] CMV BY QUANTITATIVE NAAT 2023-07-05 08:11:00 Sima [facility] DIFF CONSULT INTERPRETATION 2023-07-05 08:11:00 Sima [facility] ANTI-NUCLEAR ANTIBODY-PATHOLOGIST INTERPRETATION 2023-07-05 08:11:00 Sima [facility] BLOOD CULTURE SCREEN 2023-07-05 08:10:00 Sima [facility] US ABDOMEN LIMITED WITH DOPPLER 2023-07-05 07:45:05 Sima [facility] URINE DRUG (IMMUNOASSAY) - COMPREHENSIVE DRUG SCREEN 2023-07-05 01:51:00 Wilbur Bloom [facility] CT ABDOMEN PELVIS W CONTRAST 2023-07-05 01:29:11 Wilbur Bloom [facility] HB ECG ROUTINE & RHYTHM STRIP 2023-07-04 23:43:38 Wilbur Bloom [facility] CREATINE KINASE 2023-07-04 23:37:00 [facility]23-07-04 23:37:00 Wilbur Bloom [facility] FERRITIN SERUM 2023-07-04 23:37:00 Leonard Gao [facility] FREE T4 2023-07-04 23:37:00 Wilbur Bloom [facility] THYROID STIMULATING HORMONE 2023-07-04 23:37:00 Wilbur Bloom [facility] COMP. METABOLIC PANEL ([id number]) 2023-07-04 23:37:00 Wilbur Bloom [facility] SALICYLATE 2023-07-04 23:37:00 Wilbur Bloom [facility] CBC WITH DIFF 2023-07-04 23:37:00 [facility] 2023-07-04 23:37:00 Polo Bloom [facility] ACTIVATED PARTIAL THRMPLAS RUPAL 2023-07-04 23:37:00 Wilbur Bloom [facility] URINALYSIS 2023-07-04 23:37:00 Wilbur Bloom [facility] AC PANEL 21 + LACTIC ACID 2023-07-04 23:37:00 Wilbur Bloom [facility] HIV 1/2 AG-AB WITH REFLEX 2023-07-04 23:37:00 Leonard Gao [facility] POCT GLUCOSE (AUTOMATED) 2023-07-04 23:02:00 Bart Bloom [facility] CONSENT/REFUSAL FOR DIAGNOSIS AND TREATMENT 2023-07-04 22:45:55 Doctor Unassigned, [place] [facility] NOTICE OF PRIVACY PRACTICES 2023-07-04 22:45:34 Doctor Unassigned, [place] [facility] HOSPITAL ADMISSION 2023-07-04 05:01:00 Doctor Un assigned, [place] [facility] Plan of Care Planned Activity Planned Date Details Comments Source Goal Plan of Care Note [code = 29398-6] Goal Plan of Care Note [code = 70418-5] Goal Plan of Care Note [code = 47885-0] Goal Plan of Care Note [code = 58351-1] Goal Plan of Care Note [code = 05241-3] Goal Plan of Care Note [code = 74745-8] Goal Plan of Care Note [code = 94224-9] Goal Plan of Care Note [code = 65854-7] Encounters Start Date/Time End Date/Time Encounter Type Admission Type Attending Clinicians Care Facility Care Department Encounter ID Source 2025-05-11 08:00:00 2025-05-11 08:00:00 Outpatient GRISELDA COTTRELL [id number] Arabella Seybold 2025-02-10 13:15:00 2025-02-10 13:15:00 Outpatient AGUERO, JUAN A ARABELLA MOTA [id number] Arabella Seybold 2024-12-09 00:00:00 2024-12-09 00:00:00 Outpatient AGUERO, JUAN A ARABELLA MOTA [id number] Arabella Seybold 2024-12-01 00:00:00 2024-12-01 00:00:00 Outpatient BETSEY, PETE [facility]A [facility] [id number] [facility]24-11-26 00:00:00 2024-11-26 00:00:00 Outpatient AGUERO, JUAN AJuancho MOTA [id number] Arabella Seybold 2024-11-15 09:00:00 2024-11-15 09:00:00 Outpatient PREZAS, GRISELDA ARABELLA MOTA [id number] [facility] 2024-11-11 09:15:00 2024-11-11 09:15:00 Outpatient PREZAS, GRISELDA ARABELLA MOTA [id number] Arabella Seybold 2024-11-04 08:05:00 2024-11-04 08:05:00 Outpatient LAB90 ARABELLA MOTA [id number] Arabella Seybold 2024-11-02 00:00:00 2024-11-02 00:00:00 Outpatient AGUERO, JUAN A ARABELLA MOTA [id number] Arabella Seybold 2024-10-14 00:00:00 2024-10-14 00:00:00 Outpatient PREZAS, GRISELDA ARABELLA MOTA [id number] Arabella Seybold 2024-10-13 13:45:00 2024-10-13 13:45:00 Outpatient LAB47 ARABELLA MOTA [id number] Arabella Seybold 2024-10-13 13:15:00 2024-10-13 13:15:00 Outpatient AGUERO, JUAN A ARABELLA MOTA [id number] Arabella Seybold 2024-10-01 00:00:00 2024-10-01 00:00:00 Outpatient PREZAS, GRISELDA ARABELLA MOTA [id number] Arabella Seybold 2024-09-14 09:00:00 2024-09-14 09:00:00 Outpatient GRISELDA COTTRELL ARABELLA MOTA [id number] Arabella Naqvi 2024-08-04 10:15:00 2024-08-04 10:15:00 Outpatient Samantha PAINTER ISABELL [facility] [id number] [facility] 2024-07-26 14:00:00 2024-07-26 14:00:00 Outpatient YANELI PUENTE ARABELLA MOTA [id number] Arabella [facility] 2024-07-20 00:00:00 2024-07-20 00:00:00 Outpatient GRISELDA COTTRELL ARABELLA MOTA [id number] Arabella Hecktherese 2024-07-19 08:30:00 2024-07-19 08:30:00 Outpatient VIVEK ARABELLA MOTA [id number] Arabella Naqvi 2024-07-19 08:00:00 2024-07-19 08:00:00 Outpatient GRISELDA COTTRELL ARABELLA MOTA [id number] [facility] 2024-07-19 00:00:00 2024-07-19 00:00:00 Outpatient ARABELLA MOTA [id number] Arabella Driss 2024-07-13 14:15:00 2024-07-13 14:15:00 Outpatient JUAN A AGUERO ARABELLA MOTA [id number] Arabella [facility] 2024-05-18 00:00:00 2024-05-18 00:00:00 Outpatient GRISELDA COTTRELL ARABELLA MOTA [id number] [facility] 2024-04-28 09:15:00 2024-04-28 09:15:00 Outpatient ISABELL EDUARDO [facility] [id number] [facility] 2024-04-20 00:00:00 2024-04-20 00:00:00 Outpatient GRISELDA COTTRELL ARABELLA MOTA [id number] [facility] 2024-04-20 00:00:00 2024-04-20 00:00:00 Outpatient RONIT GRISELDA MOTA [id number] [facility]24-04-16 09:00:00 2024-04-16 09:00:00 Outpatient GRISELDA COTTRELL [id number] [facility] 2024-04-16 08:15:00 2024-04-16 08:15:00 Outpatient GRISELDA COTTRELL [id number] [facility] 2024-04-16 00:00:00 2024-04-16 00:00:00 Outpatient GRISELDA COTTRELL [id number] [facility] 2024-04-07 00:00:00 2024-04-07 13:19:24 Kia Rudolph [facility] .840.114 350.1.13.10 4.2.7.2.686 [id number] [facility] 2024-01-16 15:48:32 2024-01-16 15:48:32 Outpatient SFA SFA [id number] 0412 Erasmo Muñoz Jimmy 2024-01-07 17:22:53 2024-01-07 17:22:53 Outpatient SFA SFA [id number] Erasmo Muñoz [place] 2023-12-31 15:20:55 2023-12-31 15:20:55 Outpatient SFA SFA [id number] Erasmo Marquez 2023-12-24 00:00:00 2023-12-24 00:00:00 [facility] 1.840.114 350.1.13.10 4.2.7.2.686 [id number] 028 [id number] [facility] 2023-12-24 00:00:00 2023-12-24 00:00:00 Telephone Kia Cordova [facility] ..840.114 350.1.13.10 4.2.7.2.686 [id number] [id number] [facility] 2023-12-24 00:00:00 2023-12-24 00:00:00 Telephone Hellen Mendoza [facility] 1.2.840.114 350.1.13.10 4.2.7.2.686 [id number] [facility] 2023-12-16 00:00:00 2023-12-16 00:00:00 Telephone Hellen Mendoza [facility] 1.2.840.114 350.1.13.10 4.2.7.2.686 [id number] 027 [id number] [facility] 2023-12-03 16:45:00 2023-12-03 17:00:00 Pattern Duplicator Visit [facility] Mariaelena Gordon [facility] 1.2.840.114 350.1.13.10 4.2.7.2.686 [id number] [facility] 2023-12-03 16:45:00 2023-12-03 16:45:00 Outpatient MARIAELENA BLANCO [facility] [id number] [facility] 2023-12-03 15:30:00 2023-12-03 16:07:02 Office Visit Hellen MendozaMariaelena Shultz [facility] 1.2.840.114 350.1.13.10 4.2.7.2.686 [id number] 027 [id number] [facility] 2023-11-24 10:03:31 2023-11-24 10:03:31 Outpatient SFA SFA [id number] 0219 Erasmo Marquez 2023-10-27 00:00:00 2023-10-27 00:00:00 Kia Rudolph [facility] 1.2.840.114 350.1.13.10 4.2.7.2.686 [id number] [facility] 2023-10-10 16:08:58 2023-10-10 16:08:58 Outpatient SFA SFA [id number] Erasmo Marquez 2023-09-06 12:15:30 2023-09-06 12:15:30 Outpatient SFA [facility] [id number] Erasmo Marquez 2023-08-21 00:00:00 2023-08-21 00:00:00 Telephone Tony Mayer [facility] 1.2840.114 350.1.13.10 4.2.7.2.686 [id number] [facility] 2023-08-20 10:00:00 2023-08-20 10:15:00 Nurse Visit [facility] Nurse Visit Leonor Gutierrez [facility] 1.840.114 350.1.13.10 4.2.7.2.686 [id number] [facility] 2023-08-20 10:00:00 2023-08-20 10:00:00 Outpatient LEONOR CORONADO [facility] [id number] [facility] 2023-08-20 00:00:00 2023-08-20 00:00:00 Telephone Kia Cordova [facility] 1.0.114 350.1.13.10 4.2.7.2.686 [id number] [id number] [facility] 2023-08-14 00:00:00 2023-08-14 00:00:00 Telephone Tony Mayer [facility] 1.0.114 350.1.13.10 4.2.7.2.686 [id number] 028 [id number] [facility] 2023 00:00:00 2023 00:00:00 Telephone Tony Mayer [facility] 1.840.114 350.1.13.10 4.2.7.2.686 [id number] 028 [id number] [facility] 2023-08-12 00:00:00 2023-08-12 00:00:00 Telephone Tony Mayer [facility] 1..114 350.1.13.10 4.2.7.2.686 [id number] [facility] 2023-08-08 09:45:00 2023-08-08 10:48:20 Outpatient KIA AGGARWAL [facility] [id number] [facility] 2023-08-08 09:45:00 2023-08-08 10:48:20 Office Visit Hellen Mendoza Janice May [facility] 1..114 350.1.13.10 4.2.7.2.686 [id number] 027 [id number] [facility] 2023-08-01 15:00:00 2023-08-01 16:22:15 Outpatient JEFFRY HOPPER [facility] [id number] [facility] 2023-08-01 15:00:00 2023-08-01 16:22:15 Office Visit Jeffry Briceño [facility] 1.0.114 350.1.13.10 4.2.7.2.686 [id number] [id number] [facility] 2023-08-01 00:00:00 2023-08-01 00:00:00 Orders Only Doctor Unassigned, [place] [facility] 1.0.114 350.1.13.10 4.2.7.2.686 [id number] [facility] 2023-07-18 00:00:00 2023-07-18 00:00:00 Transition of Care Essie Wu 1.2840.114 350.1.13.10 4.2.7.2.686 [id number] [facility] 2023-07-17 00:34:00 2023-07-17 17:00:00 Inpatient X SHILABRANDONJuancho, NATHANAEL JOSE, [facility] [id number] [facility] 2023-07-17 00:34:00 2023-07-17 17:00:00 Hospital Encounter Aristides Peraza, Sharif Jose, Nathanael [facility] 1.2.840.114 350.1.13.10 4.2.7.2.686 [id number] [facility] 2023-07-16 00:00:00 2023-07-16 00:00:00 Telephone [facility] 1.2.840.114 350.1.13.10 4.2.7.2.686 [id number] 025 [id number] [facility] 2023-07-15 00:00:00 2023-07-15 00:00:00 Transition of Care Amador Mariya Cris RAMOS 1.2.840.114 350.1.13.10 4.2.7.2.686 [id number] [facility] 2023-07-14 00:00:00 2023-07-14 00:00:00 Telephone [facility] 1.2.840.114 350.1.13.10 4.2.7.2.686 [id number] [id number] [facility] 2023-07-14 00:00:00 2023-07-14 00:00:00 Transition of Care Marjorie Mariyaandrzej OLSEN PLAMARCUS 1.2.840.114 350.1.13.10 4.2.7.2.686 [id number] [facility] 2023-07-11 00:00:00 2023-07-11 00:00:00 Transition of Care Mariya Amador 1.2.840.114 350.1.13.10 4.2.7.2.686 [id number] [facility] 2023-07-11 00:00:00 2023-07-11 00:00:00 Telephone Tanja Ortiz [facility] 1.2840.114 350.1.13.10 4.2.7.2.686 [id number] [facility] 2023-07-11 00:00:00 2023-07-11 00:00:00 Patient Secure Msg Doctor Unassigned, [place] [facility] 1.2840.114 350.1.13.10 4.2.7.2.686 [id number] 019 [id number] [facility] 2023-07-04 18:03:00 2023-07-10 18:34:00 Hospital Encounter Wilbur Bloom Thomas A Cintron, Ines [facility] 1.2840.114 350.1.13.10 4.2.7.2.686 [id number] [facility] 2023-07-04 18:03:00 2023-07-10 18:34:00 Inpatient X BRIDGER [facility] [id number] [facility] 2023-06-16 09:47:47 2023-06-16 09:47:47 Outpatient [facility] [id number] Erasmo Muñoz Jimmy 2023-05-23 09:19:21 2023-05-23 09:19:21 Outpatient [facility] 18 Erasmo Muñoz Jimmy 2023-05-16 13:52:37 2023-05-16 13:52:37 Outpatient [facility] [id number] Erasmo Marquez 2023-05-13 14:12:57 2023-05-13 14:12:57 Outpatient [facility] [id number] Erasmo Marquez 2023-05-12 13:33:59 2023-05-12 13:33:59 Outpatient [facility] [id number] Erasmo Marquez 2023-04-21 15:15:51 2023-04-21 15:15:51 Outpatient [facility] [id number] Erasmo Marquez 2023-01-24 09:26:24 2023-01-24 09:26:24 Outpatient [facility] [id number] Erasmo Marquez 2023-01-22 14:56:47 2023-01-22 14:56:47 Outpatient [facility] [id number] Erasmo Marquez 2022-09-11 09:49:50 2022-09-11 09:49:50 Outpatient [facility] [id number] Erasmo Marquez 2022 10:31:13 2022 10:31:13 Outpatient [facility] 1108 Erasmo Marquez 2022-06-18 00:00:00 2022-06-18 00:00:00 Outpatient Visit [id number] 2020-05-04 00:00:00 2020-05-04 00:00:00 Letter (Out) [facility] 1.2.840.114 350.1.13.10 4.2.7.2.686 [id number] 2020-05-04 00:00:00 2020-05-04 00:00:00 Telephone [facility] 1.2.840.114 350.1.13.10 4.2.7.2.686 [id number] 2020-05-03 12:39:41 2020-05-03 15:13:00 Emergency Arabella Trimble [facility] 1.2.840.114 350.1.13.10 4.2.7.2.686 [id number] 2020-05-03 12:39:41 2020-05-03 12:39:41 Emergency X Arabella TRIMBLE ERT [id number] [facility] Results Test Description Test Time Test Comments Results Result Co mments Source CULTURE, URINE 2023-12-21 12:36:34 SPECIMEN NUMBER: [id number] CULTURE, URINE SPECIMEN NUMBER: [id number] SPECIMEN COMMENT: URINE SOURCE: URINE REPORT STATUS: [...] SENSITIVE <=16TETRACYCLINE RESISTANT >8TOBRAMYCIN SENSITIVE <=4TRIMETH/SULFA RESISTANT > NOTE: NUMBERS DISPLAYED REPRESENT MINIMUM INHIBITORY CONCENTRATION (OPAL) WHICH IS EXPRESSED IN MCG/ML. CULTURE, [id number] 12:11:49SPECIMEN NUMBER: [id number] CULTURE, URINE SPECIMEN NUMBER: [id number] SPECIMEN COMMENT: URINE SOURCE: URINE REPORT STATUS: FINAL ISOLATE NUMBER 1: ORGANISM: 11/26/2023 >100,000 CFU/ML GRAM NEGATIVE BACILLI IDENTIFICATION: 11/27/2023 KLEBSIELLA PNEUMONIAE CONFIRMED POSITIVE EXTENDED-SPECTRUM BETA-LACTAMASE (ESBL). THESE ORGANISMS ARE UNIFORMLY RESISTANT TO ALL PENICILLINS, CEPHALOSPORINS AND AZTREONAM. K. PNEUMONIAE ES AMOXICILLIN/CA SENSITIVE <=8/4AMPICILLIN RESISTANT >16CEFAZOLIN RESISTANT >16CEFTRIAXONE RESISTANT >32CIPROFLOXACIN SENSITIVE <=1ERTAPENEM SENS ITIVE <=0.5LEVOFLOXACIN SENSITIVE <=2MEROPENEM SENSITIVE <=1NITROFURANTOIN INTERMED 64PIP/TAZOBAC SENSITIVE <=16TETRACYCLINE RESISTANT >8TOBRAMYCIN SENSITIVE <=4TRIMETH/SULFA RESISTANT >2/38 NOTE: NUMBERS DISPLAYED REPRESENT MINIMUM INHIBITORY CONCENTRATION (OPAL) WHICH IS EXPRESSED IN MCG/ML. UNLESS OTHERWISE INDICATED, ALL TESTING PERFORMED AT [facility] [employer] [address] [place] [address] INSTALLATION ENGINEER: JENA FAULKNER M.D. CLIA NUMBER [id number] [place]. [id number] 23:46:23* Test Item Value Reference Range Interpretation [...] SPECIMENS. FOR MOREINFORMATION, SEE CLIENT ANNOUNCEMENT AT [email or web address] RISK RATIO LDL/HDL (test code = 2238) 2.61 RATIO <3.22 UNLESS OTHERW ISE INDICATED, ALL TESTING PERFORMED AT [facility] [employer] [address] [place] [address] INSTALLATION ENGINEER: JENA FAULKNER M.D. CLIA NUMBER [id number] [facility] [place]. [id number] HEMOGLOBIN [id number] 02:57:35* Test Item Value Reference Range Interpretation Comme [facility] HEMOGLOBIN A1c (test code = 22653) 8.3 % 4.2-5.6 H [employer] GUIDELINES FOR HGB A1C: [...] [facility] POCT GLU (test code = 7980700171) 231 mg/dL 70-110 H Lab Interpretation (test cod e = 86539-8) [facility]2023-07-17 21:02:47* Test Item Value Reference Range Interpretation Comme nts Height (test code = 7439701671) 63 in Weight (test code = 3595083872) 201 lbs Systolic BP (test code = 3174985257) 142 mmHg Diastolic BP (test code = 0861218782) 98 mmHg Heart Rate (test code = 2986595303) 91 bpm BSA (test code = 4374778094) 1.94 m2 IVS (test code = 6883415824) 1.05 cm Interventricular Septum Diastolic Thickness by 2D (test code = 3279406) 1.05 cm LVIDD (test code = 3018834665) 3.90 cm Left Ventricular End Diastolic Volume by Teichholz Method (test code = 6039091) 65.6 mL LVPWD (test code = 7314903198) 1.05 cm PW (test code = 6212202953) 1.05 cm 0.6-1.1 EF(Teich) (test code = 1771557966) 81.20 % LVIDS (test code = 9743878892) 1.97 cm Left Ventricular End Systolic Volume by Teichholz Method (test code = 8445010) 12.3 mL FS (test code = 6417926869) 49 % EF - 2D (test code = 16190130) 81.20 % LVOT diameter (test code = 8622914698) 1.94 cm LVOT area (test code = 5692377109) 3.00 cm2 Ao root diam (test code = 5640520617) 2.90 cm Aortic root (test code = 9380058887) 2.9 cm Ao root annulus (test code = 1615949064) 2.9 cm LA size (test code = 7841500318) 4.1 cm LAV(MOD-sp4) (test code = 2774584321) 66.10 mL MV Peak E Raymond (test code = 7629051541) 56.9 cm/s MV Peak A Raymond (test code = 9859740952) 83.3 cm/s E/A ratio (test code = 2756802270) 0.68 ratio MV valve area p 1/2 method (test code = 4001634397) 4.30 cm2 MV dec slope (test code = 9676071744) 331.40 cm/s2 MV P1/2t max raymond (test code = 0918670684) 57.40 cm/s MV Prop V (test code = 9267745417) 58.60 cm/s Tapse (test code = 6286669200) 2.11 cm LVOT stroke volume (test code = 3785973040) 67.40 cm3 LVOT peak raymond (test code = 2707718842) 122.8 cm/s LVOT mn grad (test code = 7022064533) 2.9 mmHg AV LVOT peak gradient (test code = 1766303954) 6.0 mmHg LVOT peak VTI (test code = 1849041609) 22.8 cm LV V1 mean (test code = 6125751679) 79.40 cm/s Aortic valve mean velocity (test code = 7836820717) 93.9 cm/s Ao peak raymond (test code = 3533681009) 145.5 cm/s Ao VTI (test code = 3032198625) 22.8 cm AV area by cont VTI (test code = 1457721231) 3.0 cm2 AV area peak raymond (test code = 1283716255) 2.5 cm2 Ao max PG (test code = 6193802615) 8.50 mm[Hg] AV peak gradient (test code = 5204743925) 8.5 mmHg AV valve area (test code = 0763169593) 3.00 cm2 AV mean gradient (test code = 5705202714) 4.1 mmHg LA Volume Index (BP) (test code = 3021695616) 35.6 mL/m2 LA volume (BP) (test code = 6018788848) 68.9 mL LAV(MOD-sp2) (test code = 1699745896) 68.50 mL Radiology Study observation (narrative) (test code = 55718-6) BERT (test code = BERT) ?Left?Ventricle: Left [...] [facility]2023-07-17 16:37:49* Test Item Value Reference Range Interpretation Comme nts POCT GLU (test code = 2850803139) 331 mg/dL 70-110 H Lab Interpretation (test cod e = 48238-7) Abnormal [facility]-[id number] 07:23:33* Test Item Value Reference Range Interpretation Comments D-DIMER (test code = 4918914329) 4.50 See_Comment H [Automated message] The system [...] a diagnosis. Lab Interpretation (test code = 39368-7) Abnormal [facility] WITH [id number] 07:11:17* Test Item Value Reference Range Interpretation Comme nts WBC (test code = 6690-2) 9.03 See_Comment [Automated [facility]] The system which generated this result transmitted reference range: 4.30 - 11.10 10*3/?L. The reference range was not used to interpret this result as normal/abnormal. RBC (test code = 789-8) 4.32 See_Comment [Automated [facility] [facility]] The system which generated this result transmitted [...] 33.0 g/dL 31.6-35.1 RDW-SD (test code = 18524-0) 39.3 fL 39.0-49.9 RDW-CV (test code = 788-0) 12.2 % 12.0-15.5 PLT (test code = 777-3) 281 See_Comment [Automated [employer]] The system which generated this result transmitted reference range: 166 - 358 10*3/?L. The reference range was not used to interpret this result as normal/abnormal. MPV (test code = 69023-2) 10.7 fL 9.5-12.9 IPF % (test code = 3248032538) 3.0 % 1.3-7.7 Platelet count measured by fluorescence method. NRBC/100 WBC (test code = 4971655388) 0.3 See_Comment [Automated [employer]] The system which generated this result transmitted reference range: 0.0 - 10.0 /100 WBCs. The reference range was not used to interpret this result as normal/abnormal. NRBC x10^3 (test code = 3265429467) 0.03 See_Comment [Automated [employer]] The system which generated this result transmitted reference range: 10*3/?L. The reference range was not used to interpret this result as normal/abnormal. GRAN MAT (NEUT) % (test code = 770-8) 55.7 % IMM GRAN % (test code = 1105304280) 0.90 % LYMPH % (test code = 736-9) 29.7 % MONO % (test code = 5905-5) 9.9 % EOS % (test code = 713-8) 2.7 % BASO % (test code = 706-2) 1.1 % GRAN MAT x10^3(ANC) (test code = 1652167371) 5.04 10*3/uL 1.88-7.09 IMM GRAN x10^3 (test code = 6861907572) 0.08 10*3/uL 0.00-0.06 H LYMPH x10^3 (test code = 731-0) 2.68 10*3/uL 1.32-3.29 MONO x10^3 (test code = 742-7) 0.89 10*3/uL 0.33-0.92 EOS x10^3 (test code = 711-2) 0.24 10*3/uL 0.03-0.39 BASO x10^3 (test code = 704-7) 0.10 10*3/uL 0.01-0.07 H PLT ESTIMATE (test code = 9317-9) Normal Normal Lab Interpretation (test code = 13228-5) [id number] 06:59:29* Test Item Value Reference Range Interpretation Comme nts TROPONIN I (test code = 9344438003) 0.002 ng/mL <=0.034 BERT (test code = [...] of biotin. Lab Interpretation (test code = 34790-9) Normal [facility] MET[facility]OLIC PANEL (61463)2023-07-17 06:47:48* Test Item Value Reference Range Interpretation Comme nts NA (test code = 9289417883) 132 mmol/L 135-145 L K (test code = 1808136497) 4.2 mmol/L 3.5-5.0 CL (test code = 6820262082) 95 mmol/L 98-108 L CO2 TOTAL (test code = 5691668111) 24 mmol/L 23-31 AGAP (test code = 1480289206) 13 2-16 BUN (test code = 5200578629) 12 mg/dL 7-23 GLUCOSE (test code = 9338174565) 228 mg/dL 70-110 H CREATININE (test code = 5114957798) 0.68 mg/dL 0.50-1.04 TOTAL BILI (test code = 0723773945) 0.7 mg/dL 0.1-1.1 CALCIUM (test code = 4939632780) 9.0 mg/dL 8.6-10.6 T PROTEIN (test code = 5149322715) 7.6 g/dL 6.3-8.2 ALBUMIN (test code = 0087641537) 3.5 g/dL 3.5-5.0 ALK PHOS (test code = 6905504942) 153 U/L 34-122 H ALTv (test code = 1742-6) 74 U/L 5-35 H AST(SGOT) (test code = 2235924981) 39 U/L 13-40 eGFR (test code = 6838231069) 91.2 mL/min/1.73m2 BERT (test code = BERT) [...] imaging tests). Lab Interpretation (test code = 19151-4) Abnormal [facility]2023-[facility]-12 06:47:28* Test Item Value Reference Range Interpretation Comme [facility] LIPASE (test code = 2326086574) 643 U/L 0-220 H Lab Interpretation (test cod e = 92141-5) Abnormal [facility] (10326) (ALB,T.PRO,BILI T,BU/BC,ALT,AST,ALK PHOS)2023-07-10 17:06:32* Test Item Value Reference Range Interpretation Comme nts TOTAL BILI (test code = 9198258720) 0.6 mg/dL 0.1-1.1 BILI UNCON (test code = 2185466830) 0.4 mg/dL 0.1-1.1 BILI CONJ (test code = 8505796504) 0.0 mg/dL 0.0-0.3 T PROTEIN (test code = 5391902350) 5.9 g/dL 6.3-8.2 L ALBUMIN (test code = 0836761533) 2.7 g/dL 3.5-5.0 L ALK PHOS (test code = 2332280361) 156 U/L 34-122 H ALTv (test code = 1742-6) 283 U/L 5-35 H AST(SGOT) (test code = 4901704968) 82 U/L 13-40 H Lab Interpretation (test cod e = 94265-6) Abnormal [facility] GLUCOSE (AUTOMATED)2023-07-10 16:45:42* Test Item Value Reference Range Interpretation Comme nts POCT GLU (test code = 0031962923) 256 mg/dL 70-110 H Lab Interpretation (test cod e = 11679-8) Abnormal [facility] GLUCOSE (AUTOMATED)2023-07-10 13:36:59* Test Item Value Reference Range Interpretation Comme nts POCT GLU (test code = 3339238139) 182 mg/dL 70-110 H Lab Interpretation (test cod e = 57249-4) Abnormal [facility] WITH [id number] 10:34:19* Test Item Value Reference Range Interpretation [...] 33.3 g/dL 31.6-35.1 RDW-SD (test code = 93402-6) 36.9 fL 39.0-49.9 L RDW-CV (test code = 788-0) 12.0 % 12.0-15.5 PLT (test code = 777-3) 217 See_Comment [Automated [employer]] The system which generated this result transmitted reference range: 166 - 358 10*3/?L. The reference range was not used to interpret this result as normal/abnormal. MPV (test code = 71730-0) 10.1 fL 9.5-12.9 NRBC/100 WBC (test code = 8773185790) 0.0 See_Comment [Automated [employer]] The system which generated this result transmitted reference range: 0.0 - 10.0 /100 WBCs. The reference range was not used to interpret this result as normal/abnormal. NRBC x10^3 (test code = 5467209287) See_Comment [Automated [employer]] The system which generated this result transmitted reference range: 10*3/?L. The reference range was not used to interpret this result as normal/abnormal. GRAN MAT (NEUT) % (test code = 770-8) 63.9 % IMM GRAN % (test code = 0793569239) 1.20 % LYMPH % (test code = 736-9) 23.4 % MONO % (test code = 5905-5) 8.7 % EOS % (test code = 713-8) 1.9 % BASO % (test code = 706-2) 0.9 % GRAN MAT x10^3(ANC) (test code = 6790544051) 3.66 10*3/uL 1.88-7.09 IMM GRAN x10^3 (test code = 5033756164) 0.07 10*3/uL 0.00-0.06 H LYMPH x10^3 (test code = 731-0) 1.34 10*3/uL 1.32-3.29 MONO x10^3 (test code = 742-7) 0.50 10*3/uL 0.33-0.92 EOS x10^3 (test code = 711-2) 0.11 10*3/uL 0.03-0.39 BASO x10^3 (test code = 704-7) 0.05 10*3/uL 0.01-0.07 BANDS (test code = 5827055969) Increased A REACT LYMPHS (test code = 8687325626) Rare Lab Interpretation (test code = 25618-7) Abnormal [facility] METABOLIC PANEL (NA, K, CL, CO2, GLUCOSE, BUN, CREATININE, CA)2023-07-10 10:15:08* Test Item Value Reference Range Interpretation Comme nts NA (test code = 5070702119) 132 mmol/L 135-145 L K (test code = 2476859827) 3.8 mmol/L 3.5-5.0 CL (test code = 6700407221) 97 mmol/L 98-108 L CO2 TOTAL (test code = 0994988215) 28 mmol/L 23-31 AGAP (test code = 7336091055) 7 2-16 BUN (test code = 5128840650) 7 mg/dL 7-23 GLUCOSE (test code = 3493165650) 197 mg/dL 70-110 H CREATININE (test code = 7358050324) 0.36 mg/dL 0.50-1.04 L CALCIUM (test code = 9159559723) 7.9 mg/dL 8.6-10.6 L eGFR (test code = 8836377879) 190.0 mL/min/1.73m2 BERT (test code = BERT) [...] imaging tests). Lab Interpretation (test code = 86548-8) [facility]* Test Item Value Reference Range Interpretation Comme nts MAGNESIUM (test code = 7021676544) 2.0 mg/dL 1.7-2.4 Lab Interpretation (test cod e = 20573-7) [facility] MOURBG5150-41-81 10:01:57* Test Item Value Reference Range Interpretation Comme nts Blood Culture-Aerobic (test code = 22190-6) No organisms isolated No growth Previous preliminary [...] 0501 CDT Blood Culture-Anaerobic (test code = 97095-1) No organisms isolated No growth Previous preliminary [...] 0501 CDT Lab Interpretation (test code = 79216-3) Normal [facility] GLUCOSE (AUTOMATED)2023-07-10 09:06:49* Test Item Value Reference Range Interpretation Comme [facility] POCT GLU (test code = 8067461631) 182 mg/dL 70-110 H Lab Interpretation (test cod e = 51905-2) [facility] YYY3133-08-01 05:12:25 * Test Item Value Reference Range Interpretation Comme nts Rktaz-Ymlany-Gmucb some Abs, IgG by IFA (test code = 9838-4) <1:20 See_Comment INTERPRETIVE INF ORMATION: ?Iwzwm-Xzyhmy-Xsqbocifa Abs, IgG Liver-Kidney Microsome IgG antibody (anti-LKM), [...] and CY antigens). Of these, anti-LKM-1 (cytochrome [id number]) IgG antibodies are considered specific for AIH-2. This test was developed and its performance characteristics determined by [employer] It has not been cleared or approved by the [place] Food and Drug Administration. This test was performed in a CLIA certified laboratory and is intended for clinical purposes.Performed By: [facility] [place] [address] [id number] Director: Marshall Harden MD, PhDCLIA Number: [id number] [Automated message] The system which generated this result transmitted reference range: <1:20. The reference range was not used to interpret this result as normal/abnormal. [facility] GLUCOSE (AUTOMATED)2023-07-10 04:50:24* Test Item Value Reference Range Interpretation Comme [facility] POCT GLU (test code = 5395615064) 210 mg/dL 70-110 H Lab Interpretation (test cod e = 42148-3) [facility] 01:30:52* Test Item Value Reference Range Interpretation Comme nts POCT GLU (test code = 2728980521) 269 mg/dL 70-110 H Lab Interpretation (test cod e = 09135-3) Abnormal [facility] McKinneyTyphus Fever Ab, [id number] 23:36:21* Test Item Value Reference Range Interpretation [...] within 25 days for paired testing.Performed By: [facility] [place] [address] [id number] Director: Marshall Harden MD, PhDCLIA Number: [id number] [Automated message] The system which generated this result transmitted reference range: <1:64. The reference range was not used to interpret this result as normal/abnormal. [facility] GLUCOSE (AUTOMATED)2023-07-09 22:08:48* Test Item Value Reference Range Interpretation Comme nts POCT GLU (test code = 7690478218) 214 mg/dL 70-110 H Lab Interpretation (test cod e = 84783-2) Abnormal [facility] GLUCOSE (AUTOMATED)2023-07-09 19:50:51* Test Item Value Reference Range Interpretation Comme nts POCT GLU (test code = 6275243134) 223 mg/dL 70-110 H Lab Interpretation (test cod e = 09374-3) Abnormal [facility] GLUCOSE (AUTOMATED)2023-07-09 16:59:11* Test Item Value Reference Range Interpretation Comme nts POCT GLU (test code = 0639734544) 209 mg/dL 70-110 H Lab Interpretation (test cod e = 45701-5) Abnormal [facility] GLUCOSE (AUTOMATED)2023-07-09 13:17:13* Test Item Value Reference Range Interpretation Comme nts POCT GLU (test code = 3570365857) 225 mg/dL 70-110 H Lab Interpretation (test cod e = 60588-9) [facility]normal [facility]ney[facility]AT[facility] PANEL (08344) (ALB,T.PRO,BILI T,BU/BC,ALT,AST,ALK PHOS)2023-07-09 13:12:01* Test Item Value Reference Range Interpretation Comme nts TOTAL BILI (test code = 4080656178) 0.6 mg/dL 0.1-1.1 BILI UNCON (test code = 4285994133) 0.5 mg/dL 0.1-1.1 BILI CONJ (test code = 5114462320) 0.0 mg/dL 0.0-0.3 T PROTEIN (test code = 2986621740) 6.4 g/dL 6.3-8.2 ALBUMIN (test code = 7093339326) 2.9 g/dL 3.5-5.0 L ALK PHOS (test code = 5855661727) 150 U/L 34-122 H ALTv (test code = 1742-6) 381 U/L 5-35 H AST(SGOT) (test code = 4659254038) 105 U/L 13-40 H Lab Interpretation (test cod e = 81784-6) Abnormal [facility] METABOLIC PANEL (NA, K, CL, CO2, GLUCOSE, BUN, CREATININE, CA)2023-07-09 12:06:27* Test Item Value Reference Range Interpretation Comme nts NA (test code = 0914841549) 130 mmol/L 135-145 L K (test code = 2485674691) 3.4 mmol/L 3.5-5.0 L Slight hemolysis CL (test code = 5071940249) 97 mmol/L 98-108 L CO2 TOTAL (test code = 4809245721) 25 mmol/L 23-31 AGAP (test code = 9993690620) 8 2-16 BUN (test code = 3983284927) 8 mg/dL 7-23 Slight hemolysis GLUCOSE (test code = 2316627713) 193 mg/dL 70-110 H CREATININE (test code = 2987230754) 0.37 mg/dL 0.50-1.04 L CALCIUM (test code = 5685671506) 8.1 mg/dL 8.6-10.6 L eGFR (test code = 2187060822) 184.1 mL/min/1.73m2 BERT (test code = BERT) [...] imaging tests). Lab Interpretation (test code = 09625-3) [facility]2023-10-04 12:06:27* Test Item Value Reference Range Interpretation Comme nts MAGNESIUM (test code = 8980457230) 2.0 mg/dL 1.7-2.4 Lab Interpretation (test cod e = 13229-5) Normal [facility] WITH [id number] 11:28:47* Test Item Value Reference Range Interpretation Comme nts WBC (test code = 6690-2) 5.18 See_Comment [Automated [facility]] The system which generated this result transmitted reference range: 4.30 - 11.10 10*3/?L. The reference range was not used to interpret this result as normal/abnormal. RBC (test code = 789-8) 4.24 See_Comment [Automated [facility]] The system which generated this result transmitted [...] 33.6 g/dL 31.6-35.1 RDW-SD (test code = 21367-8) 36.5 fL 39.0-49.9 L RDW-CV (test code = 788-0) 12.0 % 12.0-15.5 PLT (test code = 777-3) 176 See_Comment [Automated messa ge] The system which generated this result transmitted reference range: 166 - 358 10*3/?L. The reference range was not used to interpret this result as normal/abnormal. MPV (test code = 46069-3) 10.8 fL 9.5-12.9 NRBC/100 WBC (test code = 2892101432) 0.0 See_Comment [Automated me ssage] The system which generated this result transmitted reference range: 0.0 - 10.0 /100 WBCs. The reference range was not used to interpret this result as normal/abnormal. NRBC x10^3 (test code = 4474005551) See_Comment [Automated messa ge] The system which generated this result transmitted reference range: 10*3/?L. The reference range was not used to interpret this result as normal/abnormal. GRAN MAT (NEUT) % (test code = 770-8) 65.3 % IMM GRAN % (test code = 1163058361) 1.20 % LYMPH % (test code = 736-9) 23.6 % MONO % (test code = 5905-5) 6.2 % EOS % (test code = 713-8) 2.9 % BASO % (test code = 706-2) 0.8 % GRAN MAT x10^3(ANC) (test code = 7504585021) 3.39 10*3/uL 1.88-7.09 IMM GRAN x10^3 (test code = 0338655223) 0.06 10*3/uL 0.00-0.06 LYMPH x10^3 (test code = 731-0) 1.22 10*3/uL 1.32-3.29 L MONO x10^3 (test code = 742-7) 0.32 10*3/uL 0.33-0.92 L EOS x10^3 (test code = 711-2) 0.15 10*3/uL 0.03-0.39 BASO x10^3 (test code = 704-7) 0.04 10*3/uL 0.01-0.07 BANDS (test code = 5860948807) Increased A Lab Interpretation (test code = 00647-4) Abnormal [facility] GLUCOSE (AUTOMATED)2023-07-09 04:19:55* Test Item Value Reference Range Interpretation Comme [facility] POCT GLU (test code = 0045166876) 218 mg/dL 70-110 H Lab Interpretation (test cod e = 54115-7) [facility],IGG [id number] 04:12:43* Test Item Value Reference Range Interpretation Comme nts F-ACTIN (SMOOTH MUSCLE) AB, IGG(BEAKER) (test code = 24662-4) 3 See_Comment If F-Actin (Smoo th Muscle) [...] if suspicion for AIH is strong.Performed By: [facility] [place] [address] [id number] Director: Marshall Harden MD, PhDCLIA Number: [id number] [Automated message] The system which generated this result transmitted reference range: 0 - 19 Units. The reference range was not used to interpret this result as normal/abnormal. [facility] GLU[facility]SE (AUTOMATED)2023-07-09 01:55:32* Test Item Value Reference Range Interpretation Comme nts POCT GLU (test code = 7901868767) 321 mg/dL 70-110 H Lab Interpretation (test cod e = 65781-9) Abnormal [facility] McKinneyEPSTEIN-RUIZ VIRUS BY QUANTITATIVE NAAT, [id number] 01:32:23* Test Item Value Reference Range Interpretation Comme nts EBV Qnt by NAAT, Plasma IU/mL (test code = 26714-7) Not Quantified EBV Qnt by NAAT, Plasma log IU/mL (test code = 546340-9) Not Quantified Not Quantified- EBV DNA was [...] to commutability issues with the standard.Performed By: [facility] [place] [address] [id number] Director: Marshall Harden MD, PhDCLIA Number: [id number] Lab Interpretation (test code = 34549-4) Abnormal [facility]neyANTI-NUCLEAR ANTIBODY-PATHOLOGIST [id number] 23:13:54ANA - Pathologist InterpretationANA HEp-2 IIFA Pathologist [...] Remarks: The AC-4/5-Speckled Pattern is one of theleast specific WILFREDO immunofluorescent patterns, associated with many [...] generally increase the overall likelihood of a SARDin patients presenting with symptoms suggestive of SARD, SARD may occasionally present with low ANAtiters. Clinical correlation - with possibly repeating the WILFREDO and any other clinically indicated subserologies - is therefore needed to accurately assess the clinical significance of this non-specific WILFREDO result as it pertains to the patient's overall clinical presentation. References: - Beltran Marino R, Dean J, Adrian DH, Phillip PANDYA. Guidelines for clinical use of the antinuclear antibody test and tests for specific autoantibodies to nuclear antigens. [employer]. Arch Pathol Lab Med. 2000;124(1):71-81. doi:10.5858/6093-879-3306-GFCUOT ?- Bryan Rodriguez, Urbano ULRICH, Rose Easton. Rational use of blood tests in the evaluation of rheumatic diseases. Mo Med. 2012;109(1):59- 63. ? The WILFREDO test is an important screening test for systemic autoimmune rheumatic disease (SARD). However, the WILFREDO test is non-specific for SARD and may be positive in a variety of clinical settings, including autoimmune, inflammatory, infectious, and neoplastic/malignant conditions, as well as due to certain medications. Additionally, WILFREDO positivity may be seen in varying percentages of healthy individuals, especially at lower titers, in the healthy elderly population, and in individuals with a family history ofrheumatic disease. Therefore, a diagnosis cannot be based exclusively on WILFREDO detection and/or pattern and thus should be made via the integration of patient history, physical exam findings, and otherdiagnostic tests as clinically indicated. Trinidad Schmid MD ?07/08/2023 ?6:12 PM 07/08/2023 6:13 [facility]neyANTI-NUCLEAR ANTIBODY [id number] 23:11:06 * Test Item Value Reference Range Interpretation Comme nts WILFREDO Titer by IFA (test code = 1738741745) 1:80 WILFREDO Pattern (test code = 2942760869) Speckled BERT (test code = BERT) Anti-nuclear [...] specimen will be held for 7 days. [facility] GLUCOSE (AUTOMATED)2023-07-08 22:08:36* Test Item Value Reference Range Interpretation Comme nts POCT GLU (test code = 0755006756) 234 mg/dL 70-110 H Lab Interpretation (test cod e = 69632-6) Abnormal [facility] McKinneyANCA [id number] 18:21:54* Test Item Value Reference Range Interpretation Comme nts Myeloperoxidase (MPO) Antibodies, IgG Interpretation (test code = 00098-6) Negative Negative Proteinase 3 (PR3) Antibodies, IgG Interpretation (test code = 60900-5) Negative Negative Myeloperoxidase (MPO) Antibodies, IgG (test code = 6573767830) <=3.5 Proteinase 3 (PR3) Antibodies, IgG (test code = 0611593622) <=2.0 BERT (test code = BERT) Test ?Unit ? Negative ? ? ? Equivocal ? Positive Annika MPOs ? ? ? U/ml ? <3.5 ? 3.5-5.0 ? >5 Annika PR3s ? ? ? U/ml ? <2.0 ? 2.0-3.0 ? >3.0 In case of equivocal results, we recommend to retest the patient after 8 - 12 weeks. Lab Interpretation (test code = 83585-9) Normal [facility] GLUCOSE (AUTOMATED)2023-07-08 17:44:35* Test Item Value Reference Range Interpretation Comme nts POCT GLU (test code = 7919150620) 278 mg/dL 70-110 H Lab Interpretation (test cod e = 26087-6) Abnormal [facility] McKinneyHAPTOGLOBIN, [id number] 17:15:02* Test Item Value Reference Range Interpretation Comme nts HAPTOGLOB (test code = 8706902688) 277 mg/dL 16-200 H Lab Interpretation (test cod e = 89463-2) Abnormal [facility] McKinneyFERRITIN [id number] 14:02:59* Test Item Value Reference Range Interpretation Comme nts FERRITIN (test code = 7315663821) 1650.0 ng/mL 11.0-264.0 H BERT (test code = BERT) Biotin has been reported to cause a negative bias, interpret results relative to patient's use of biotin. Lab Interpretation (test code = 51807-2) Abnormal [facility]neyP[facility] GLU[facility]SE (AUTOMATED)2023-07-08 13:55:08* Test Item Value Reference Range Interpretation Comme nts POCT GLU (test code = 3341732809) 152 mg/dL 70-110 H Lab Interpretation (test cod e = 20501-7) Abnormal [facility]neyMAG[facility]UM2023-10-03 11:52:02* Test Item Value Reference Range Interpretation Comme nts MAGNESIUM (test code = 7308613060) 1.9 mg/dL 1.7-2.4 Lab Interpretation (test cod e = 65109-8) Normal [facility] METABOLIC PANEL (NA, K, CL, CO2, GLUCOSE, BUN, CREATININE, CA)2023-07-08 11:52:02* Test Item Value Reference Range Interpretation Comme nts NA (test code = 9191758458) 127 mmol/L 135-145 L K (test code = 1648436993) 3.6 mmol/L 3.5-5.0 Slight hemolysis CL (test code = 5118385835) 98 mmol/L 98-108 CO2 TOTAL (test code = 2004219783) 22 mmol/L 23-31 L AGAP (test code = 9607055855) 7 2-16 BUN (test code = 7355621342) 7 mg/dL 7-23 Slight hemolysis GLUCOSE (test code = 4761088853) 164 mg/dL 70-110 H CREATININE (test code = 9200751609) 0.34 mg/dL 0.50-1.04 L CALCIUM (test code = 1758596622) 7.6 mg/dL 8.6-10.6 L eGFR (test code = 5599288927) 203.0 mL/min/1.73m2 BERT (test code = BERT) [...] imaging tests). Lab Interpretation (test code = 67648-3) Abnormal [facility]neyHEPATIC FUNCTION PANEL (11636) (ALB,T.PRO,BILI T,BU/BC,ALT,AST,ALK PHOS)2023-07-08 11:52:02* Test Item Value Reference Range Interpretation Comme nts TOTAL BILI (test code = 7357377301) 0.7 mg/dL 0.1-1.1 BILI UNCON (test code = 7286990602) 0.4 mg/dL 0.1-1.1 BILI CONJ (test code = 7465225431) 0.0 mg/dL 0.0-0.3 T PROTEIN (test code = 9362850121) 6.0 g/dL 6.3-8.2 L ALBUMIN (test code = 6645783574) 2.7 g/dL 3.5-5.0 L ALK PHOS (test code = 0967934991) 123 U/L 34-122 H ALTv (test code = 1742-6) 461 U/L 5-35 H AST(SGOT) (test code = 1699353167) 178 U/L 13-40 H Lab Interpretation (test cod e = 33611-0) Abnormal [facility] WITH [id number] 11:22:07* Test Item Value Reference Range Interpretation [...] 33.8 g/dL 31.6-35.1 RDW-SD (test code = 07496-1) 38.5 fL 39.0-49.9 L RDW-CV (test code = 788-0) 12.0 % 12.0-15.5 PLT (test code = 777-3) 144 See_Comment L [Automated messa ge] The system which generated this result transmitted reference range: 166 - 358 10*3/?L. The reference range was not used to interpret this result as normal/abnormal. MPV (test code = 78296-3) 11.2 fL 9.5-12.9 NRBC/100 WBC (test code = 3143835891) 0.0 See_Comment [Automated me ssage] The system which generated this result transmitted reference range: 0.0 - 10.0 /100 WBCs. The reference range was not used to interpret this result as normal/abnormal. NRBC x10^3 (test code = 3010809259) See_Comment [Automated messa ge] The system which generated this result transmitted reference range: 10*3/?L. The reference range was not used to interpret this result as normal/abnormal. SEG % (test code = 62429-6) 62 % 33-76 BAND % (test code = 37149-6) 16 % 0-1 H LYMPH % (test code = 86337-6) 14 % 14-54 PLSMACYTD LYMPH % (test code = 92243-8) 2 % <=0 H MONO % (test code = 84974-3) 5 % 0-4 H BASO % (test code = 69036-8) 1 % 0-1 ANC (test code = 753-4) 3.52 10*3/uL 1.88-7.09 ROGER CELLS (test code = 7790-9) 2+ See_Comment A [Automated [employer]] The system which generated this result transmitted reference range: (none). The reference range was not used to interpret this result as normal/abnormal. Lab Interpretation (test code = 95324-9) Abnormal [facility] GLUCOSE (AUTOMATED)2023-07-08 01:33:25* Test Item Value Reference Range Interpretation Comme nts POCT GLU (test code = 4137099330) 239 mg/dL 70-110 H Lab Interpretation (test cod e = 11560-0) Abnormal [facility] GLUCOSE (AUTOMATED)2023-07-07 22:58:26* Test Item Value Reference Range Interpretation Comme nts POCT GLU (test code = 1194256373) 225 mg/dL 70-110 H Lab Interpretation (test cod e = 04519-1) Abnormal [facility]neyANTI-NUCLEAR ANTIBODY [id number] 22:23:17* Test Item Value Reference Range Interpretation Comme nts WILFREDO (test code = 7317556270) Positive Negative A BERT (test code = BERT) Negative: ?No Anti-Nuclear Antibodies detected by IFA. Positive: ?WILFREDO IFA screen performed with a 1:80 dilution in adults and a 1:40 dilution in pediatrics. ?A titer is performed and reported separately when the WILFREDO is "Positive" or when "Cytoplasmic staining is observed." Lab Interpretation (test code = 36422-2) Abnormal [facility] GLUCOSE (AUTOMATED)2023-07-07 16:53:57* Test Item Value Reference Range Interpretation Comme nts POCT GLU (test code = 6681438302) 249 mg/dL 70-110 H Lab Interpretation (test cod e = 91605-3) [facility]normal [facility] McKinneyDIFF CONSULT [id number] 15:52:07 WHITE BLOOD CELLS: LEUKOCYTOPENIA WITH LEFT SHIFT, MILDLY INCREASED PLASMA CELLS, AND ABSOLUTE LYMPHOPENIA, MONOCYTOPENIA, AND EOSINOPENIA. SPEP, SUSHMA, AND FREE LIGHT CHAINS MAY BE INFORMATIVE.?RED BLOOD CELLS: UNREMARKABLE.?PLATELETS: THROMBOCYTOPENIA.[facility] GLUCOSE (AUTOMATED) 2023-07-07 13:39:20* Test Item Value Reference Range Interpretation Comme nts POCT GLU (test code = 9552608311) 205 mg/dL 70-110 H Lab Interpretation (test cod e = 18370-0) Abnormal [facility] GLUCOSE (AUTOMATED)2023-07-07 01:49:22* Test Item Value Reference Range Interpretation Comme nts POCT GLU (test code = 7101277707) 234 mg/dL 70-110 H Lab Interpretation (test cod e = 55384-5) Abnormal [facility] GLUCOSE (AUTOMATED)2023-07-06 23:12:36* Test Item Value Reference Range Interpretation Comme nts POCT GLU (test code = 9979632167) 205 mg/dL 70-110 H Lab Interpretation (test cod e = 64117-5) Abnormal [facility] McKinneyCMV BY QUANTITATIVE [id number] 19:02:30* Test Item Value Reference Range Interpretation Comme nts Specimen Tested (test code = 4504405814) Plasma CMV NAAT (test code = 3222401395) Not Detected Indeterminate, See Comment/Narrative. , Not Detected IU/mL BERT (test code = BERT) The Aptima CMV Quant Dx assay is an FDA-approved real-time business applications specialist-mediated amplification (TMA) test used for quantitation of [...] specimen for repeat testing if clinically indicated. [facility] GLUCOSE (AUTOMATED)2023-07-06 18:15:28* Test Item Value Reference Range Interpretation Comme nts POCT GLU (test code = 9562914562) 236 mg/dL 70-110 H Lab Interpretation (test cod e = 44076-2) Abnormal [facility] McKinneySYPHILIS [id number] 14:55:36* Test Item Value Reference Range Interpretation Comme nts Syphilis IgG/IgM (test code = 26298-5) Non-reactive Non-reactive BERT (test code = BERT) Non-reactive - No serologic evidence of T. pallidum infection. Cannot exclude incubating or early syphilis. Submit a second specimen in 2-4 weeks if syphilis is clinically suspected. Equivocal - Further testing to follow. Reactive - Further testing to follow. Lab Interpretation (test code = 24454-5) Normal [facility] GLUCOSE (AUTOMATED)2023-07-06 13:25:32* Test Item Value Reference Range Interpretation Comme nts POCT GLU (test code = 0990140523) 190 mg/dL 70-110 H Lab Interpretation (test cod e = 20329-3) Abnormal [facility] McKinneyLamdic Acid Whole [id number] 11:39:27* Test Item Value Reference Range Interpretation Comme nts LACTIC ACID (test code = 6756229520) 1.44 mmol/L 0.50-2.20 QUES Lab Interpretation (test cod e = 89995-4) Normal [facility] GLUCOSE (AUTOMATED)2023-07-06 05:07:41* Test Item Value Reference Range Interpretation Comme nts POCT GLU (test code = 6282061966) 217 mg/dL 70-110 H Lab Interpretation (test cod e = 01412-8) Abnormal [facility] GLUCOSE (AUTOMATED)2023-07-06 02:12:19* Test Item Value Reference Range Interpretation Comme nts POCT GLU (test code = 9219779728) 326 mg/dL 70-110 H Lab Interpretation (test cod e = 26397-0) Abnormal [facility] GLUCOSE (AUTOMATED)2023-07-05 22:53:44* Test Item Value Reference Range Interpretation Comme [facility] POCT GLU (test code = 2951953118) 217 mg/dL 70-110 H Lab Interpretation (test cod e = 24816-0) Abnormal [facility] McKinneyGLYCOSYLATED HEMOGLOBIN (A1C)2023-07-05 22:37:43* Test Item Value Reference Range Interpretation Comme [facility] HGB A1C (test code = 4548-4) 11.5 % 4.0-5.7 H BERT (test code = BERT) Reference RangesNormal: <5.7%Prediabetes: 5.7 - 6.4%Diabetes: > 6.5% Lab Interpretation (test code = 78494-9) Abnormal [facility] GLUCOSE (AUTOMATED)2023-07-05 18:58:16* Test Item Value Reference Range Interpretation Comme [facility] POCT GLU (test code = 0413125509) 293 mg/dL 70-110 H Lab Interpretation (test cod e = 12209-4) Abnormal [facility] McKinneyC-REACTIVE [id number] 18:25:06* Test Item Value Reference Range Interpretation Comme [facility] CRP (test code = 3482318346) 28.4 mg/dL <=0.8 H Lab Interpretation (test cod e = 01722-6) Abnormal [facility] McKinneyHEPATITIS B SURFACE [id number] 16:11:09* Test Item Value Reference Range Interpretation Comme nts HBsAB (test code = 9222592606) Negative HBsAb Semi-Quantitative (test code = 4689714758) 0.00 mIU/mL BERT (test code = BERT) Interpretation: ?Hepatitis B Surface Antibody ? Negative - Patient is considered to be not immune to infection with HBV. ? ? Positive - Anti-HBs detected at greater than or equal to 12 mIU/mL. ?Patient is considered to be immune to infection with HBV. ? [facility] McKinneyCERULOPLASMIN2023-09-30 15:26:34* Test Item Value Reference Range Interpretation Comme nts CERULO (test code = 3437030208) 48 mg/dL 25-63 Lab Interpretation (test cod e = 76795-2) Normal [facility] GLUCOSE (AUTOMATED)2023-07-05 15:07:40* Test Item Value Reference Range Interpretation Comme [facility] POCT GLU (test code = 3087559733) 197 mg/dL 70-110 H Lab Interpretation (test cod e = 47115-1) Abnormal [facility] McKinneyAMMONIA, [id number] 14:54:04* Test Item Value Reference Range Interpretation Comme [facility] AMMONIA (test code = 3774265011) 17 umol/L 9-33 Lab Interpretation (test cod e = 52669-8) Normal [facility] McKinneyHAV ANTIBODY (IGG AND IGM)2023-07-05 12:14:23 * Test Item Value Reference Range Interpretation Comme [facility] HAV Total (test code = 9049573412) Positive HAVT Semi-Quantitative (test code = 5656850602) 0.05 BERT (test code = BERT) Indicates past or present infection with HAV or exposure to HAV due to vaccination. [facility] McKinneyHCV [id number] 10:27:25* Test Item Value Reference Range Interpretation Comme [facility] HCV Ab (test code = 62637-7) Negative HCV Semi-Quantitative (test code = 15996-9) 0.01 [facility] B CORE ANTIBODY [id number] 10:17:00* Test Item Value Reference Range Interpretation Comme [facility] HBCM Semi-Quantitative (test code = 63801-0) 0.05 BRET (test code = BERT) Biotin has been reported to cause a negative bias, interpret results relative to patient's use of biotin. [facility] B SURFACE [id number] 10:12:01 * Test Item Value Reference Range Interpretation Comme [facility] HBsAg Semi-Quantitative (beth t code = 5195-3) 0.14 Negative [facility] McKinneySEDIMENTATION [id number] 09:48:35* Test Item Value Reference Range Interpretation Comme [facility] ESR (test code = 54634-8) 77 See_Comment H [Automated messa ge] The system which generated this result transmitted reference range: 2 - 30 mm/HR. The reference range was not used to interpret this result as normal/abnormal. Lab Interpretation (test code = 99385-1) Abnormal [facility] McKinneyOSMOLALITY, SERUM OR [id number] 09:41:32 * Test Item Value Reference Range Interpretation Comme nts OSMOLALITY (test code = 2692-2) 272 See_Comment L [Automated [employer]] The system which generated this result transmitted reference range: 278 - 305 mOsm/kg. The reference range was not used to interpret this result as normal/abnormal. Lab Interpretation (test code = 00441-0) Abnormal [facility] METABOLIC PANEL (NA, K, CL, CO2, GLUCOSE, BUN, CREATININE, CA)2023-07-05 09:39:35* Test Item Value Reference Range Interpretation Comme nts NA (test code = 7929855061) 123 mmol/L 135-145 L K (test code = 4528910295) 3.9 mmol/L 3.5-5.0 CL (test code = 7436055555) 89 mmol/L 98-108 L CO2 TOTAL (test code = 5486400675) 25 mmol/L 23-31 AGAP (test code = 7656660837) 9 2-16 BUN (test code = 7628181631) 11 mg/dL 7-23 GLUCOSE (test code = 0217893658) 303 mg/dL 70-110 H CREATININE (test code = 8395702674) 0.51 mg/dL 0.50-1.04 CALCIUM (test code = 0748430754) 7.8 mg/dL 8.6-10.6 L eGFR (test code = 3825756829) 127.1 mL/min/1.73m2 BERT (test code = BERT) [...] imaging tests). Lab Interpretation (test code = 65397-5) [facility]64792[facility] (ALB,T.PRO,BILI T,BU/BC,ALT,AST,ALK PHOS)2023-07-05 09:39:35* Test Item Value Reference Range Interpretation Comme nts TOTAL BILI (test code = 1255007158) 0.7 mg/dL 0.1-1.1 BILI UNCON (test code = 2915286824) 0.3 mg/dL 0.1-1.1 BILI CONJ (test code = 7578327162) 0.0 mg/dL 0.0-0.3 T PROTEIN (test code = 4485026308) 5.2 g/dL 6.3-8.2 L ALBUMIN (test code = 1073288249) 2.8 g/dL 3.5-5.0 L ALK PHOS (test code = 6139274585) 112 U/L 34-122 ALTv (test code = 1742-6) 621 U/L 5-35 H AST(SGOT) (test code = 2382728574) 589 U/L 13-40 H Lab Interpretation (test cod e = 39684-9) [facility]normal [facility] (41433)(TOTAL CHOLESTEROL, TRIGLYCERIDES, HDL)2023-07-05 09:39:35* Test Item Value Reference Range Interpretation Comme nts CHOL (test code = 6718794849) 77 mg/dL 120-200 L HDL (test code = 0024026325) 16 mg/dL >=50 L HDLC RATIO (test code = 8613785239) 4.8 <=4.5 H TRIG (test code = 6517877803) 139 mg/dL 30-170 LDL CHOL (test code = 60885-7) 33 mg/dL <=160 VLDL (test code = 9974355660) 28 mg/dL 5-60 Lab Interpretation (test cod e = 90370-1) Abnormal [facility] WITH [id number] 09:37:54* Test Item Value Reference Range Interpretation Comme nts WBC (test code = 6690-2) 3.82 See_Comment L [Automated [employer]] The system which generated this result transmitted reference range: 4.30 - 11.10 10*3/?L. The reference range was not used to interpret this result as normal/abnormal. RBC (test code = 789-8) 4.26 See_Comment [Automated [employer]] The system which generated this result transmitted [...] 34.5 g/dL 31.6-35.1 RDW-SD (test code = 87284-6) 36.2 fL 39.0-49.9 L RDW-CV (test code = 788-0) 11.9 % 12.0-15.5 L PLT (test code = 777-3) 95 See_Comment L [Automated [employer]] The system which generated this result transmitted reference range: 166 - 358 10*3/?L. The reference range was not used to interpret this result as normal/abnormal. MPV (test code = 91832-5) 11.9 fL 9.5-12.9 IPF % (test code = 4345639932) 11.1 % 1.3-7.7 H Platelet count measured by fluorescence method. NRBC/100 WBC (test code = 8772142268) 0.0 See_Comment [Automated [employer] ssage] The system which generated this result transmitted reference range: 0.0 - 10.0 /100 WBCs. The reference range was not used to interpret this result as normal/abnormal. NRBC x10^3 (test code = 6164713112) See_Comment [Automated messa ge] The system which generated this result transmitted reference range: 10*3/?L. The reference range was not used to interpret this result as normal/abnormal. GRAN MAT (NEUT) % (test code = 770-8) 76.4 % IMM GRAN % (test code = 7303556863) 0.80 % LYMPH % (test code = 736-9) 16.0 % MONO % (test code = 5905-5) 6.8 % EOS % (test code = 713-8) 0.0 % BASO % (test code = 706-2) 0.0 % GRAN MAT x10^3(ANC) (test code = 5506449724) 2.92 10*3/uL 1.88-7.09 IMM GRAN x10^3 (test code = 2572498202) 0.03 10*3/uL 0.00-0.06 LYMPH x10^3 (test code = 731-0) 0.61 10*3/uL 1.32-3.29 L MONO x10^3 (test code = 742-7) 0.26 10*3/uL 0.33-0.92 L EOS x10^3 (test code = 711-2) 0.03-0.39 L BASO x10^3 (test code = 704-7) 0.01-0.07 BANDS (test code = 0762744429) Increased A REACT LYMPHS (test code = 6259988883) Rare Lab Interpretation (test code = 60092-5) [facility]normal [facility] / [id number] 09:04:11* Test Item Value Reference Range Interpretation [...] the indications. Lab Interpretation (test code = 44525-4) [facility]normal [facility] 21 + LACTIC [id number] 23:45:02* Test Item Value Reference Range Interpretation Comme nts PH (test code = 8643479330) 7.43 7.32-7.42 H PCO2 BAYLEE (test code = 5382632629) 43 See_Comment [Automated messa ge] The system which generated this result transmitted reference range: 41 - 51 mmHg. The reference range was not used to interpret this result as normal/abnormal. PO2 BAY[place]E (test code = 3146401147) 20 See_Comment L [Automated messa ge] The system which generated this result transmitted reference range: 25 - 40 mmHg. The reference range was not used to interpret this result as normal/abnormal. HCO3 B[place]E (test code = 8801272931) 28 See_Comment [Automated messa ge] The system which generated this result transmitted reference range: 24 - 28 mEq/L. The reference range was not used to interpret this result as normal/abnormal. AC VBE(BEAKER) (test code = 1193490803) 3.7 mEq/L THB BAY[place]E (test code = 9519859827) 14.7 g/dL 12.0-16.0 %O2HB B[place]E (test code = 1147053017) 37.8 % 52.0-63.0 L %COHB [place] (test code = 1889775788) 1.2 % 0.0-1.5 %METHB [place] (test code = 1669962127) 0.3 % 0.4-1.5 L VOL%O2 BAY[place]E (test code = 3233606607) 7.9 % 6.0-12.0 NA (test code = 9538384620) 126 mmol/L 135-145 L K+ (test code = 8985058096) 4.1 mmol/L 3.5-5.0 AC CA IONZ (test code = 5601404275) 4.60 mg/dL 4.50-5.30 GLUCOSE (test code = 5725768852) 316 mg/dL 70-110 H LACTIC ACID (test code = 4089428458) 1.56 mmol/L 0.50-2.20 Lab Interpretation (test code = 66552-1) [facility]normal [facility] (AUTOMATED)2023-07-04 23:03:32* Test Item Value Reference Range Interpretation Comme [facility] POCT GLU (test code = 4054183393) 295 mg/dL 70-110 H Lab Interpretation (test cod e = 55723-1) Abnormal [facility] [id number] 04:31:17* Test Item Value Reference Range Interpretation Comme [facility] HEMOGLOBIN A1c (test code = 77784) 10.0 % 4.2-5.6 H [employer] GUIDELINES FOR HGB A1C: [...] CONSIDER ALTERNATE TESTING OR LABORATORY CONSULTATION. LIPID [id number] 04:25:09* Test Item Value Reference Range Interpretation [...] SPECIMENS. FOR MOREINFORMATION, SEE CLIENT ANNOUNCEMENT AT [email or web address] RISK RATIO LDL/HDL (test code = 2238) 3.41 RATIO <3.22 H COMPREHENSIVE METABOLIC [id number] 04:25:09* Test Item Value Reference Range Interpretation Comme nts GLUCOSE (test code = 2217) 344 MG/DL 70-99 H BUN (test code = 2208) 14 MG/DL 6-20 CREATININE (test code = 2214) 0.63 MG/DL 0.60-1.30 eGFR (2020 CKD-EPI) (test code = 15833) 107 ML/MIN/1.73 >60 CALC BUN/CREAT (test code = 223) 22 RATIO 6-28 SODIUM (test code = 223) 135 MEQ/L 133-146 POTASSIUM (test code = 2228) 4.7 MEQ/L 3.5-5.4 CHLORIDE (test code = 2215) 97 MEQ/L 95-107 CARBON DIOXIDE (test code = 2206) 24 MEQ/L 19-31 CALCIUM (test code = 220) 9.7 MG/DL 8.5-10.5 PROTEIN, TOTAL (test code = 222) 6.8 G/DL 6.1-8.3 ALBUMIN (test code = 220) 4.4 G/DL 3.5-5.2 CALC GLOBULIN (test code [...] TESTING PERFORMED AT [facility] [address] [place] [address] INSTALLATION ENGINEER: JENA FAULKNER M.D. CLIA NUMBER [id number] [facility] [place]. [id number] COMPREHENSIVE METABOLIC [id number] 07:15:53* Test Item Value Reference Range Interpretation Comme nts GLUCOSE (test code = 2217) 251 MG/DL 70-99 H BUN (test code = 2208) 12 MG/DL 6-20 CREATININE (test code = 2214) 0.67 MG/DL 0.60-1.30 eGFR (2020 CKD-EPI) (test code = 98575) 106 ML/MIN/1.73 >60 CALC BUN/CREAT (test code = 2235) 18 RATIO 6-28 SODIUM (test code = 2231) 138 MEQ/L 133-146 POTASSIUM (test code = 2228) 4.5 MEQ/L 3.5-5.4 CHLORIDE (test code = 2215) 98 MEQ/L 95-107 CARBON DIOXIDE (test code = 2206) 26 MEQ/L 19-31 CALCIUM (test code = 220) 10.0 MG/DL 8.5-10.5 PROTEIN, TOTAL (test code = 2228) 7.0 G/DL 6.1-8.3 ALBUMIN (test code = 2200) 4.8 G/DL 3.5-5.2 CALC GLOBULIN (test code = 2240) 2.2 G/DL 1.9-3.7 CALC A/G RATIO (test code = 223) 2.2 RATIO 1.0-2.6 BILIRUBIN, TOTAL (test code = 2206) 0.6 MG/DL See_Comment [Automated me ssage] The system which generated this result transmitted reference range: <=1.2. The reference range was not used to interpret this result as normal/abnormal. ALKALINE PHOSPHATASE (test code = 2203) 111 U/L 40-130 AST (test code = 221) 18 U/L 9-40 ALT (test code = 2219) 26 U/L 5-40 LIPID [id number] 07:15:53* Test Item Value Reference Range Interpretation Comme nts CHOLESTEROL (test code = 2210) 193 MG/DL <200 TRIGLYCERIDES (test code = 2232) 129 MG/DL <150 HDL CHOLESTEROL (test code = 2220) 46 MG/DL >39 CALC LDL CHOL (test code = 223) 123 MG/DL <100 H NOTE: CALCULATED LDL IS BASED ON JASMEET-AVENDAÑO METHOD WHICHINCLUDES ADJUSTABLE TRIGLYCERIDE:VLDL CHOLESTEROL RATIO.THIS FACTOR VARIES BY MEASURED TRIGLYCERIDE AND NON-HDLCHOLESTEROL CONCENTRATIONS WITH INCREASED CALCULATED LDL SEENIN HIGHER TRIGLYCERIDE OR LOWER NON-HDL SPECIMENS. FOR MOREINFORMATION, SEE CLIENT ANNOUNCEMENT AT [email or web address] /[email or web address] RISK RATIO LDL/HDL (test code = 223) 2.67 RATIO <3.22 [facility] has i mportant pathology staff changes effective 12/04/2022. New pathology staff will provide uninterrupted, excellent patient care and clinical consultation. See URL: [email or web address]. UNLESS OTHERWISE INDICATED, ALL TESTING PERFORMED AT [facility] [address] [facility] [place] [address] INSTALLATION ENGINEER: JENA FAULKNER M.D. [place] NUMBER [id number] [facility] [place]. [id number] HEMOGLOBIN [id number] 04:45:19* Test Item Value Reference Range Interpretation Comme nts HEMOGLOBIN A1c (test code = 08779) 9.7 % 4.2-5.6 H [employer] GUIDELINES FOR HGB A1C: [...] ALTERNATE TESTING OR LABORATORY CONSULTATION. COMPREHENSIVE METABOLIC [id number] 06:57:12* Test Item Value Reference Range Interpretation Comme nts GLUCOSE (test code = 2217) 229 MG/DL 70-99 H BUN (test code = 2208) 12 MG/DL 6-20 CREATININE (test code = 2214) 0.65 MG/DL 0.60-1.30 eGFR (2020 CKD-EPI) (test code = 92826) 107 ML/MIN/1.73 >60 CALC BUN/CREAT (test code = 2235) 18 RATIO 6-28 SODIUM (test code = 2231) 141 MEQ/L 133-146 POTASSIUM (test code = 2228) 4.5 MEQ/L 3.5-5.4 CHLORIDE (test code = 2215) 100 MEQ/L 95-107 CARBON DIOXIDE (test code = 2206) 26 MEQ/L 19-31 CALCIUM (test code = 2209) 9.6 MG/DL 8.5-10.5 PROTEIN, TOTAL (test code = 2229) 7.1 G/DL 6.1-8.3 ALBUMIN (test code = [...] code = 2219) 23 U/L 5-40 LIPID [id number] 06:57:12* Test Item Value Reference Range Interpretation [...] SPECIMENS. FOR MOREINFORMATION, SEE CLIENT ANNOUNCEMENT AT [email or web address] RISK RATIO LDL/HDL (test code = 2238) 2.91 RATIO <3.22 HEMOGLOBIN [id number] 06:50:25* Test Item Value Reference Range Interpretation Comme nts HEMOGLOBIN A1c (test code = 33963) 9.5 % 4.2-5.6 H [employer] GUIDELINES FOR HGB A1C: [...] CONSULTATION. UNLESS OTHERWISE INDICATED, ALL TESTING PERFORMED [facility] [address] [place] [address] INSTALLATION ENGINEER: CATHERINE MOLINA M.D. CLIA NUMBER [id number] [facility] [place]. [id number] HEMOGLOBIN [id number] 04:18:05* Test Item Value Reference Range Interpretation Comme nts HEMOGLOBIN A1c (test code = 73977) 11.3 % 4.2-5.6 H [employer] GUIDELINES FOR HGB A1C: [...] TESTING OR LABORATORY CONSULTATION. ALBUMIN/CREATININE RATIO, URINE, [id number] 04:17:19* Test Item Value Reference Range Interpretation Comme nts CREATININE, URINE, RANDOM (test code = 2072) 85.2 MG/DL NOT ESTAB ALBUMIN, URINE, RANDOM (test code = 38113) 0.3 MG/DL NOT ESTAB CALC ALBUMIN/CREAT, RND (test code = 18987) 4 MG/G <30 Note: Albumin/Creatinine ratio reference interval reflects ADA and NKF guidelines. COMPREHENSIVE METABOLIC [id number] 04:11:01* Test Item Value Reference Range Interpretation Comme nts GLUCOSE (test code = 2217) 299 MG/DL 70-99 H BUN (test code = 8) 17 MG/DL 6-20 CREATININE (test code = 2214) 0.61 MG/DL 0.60-1.30 eGFR (2020 CKD-EPI) (test code = 71985) 109 ML/MIN/1.73 >60 CALC BUN/CREAT (test code = 2235) 28 RATIO 6-28 SODIUM (test code = 2231) 135 MEQ/L 133-146 POTASSIUM (test code = 2228) 4.8 MEQ/L 3.5-5.4 CHLORIDE (test code = 2215) 96 MEQ/L 95-107 CARBON DIOXIDE (test code = 2206) 25 MEQ/L 19-31 CALCIUM (test code = 2209) 9.9 MG/DL 8.5-10.5 PROTEIN, TOTAL (test code = 2228) 6.9 G/DL 6.1-8.3 ALBUMIN (test code = 2200) 4.5 G/DL 3.5-5.2 CALC GLOBULIN (test code = 2240) 2.4 G/DL 1.9-3.7 CALC A/G RATIO (test code = 2234) 1.9 RATIO 1.0-2.6 BILIRUBIN, TOTAL (test code = 2207) 0.6 MG/DL See_Comment [Automated me ssage] The system which generated this result transmitted reference range: <=1.2. The reference range was not used to interpret this result as normal/abnormal. ALKALINE PHOSPHATASE (test code = 4) 130 U/L 40-128 H AST (test code = 2218) 14 U/L 9-40 ALT (test code = 2219) 22 U/L 5-40 LIPID [id number] 04:11:01* Test Item Value Reference Range Interpretation Comme nts CHOLESTEROL (test code = 2210) 195 MG/DL <200 TRIGLYCERIDES (test code = 2232) 127 MG/DL <150 HDL CHOLESTEROL (test code = 2220) 41 MG/DL >39 CALC LDL CHOL (test code = 2237) 130 MG/DL <100 H NOTE: CALCULATED LDL IS BASED ON JASMEET-AVENDAÑO METHOD WHICHINCLUDES ADJUSTABLE TRIGLYCERIDE:VLDL CHOLESTEROL RATIO.THIS FACTOR VARIES BY MEASURED TRIGLYCERIDE AND NON-HDLCHOLESTEROL CONCENTRATIONS WITH INCREASED CALCULATED LDL SEENIN HIGHER TRIGLYCERIDE OR LOWER NON-HDL SPECIMENS. FOR MOREINFORMATION, SEE CLIENT ANNOUNCEMENT AT [email or web address] RISK RATIO LDL/HDL (test code = 2238) 3.17 RATIO <3.22 UNLESS OTHERW ISE INDICATED, ALL TESTING PERFORMED [facility] [address] [place] [address] INSTALLATION ENGINEER: CATHERINE MOLINA M.D. CLIA NUMBER [id number] [facility] [place]. [id number] MICROALBUMIN/CREATININE, RANDOM AND [id number] 00:00:00* Test Item Value Reference Range Interpretation Comme nts CREATININE, URINE, RANDOM (t est code = 2072) 85.2 MG/DL ALBUMIN, URINE, RANDOM (test code = 28016) 0.3 MG/DL CALC ALBUMIN/CREAT, RND (beth t code = 29366) 4 MG/G HEMOGLOBIN [id number] 00:00:00* Test Item Value Reference Range Interpretation Comme nts HEMOGLOBIN A1c (test code = 63384) 11.3 % COMPREHENSIVE METABOLIC [id number] 00:00:00* Test Item Value Reference Range Interpretation Comme nts GLUCOSE (test code = 2217) 299 MG/DL BUN (test code = 2208) 17 MG/DL CREATININE (test code = 2214) 0.61 MG/DL eGFR (2020 CKD-EPI) (test code = 61072) 109 ML/MIN/1.73 CALC BUN/CREAT (test code = [...] (test code = 2219) 22 U/L LIPID [id number] 00:00:00* Test Item Value Reference Range Interpretation Comme nts CHOLESTEROL (test code = 2210) 195 MG/DL TRIGLYCERIDES (test code = 2232) 127 MG/DL HDL CHOLESTEROL (test code = 2220) 41 MG/DL CALC LDL CHOL (test code = 2237) 130 MG/DL RISK RATIO LDL/HDL (test cod e = 2238) 3.17 RATIO RSV BY [id number] 00:00:00* Test Item Value Reference Range Interpretation Comme nts RSV BY DFA (test code = 69333) Negative SOURCE (test code = 84075) Not Provided SARS-CoV-2 (COVID-19) by RT-PCR (HIGH RISK)2021-07-11 00:00:00* Test Item Value Reference Range Interpretation Comme nts SARS-CoV-2 INTERPRETATION (t est code = 16975) NEGATIVE SOURCE (test code = 80300) NOT SPECIFIED SARS-CoV-2 (COVID-19) by RT-PCR (HIGH RISK)2020-10-27 00:00:00* Test Item Value Reference Range Interpretation Comme nts SARS-CoV-2 INTERPRETATION (t est code = 13300) NEGATIVE SOURCE (test code = 16064) NOT SPECIFIED Notes Date/Time Note Provider Source 2024-11-11 09:11:59 Chief Complaint Patient presents with Diabetes 2 month f/u on DM Eva Mirza MA [facility] 2024-10-13 13:12:52 Chief Complaint Patient presents with Follow-up Psoriasis Rohini Cabello [facility] 2024-07-19 07:58:02 Chief Complaint Patient presents with Follow-up Follow up for DM Rosanna Dalal LVN [facility] 2024-07-13 14:02:57 Chief Complaint Patient presents with Psoriasis Rohini Cabello [facility] 2024-04-16 08:54:30 Chief Complaint Patient presents with Diabetes Blood Pressure [facility] 2024-04-07 13:16:45 Form printed marked as denied and faxed back to pharmacy. PT insurance requires her to use [facility]. Requested Prescriptions Pending Prescriptions Disp Refills secukinumab (COSENTYX PEN) 150 mg/mL SC injection 2 Pen 2 Sig: inject 2 Pens under the skin every 4 (four) weeks. Indications: plaque psoriasis There is no refill protocol information for this order Recent Visits Date Type Provider Dept 08/20/23 Nurse Visit Paramjit Derm Nurse Visit Jose Marr[facility] Showing recent visits within past 365 days and meeting all other requirements Future Appointments Date Type Provider Dept 04/28/24 Appointment Isabell Painter MD Dermatology [facility] Showing future appointments within next 365 days and meeting all other requirements Refill request denied. [facility] PT was asked to return to clinic in 3 months for a follow up and PT has not returned for that follow up. PT needs appointment. Note from [facility]: Assessment/Plan 1) Psoriasis: Follow-Up Assessment - chronic, improved but not at goal Date completed: 12/03/23 Diagnosis: plaque psoriasis, guttate psoriasis TBSA (0-100): 40% PGA (0-4): (Erythema: 2+ Induration: 3 + Scalin) ?3 = 2 Composite score: (TBSA: 40) ?(PGA: 2) = 80 ROS/PMH (+): psoriatic scalp lesions, nail dystrophy, enthesitis Current therapy: Cosentyx 300mg SQ every 4 weeks Response to therapy: significantly improved Failed/past therapies: Topical: topical corticosteroid (triamcinolone, lidex) and emollient/moisturizer Systemic: None Biologic: None Contraindications to therapy: None. No known history of MS, IBD or CHF Interventions: Continue Cosentyx 300mg SC every 4 weeks, refills sent to [facility] pharmacy Continue triamcinolone 0.1% ointment BID to affected areas, eRx sent Continue lidex 0.05% solution BID to scalp lesions , eRx sent Annual TB test (QFT-Gold) QFT Gold Plus Result (no units) Date Value 07/06/2023 Negative Labs reviewed: CBC, CMP (AST slight elevated at 74), HBsAb, HBsAg, HBcAb, HIV Ab, HCV Ab, QFT-Gold negative Labs ordered today: CBC, CMP 2) Pemphigus foliaceous? - Etiology and treatment options discussed - Labs reviewed: [facility] pemphigus panel (+IgG 1:40, monkey esophagus,+IgG desmoglein 1: 37u/ml, - IgG desmoglein 3) - Discussed lesions seen today are more consistent with psoriasis and P. Foliaceous might be an incidental finding. However, given this diagnosis was considered in the differential based on the clinical findings of the original lesions on 07/06/23, will continue to monitor and can consider repeating titers in the future. RTC 3 months Hellen Mendoza MD PGY-3 [facility] Dermatology Ann Castañeda LVN 04/07/2024 1:18 PM [facility] Dermatology [facility] 2024-04-07 13:14:23 Images from the original note were not included. [facility] 2023-12-24 15:24:06 Spoke with patient's daughter and informed her that the prior authorization has been completed and approved for the Cosentyx. New prescription has been e-scribed to [facility] and now patient can contact the pharmacy and arrange delivery of the medication. Patient's daughter gave verbal understanding Martha Waller [facility] 2023-12-24 15:22:32 Routing to [facility] as patient is returning phone call Gaviota Hamm MA [facility] 2023-12-24 15:22:25 Spoke with patient's daughter and informed her that the prior authorization has been completed and approved for the Cosentyx. New prescription has been e-scribed to [facility] and now patient can contact the pharmacy and arrange delivery of the medication. Patient's daughter gave verbal understanding Martha Waller [facility] 2023-12-24 14:55:[address] [facility] #[id number]. Topic: Clinical - Medical Advice >> Dec 24, 2023 2:54 PM Patient Design Engineering Intern wrote: Libia Morin is a 53 year old female Pts daughter calling back because she was told she needed to be with pt when she returned phone call and she is with pt now. Pt received a VM and is returning call. Please advise. Fatou Saucedo [facility] 2023-12-24 14:52:46 Libia Morin is a 53 year old female Pts daughter calling back with pt on the line to speak to Robert. Please advise. Fatou Saucedo [facility] 2023-12-24 14:30:31 Patients insurance requires them to go to [facility] 2023-12-24 11:47:17 Copied from CRM #[id number]. Topic: Clinical - Medical Advice >> Dec 24, 2023 11:46 AM Patient Design Engineering Intern wrote: Libia Morin is a 53 year old female Patient calling to get status of Rx Cosentyx Pen 150 mg/mL subcutaneous (secukinumab)Per patient she has contact pharmacy and she is currently due her shots. Please advise Karl Kate [facility] 2023-12-23 14:54:09 Images from the original note were not included. Pa was re approved: Robert Collins [facility] 2023-12-22 12:50:33 Nurse called and spoke with Pts daughter. [...] she would like to go back to [facility]. Nurse advise her that she would figure out what was going on and get with our pharmacy staff and give her a call back. Ann Castañeda LVN 12/22/2023 12:55 PM Ann Castañeda [facility] 2023-12-22 11:07:25 Copied from CRM #[id number]. Topic: Clinical - Medical Advice >> Dec 22, 2023 11:06 AM Patient Design Engineering Intern wrote: Libia Morin is a 53 year old female. Patient's daughter is calling requesting an update on RX Cosentyx pen due to not receiving any updates. Patient's daughter states patient was to receive her shot on 12/16. [facility] 2023-12-22 06:38:20 Libia Morin is a 53 year old female Please review and close encounter Thank you Rosemarie Kevin [facility] 2023-12-16 11:28:52 Copied from CRM #[id number]. Topic: Clinical - Medical Advice >> Dec 16, 2023 11:26 AM Patient Design Engineering Intern wrote: Libia Morin is a 53 year old female. Arabella from [facility] [employer] is calling stating patient needs a PA for RX secukinumab (COSENTYX PEN) 150 mg/mL SC injection. Patient is supposed to get injection tmr and arabella is requesting this is request be expedited. PA phone line : [phone] [facility] 2023-12-16 11:02:12 Libia Morin is a 53 year old female Pt is requesting status of auth for med refill for rx secukinumab (COSENTYX PEN) 150 mg/mL SC injection Pt can be reached at [phone] Thank you [facility] 2023-12-03 16:45:00 Images from the original note were not included. Venipuncture collection performed by clean technique on the left anticubitus. Total of 1 attempts were made. Slight pressure and a bandage/dressing were applied to the site(s). The patient experienced no complications. The following specimens were processed according to instructions and sent to [facility] laboratories LT BLUE Lt Green SST RED LAV 1 PPT DK GREEN (L) DK GREEN (S)/// Fibrosure set BLUE,SST & LAV NASSAR DK BLUE (K2) DK BLUE (S) ACD RST 1 BLOOD CULTURE SET BLOOD CULTURE (AFB AND FUNGUS ) VERIFYNOW Monogram TYPENEX (LAV TOP) ARM BAND ON PATIENT Z plasma preservative tube (call lab for tube)ARUP Vasoactive Intestinal Peptide (call lab for tube)ARUP FEDEX ( NIPT) URINE URINE CULTURE APTIMA URINE STOOL [facility] 2023-10-27 16:23:11 Requested Prescriptions Pending Prescriptions Disp Refills secukinumab (COSENTYX PEN) 150 mg/mL SC injection 2 Pen 2 Sig: inject 2 Pens under the skin every 4 (four) weeks. Indications: plaque psoriasis There is no refill protocol information for this order Recent Visits Date Type Provider Dept 08/20/23 Nurse Visit [facility] Showing recent visits within past 365 days and meeting all other requirements Future Appointments No visits were found meeting these conditions. Showing future appointments within next 365 days and meeting all other requirements Refill request denied. [facility] PT was asked to return to clinic in 3 months for follow up and PT has not returned to clinic for follow up. Note from MOIRA: 1) Psoriasis: Initial Assessment (chronic, flaring, not at goal) Date completed: 08/11/23 Diagnosis: plaque psoriasis, guttate psoriasis TBSA (0-100): 40% PGA (0-4): (Erythema: 4+ Induration: 3 + Scalin ) ?3 = 3.33 Composite score: (TBSA: 40) ?(PGA: 3.33) = 133.2 ROS/PMH (+): psoriatic scalp lesions, nail dystrophy Failed/past therapies: Topical: topical corticosteroid (triamcinolone, lidex) and emollient/moisturizer Systemic: None Biologic: None, will consult clinical pharmacist to see which biologic/systemic would be covered by her insurance Contraindications to therapy: None. No known history of MS, IBD or CHF Interventions: Continue triamcinolone 0.1% ointment BID to affected areas, eRx sent Continue lidex 0.05% solution BID to scalp lesions , eRx sent Consult clinical pharmacist to see which biologic/systemic would be covered by her insurance Annual TB test (QFT-Gold) QFT Gold Plus Result (no units) Date Value 07/06/2023 Negative Labs reviewed: CBC, CMP (AST slight elevated at 74), HBsAb, HBsAg, HBcAb, HIV Ab, HCV Ab, QFT-Gold Labs ordered today: None 2) Pemphigus foliaceous? - Etiology and treatment options discussed - Labs discussed today: [facility] pemphigus panel (+IgG 1:40, monkey esophagus,+IgG desmoglein 1: 37u/ml, - IgG desmoglein 3) - Discussed lesions seen today are more consistent with psoriasis and P. Foliaceous might be an incidental finding. However, given this diagnosis was considered in the differential based on the clinical findings of the original lesions on 07/06/23. Will monitor and can consider repeating titers in the future RTC 3 months Hellen Mendoza MD PGY-3 [facility] Dermatology Ann Castañeda LVN 10/27/2023 4:23 PM CIATE PROFESSOR OF PHILOSOPHY Ann Castañeda [facility] - Health 2023-10-27 16:08:33 Libia Morin is a 53 year old female. Patient's daughter is calling stating patient needs a refill on RX secukinumab (COSENTYX PEN) 150 mg/mL SC injection . Patient is to take last dose on 11/18. [facility] - [address] [place] [address] Please advise S Maldonado [facility]
--- NOTE | 2024-12-09 23:41 | EDPHYS ---
Physician Documentation [facility] Name: Libia Morin Age: 54 yrs Sex: Female : 1970 Arrival Date: 12/09/2024 Time: 22:28 Bed 12 Private MD: ED Physician Mat Moy HPI: 12/09 23:43 This 54 yrs old Female presents to ER via Unassigned with complaints of Rash. sb4 23:43 The patient's rash thought to be caused by Psoriasis. The rash is located on the body sb4 diffusely. The rash can be described as plaque-like, raised. Patient reports history of psoriasis, used to be on routine injections but has not for over a year because of insurance reasons. She is waiting for her insurance to kick back in to follow-up with dermatology but states that her psoriasis has gotten really bad over the past few days. She states that she scratched a lesion and it was bleeding. She reports of burning sensation with it. Historical: ROS: 23:43 Constitutional: Negative for fever, chills, and weight loss, sb4 23:43 Skin: Positive for rash, diffusely, 23:43 All other systems are negative, Exam: 23:43 Constitutional: This is a well developed, well nourished patient who is awake, alert, sb4 and in no acute distress. Head/Face: Normocephalic, atraumatic. Eyes: Extra-ocular motions intact. Periorbital areas with no swelling, redness, or edema. ENT: Mucous membranes moist. Respiratory: No increased work of breathing, no retractions or nasal flaring. 23:43 Skin: psoriasis, on the back, abdomen and left leg, Vital Signs: 23:45 BP 180 / 123; Pulse 88; Resp 18 S; Temp 97.2; Pulse Ox 100% on R/A; Weight 95.25 kg; br2 Height 5 ft. 3 in. ; Pain 0/10; 12/10 00:10 BP 174 / 110; Pulse 80; Resp 18; Temp 97.1(TE); Pulse Ox 100% on R/A; Pain 0/10; br2 12/09 23:45 Body Mass Index 37.20 (95.25 kg, 160.02 cm) br2 12/09 23:45 Pain Scale: Adult br2 12/10 00:10 Pain Scale: Adult br2 MDM: 12/09 23:01 Medical Screening Exam initiated sb4 23:44 Data reviewed: vital signs, nurses notes, and as a result, I will discharge patient. 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 Administered Medications: 23:51 Drug: MethylPREDNISolone Sodium Succinate IM 80 mg IM once Route: IM; Site: right br2 gluteus; 12/10 00:10 Follow up: Response: Medication administered at discharge. br2 Disposition: 21:28 Co-signature as Attending Physician, Mat Moy MD I agree with the assessment sp4 and plan of care. I reviewed the patient's care provided by the Advanced Practice Provider and agree with the diagnosis and treatment plan. Disposition Summary: 12/09/24 23:41 Discharge Ordered Notes: Location: Home sb4 Problem: new sb4 Symptoms: have improved sb4 Condition: Stable sb4 Diagnosis - Psoriasis, unspecified sb4 Followup: sb4 - With: Private Physician - When: 1 week - Reason: Recheck today's complaints, Re-evaluation by your physician Discharge Instructions: - Discharge Summary Sheet sb4 - Psoriasis, [id number] sb4 Forms: - Patient Portal Instructions sb4 - Leadership Thank You Letter sb4 Prescriptions: - Prednisone 20 mg Oral Tablet - take 2 tablets ORAL route once daily for 5 days; 10 tablet; Refills: 0, Product sb4 Selection Permitted Signatures: Natalie Mcdaniel PA-C PA-C sb4 Mat Moy MD MD sp4 Alyson Cabezas RN RN br2 Corrections: (The following items were deleted from the chart) 04:19 04:18 Allergies: No Known Allergies; br2 br2 04:19 04:18 Immunization history: Adult Immunizations up to date, br2 br2
[2024-12-09] MEDS ORDERED: METHYLPREDNISOLONE 125 MG INJ ONE (23:48)
--- NOTE | 2024-12-10 00:11 | ER ---
Nurse's Notes [facility] Name: Libia Morin Age: 54 yrs Sex: Female : 1970 Arrival Date: 12/09/2024 Time: 22:28 Bed 12 Private MD: Diagnosis: Psoriasis, unspecified Presentation: 12/09 23:45 Chief complaint: Patient states: PT HASN'T HAD MEDS FOR PSORIASIS FOR A WHILE AND IS br2 HAVING OUTBREAK ALL OVER ABDOMEN AND BACK, ITCHING AND BURNING. Coronavirus screen: Client denies travel out of the [place] in the last 14 days. Ebola Screen: Patient denies exposure to infectious person. Initial Sepsis Screen: Does the patient meet any 2 criteria? No. Patient's initial sepsis screen is negative. Does the patient have a suspected source of infection? No. Patient's initial sepsis screen is negative. Risk Assessment: Do you want to hurt yourself or someone else? Patient reports no desire to harm self or others. Onset of symptoms is unknown. 23:45 Method Of Arrival: Ambulatory br2 23:45 Acuity: RUDDY 4 br2 Triage Assessment: 23:45 General: Appears uncomfortable, Behavior is calm, cooperative. Pain: Denies pain. Derm: br2 Skin is intact, Skin is dry, Skin is red, Rash noted that is raised, Reports burning, itching. Historical: Screenin:43 [facility] ED Fall Risk Assessment (Adult) History of falling in the last 3 months, br2 including since admission No falls in past 3 months (0 pts) Confusion or Disorientation No (0 pts) Intoxicated or Sedated No (0 pts) Impaired Gait No (0 pts) Mobility Assist Device Used No (0 pt) Altered Elimination No (0 pt) Score/Fall Risk Level 0 - 2 = Low Risk Oriented to surroundings. Abuse screen: Denies threats or abuse. Denies injuries from another. Nutritional screening: No deficits noted. Tuberculosis screening: No symptoms or risk factors identified. Assessment: 23:45 Reassessment: SEE TRIAGE ASSESSMENT. br2 Vital Signs: 23:45 BP 180 / 123; Pulse 88; Resp 18 S; Temp 97.2; Pulse Ox 100% on R/A; Weight 95.25 kg; br2 Height 5 ft. 3 in. ; Pain 0/10; 12/10 00:10 BP 174 / 110; Pulse 80; Resp 18; Temp 97.1(TE); Pulse Ox 100% on R/A; Pain 0/10; br2 12/09 23:45 Body Mass Index 37.20 (95.25 kg, 160.02 cm) br2 12/09 23:45 Pain Scale: Adult br2 12/10 00:10 Pain Scale: Adult br2 ED Course: 12/09 22:29 Patient arrived in ED. im 22:33 Natalie Mcdaniel PA-C is PHCP. sb4 22:33 Mat Moy MD is Attending Physician. sb4 23:31 Alyson Cabezas, DESI is Primary Nurse. br2 23:43 Allergy band placed. Bed in low position. Call light in reach. Side rails up X 1. br2 Provided Education on: PLAN OF TREATMENT. 23:45 Arm band placed on right wrist. br2 12/10 00:10 No provider procedures requiring assistance completed. Patient did not have IV access br2 during this emergency room visit. 04:18 Triage completed. br2 Administered Medications: 12/09 23:51 Drug: MethylPREDNISolone Sodium Succinate IM 80 mg IM once Route: IM; Site: right br2 gluteus; 12/10 00:10 Follow up: Response: Medication administered at discharge. br2 Medication: 00:10 VIS not applicable for this client. br2 Outcome: 12/09 23:41 Discharge ordered by . sb4 12/10 00:10 Patient left the ED. br2 00:10 Discharged to home ambulatory, br2 00:10 Condition: good 00:10 Discharge instructions given to patient, Instructed on discharge instructions, follow up and referral plans. Demonstrated understanding of instructions, follow-up care, medications, Prescriptions given X 1, Signatures: Natalie Mcdaniel PA-C PA-C sb4 Celia Bryant im Alyson Cabezas, RN RN br2 Corrections: (The following items were deleted from the chart) 04:19 04:18 Allergies: No Known Allergies; br2 br2 04:19 04:18 Immunization history: Adult Immunizations up to date, br2 br2 04:21 04:20 Reassessment: SEE TRIAGE ASSESSMENT br2 br2
== END 2024-12-10 00:10 | disposition home or self-care (01) ==
LOC: ER 22:28
DX: L40.9 Psoriasis, unspecified (principal)
CPT/HCPCS: 96372; 99284; J2919